=== PATIENT | male | born 1950 | race Caucasian/White ===

== ENCOUNTER 2016-06-02 18:58 | Inpatient (IN) | payer MEDICARE, BC ==
[~2016-06-02] VITALS: Ht 177.8 cm; Wt 93.9 kg
[~2016-06-02 18:58] MED LIST: AMLO5TAB4 PO; ASPI-664 PO; CLON-379 PO; GLIP5TAB82 PO; METF-382 PO; METO-429 PO; OMEP20CA16 PO
[2016-06-02] MEDS ORDERED: hydrALAzine 20 MG INJ IV ONE (20:00)
[2016-06-02] MEDS ORDERED: ALBUTEROL 0.5% (NEB) 2.5 MG/0.5 ML AMP INH STA (20:18)
[2016-06-02 20:22] LABS: ALBUMIN 4.1 g/dl (3.3-4.9); POTASSIUM 3.5 mmol/L (3.5-5.1)
[2016-06-02 20:25] LABS: ALBUMIN/GLOBULIN RATIO 1.1; BILIRUBIN,INDIRECT 1.1 mg/dl (0-1.1); BILIRUBIN,TOTAL 1.1 mg/dl (0.2-1.3); TOTAL PROTEIN 7.8 g/dl (6.1-8.1)
[2016-06-02 20:26] LABS: CALCIUM 9.4 mg/dl (8.4-10.2)
[2016-06-02] MEDS ORDERED: FUROSEMIDE 40 MG INJ IV ONE (20:30)
[2016-06-02] MEDS ORDERED: NITROGLYCERIN 0.1 MG/HR PATCH TRANSDERM ONE (20:30)
[2016-06-02 20:37] LABS: TROPONIN-I 0.057 ng/ml (0.00-0.12)
[2016-06-02 20:46] LABS: BASOPHILS % 0.2 % (0.0-2.0); EOSINOPHILS # 0.1 10^3/ul (0.0-0.5); EOSINOPHILS % 1.5 % (0.0-7.0); HEMATOCRIT 49.5 % (42.0-52.0); HEMOGLOBIN 16.6 g/dl (14.0-18.0); LYMPHOCYTES % 13.4 % (15.0-51.0); MEAN CORPUSCULAR HEMOGLOBIN 29.9 pg (29.0-33.0); MEAN CORPUSCULAR HGB CONC 33.4 g/dl (32.0-37.0); MEAN CORPUSCULAR VOLUME 89.5 fl (82.0-101.0); MEAN PLATELET VOLUME 8.3 fl (7.4-10.4); MONOCYTE # 0.9 10^3/ul (0.3-0.9); NEUTROPHIL # 5.5 10^3/ul (1.6-7.5); NEUTROPHILS % 72.9 % (39.0-77.0); PLATELET COUNT 208 10^3/UL (140-440); RED BLOOD COUNT 5.53 10^6/ul (4.70-6.10); RED CELL DISTRIBUTION WIDTH 15.5 % (11.5-14.5); UNCORRECTED WBC 7.5 10^3/ul (4.8-10.8); WHITE BLOOD COUNT 7.5 10^3/ul (4.8-10.8)
[2016-06-02 20:52] LABS: CONDITION 1
[2016-06-02 20:53] LABS: LH ANALYZER COMMENTS 1
[2016-06-02 20:56] LABS: INR 1.07; PROTIME 13.9 Sec (12.2-14.2); PT RATIO 1.1
[2016-06-02 20:57] LABS: PARTIAL THROMBOPLASTIN TIME 30.1 Sec (25.0-35.0)
--- NOTE | 2016-06-02 23:09 | ERA ---
ER Documentation Chief Complaint Date/Time DATE: 06/02/16 TIME: 23:04 Chief Complaint hypertension hx-htn taking bp meds, c/o headache and swelling feet HPI This is a 66-year-old male with a known history of congestive heart failure and hypertension. The patient presents to the emergency department today complaining of a 3 day history of severe difficulty breathing and shortness of breath with exertion. The patient states he is unable to walk more than several feet before becoming short of breath. He has had swelling of his bilateral lower extremities. He does admit to alcohol use but has not consumed alcohol in the past 24 hours. The patient indicates he took his blood pressure at home and it was elevated with a systolic of greater than 200 despite him being compliant with his antihypertensive medications. He was complaining of a mild bandlike headache with no changes in vision. He states this is not the worst headache of his life. He denies any fevers shaking or chills. He denies any recent travel or prolonged immobilization and no calf tenderness ROS All systems reviewed and are negative except as per history of present illness. Medications Home Meds Reported Medications Clonidine Hcl* (Clonidine Hcl*) 0.1 Mg Tab, 0.1 MG PO Q8, TAB 05/04/16 Omeprazole* (Omeprazole*) 20 Mg Capsule.dr, 20 MG PO DAILY, #30 CAP 05/04/16 Aspirin* (Aspirin* EC) 81 Mg Tablet.dr, 81 MG PO DAILY, TAB 05/04/16 Amlodipine Besylate* (Norvasc*) 5 Mg Tablet, 5 MG PO DAILY, TAB 05/04/16 Metoprolol Tartrate* (Lopressor*) 50 Mg Tab, 50 MG PO BID, #60 TAB 05/04/16 Allergies Allergies: Coded Allergies: No Known Allergies (Verified Allergy, Unknown, 06/02/16) PMhx/Soc History of Surgery: Yes (Crainiotomy) Anesthesia Reaction: No Hx Neurological Disorder: Yes (Stroke, brain aneurysm) Hx Respiratory Disorders: No Hx Cardiac Disorders: Yes (CHF) Hx Psychiatric Problems: No Hx Miscellaneous Medical Probl: Yes (Hyperlipidemia) Hx Alcohol Use: Yes (OCCASIONALLY) Hx Substance Use: No Hx Tobacco Use: Yes Smoking Status: Never smoker Physical Exam Vitals Vital Signs Date Time Temp Pulse Resp B/P Pulse Ox O2 Delivery O2 Flow Rate FiO2 06/02/16 20:54 74 20 168/118 95 Room Air 06/02/16 20:46 90 34 95 21 06/02/16 19:07 98.3 90 20 206/113 98 Physical Exam Constitutional:Well-developed. Well-nourished. In severe respiratory distress HEENT:Normocephalic. Atraumatic.Pupils were equal round reactive to light. Moist mucous membranes.No tonsillar exudates. Neck: No nuchal rigidity. No lymphadenopathy. No posterior cervical spine tenderness or step-offs. Respiratory: Patient using accessory muscles of respiration. Bilateral rhonchi. No stridor. No wheezing on auscultation bilaterally. Cardiovascular: Regular rate regular rhythm.No murmurs. No rubs were appreciated.S1, S2 normal. Distal pulses are palpable 2+ bilaterally. GI: Abdomen was soft. Nontender. Non Distended. No pulsatile abdominal masses or bruits. No rebound. No guarding. Bowel sounds were present and normal. Muscle skeletal: Full range of motion of both the upper and lower extremities bilaterally.Normal muscle tone.No assymetrical calf tenderness or swelling. 2+ pitting edema of the bilateral lower extremities Skin: No petechia, no purpura. No lesions on the palms or the soles of the feet. No maculopapular rash. NEURO: Patient was alert, awake, orientated x3.No facial droop. Gait observed and normal with no ataxia.Speech had regular rate and rhythm. No focal neurological deficits. Result Diagram: 06/02/16203806/02/161999 Results 24 hrs Laboratory Tests Test 06/02/16 20:00 06/02/16 20:39 06/02/16 21:00 Activated Partial Thromboplast Time 30.1Sec Alanine Aminotransferase (ALT/SGPT) 13IU/L Albumin 4.1g/dl Albumin/Globulin Ratio 1.10 Alkaline Phosphatase 139IU/L Anion Gap 17 Aspartate Amino Transf (AST/SGOT) 17IU/L B-Type Natriuretic Peptide 92130UP/ML Blood Urea Nitrogen 9mg/dl Calcium Level 9.4mg/dl Carbon Dioxide Level 28mmol/L Chloride Level 103mmol/L Creatinine 1.00mg/dl Direct Bilirubin 0.00mg/dl Globulin 3.70g/dl Glucose Level 157mg/dl INR International Normalized Ratio 1.07 Indirect Bilirubin 1.1mg/dl Potassium Level 3.5mmol/L Prothrombin Time 13.9Sec Prothrombin Time Ratio 1.1 Sodium Level 144mmol/L Total Bilirubin 1.1mg/dl Total Protein 7.8g/dl Troponin I 0.057ng/ml Basophils # 0.010^3/ul Basophils % 0.2% Blood Morphology Comment Eosinophils # 0.110^3/ul Eosinophils % 1.5% Hematocrit 49.5% Hemoglobin 16.6g/dl Lymphocytes # 1.010^3/ul Lymphocytes % 13.4% Mean Corpuscular Hemoglobin 29.9pg Mean Corpuscular Hemoglobin Concent 33.4g/dl Mean Corpuscular Volume 89.5fl Mean Platelet Volume 8.3fl Monocytes # 0.910^3/ul Monocytes % 12.0% Neutrophils # 5.510^3/ul Neutrophils % 72.9% Nucleated Red Blood Cells # 0.010^3/ul Nucleated Red Blood Cells % 0.0/100WBC Platelet Count 48467^3/UL Red Blood Count 5.5310^6/ul Red Cell Distribution Width 15.5% White Blood Count 7.510^3/ul Ethyl Alcohol Level < 10.0mg/dl Current Medications Medications (Trade) Dose Ordered Sig/Tavon Route PRN Reason Start Time Stop Time Status Last Admin Dose Admin Hydralazine HCl (Apresoline) 10 mg ONCE ONCE IV 06/02/16 20:00 06/02/16 20:01 DC 06/02/16 20:37 Furosemide (Lasix) 40 mg ONCE ONCE IV 06/02/16 20:30 06/02/16 20:31 DC 06/02/16 20:31 Nitroglycerin (Nitroglycerin 0.1 Mg/Hr) 1 patch ONCE ONCE TRANSDERM 06/02/16 20:30 06/02/16 20:31 DC 06/02/16 20:50 Albuterol (Proventil 0.5% (Neb)) 10 mg ONCE STAT INH 06/02/16 20:18 06/02/16 20:20 DC 06/02/16 20:46 Procedures/MDM The patient presented to the emergency department with shortness of breath. My differential diagnosis included but was not limited to upper airway obstruction , CHF, pulmonary embolism, cardiac ischemia, pneumonia, pneumothorax, anemia, drug overdose, pulmonary edema, COPD or asthma. IV access was established by nursing staff. The patient was adamantly refusing a chest radiograph despite his physical exam findings this he states he has had multiple previous chest radiographs, most recently 1 month prior to arrival. 12 Lead EKG tracing ordered and reviewed by myself showed: Normal sinus rhythm of 79 bpm and no arrhythmia. NM interval prolonged with first-degree AV block at 368 ms. Left axis deviation. QRS duration normal. No ST segment elevation No ST segment depression. No changes consistent with acute ischemia. This patient also presented to the emergency department with severely elevated blood pressure. My differential diagnosis included but was not limited to conditions that could end-organ damage such as acute coronary syndrome, acute pulmonary edema, aortic dissection, subarachnoid hemorrhage, intracerebral hemorrhage, cerebral infarction, withdrawal syndromes from beta blockers, or states of catecholamine excess such as pheochromocytoma or drug intoxication. The patient had uncontrolled hypertensive with end-organ damage to suggest hypertensive emergency. The treatment goal was immediate reduction of the mean arterial blood pressure. This was done in a controlled, graded manor, using improvement of the patient's condition as a guide. The patients blood pressure reduction did not exceed more then a 20-25 percent reduction within the first 30 to 60 minutes. The patient was put on a cardiac cath lab technologist, continuous pulse oximetry, and IV access was established by nursing staff. The antihypertensive agent used was IV hydralazine and the patient also received intravenous Lasix nitroglycerin and nebulizer treatments to treat his congestive heart failure. His serum ethanol level was undetected but there is no signs of alcohol withdrawal at this time or impending delirium tremors The patient will be admitted under the care of Dr. Tran seen in serious condition with an anticipated stay of greater than 2 midnights to the telemetry service. Critical Care: Time: 60 minutes Treatments/Evaluations: Close monitoring and treatment of unstable vital signs, cardiorespiratory, and neurologic status, while maintaining tight balance of fluid, respiratory, and cardiac interventions. Departure Diagnosis: Primary Impression: Hypertensive emergency Additional Impression: Acute exacerbation of congestive heart failure Qualified Code: I50.9 - Acute on chronic congestive heart failure, unspecified congestive heart failure type Condition: Serious KIMI GILLIAM Jun 02, 2016 23:09
[2016-06-03] VITALS (8 sets, daily range): BP systolic 139–160; BP diastolic 84–101; PULSE 54–61; RESP 18–20; TEMP 98.8; Ht 177.8 cm; Wt 93.9 kg
[2016-06-03] MEDS ORDERED: ONDANSETRON 4 MG TAB PO PRN (02:00)
[2016-06-03] MEDS ORDERED: NACL 0.9% 3 ML SYG IV SCH (02:00)
[2016-06-03] MEDS ORDERED: NITROGLYCERIN (SL) 0.4 MG TAB SL PRN (02:00)
[2016-06-03] MEDS ORDERED: ZOLPIDEM 5 MG TAB PO PRN (02:00)
[2016-06-03] MEDS ORDERED: LORAZEPAM 2 MG INJ IV PRN (02:00)
[2016-06-03] MEDS ORDERED: ACETAMINOPHEN 325 MG TAB PO PRN (02:00)
[2016-06-03] MEDS ORDERED: DOCUSATE SODIUM 100 MG CAP PO PRN (02:00)
[2016-06-03] MEDS ORDERED: CLONIDINE 0.1 MG/24 HR PATCH TRANSDERM SCH (02:00)
--- NOTE | 2016-06-03 02:17 | HP ---
Date/Time of Note Date/Time of Note DATE: 06/03/16 TIME: 02:16 Assessment/Plan VTE Prophylaxis VTE Prophylaxis Intervention: ambulation, anti-embolic stocking, LMWH VTE Contraindication Reason: peripheral vascular disease Lines/Catheters IV Catheter Type (from Nrsg): Peripheral IV Central line still needed: No Urinary Cath still in place: Yes Reason Cath still needed: urinary retention Assessment/Plan Assessment/Plan 1. Chronic systolic and diastolic congestive heart failure with acute exacerbation . 2. Cardiomyopathy with ejection fraction of 30%. 3. Hypertensive urgency. 4. Diabetes mellitus type 2. 5. Coronary artery disease with history of myocardial infarction. 6. History of cerebrovascular accident, status post craniotomy. 7. Ongoing alcohol use WITH PERIPHERIC NEUROPATHY,ENCEPHALOPTHY AND EARLY CIRRHOSIS. 8.Major depression 9.BPH 10.Nicotine addiction 11.Noncompliance to medications 12.Memory impairment 13.Sever muscular weakness 14.S/P recurrent falls 15.DIZZINESS 16.Daytime sleepiness 17.Gastritis with MUKUND 18.Chronic hypokalemia, hypomagnesemia,low iron and low vit "D" levels 19.PTSD 20.Respiratory insufficiency 21.Hx of c02 retention 22.Anemia chronic disease HPI/ROS Admit Date/Time Admit Date/Time Worsening of sob and increased edema of both legs. Hx of Present Illness Unable to control drinking and water intake with the salt intake. ROS Subjective hx not possible: pt critical status Constitutional: diaphoresis, disoriented, fatigue, nausea, poor po, weight change, No chills, No febrile, No improved, No no complaints, No other Eyes: visual change, No discharge, No no complaints, No other, No pain, No redness ENT: congestion, sore throat, No bleeding, No discharge, No dysphagia, No no complaints, No other, No pain Respiratory: cough, pleuritic pain, shortness of breath, sputum, wheezing, No no complaints, No other, No pain Cardiovascular: chest pain, edema, lightheadedness, orthopenea, paroxysmal nocturnal dyspnea, No no complaints, No other, No palpitations Gastrointestinal: constipation, decreased appetite, diarrhea, nausea, pain, passing stool, vomiting, No blood, No flatus, No no complaints, No other Genitourinary: dysuria, flank pain, No bleeding, No discharge, No hematuria, No no complaints, No other Musculoskeletal: back pain, bone/joint pain, neck pain, restricted range of motion, swelling, No no complaints, No other Skin: bruising, erythema, pruritis, skin lesions, No laceration, No no complaints, No other, No rash Neurologic: confusion, dizziness, No focal-weakness, No headache, No no complaints, No other, No seizure, No syncope Endocrine: dry skin, temp intolerance, weight change, No no complaints, No other, No polydypsia, No polyuria Lymphatic: No adenopathy, No lymphadema, No no complaints, No other, No tender nodes Psychological: anxiety, depression PMH/Family/Social Past Medical History Medical History: angina, congestive heart failure, coronary artery disease, diabetes, diverticulitis, GERD, GI bleed, high cholesterol, hypertension, pancreatitis Past Surgical History Past Surgical Hx: other Family History Significant Family History: asthma, COPD, diabetes, renal disease Social History Alcohol Use: heavy Smoking Status: Never smoker Drug Use: none Exam/Review of Systems Vital Signs Vitals Vital Signs Date Time Temp Pulse Resp B/P Pulse Ox O2 Delivery O2 Flow Rate FiO2 06/03/16 01:28 90 14 168/109 98 Nasal Cannula 3.0 06/02/16 20:46 21 06/02/16 19:07 98.3 Exam Constitutional: well developed Psych: anxiety, No confusion, No depression, No nl mood/affect, No no complaints, No other, No suicidal Head: No atraumatic, No hematomas, No lacerations, No normocephalic, No other Eyes: EOMI, PERRL, nl lids, other, No fundi, disc, No icteric, No nl conjunctiva, No nl sclera ENMT: nl nasal mucosa & septum, tympanic membranes, No intubated, No mucosa pink and moist, No nl external ears & nose, No nl lips & teeth, No other Neck: bruits, jvd, nuchal rigidity, No masses, No non-tender, No other, No supple, No thyromegaly Respiratory: congested cough, crackles/rales, diminished breath sounds, wheezing, No clear to auscultation, No intercostal retraction, No labored breathing, No normal air movement, No other, No respirations, No tactile fremitus Cardiovascular: bruits, edema, nl pulses, regular rate and rhythm, rub, systolic murmur, No S3, No S4, No diastolic murmur, No gallop, No irregular rhythm, No jugular venous distention (JVD), No murmurs/extra sounds, No other Gastrointestinal: ascites, distended, No bowel sounds, No firm, No hepatomegaly, No mass, No nl liver, spleen, No non-tender, No other, No rebound or guarding, No soft, No splenomegaly, No surgical scars, No tender Genitourinary - Male: CVA tenderness, No discharge, No nl penis, No nl scrotum , No other Genitourinary - Female: CVA tenderness, No CMT, No nl adnexae, No nl external genitalia, No other, No uterus Musculoskeletal: joint tenderness, muscle weakness Extremities: calf tenderness, normal pulses, pitting pedal edema, No clubbing, No cyanosis, No edema, No other, No palpable cord, No tenderness Neurological: FLOSSER II-XII intact, DTR's symmetric, confused, nl speech, numbness , unresponsive, No focal weakness, No lethargic, No nl mental status, No nl strength, No other, No reflexes Skin: diaphoresis, ecchymosis, rash or lesions, No laceration, No nl turgor, No other, No puncture Lymph: nl lymph nodes Labs Result Diagram: 06/02/16203806/02/161999 Medications Medications Current Medications Clonidine HCl (Catapres-Tts 1 Patch) 1 patch Th@02 TRANSDERM ; Start 06/03/16 at 02:00 Metoprolol Tartrate (Lopressor) 50 mg BID PO ; Start 06/03/16 at 02:00 ERIC GILLESPIE MD Jun 03, 2016 02:17
[2016-06-03] MEDS ORDERED: BUMETANIDE 1 MG INJ IV ONE (02:30)
[2016-06-03] MEDS ORDERED: GLUCOSE GEL 15 GRAM TUBE PO PRN ×2 (02:45)
[2016-06-03] MEDS ORDERED: DEXTROSE 50% 50 ML SYRINGE IV PRN ×2 (02:45)
[2016-06-03] MEDS ORDERED: GLUCOSE GEL 15 GRAM TUBE BUCCAL PRN (02:45)
[2016-06-03] MEDS ORDERED: GLUCAGON 1 MG INJ IM PRN (02:45)
[2016-06-03] MEDS: METOPROLOL 50 MG TAB PO SCH ×3 (03:28→23:17)
[2016-06-03] MEDS: AZITHROMYCIN 500MG/NS (PMX) 250 ML IV SCH (03:41)
[2016-06-03] MEDS: 1/2 NS + KCL 20 MEQ 1,000 ML IV SCH ×2 (03:41→18:14)
[2016-06-03] MEDS: ALBUTEROL/IPRATROPIUM (NEB) 3 ML AMP HHN SCH ×5 (04:53→20:33)
[2016-06-03] MEDS: IPRATROPIUM (NEB) 0.5 MG/2.5 ML AMP NEB SCH ×5 (04:53→21:00)
[2016-06-03 06:26] LABS: BASOPHILS % 0.5 % (0.0-2.0); EOSINOPHILS % 0.5 % (0.0-7.0); HEMATOCRIT 47.5 % (42.0-52.0); HEMOGLOBIN 16.2 g/dl (14.0-18.0); LYMPHOCYTES # 0.9 10^3/ul (0.8-2.9); LYMPHOCYTES % 9.8 % (15.0-51.0); MEAN CORPUSCULAR HEMOGLOBIN 29.9 pg (29.0-33.0); MEAN PLATELET VOLUME 8.5 fl (7.4-10.4); MONOCYTE # 0.8 10^3/ul (0.3-0.9); MONOCYTES % 8.7 % (0.0-11.0); NEUTROPHIL # 7.1 10^3/ul (1.6-7.5); NEUTROPHILS % 80.5 % (39.0-77.0); PLATELET COUNT 193 10^3/UL (140-440); RED CELL DISTRIBUTION WIDTH 15.4 % (11.5-14.5); UNCORRECTED WBC 8.9 10^3/ul (4.8-10.8); WHITE BLOOD COUNT 8.9 10^3/ul (4.8-10.8)
[2016-06-03] MEDS: PANTOPRAZOLE (EC) 40 MG TAB PO SCH (06:41)
[2016-06-03 06:44] LABS: CONDITION 1; LH ANALYZER COMMENTS 1
[2016-06-03 06:53] LABS: D-DIMER 583.91 ng/ml (<460)
[2016-06-03] MEDS ORDERED: NICOTINE (14 MG/24 HR) PATCH TRANSDERM SCH (09:00)
[2016-06-03] MEDS: ENOXAPARIN 30 MG/0.3 ML SYG SC SCH ×2 (09:00→09:13)
[2016-06-03] MEDS: VALSARTAN 80 MG TAB PO SCH (09:07)
[2016-06-03] MEDS: SPIRONOLACTONE 25 MG TAB PO SCH (09:07)
[2016-06-03] MEDS: ENALAPRIL 2.5 MG TAB PO SCH ×2 (09:07→21:01)
[2016-06-03] MEDS: METOLAZONE 2.5 MG TAB PO SCH (09:08)
[2016-06-03] MEDS: BUPROPION (SR) 150 MG TAB PO SCH (09:08)
[2016-06-03] MEDS: AL HYDROX/MG HYDROX/SIMETH 30 ML CUP PO SCH ×4 (09:12→21:01)
[2016-06-03] MEDS: ASPIRIN 81 MG TAB PO SCH (09:12)
[2016-06-03] MEDS: ARTIFICIAL TEARS 15 ML OPH BOTH EYES SCH ×3 (09:44→21:01)
--- NOTE | 2016-06-03 11:12 | PN ---
Date/Time of Note Date/Time of Note DATE: 06/03/16 TIME: 11:11 Assessment/Plan VTE Prophylaxis VTE Prophylaxis Intervention: ambulation, anti-embolic stocking VTE Contraindication Reason: peripheral vascular disease Lines/Catheters IV Catheter Type (from Nrsg): Peripheral IV Central line still needed: No Urinary Cath still in place: Yes Reason Cath still needed: urinary retention Assessment/Plan Assessment/Plan 1. No acute intracranial hemorrhage or acute territorial infarct. 2. As before there is right suboccipital craniectomy with encephalomalacia and atrophy of the right cerebellum. Again noted is CSF collection in this region which is decreased from the prior examination. 3. 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 4. Age related atrophy and mild small vessel ischemic change. 5. No interval change from the prior study Dysphagia Subjective 24 Hr Interval Summary Free Text/Dictation SOB getting better. When I eat or take my meds i feel they stay sometime in the throat and upper sternal level. No regurgitation. Constitutional: diaphoresis, disoriented, poor po, requiring O2, No chills, No febrile, No improved, No no complaints, No other, No requiring IVF Eyes: discharge, No no complaints, No other, No pain, No redness, No visual change ENT: congestion, dysphagia, sore throat, No bleeding, No discharge, No no complaints, No other, No pain Respiratory: cough, shortness of breath, No no complaints, No other, No pain, No pleuritic pain, No sputum, No wheezing Cardiovascular: edema, lightheadedness, orthopenea, palpitations, paroxysmal nocturnal dyspnea, No chest pain, No no complaints, No other Gastrointestinal: constipation, flatus, passing stool, No blood, No decreased appetite, No diarrhea, No nausea, No no complaints, No other, No pain, No vomiting Genitourinary: dysuria, flank pain, No bleeding, No discharge, No hematuria, No no complaints, No other Musculoskeletal: back pain, neck pain, No bone/joint pain, No no complaints, No other, No restricted range of motion , No swelling Skin: pruritis, No bruising, No erythema, No laceration, No no complaints, No other, No rash , No skin lesions Neurologic: confusion, dizziness, headache, No focal-weakness, No no complaints, No other, No seizure, No syncope Psychological: anxiety, confusion, depression, other (forgetful.) Exam/Review of Systems Vital Signs Vitals Vital Signs Date Time Temp Pulse Resp B/P Pulse Ox O2 Delivery O2 Flow Rate FiO2 06/03/16 10:03 59 20 95 Nasal Cannula 3.0 06/03/16 09:52 98.8 162/99 06/02/16 20:46 21 Exam Constitutional: alert, frail, obese, oriented, well developed Psych: anxiety, confusion, No depression, No nl mood/affect, No no complaints, No other, No suicidal Eyes: EOMI, PERRL, nl lids, No fundi, disc, No icteric, No nl conjunctiva, No nl sclera, No other ENMT: No intubated, No mucosa pink and moist, No nl external ears & nose, No nl lips & teeth, No nl nasal mucosa & septum, No other, No tympanic membranes Neck: bruits, jvd, nuchal rigidity, other (scar intact.) Respiratory: congested cough, diminished breath sounds, labored breathing, respirations, No clear to auscultation, No crackles/rales, No intercostal retraction, No normal air movement, No other, No tactile fremitus, No wheezing Cardiovascular: bruits, jugular venous distention (JVD), No S3, No S4, No diastolic murmur, No edema, No gallop, No irregular rhythm, No murmurs/extra sounds, No nl pulses, No other, No regular rate and rhythm, No rub, No systolic murmur Gastrointestinal: ascites, bowel sounds, soft, No distended, No firm, No hepatomegaly, No mass, No nl liver, spleen, No non- tender, No other, No rebound or guarding, No splenomegaly, No surgical scars, No tender Genitourinary - Male: nl penis, No CVA tenderness, No discharge, No nl scrotum , No other Musculoskeletal: joint tenderness, muscle tone, muscle weakness, range of motion, No nl extremities to inspection, No nl gait and stance, No other, No spine non-tender, No swelling Neurological: RETAIL ANALYST II-XII intact (decreased hearing.), confused, numbness, No DTR's symmetric, No focal weakness, No lethargic, No nl mental status, No nl speech, No nl strength, No other, No reflexes, No unresponsive Results Result Diagram: 06/03/16 0540 06/02/161999 Results 24 hrs Laboratory Tests Test 06/02/16 20:00 06/02/16 20:39 06/02/16 21:00 06/03/16 05:40 Activated Partial Thromboplast Time 30.1 Alanine Aminotransferase (ALT/SGPT) 13 Albumin 4.1 Albumin/Globulin Ratio 1.10 Alkaline Phosphatase 139 H Anion Gap 17 H Aspartate Amino Transf (AST/SGOT) 17 B-Type Natriuretic Peptide 28939 H Blood Urea Nitrogen 9 Calcium Level 9.4 Carbon Dioxide Level 28 Chloride Level 103 Creatinine 1.00 Direct Bilirubin 0.00 Globulin 3.70 H Glucose Level 157 INR International Normalized Ratio 1.07 Indirect Bilirubin 1.1 Potassium Level 3.5 Prothrombin Time 13.9 Prothrombin Time Ratio 1.1 Sodium Level 144 Total Bilirubin 1.1 Total Protein 7.8 Troponin I 0.057 Basophils # 0.0 0.0 Basophils % 0.2 0.5 Blood Morphology Comment Eosinophils # 0.1 0.0 Eosinophils % 1.5 0.5 Hematocrit 49.5 47.5 Hemoglobin 16.6 16.2 Lymphocytes # 1.0 0.9 Lymphocytes % 13.4 L 9.8 L Mean Corpuscular Hemoglobin 29.9 29.9 Mean Corpuscular Hemoglobin Concent 33.4 34.0 Mean Corpuscular Volume 89.5 88.0 Mean Platelet Volume 8.3 8.5 Monocytes # 0.9 0.8 Monocytes % 12.0 H 8.7 Neutrophils # 5.5 7.1 Neutrophils % 72.9 80.5 H Nucleated Red Blood Cells # 0.0 0.0 Nucleated Red Blood Cells % 0.0 0.0 Platelet Count 208 193 Red Blood Count 5.53 5.40 Red Cell Distribution Width 15.5 H 15.4 H White Blood Count 7.5 8.9 Ethyl Alcohol Level < 10.0 D-Dimer 583.91 H D-Dimer Comment Lactate Dehydrogenase 655 H Medications Medications Current Medications Clonidine HCl (Catapres-Tts 1 Patch) 1 patch Th@02 TRANSDERM Last administered on 06/03/16 03:29; Admin Dose 1 PATCH; Start 06/03/16 at 02:00 Metoprolol Tartrate 50 mg 50 mg BID PO Last administered on 06/03/16 09:12; Admin Dose 50 MG; Start 06/03/16 at 02:00 Potassium Chloride/Sodium Chloride (1/2 NS + KCl 20 Meq) 1,000 ml @ 60 mls/hr [id number] IV Last administered on 06/03/16 03:41; Admin Dose 60 MLS/HR; Start at 01:45; Stop 06/04/16 at 08:00 Lorazepam (Ativan) 0.5 mg Q6H PRN IV ANXIETY; Start 06/03/16 at 02:00 Ondansetron HCl (Zofran Tab) 4 mg Q6H PRN PO NAUSEA AND/OR VOMITING; Start 05/08 at 02:00 Aspirin (Aspirin) 81 mg DAILY PO Last administered on 06/03/16 09:12; Admin Dose 81 MG; Start 06/03/16 at 09:00 Metolazone (Zaroxolyn) 2.5 mg DAILY PO Last administered on 06/03/16 09:08; Admin Dose 2.5 MG; Start 06/03/16 at 09:00 Spironolactone (Aldactone) 12.5 mg DAILY PO Last administered on 06/03/16 09: 07; Admin Dose 12.5 MG; Start 06/03/16 at 09:00 Nitroglycerin (Nitroglycerin (Sl Tab) 0.4 Mg) 1 tab Q5M PRN SL CHEST PAIN; Start 06/03/16 at 02:00 Acetaminophen (Tylenol Tab) 650 mg Q6H PRN PO PAIN LEVEL 1-3 OR FEVER; Start at 02:00 Zolpidem Tartrate (Ambien) 5 mg QHS PRN PO INSOMNIA; Start 06/03/16 at 02:00 Docusate Sodium (Colace) 100 mg Q12H PRN PO CONSTIPATION; Start 06/03/16 at 02: 00 Magnesium Hydroxide (Milk Of Mag) 30 ml DAILY PRN PO CONSTIPATION; Start at 02:00 Pantoprazole (Protonix Tab) 40 mg DAILY@06 PO Last administered on 06/03/16 06 :41; Admin Dose 40 MG; Start 06/03/16 at 06:00 Eye Lubricant (Artificial Tears Oph) 1 drop TID BOTH EYES Last administered on 06/03/16 09:44; Admin Dose 1 DROP; Start 06/03/16 at 09:00 Enoxaparin Sodium 40 mg 40 mg DAILY SC ; Start 06/03/16 at 09:00 Azithromycin (Zithromax 500mg/ NS (Pmx)) 250 ml @ 250 mls/hr Q24H IV Last administered on 06/03/16 03:41; Admin Dose 250 MLS/HR; Start 06/03/16 at 03:00 Al Hydrox/Mg Hydrox/Simethicone (Mag-Al Plus) 30 ml QID PO Last administered on 06/03/16 09:12; Admin Dose 30 ML; Start 06/03/16 at 09:00 Enalapril Maleate (Vasotec) 2.5 mg BID PO Last administered on 06/03/16 09:07 ; Admin Dose 2.5 MG; Start 06/03/16 at 09:00 Valsartan (Diovan) 80 mg DAILY PO Last administered on 06/03/16 09:07; Admin Dose 80 MG; Start 06/03/16 at 09:00 Carvedilol (Coreg) 3.125 mg BID PO Last administered on 06/03/16 09:08; Admin Dose 3.125 MG; Start 06/03/16 at 09:00 Nicotine (Nicoderm 14 Mg/ 24hr) 1 patch DAILY TRANSDERM Last administered on 09:44; Admin Dose 1 PATCH; Start 06/03/16 at 09:00; Stop 06/17/16 at 08: 59 Bupropion HCl (Wellbutrin Sr) 150 mg DAILY PO Last administered on 06/03/16 09 :08; Admin Dose 150 MG; Start 06/03/16 at 09:00; Stop 06/06/16 at 08:59 Miscellaneous Information 1 ea NOTE XX ; Start 06/03/16 at 02:45 Glucose (Glutose) 15 gm Q15M PRN PO DECREASED GLUCOSE; Start 06/03/16 at 02:45 Glucose (Glutose) 22.5 gm Q15M PRN PO DECREASED GLUCOSE; Start 06/03/16 at 02: 45 Dextrose (D50w Syringe) 25 ml Q15M PRN IV DECREASED GLUCOSE; Start 06/03/16 at 02:45 Dextrose (D50w Syringe) 50 ml Q15M PRN IV DECREASED GLUCOSE; Start 06/03/16 at 02:45 Glucagon (Glucagen) 1 mg Q15M PRN IM DECREASED GLUCOSE; Start 06/03/16 at 02:45 Glucose (Glutose) 15 gm Q15M PRN BUCCAL DECREASED GLUCOSE; Start 06/03/16 at 02 :45 ERIC GILLESPIE MD Jun 03, 2016 11:12
[2016-06-03] MEDS: MAGNESIUM HYDROXIDE 30ML CUP PO PRN ×2 (12:15→12:29)
[2016-06-03] MEDS ORDERED: FUROSEMIDE 40 MG INJ IV ONE (12:30)
[2016-06-03 12:31] LABS: ALBUMIN 3.4 g/dl (3.3-4.9)
[2016-06-03 12:32] LABS: POTASSIUM 3.5 mmol/L (3.5-5.1)
[2016-06-03 12:34] LABS: ALBUMIN/GLOBULIN RATIO 1.09; BILIRUBIN,INDIRECT 1.6 mg/dl (0-1.1); BILIRUBIN,TOTAL 1.6 mg/dl (0.2-1.3); CREATININE 1.01 mg/dl (0.61-1.24); TOTAL PROTEIN 6.5 g/dl (6.1-8.1)
[2016-06-03 12:35] LABS: CALCIUM 8.7 mg/dl (8.4-10.2); MAGNESIUM 1.7 mg/dl (1.7-2.5)
[2016-06-03] MEDS: POTASSIUM CHLORIDE (SR) 20 MEQ TAB PO SCH (12:55)
[2016-06-03] MEDS: INSULIN ASPART [NOVOLOG] 3 ML PEN SC SCH ×2 (17:17→20:20)
[2016-06-04] VITALS (19 sets, daily range): BP systolic 129–158; BP diastolic 77–103; PULSE 30–102; RESP 16–20
[2016-06-04] MEDS: IPRATROPIUM (NEB) 0.5 MG/2.5 ML AMP NEB SCH ×6 (01:00→21:00)
[2016-06-04] MEDS: 1/2 NS + KCL 20 MEQ 1,000 ML IV SCH (01:03)
[2016-06-04] MEDS: ALBUTEROL/IPRATROPIUM (NEB) 3 ML AMP HHN SCH ×6 (01:36→20:07)
[2016-06-04] MEDS: ACCUCHECK XX SCH (02:00)
[2016-06-04] MEDS: AZITHROMYCIN 500MG/NS (PMX) 250 ML IV SCH (03:06)
[2016-06-04] MEDS: PANTOPRAZOLE (EC) 40 MG TAB PO SCH (06:02)
[2016-06-04] MEDS: BUPROPION (SR) 150 MG TAB PO SCH (08:56)
[2016-06-04] MEDS: ASPIRIN 81 MG TAB PO SCH (08:57)
[2016-06-04] MEDS: VALSARTAN 80 MG TAB PO SCH (08:57)
[2016-06-04] MEDS: ENALAPRIL 2.5 MG TAB PO SCH ×2 (08:57→20:33)
[2016-06-04] MEDS: POTASSIUM CHLORIDE (SR) 20 MEQ TAB PO SCH (08:57)
[2016-06-04] MEDS: SPIRONOLACTONE 25 MG TAB PO SCH (08:59)
[2016-06-04] MEDS: METOLAZONE 2.5 MG TAB PO SCH (08:59)
[2016-06-04] MEDS: AL HYDROX/MG HYDROX/SIMETH 30 ML CUP PO SCH ×4 (08:59→20:38)
[2016-06-04] MEDS: METOPROLOL 50 MG TAB PO SCH ×2 (08:59→21:00)
[2016-06-04] MEDS: ARTIFICIAL TEARS 15 ML OPH BOTH EYES SCH ×3 (09:00→20:32)
[2016-06-04] MEDS: ENOXAPARIN 40 MG/0.4 ML SYG SC SCH (09:00)
[2016-06-04] MEDS: INSULIN ASPART [NOVOLOG] 3 ML PEN SC SCH ×4 (09:03→20:37)
[2016-06-04 09:32] LABS: BARBITURATES Negative (NEGATIVE); BENZODIAZEPINES Negative (NEGATIVE); CANNABINOIDS Negative (NEGATIVE); COCAINE Negative (NEGATIVE); OPIATES Negative (NEGATIVE)
--- NOTE | 2016-06-04 10:00 | PDOCDIS ---
Discharge Instructions CONDITION Patient Condition: Fair HOME CARE INSTRUCTIONS: Special Diet: low fat/chol ACTIVITY: Activity Restrictions: Slowly Increase Activity Avoid heavy lifting Avoid Heavy Housework No Weight Bearing Bathing Restrictions: Tub Bath FOLLOW UP/APPOINTMENTS Appointments F/U to in 5 days. ERIC GILLESPIE MD Jun 04, 2016 10:00
--- NOTE | 2016-06-04 10:04 | DS ---
Date/Time of Note Date/Time of Note DATE: 06/04/16 TIME: 10:03 Discharge Summary Admission/Discharge Info Admit Date/Time Jun 03, 2016 at 01:31 Discharge Date/Time Final Diagnosis 1. Chronic systolic and diastolic congestive heart failure with acute exacerbation . 2. Cardiomyopathy with ejection fraction of 30%. 3. Hypertensive urgency. 4. Diabetes mellitus type 2. 5. Coronary artery disease with history of myocardial infarction. 6. History of cerebrovascular accident, status post craniotomy. 7. Ongoing alcohol use WITH PERIPHERIC NEUROPATHY,ENCEPHALOPTHY AND EARLY CIRRHOSIS. 8.Major depression 9.BPH 10.Nicotine addiction 11.Noncompliance to medications 12.Memory impairment 13.Sever muscular weakness 14.S/P recurrent falls 15.DIZZINESS 16.Daytime sleepiness 17.Gastritis with MUKUND 18.Chronic hypokalemia, hypomagnesemia,low iron and low vit "D" levels 19.PTSD 20.Respiratory insufficiency 21.Hx of c02 retention 22.Anemia chronic disease Patient Condition: Fair Hx of Present Illness Unable to control drinking and water intake with the salt intake. Hospital Course Developed hematuria with cloths of blood after pulling out Hooker.Improving. Home Meds Reported Medications Clonidine Hcl* (Clonidine Hcl*) 0.1 Mg Tab, 0.1 MG PO Q8, TAB 05/04/16 Omeprazole* (Omeprazole*) 20 Mg Capsule.dr, 20 MG PO DAILY, #30 CAP 05/04/16 Aspirin* (Aspirin* EC) 81 Mg Tablet.dr, 81 MG PO DAILY, TAB 05/04/16 Amlodipine Besylate* (Norvasc*) 5 Mg Tablet, 5 MG PO DAILY, TAB 05/04/16 Metoprolol Tartrate* (Lopressor*) 50 Mg Tab, 50 MG PO BID, #60 TAB 05/04/16 Follow-up Plan F/U to in 5 days. Pending Labs Laboratory Tests Test 06/03/16 12:05 06/03/16 16:50 06/03/16 19:59 06/04/16 05:00 Alanine Aminotransferase (ALT/SGPT) 15IU/L (13-69) Albumin 3.4g/dl (3.3-4.9) Albumin/Globulin Ratio 1.09 Alkaline Phosphatase 116IU/L (42-121) Anion Gap 17 (8-16) Aspartate Amino Transf (AST/SGOT) 14IU/L (15-46) Blood Urea Nitrogen 10mg/dl (7-20) Calcium Level 8.7mg/dl (8.4-10.2) Carbon Dioxide Level 27mmol/L (21-31) Chloride Level 103mmol/L (97-110) Creatinine 1.01mg/dl (0.61-1.24) Direct Bilirubin 0.00mg/dl (0.00-0.20) Globulin 3.10g/dl (1.3-3.2) Glucose Level 213mg/dl (70-220) Indirect Bilirubin 1.6mg/dl (0-1.1) Magnesium Level 1.7mg/dl (1.7-2.5) Potassium Level 3.5mmol/L (3.5-5.1) Sodium Level 143mmol/L (135-144) Total Bilirubin 1.6mg/dl (0.2-1.3) Total Protein 6.5g/dl (6.1-8.1) Bedside Glucose 205mg/dL (70-220) 165mg/dL (70-220) Urine Amphetamines Screen Negative (NEGATIVE) Urine Barbiturates Negative (NEGATIVE) Urine Benzodiazepines Screen Negative (NEGATIVE) Urine Cannabinoids Negative (NEGATIVE) Urine Cocaine Screen Negative (NEGATIVE) Urine Opiates Screen Negative (NEGATIVE) Test 06/04/16 07:45 Bedside Glucose 170mg/dL (70-220) Microbiology Date/Time Source Procedure Growth Status 06/03/16 18:32 Nares MRSA Screen - Preliminary Screening in process Resulted ERIC GILLESPIE MD Jun 04, 2016 10:04
[2016-06-04 16:50] LABS: BASOPHILS % 0.3 % (0.0-2.0); EOSINOPHILS # 0.2 10^3/ul (0.0-0.5); EOSINOPHILS % 2.1 % (0.0-7.0); HEMATOCRIT 48.5 % (42.0-52.0); HEMOGLOBIN 16.1 g/dl (14.0-18.0); LYMPHOCYTES # 0.9 10^3/ul (0.8-2.9); LYMPHOCYTES % 11.8 % (15.0-51.0); MEAN CORPUSCULAR HEMOGLOBIN 29.8 pg (29.0-33.0); MEAN CORPUSCULAR HGB CONC 33.2 g/dl (32.0-37.0); MEAN CORPUSCULAR VOLUME 89.8 fl (82.0-101.0); MEAN PLATELET VOLUME 8.8 fl (7.4-10.4); MONOCYTE # 0.7 10^3/ul (0.3-0.9); MONOCYTES % 8.4 % (0.0-11.0); NEUTROPHILS % 77.4 % (39.0-77.0); PLATELET COUNT 208 10^3/UL (140-440); RED CELL DISTRIBUTION WIDTH 15.2 % (11.5-14.5); UNCORRECTED WBC 7.8 10^3/ul (4.8-10.8); WHITE BLOOD COUNT 7.8 10^3/ul (4.8-10.8)
[2016-06-04 16:57] LABS: CONDITION 1; LH ANALYZER COMMENTS 1
[2016-06-04 17:09] LABS: ALBUMIN 3.5 g/dl (3.3-4.9)
[2016-06-04 17:10] LABS: POTASSIUM 3.7 mmol/L (3.5-5.1)
[2016-06-04 17:12] LABS: ALBUMIN/GLOBULIN RATIO 1.02; BILIRUBIN,INDIRECT 1.4 mg/dl (0-1.1); BILIRUBIN,TOTAL 1.4 mg/dl (0.2-1.3); CREATININE 1.2 mg/dl (0.61-1.24); TOTAL PROTEIN 6.9 g/dl (6.1-8.1)
[2016-06-04 17:13] LABS: CALCIUM 9.4 mg/dl (8.4-10.2); MAGNESIUM 2.2 mg/dl (1.7-2.5)
[2016-06-04 18:24] LABS: THYROID STIMULATING HORMONE 0.907 MIU/L (0.465-4.680)
[2016-06-05] VITALS (13 sets, daily range): BP systolic 138–157; BP diastolic 78–98; PULSE 40–61; RESP 18–20
[2016-06-05] MEDS: ALBUTEROL/IPRATROPIUM (NEB) 3 ML AMP HHN SCH ×7 (01:00→21:47)
[2016-06-05] MEDS: IPRATROPIUM (NEB) 0.5 MG/2.5 ML AMP NEB SCH ×8 (01:00→21:48)
[2016-06-05] MEDS: ACCUCHECK XX SCH (02:08)
[2016-06-05] MEDS: AZITHROMYCIN 500MG/NS (PMX) 250 ML IV SCH (02:08)
[2016-06-05] MEDS: PANTOPRAZOLE (EC) 40 MG TAB PO SCH (05:57)
[2016-06-05] MEDS: METOPROLOL 50 MG TAB PO SCH ×2 (08:19→21:00)
[2016-06-05] MEDS: ENALAPRIL 2.5 MG TAB PO SCH ×2 (08:20→21:00)
[2016-06-05] MEDS: ASPIRIN 81 MG TAB PO SCH (08:28)
[2016-06-05] MEDS: ARTIFICIAL TEARS 15 ML OPH BOTH EYES SCH ×3 (08:28→21:34)
[2016-06-05] MEDS: BUPROPION (SR) 150 MG TAB PO SCH (08:28)
[2016-06-05] MEDS: INSULIN ASPART [NOVOLOG] 3 ML PEN SC SCH ×4 (08:28→21:00)
[2016-06-05] MEDS: POTASSIUM CHLORIDE (SR) 20 MEQ TAB PO SCH (08:29)
[2016-06-05] MEDS: METOLAZONE 2.5 MG TAB PO SCH (08:29)
[2016-06-05] MEDS: AL HYDROX/MG HYDROX/SIMETH 30 ML CUP PO SCH ×4 (08:30→21:00)
[2016-06-05] MEDS: VALSARTAN 80 MG TAB PO SCH (08:31)
[2016-06-05] MEDS: SPIRONOLACTONE 25 MG TAB PO SCH (08:32)
[2016-06-05] MEDS: ENOXAPARIN 40 MG/0.4 ML SYG SC SCH (08:34)
--- NOTE | 2016-06-05 16:48 | CONS ---
DATE OF ADMISSION: 06/03/2016 DATE OF CONSULTATION: 06/05/2016 REQUESTING PHYSICIAN: Dr. Camacho. Dear Dr. Camacho, Thank you for asking me to see this patient in urological consultation. This is a 66-year-old male who was admitted to the hospital because of shortness of breath and incre ased edema of both legs and patient has been managed and he had an indwelling Hooker catheter. Appar ently, yesterday he accidentally pulled the catheter out, causing him to have urethral bleeding. Th erefore, a urological consultation was requested. Since then, he had a condom catheter placed. The patient has an extensive past medical history that includes a history of cardiomyopathy with ejecti on fraction of 30%, history of chronic systolic and diastolic congestive heart failure, history of h ypertension, diabetes mellitus type 2, history of cerebrovascular accident, status post craniotomy i n 2014. The patient does have a history of peripheral neuropathy and encephalopathy with early cir rhosis. He has a history of alcohol and tobacco abuse and benign prostatic hypertrophy, depression, gastritis with gastroesophageal reflux disease, and history of anemia. MEDICATIONS: At the present time, he is on: 1. Lovenox. 2. Insulin. 3. Aspirin. 4. Metolazone. 5. Aldactone. 6. Vasotec. 7 . Diovan. 8. Carvedilol. 9. Wellbutrin. 10. Protonix. 11. Ipratropium and albuterol. 12. Ipratropium bromide. 13. Azithromycin. 14. Clonidine patches. 15. Metoprolol 50 mg twice a day. 16. Lorazepam p.r.n. 17. Zofran p.r.n. 18. Nitroglycerin p.r.n. 19. Ambien p.r.n. 20. Colace p.r.n. 21. Milk of magnesia p.r.n. PHYSICAL EXAMINATION: GENERAL: Reveals an elderly male. He weighs 93.9 kilograms. He is 70 inches tall. VITAL SIGNS: Temperature is 97.9, the pulse is 49, respirations 19, blood pressure 143/78. ABDOMEN: Soft. Bladder is not distended. EXTERNAL GENITALIA: He does have a condom catheter through which he has been urinating and the urin e in the tubing, which is the most recent voided urine, is clear. LABORATORY DATA: His CBC shows a white count of 7.8, hemoglobin 16.1, hematocrit 48.5. The BUN is 20, creatinine 1.2, sodium 139, potassium 3.7, chloride 96, CO2 32. Blood cultures at the time of a dmission showed gram-positive cocci. IMPRESSION: Traumatic gross hematuria from the patient pulling out his Hooker catheter accidentally. However, the patient has voided since the catheter was pulled out and gradually initially the urin e was bloody, but now it has cleared and his bladder does not seem to be distended. Therefore, the plan is to discharge him. He may be discharged without a catheter as he has been able to urinate o n his own. Dictated By: TRANG LYLE/ALIE Conf#: [id number] DID#: [id number]
--- NOTE | 2016-06-05 19:15 | PN ---
Date/Time of Note Date/Time of Note DATE: 06/05/16 TIME: 18:54 Assessment/Plan VTE Prophylaxis VTE Prophylaxis Intervention: ambulation, anti-embolic stocking VTE Contraindication Reason: peripheral vascular disease Lines/Catheters IV Catheter Type (from Nrsg): Saline Lock Central line still needed: No Urinary Cath still in place: No Reason Cath still needed: urinary retention Assessment/Plan Chief Complaint/Hosp Course 1.Hematuria due to of traumatized ureter. 2. Cardiomyopathy with ejection fraction of 30%. Chronic systolic and diastolic congestive heart failure with acute exacerbation . 3. Hypertensive urgency. 4. Diabetes mellitus type 2. 5. Coronary artery disease with history of myocardial infarction. 6. History of cerebrovascular accident, status post craniotomy. 7. Ongoing alcohol use WITH PERIPHERIC NEUROPATHY,ENCEPHALOPTHY AND EARLY CIRRHOSIS. 8.Major depression 9.BPH 10.Nicotine addiction 11.Noncompliance to medications 12.Memory impairment 13.Sever muscular weakness 14.S/P recurrent falls 15.DIZZINESS 16.Daytime sleepiness 17.Gastritis with MUKUND 18.Chronic hypokalemia, hypomagnesemia,low iron and low vit "D" levels 19.PTSD 20.Respiratory insufficiency 21.Hx of c02 retention 22.Anemia chronic disease Problems: Cont'd Hospitalization Reason: hematuria. Subjective 24 Hr Interval Summary Free Text/Dictation Less blood. Yesterday I had a cloth in my urine. Today no cloths. Constitutional: chills, poor po, requiring O2, No diaphoresis, No disoriented, No febrile, No improved, No no complaints, No other, No requiring IVF Eyes: redness, No discharge, No no complaints, No other, No pain, No visual change ENT: dysphagia, sore throat, No bleeding, No congestion, No discharge, No no complaints, No other, No pain Respiratory: cough, pleuritic pain, shortness of breath, No no complaints, No other, No pain, No sputum, No wheezing Cardiovascular: chest pain, lightheadedness, No edema, No no complaints, No orthopenea, No other, No palpitations, No paroxysmal nocturnal dyspnea Gastrointestinal: constipation, decreased appetite, flatus, pain, passing stool , No blood, No diarrhea, No nausea, No no complaints, No other, No vomiting Genitourinary: bleeding, hematuria, No discharge, No dysuria, No flank pain, No no complaints, No other Neurologic: dizziness, No confusion, No focal-weakness, No headache, No no complaints, No other, No seizure, No syncope Endocrine: polydypsia, polyuria, No dry skin, No no complaints, No other, No temp intolerance Lymphatic: No adenopathy, No lymphadema, No no complaints, No other, No tender nodes Exam/Review of Systems Vital Signs Vitals Vital Signs Date Time Temp Pulse Resp B/P Pulse Ox O2 Delivery O2 Flow Rate FiO2 06/05/16 16:04 57 06/05/16 15:46 98.3 19 155/98 96 06/05/16 08:50 Nasal Cannula 3.0 06/04/16 17:28 21 Intake and Output 06/04/16 06/04/16 06/05/16 15:00 23:00 07:00 Intake Total 1080 ml 450 ml Output Total 550 ml 550 ml Balance 530 ml -100 ml Exam Constitutional: alert, distress, frail, oriented, well developed, No non-verbal, No obese, No other Psych: anxiety, depression, No confusion, No nl mood/affect, No no complaints, No other, No suicidal Head: atraumatic, No hematomas, No lacerations, No normocephalic, No other Eyes: EOMI, PERRL, No fundi, disc, No icteric, No nl conjunctiva, No nl lids, No nl sclera, No other ENMT: nl nasal mucosa & septum, No intubated, No mucosa pink and moist, No nl external ears & nose, No nl lips & teeth, No other, No tympanic membranes Neck: bruits, jvd, non-tender, nuchal rigidity, other (scar is intact.), No masses, No supple, No thyromegaly Respiratory: congested cough, diminished breath sounds, No clear to auscultation, No crackles/rales, No intercostal retraction, No labored breathing, No normal air movement, No other, No respirations, No tactile fremitus, No wheezing Cardiovascular: edema, jugular venous distention (JVD), systolic murmur, No S3, No S4, No bruits, No diastolic murmur, No gallop, No irregular rhythm , No murmurs/extra sounds, No nl pulses, No other, No regular rate and rhythm, No rub Gastrointestinal: bowel sounds, distended, No ascites, No firm, No hepatomegaly, No mass, No nl liver, spleen, No non- tender, No other, No rebound or guarding, No soft, No splenomegaly, No surgical scars, No tender Musculoskeletal: joint tenderness, nl gait and stance (unstable. Become dizzy.) Neurological: lethargic, nl speech, No MANAGER BUSINESS PROCESS II-XII intact, No DTR's symmetric, No confused, No focal weakness, No nl mental status, No nl strength, No numbness, No other, No reflexes, No unresponsive Results Result Diagram: 06/04/16 1610 06/04/16 1610 Results 24 hrs Laboratory Tests Test 06/04/16 20:30 06/05/16 02:09 06/05/16 08:15 06/05/16 12:32 Bedside Glucose 193 175 166 217 Test 06/05/16 18:15 Bedside Glucose 203 Medications Medications Current Medications Clonidine HCl (Catapres-Tts 1 Patch) 1 patch Th@02 TRANSDERM Last administered on 06/03/16 03:29; Admin Dose 1 PATCH; Start 06/03/16 at 02:00 Metoprolol Tartrate (Lopressor) 50 mg BID PO Last administered on 06/04/16 08: 59; Admin Dose 50 MG; Start 06/03/16 at 02:00 Lorazepam (Ativan) 0.5 mg Q6H PRN IV ANXIETY; Start 06/03/16 at 02:00 Ondansetron HCl (Zofran Tab) 4 mg Q6H PRN PO NAUSEA AND/OR VOMITING; Start 05/08 at 02:00 Aspirin (Aspirin) 81 mg DAILY PO Last administered on 06/05/16 08:28; Admin Dose 81 MG; Start 06/03/16 at 09:00 Metolazone (Zaroxolyn) 2.5 mg DAILY PO Last administered on 06/05/16 08:29; Admin Dose 2.5 MG; Start 06/03/16 at 09:00 Spironolactone (Aldactone) 12.5 mg DAILY PO Last administered on 06/05/16 08: 32; Admin Dose 12.5 MG; Start 06/03/16 at 09:00 Nitroglycerin (Nitroglycerin (Sl Tab) 0.4 Mg) 1 tab Q5M PRN SL CHEST PAIN; Start 06/03/16 at 02:00 Acetaminophen (Tylenol Tab) 650 mg Q6H PRN PO PAIN LEVEL 1-3 OR FEVER; Start at 02:00 Zolpidem Tartrate (Ambien) 5 mg QHS PRN PO INSOMNIA; Start 06/03/16 at 02:00 Docusate Sodium (Colace) 100 mg Q12H PRN PO CONSTIPATION; Start 06/03/16 at 02: 00 Magnesium Hydroxide (Milk Of Mag) 30 ml DAILY PRN PO CONSTIPATION Last administered on 06/03/16 12:29; Admin Dose 30 ML; Start 06/03/16 at 02:00 Pantoprazole (Protonix Tab) 40 mg DAILY@06 PO Last administered on 06/05/16 05 :57; Admin Dose 40 MG; Start 06/03/16 at 06:00 Eye Lubricant 1 drop 1 drop TID BOTH EYES Last administered on 06/05/16 08:28 ; Admin Dose 1 DROP; Start 06/03/16 at 09:00 Azithromycin (Zithromax 500mg/ NS (Pmx)) 250 ml @ 250 mls/hr Q24H IV Last administered on 06/05/16 02:08; Admin Dose 250 MLS/HR; Start 06/03/16 at 03:00 Al Hydrox/Mg Hydrox/Simethicone (Mag-Al Plus) 30 ml QID PO Last administered on 06/04/16 08:59; Admin Dose 30 ML; Start 06/03/16 at 09:00 Enalapril Maleate (Vasotec) 2.5 mg BID PO Last administered on 06/04/16 20:33 ; Admin Dose 2.5 MG; Start 06/03/16 at 09:00 Valsartan (Diovan) 80 mg DAILY PO Last administered on 06/05/16 08:31; Admin Dose 80 MG; Start 06/03/16 at 09:00 Carvedilol (Coreg) 3.125 mg BID PO Last administered on 06/04/16 20:33; Admin Dose 3.125 MG; Start 06/03/16 at 09:00 Bupropion HCl (Wellbutrin Sr) 150 mg DAILY PO Last administered on 06/05/16 08 :28; Admin Dose 150 MG; Start 06/03/16 at 09:00; Stop 06/06/16 at 08:59 Miscellaneous Information 1 ea NOTE XX ; Start 06/03/16 at 02:45 Glucose (Glutose) 15 gm Q15M PRN PO DECREASED GLUCOSE; Start 06/03/16 at 02:45 Glucose (Glutose) 22.5 gm Q15M PRN PO DECREASED GLUCOSE; Start 06/03/16 at 02: 45 Dextrose (D50w Syringe) 25 ml Q15M PRN IV DECREASED GLUCOSE; Start 06/03/16 at 02:45 Dextrose (D50w Syringe) 50 ml Q15M PRN IV DECREASED GLUCOSE; Start 06/03/16 at 02:45 Glucagon (Glucagen) 1 mg Q15M PRN IM DECREASED GLUCOSE; Start 06/03/16 at 02:45 Glucose (Glutose) 15 gm Q15M PRN BUCCAL DECREASED GLUCOSE; Start 06/03/16 at 02 :45 Diagnostic Test (Pha) (Accucheck) 1 ea 02 XX Last administered on 06/05/16t 02: 08; Admin Dose 1 EA; Start 06/04/16 at 02:00 Enoxaparin Sodium (Lovenox) 40 mg DAILY SC ; Start 06/04/16 at 09:00 ERIC GILLESPIE MD Jun 05, 2016 19:04
[2016-06-06] VITALS (9 sets, daily range): BP systolic 145–155; BP diastolic 88–98; PULSE 46–56; RESP 19–20
[2016-06-06] MEDS: ACCUCHECK XX SCH (02:00)
[2016-06-06] MEDS: AZITHROMYCIN 500MG/NS (PMX) 250 ML IV SCH (04:00)
[2016-06-06] MEDS: PANTOPRAZOLE (EC) 40 MG TAB PO SCH (05:34)
[2016-06-06] MEDS: INSULIN ASPART [NOVOLOG] 3 ML PEN SC SCH ×3 (07:37→17:04)
[2016-06-06] MEDS: ARTIFICIAL TEARS 15 ML OPH BOTH EYES SCH ×2 (08:25→12:31)
[2016-06-06] MEDS: VALSARTAN 80 MG TAB PO SCH (08:28)
[2016-06-06] MEDS: METOLAZONE 2.5 MG TAB PO SCH (08:28)
[2016-06-06] MEDS: ASPIRIN 81 MG TAB PO SCH (08:28)
[2016-06-06] MEDS: ENOXAPARIN 40 MG/0.4 ML SYG SC SCH (08:28)
[2016-06-06] MEDS: SPIRONOLACTONE 25 MG TAB PO SCH (08:29)
[2016-06-06] MEDS: ENALAPRIL 2.5 MG TAB PO SCH (08:29)
[2016-06-06] MEDS: METOPROLOL 50 MG TAB PO SCH (08:30)
[2016-06-06] MEDS: AL HYDROX/MG HYDROX/SIMETH 30 ML CUP PO SCH ×3 (08:32→17:00)
[2016-06-06] MEDS: ALBUTEROL/IPRATROPIUM (NEB) 3 ML AMP HHN SCH ×3 (08:42→17:00)
[2016-06-06] MEDS: IPRATROPIUM (NEB) 0.5 MG/2.5 ML AMP NEB SCH ×3 (09:00→17:00)
--- NOTE | 2016-06-06 19:15 | PN ---
DATE: 06/06/2016 SUBJECTIVE: Gross hematuria after pulling the Hooker catheter accidentally by the patient. The tomás ent states that he has been voiding and, this morning, his urine was bloody. However, after that he urinated 3 times and the urine was clear. OBJECTIVE: VITAL SIGNS: His temperature is 98.3, pulse is 47, respiration 19, blood pressure 145/93. ABDOMEN: Soft. There is no tenderness and the bladder is not distended. External genitalia are no rmal. LABORATORY DATA: The last CBC showed a white count of 7.8, hemoglobin 16.1. IMPRESSION: Gross hematuria, traumatic, and that is subsiding. It will clear and gradually. The p atadilia is able to urinate on his own. If the plan is to send him home, I think he could go home. H e may have bleeding another time, but eventually and gradually the bleeding will stop and no need fo r intervention. Dictated By: TRANG SETHI MD BB/ALIE Conf#: [id number] DID#: [id number] CC: ERIC GILLESPIE MD;*EndCC*
--- NOTE | 2016-06-06 20:10 | PN ---
Date/Time of Note Date/Time of Note DATE: 06/06/16 TIME: 20:06 Assessment/Plan VTE Prophylaxis VTE Prophylaxis Intervention: ambulation, anti-embolic stocking VTE Contraindication Reason: peripheral vascular disease Lines/Catheters IV Catheter Type (from Nrsg): Saline Lock Central line still needed: No Urinary Cath still in place: No Assessment/Plan Chief Complaint/Hosp Course 1.Hematuria due to of traumatized ureter-stopped. 2. Cardiomyopathy with ejection fraction of 30%. Chronic systolic and diastolic congestive heart failure with acute exacerbation . 3. Hypertensive urgency. 4. Diabetes mellitus type 2. 5. Coronary artery disease with history of myocardial infarction. 6. History of cerebrovascular accident, status post craniotomy. 7. Ongoing alcohol use WITH PERIPHERIC NEUROPATHY,ENCEPHALOPTHY AND EARLY CIRRHOSIS. 8.Major depression 9.BPH 10.Nicotine addiction 11.Noncompliance to medications 12.Memory impairment 13.Sever muscular weakness 14.S/P recurrent falls 15.DIZZINESS 16.Daytime sleepiness 17.Gastritis with MUKUND 18.Chronic hypokalemia, hypomagnesemia,low iron and low vit "D" levels 19.PTSD 20.Respiratory insufficiency 21.Hx of c02 retention 22.Anemia chronic disease Problems: Cont'd Hospitalization Reason: d/c already. Subjective 24 Hr Interval Summary Free Text/Dictation No hematuria since the morning. No pain. Urine is clear. SOB improved. Constitutional: disoriented, improved, requiring O2, No chills, No diaphoresis, No febrile, No no complaints, No other, No poor po , No requiring IVF Eyes: No discharge, No no complaints, No other, No pain, No redness, No visual change ENT: No bleeding, No congestion, No discharge, No dysphagia, No no complaints, No other, No pain, No sore throat Respiratory: cough, shortness of breath, No no complaints, No other, No pain, No pleuritic pain, No sputum, No wheezing Cardiovascular: chest pain, edema, lightheadedness, orthopenea, paroxysmal nocturnal dyspnea Gastrointestinal: constipation, decreased appetite, passing stool, No blood, No diarrhea, No flatus, No nausea, No no complaints, No other, No pain, No vomiting Genitourinary: No bleeding, No discharge, No dysuria, No flank pain, No hematuria, No no complaints, No other Musculoskeletal: No back pain, No bone/joint pain, No neck pain, No no complaints, No other, No restricted range of motion, No swelling Skin: pruritis, No bruising, No erythema, No laceration, No no complaints, No other, No rash , No skin lesions Neurologic: dizziness, No confusion, No focal-weakness, No headache, No no complaints, No other, No seizure, No syncope Psychological: anxiety, depression, other (forgetful.) Exam/Review of Systems Vital Signs Vitals Vital Signs Date Time Temp Pulse Resp B/P Pulse Ox O2 Delivery O2 Flow Rate FiO2 06/06/16 16:48 2.0 06/06/16 16:16 98.0 53 19 149/98 95 06/06/16 08:00 Nasal Cannula 06/04/16 17:28 21 Intake and Output 06/05/16 06/05/16 06/06/16 15:00 23:00 07:00 Intake Total 500 ml 350 ml Output Total 900 ml 1000 ml Balance -400 ml -650 ml Exam Constitutional: alert, distress, oriented, other (anxiouse.) Psych: anxiety, depression, other (forgetful.) Eyes: EOMI, PERRL, No fundi, disc, No icteric, No nl conjunctiva, No nl lids, No nl sclera, No other ENMT: nl nasal mucosa & septum, No intubated, No mucosa pink and moist, No nl external ears & nose, No nl lips & teeth, No other, No tympanic membranes Neck: bruits, jvd, nuchal rigidity, No masses, No non-tender, No other, No supple, No thyromegaly Respiratory: congested cough, diminished breath sounds, intercostal retraction , No clear to auscultation, No crackles/rales, No labored breathing, No normal air movement, No other, No respirations, No tactile fremitus, No wheezing Cardiovascular: bruits, edema, systolic murmur, No S3, No S4, No diastolic murmur, No gallop, No irregular rhythm, No jugular venous distention (JVD), No murmurs/extra sounds, No nl pulses, No other , No regular rate and rhythm, No rub Gastrointestinal: distended, No ascites, No bowel sounds, No firm, No hepatomegaly, No mass, No nl liver, spleen, No non-tender, No other, No rebound or guarding, No soft, No splenomegaly, No surgical scars, No tender Genitourinary - Male: No CVA tenderness, No discharge, No nl penis, No nl scrotum, No other Musculoskeletal: joint tenderness, muscle tone, No muscle weakness, No nl extremities to inspection, No nl gait and stance, No other, No range of motion, No spine non-tender, No swelling Extremities: No calf tenderness, No clubbing, No cyanosis, No edema, No normal pulses, No other, No palpable cord, No pitting pedal edema, No tenderness Neurological: DTR's symmetric, focal weakness, numbness, reflexes, No SALES CLERK II-XII intact, No confused, No lethargic, No nl mental status, No nl speech, No nl strength, No other, No unresponsive Skin: No diaphoresis, No ecchymosis, No laceration, No nl turgor, No other, No puncture, No rash or lesions Results Result Diagram: 06/04/16 1610 06/04/16 1610 Results 24 hrs Laboratory Tests Test 06/05/16 21:35 06/06/16 07:33 06/06/16 11:27 06/06/16 17:01 Bedside Glucose 151 161 164 196 ERIC GILLESPIE MD Jun 06, 2016 20:10
== END 2016-06-06 18:24 | disposition home or self-care (01) | DRG 292 ==
LOC: E/R 18:58 → MS4 06-03 01:31
PROVIDERS: ADMIT Family Medicine; ATTEND Family Medicine
DX: I50.43 Acute on chronic combined systolic (congestive) and diastolic (congestive) heart failure (principal); I42.9 Cardiomyopathy, unspecified; K70.30 Alcoholic cirrhosis of liver without ascites; I16.0 Hypertensive urgency; E11.9 Type 2 diabetes mellitus without complications; D63.8 Anemia in other chronic diseases classified elsewhere; I25.2 Old myocardial infarction; Z86.73 Personal history of transient ischemic attack (TIA), and cerebral infarction without residual deficits; F10.20 Alcohol dependence, uncomplicated; F32.9 Major depressive disorder, single episode, unspecified; N40.0 Benign prostatic hyperplasia without lower urinary tract symptoms; Z72.0 Tobacco use; K21.9 Gastro-esophageal reflux disease without esophagitis; E87.6 Hypokalemia; E83.42 Hypomagnesemia; F43.10 Post-traumatic stress disorder, unspecified; R31.0 Gross hematuria
CPT/HCPCS: 80053; 80076; 80162; 80198; 80306; 80307; 82962; 83036; 83615; 83735; 83880; 84443; 84484; 85025; 85378; 85610; 85730; 87040; 87081; 92610; 94640; 94644; 94664; 96365; 96366; 96375; 96376; J0360; J0456; J1650; J1815; J1940; J3480

== ENCOUNTER 2016-06-08 08:07 | Emergency (ER) | payer MEDICARE, BC ==
[~2016-06-08] VITALS: Ht 175.3 cm; Wt 93.0 kg
[2016-06-08 08:10] VITALS: Ht 175.3 cm; Wt 93.0 kg
[2016-06-08 09:19] LABS: ADD UMIC YES; URINE BILIRUBIN (Dip) NEGATIVE (NEGATIVE); URINE BLOOD (Dip) 3+ (NEGATIVE); URINE COLOR LT. YELLOW (YELLOW); URINE GLUCOSE (Dip) NEGATIVE (NEGATIVE); URINE KETONES (Dip) NEGATIVE (NEGATIVE); URINE LEUKOCYTE ESTERASE (Dip) NEGATIVE (NEGATIVE); URINE NITRITE (Dip) NEGATIVE (NEGATIVE); URINE TOTAL PROTEIN (Dip) 1+ (NEGATIVE); URINE UROBILINOGEN (Dip) 1.0 E.U./dL (0.1-1.0)
--- NOTE | 2016-06-08 09:39 | ERD ---
ER Documentation Chief Complaint Date/Time DATE: 06/08/16 TIME: 09:37 Chief Complaint BLOOD IN URINE X 1 DAY HPI 66-year-old male returns to the emergency department for evaluation of hematuria. Patient was recently admitted to the hospital where he had a traumatic Hooker catheter removal. This resulted in hematuria that essentially resolved. He has had no urinary retention since then. On and off, he has had hematuria that he is noted. Patient was seen by Dr. claudia Arnold previously and was told to have supportive care only for this. He returns with no fevers chills or significant hematuria. Mostly the urine is clear yellow with slight blood- tinged to it. Patient reports no fevers or chills. ROS All systems reviewed and are negative except as per history of present illness. Medications Home Meds Reported Medications Clonidine Hcl* (Clonidine Hcl*) 0.1 Mg Tab, 0.1 MG PO Q8, TAB 05/04/16 Omeprazole* (Omeprazole*) 20 Mg Capsule.dr, 20 MG PO DAILY, #30 CAP 05/04/16 Aspirin* (Aspirin* EC) 81 Mg Tablet.dr, 81 MG PO DAILY, TAB 05/04/16 Amlodipine Besylate* (Norvasc*) 5 Mg Tablet, 5 MG PO DAILY, TAB 05/04/16 Metoprolol Tartrate* (Lopressor*) 50 Mg Tab, 50 MG PO BID, #60 TAB 05/04/16 Allergies Allergies: Coded Allergies: No Known Allergies (Verified Allergy, Unknown, 06/08/16) PMhx/Soc History of Surgery: Yes (CRANIOTOMY) Anesthesia Reaction: No Hx Neurological Disorder: Yes (STROKE, BRAIN ANEURYSM) Hx Respiratory Disorders: No Hx Cardiac Disorders: No (CHF, HTN, HYPERLIPIDEMIA) Hx Psychiatric Problems: Yes (DEPRESSION) Hx Miscellaneous Medical Probl: Yes (ANEMIA, NEUROPATHY) Hx Alcohol Use: Yes Hx Substance Use: No Hx Tobacco Use: Yes FmHx Noncontributory for chief complaint Physical Exam Vitals Vital Signs Date Time Temp Pulse Resp B/P Pulse Ox O2 Delivery O2 Flow Rate FiO2 06/08/16 08:10 98.2 64 18 179/100 98 Physical Exam GENERAL: The patient is well developed and appropriate for usual state of health in no apparent distress HEENT: Pupils equal, round, and reactive to light. EOMI. There is no scleral icterus. NECK: C-spine is soft and supple, there is no meningismus. There is no cervical lymphadenopathy. LUNGS: Clear to auscultation bilaterally. There are no rales, wheezes or rhonchi. HEART: Regular rate and rhythm, no murmurs, clicks, rubs or gallops. ABDOMEN: Soft, non-tender, non-distended. There are bowel sounds in all four quadrants. No rebound or guarding. : No obvious trauma or blood at the urethral meatus. No palpable bladder. EXTREMITIES: There is no peripheral cyanosis or edema. No focal swelling or erythema. NEURO: The patient moves all four extremities with 5/5 strength. Cranial nerves II - XII are intact. Normal gait. Alert and oriented SKIN: There is no apparent rash or petechiae. HEME/LYMPHATIC: There is no evidence of excessive bruising or lymphedema. PSYCHIATRIC: The patient does not appear anxious or depressed. Results 24 hrs Laboratory Tests Test 06/08/16 08:40 Urine Bilirubin NEGATIVE Urine Clarity CLOUDY Urine Color LT. YELLOW Urine Glucose NEGATIVE% Urine Hemoglobin 3+ Urine Ketones NEGATIVE Urine Leukocyte Esterase NEGATIVE Urine Microscopic RBC Pending Urine Microscopic WBC Pending Urine Nitrite NEGATIVE Urine Specific [place] 1.015 Urine Total Protein 1+ Urine Urobilinogen 1.0 E.U./dL Urine pH 7.0 Procedures/MDM Patient was taken to a room, seen and evaluated. Comfort measures were initiated. Diagnostic tests were ordered and reviewed. REEVALUATION: Patient remained without significant hematuria or obstruction MEDICAL DECISION MAKIN-year-old male presents to the emergency department with ongoing hematuria. At this time, he shows no evidence of high risk infection or retention. He is overall clinically well at this point and preserving appropriate for outpatient care. Departure Diagnosis: Primary Impression: Hematuria Patient Instructions: Hematuria Referrals: ERIC GILLESPIE MD (PCP) TRANG SETHI MD, JASON Jun 08, 2016 09:39
[2016-06-08 09:44] LABS: BACTERIA,URINE RARE; URINE RBCS >200 /HPF (0)
== END 2016-06-08 09:52 | disposition home or self-care (01) ==
LOC: E/R 08:07
DX: R31.9 Hematuria, unspecified (principal); I10 Essential (primary) hypertension; I50.9 Heart failure, unspecified; E11.9 Type 2 diabetes mellitus without complications; Z79.82 Long term (current) use of aspirin; Z72.0 Tobacco use
CPT/HCPCS: 81001; 81003; 87086; 99283

== ENCOUNTER 2016-06-29 16:45 | Inpatient (IN) | payer MEDICARE, BC ==
[~2016-06-29] VITALS: Wt 99.4 kg
--- NOTE | 2016-06-29 17:11 | ERA ---
ER Documentation Chief Complaint Date/Time DATE: 06/29/16 TIME: 17:11 Chief Complaint sob chest pressure for 3 days getting worse today. no vomiting HPI The patient is a 66-year-old male, presenting to the ER because of acute shortness of breath for the last 3-4 days. He has similar symptoms previously. He also complains of dizziness today and intermittent chest pressure for the last 2 days. He denies any chest pain now. He denies any chest pains with exertion or vomiting or diaphoresis. The shortness of breath is worse with laying down, better sitting up. He denies abdominal pain, vomiting, dysuria, diarrhea. He does not smoke nor drink Past medical history: History of CHF, hypertension, diabetes mellitus, cardiomyopathy with low EF of 30%, CAD, history of CVA, depression, BPH, GERD, anemia Past surgical history: Craniotomy due to CVA ROS All systems reviewed and are negative except as per history of present illness. Medications Home Meds Reported Medications Clonidine Hcl* (Clonidine Hcl*) 0.1 Mg Tab, 0.1 MG PO TID Y for PRN, TAB 06/29/16 Omeprazole* (Omeprazole*) 20 Mg Capsule.dr, 20 MG PO DAILY, #30 CAP 05/04/16 Aspirin* (Aspirin* EC) 81 Mg Tablet.dr, 81 MG PO DAILY, TAB 05/04/16 Amlodipine Besylate* (Norvasc*) 5 Mg Tablet, 5 MG PO DAILY, TAB 05/04/16 Metoprolol Tartrate* (Lopressor*) 50 Mg Tab, 50 MG PO BID, #60 TAB 05/04/16 Discontinued Reported Medications Clonidine Hcl* (Clonidine Hcl*) 0.1 Mg Tab, 0.1 MG PO Q8, TAB 05/04/16 Allergies Allergies: Coded Allergies: No Known Allergies (Verified Allergy, Unknown, 06/29/16) PMhx/Soc History of Surgery: Yes (CRANIOTOMY) Anesthesia Reaction: No Hx Neurological Disorder: Yes (STROKE, BRAIN ANEURYSM) Hx Respiratory Disorders: No Hx Cardiac Disorders: No (CHF, HTN, HYPERLIPIDEMIA) Hx Psychiatric Problems: Yes (DEPRESSION) Hx Miscellaneous Medical Probl: Yes (ANEMIA, NEUROPATHY) Hx Alcohol Use: Yes Hx Substance Use: No Hx Tobacco Use: Yes Physical Exam Vitals Vital Signs Date Time Temp Pulse Resp B/P Pulse Ox O2 Delivery O2 Flow Rate FiO2 2/7/17 18:25 98.1 38 20 172/99 100 Nasal Cannula 2.0 06/29/16 17:56 Nasal Cannula 2 06/29/16 17:56 2.0 06/29/16 17:40 98.1 41 20 173/102 100 Nasal Cannula 2.0 06/29/16 16:54 98.6 42 21 169/88 99 Physical Exam Const: No acute distress. Head: Atraumatic. Eyes: Normal Conjunctiva. ENT: Normal External Ears, Nose and Mouth. Neck: Full range of motion. No meningismus. Resp: Bilateral expiratory wheezes Cardio: Irregularly irregular, bradycardic Abd: Soft, non distended, normal bowel sounds, non tender. Skin: No petechiae or rashes. Back: No midline or flank tenderness. Ext: No cyanosis, or edema. Neur: Awake and alert. No focal deficit Psych: Normal Mood and Affect. Result Diagram: 06/29/16 1745 06/29/16 1745 Results 24 hrs Laboratory Tests Test 06/29/16 17:45 Activated Partial Thromboplast Time 34.8Sec Alanine Aminotransferase (ALT/SGPT) 29IU/L Albumin 3.7g/dl Albumin/Globulin Ratio 1.19 Alkaline Phosphatase 150IU/L Anion Gap 17 Aspartate Amino Transf (AST/SGOT) 18IU/L B-Type Natriuretic Peptide 5650PG/ML Basophils # 0.010^3/ul Basophils % 0.7% Blood Morphology Comment Blood Urea Nitrogen 16mg/dl Calcium Level 9.2mg/dl Carbon Dioxide Level 26mmol/L Chloride Level 105mmol/L Creatinine 1.03mg/dl Direct Bilirubin 0.00mg/dl Eosinophils # 0.210^3/ul Eosinophils % 2.7% Globulin 3.10g/dl Glucose Level 183mg/dl Hematocrit 47.6% Hemoglobin 15.8g/dl INR International Normalized Ratio 1.11 Indirect Bilirubin 0.6mg/dl Lymphocytes # 1.210^3/ul Lymphocytes % 18.0% Magnesium Level 1.9mg/dl Mean Corpuscular Hemoglobin 29.7pg Mean Corpuscular Hemoglobin Concent 33.2g/dl Mean Corpuscular Volume 89.4fl Mean Platelet Volume 9.1fl Monocytes # 0.710^3/ul Monocytes % 10.6% Neutrophils # 4.510^3/ul Neutrophils % 68.0% Nucleated Red Blood Cells # 0.010^3/ul Nucleated Red Blood Cells % 0.0/100WBC Platelet Count 99172^3/UL Potassium Level 3.5mmol/L Prothrombin Time 14.3Sec Prothrombin Time Ratio 1.1 Red Blood Count 5.3310^6/ul Red Cell Distribution Width 15.4% Sodium Level 144mmol/L Thyroid Stimulating Hormone (TSH) 1.260MIU/L Total Bilirubin 0.6mg/dl Total Protein 6.8g/dl Troponin I 0.046ng/ml White Blood Count 6.610^3/ul Current Medications Medications (Trade) Dose Ordered Sig/Tavon Route PRN Reason Start Time Stop Time Status Last Admin Dose Admin Furosemide (Lasix) 40 mg ONCE ONCE IV 06/29/16 18:30 06/29/16 18:31 DC 06/29/16 18:40 Procedures/[place] [id number] Radiology Main Line: [phone] DIAGNOSTIC IMAGING REPORT Patient: LUISANA PERALTA : 1950 Age: 66 Sex: M MR #: [id number] DOS: 06/29/16 1728 Ordering MD: DONG MASON MD Location: E/R Room/Bed: PROCEDURE: XR Chest. CLINICAL INDICATION: Shortness of breath. TECHNIQUE: Single frontal view of the chest was obtained COMPARISON: Chest x-ray 05/04/2016 04:26 p.m. FINDINGS: The heart is enlarged. Pulmonary vasculature is increased. There are perihilar and basilar infiltrates suspicious for pulmonary edema which has worsened. Bilateral pleural effusions are noted. The soft tissues are generous. Monitoring electrodes are draped across the chest. There is a left- sided aorta. IMPRESSION: 1. Cardiomegaly with congestive heart failure and worsening perihilar and interstitial pulmonary edema extending toward the bases of the lungs. 2. Bilateral pleural effusions are present and increased in size compared to the prior study. RPTAT:AAJJ Physician Surya Date Time Electronically viewed and signed by Josh Duke Physician on 06/29/2016 18:16 JM/ CC: DONG MASON MD EKG: Read by emergency physician at 4:46 PM Rate/Rhythm: Atrial fibrillation slow ventricular response 40 beats per min QRS, ST, T-waves: No ST elevation, left anterior fascicular, anterior Q waves , lateral ST and T abnormality Impression: Abnormal EKG EKG: Read by emergency physician at 5:35 PM Rate/Rhythm: Atrial fibrillation with slow ventricular response 40 beats per min QRS, ST, T-waves: No ST elevation, right ventricular hypertrophy, septal Q waves, inferior lateral T abnormality Impression: Abnormal EKG MEDICAL MAKING DECISION: The patient is a 66-year-old male, presenting with acute case of exacerbation, acute new onset atrial fibrillation, acute bradycardia arrhythmia. He was treated with Lasix 40 mg IV for acute CHF with good response. He has a pacer pads on the chest. The differential diagnoses acute dyspnea considered include but are not limited to asthma, COPD, pneumonia , pulmonary embolus, pleural effusion, congestive heart failure, cardiac arrhythmia. Critical Care: Time: 35 minutes excluding all billable procedures. Treatments/Evaluations: Close monitoring and treatment of unstable vital signs, cardiorespiratory, and neurologic status, while maintaining tight balance of fluid, respiratory, and cardiac interventions. Departure Diagnosis: Primary Impression: CHF (congestive heart failure) Additional Impressions: Bradyarrhythmia Atrial fibrillation Condition: Critical Comments I discussed the findings with the patient. I discussed the patient with his physician Dr. Weaver who was made aware of the lab, the treatment, the patient condition. The patient is admitted to ICU at 6:30 PM DONG MASON MD Jun 29, 2016 17:11
[2016-06-29 18:00] LABS: BASOPHILS % 0.7 % (0.0-2.0); EOSINOPHILS # 0.2 10^3/ul (0.0-0.5); EOSINOPHILS % 2.7 % (0.0-7.0); HEMATOCRIT 47.6 % (42.0-52.0); HEMOGLOBIN 15.8 g/dl (14.0-18.0); LYMPHOCYTES # 1.2 10^3/ul (0.8-2.9); MEAN CORPUSCULAR HEMOGLOBIN 29.7 pg (29.0-33.0); MEAN CORPUSCULAR HGB CONC 33.2 g/dl (32.0-37.0); MEAN CORPUSCULAR VOLUME 89.4 fl (82.0-101.0); MEAN PLATELET VOLUME 9.1 fl (7.4-10.4); MONOCYTE # 0.7 10^3/ul (0.3-0.9); MONOCYTES % 10.6 % (0.0-11.0); NEUTROPHIL # 4.5 10^3/ul (1.6-7.5); PLATELET COUNT 190 10^3/UL (140-440); RED BLOOD COUNT 5.33 10^6/ul (4.70-6.10); RED CELL DISTRIBUTION WIDTH 15.4 % (11.5-14.5); UNCORRECTED WBC 6.6 10^3/ul (4.8-10.8); WHITE BLOOD COUNT 6.6 10^3/ul (4.8-10.8)
[2016-06-29 18:01] LABS: CONDITION 1; LH ANALYZER COMMENTS 1
[2016-06-29 18:10] LABS: INR 1.11; PARTIAL THROMBOPLASTIN TIME 34.8 Sec (25.0-35.0); PROTIME 14.3 Sec (12.2-14.2); PT RATIO 1.1
--- NOTE | 2016-06-29 18:17 | RADRPT ---
PROCEDURE: XR Chest. CLINICAL INDICATION: Shortness of breath. TECHNIQUE: Single frontal view of the chest was obtained COMPARISON: Chest x-ray 05/04/2016 04:26 p.m. FINDINGS: The heart is enlarged. Pulmonary vasculature is increased. There are perihilar and basilar infiltr ates suspicious for pulmonary edema which has worsened. Bilateral pleural effusions are noted. The soft tissues are generous. Monitoring electrodes are draped across the chest. There is a left-side d aorta. IMPRESSION: 1. Cardiomegaly with congestive heart failure and worsening perihilar and interstitial pulmonary theo ma extending toward the bases of the lungs. 2. Bilateral pleural effusions are present and increased in size compared to the prior study. RPTAT:AAJJ Physician Surya Date Time Electronically viewed and signed by Josh Duke Physician on 06/29/2016 18:16 KALPESH/
[2016-06-29 18:23] LABS: ALBUMIN 3.7 g/dl (3.3-4.9)
[2016-06-29 18:24] LABS: POTASSIUM 3.5 mmol/L (3.5-5.1)
[2016-06-29 18:26] LABS: ALBUMIN/GLOBULIN RATIO 1.19; BILIRUBIN,INDIRECT 0.6 mg/dl (0-1.1); BILIRUBIN,TOTAL 0.6 mg/dl (0.2-1.3); CREATININE 1.03 mg/dl (0.61-1.24); TOTAL PROTEIN 6.8 g/dl (6.1-8.1)
[2016-06-29 18:27] LABS: CALCIUM 9.2 mg/dl (8.4-10.2)
[2016-06-29 18:28] LABS: MAGNESIUM 1.9 mg/dl (1.7-2.5)
[2016-06-29] MEDS ORDERED: FUROSEMIDE 40 MG INJ IV ONE (18:30)
[2016-06-29 18:39] LABS: TROPONIN-I 0.046 ng/ml (0.00-0.12)
[2016-06-29] MEDS ORDERED: CLON-379 PO (18:52)
[2016-06-29 19:26] LABS: THYROID STIMULATING HORMONE 1.26 MIU/L (0.465-4.680)
[2016-06-29] MEDS: AMLODIPINE 5 MG TAB PO SCH (21:00)
[2016-06-29] MEDS ORDERED: METOPROLOL 50 MG TAB PO SCH (21:00)
[2016-06-29] MEDS ORDERED: ASPIRIN 81 MG TAB PO ONE (21:00)
[2016-06-29] MEDS ORDERED: POTASSIUM CHLORIDE (SR) 20 MEQ TAB PO SCH (21:35)
[2016-06-30] VITALS (73 sets, daily range): BP systolic 113–207; BP diastolic 62–143; PULSE 42–81; RESP 14–38; TEMP 98.1
[2016-06-30] MEDS: ENALAPRIL 5 MG TAB PO SCH ×3 (00:23→22:07)
[2016-06-30] MEDS: ALBUTEROL 0.5% (NEB) 2.5 MG/0.5 ML AMP HHN SCH ×4 (00:36→23:10)
[2016-06-30] MEDS: IPRATROPIUM (NEB) 0.5 MG/2.5 ML AMP HHN SCH ×4 (00:36→23:10)
[2016-06-30] MEDS ORDERED: hydrALAzine 20 MG INJ IV PRN (02:30)
[2016-06-30] MEDS ORDERED: hydrALAzine 20 MG INJ IV ONE (05:33)
[2016-06-30 06:54] LABS: BASOPHILS % 0.3 % (0.0-2.0); EOSINOPHILS # 0.1 10^3/ul (0.0-0.5); EOSINOPHILS % 1.2 % (0.0-7.0); HEMATOCRIT 48.1 % (42.0-52.0); HEMOGLOBIN 16.1 g/dl (14.0-18.0); LYMPHOCYTES # 0.7 10^3/ul (0.8-2.9); LYMPHOCYTES % 9.1 % (15.0-51.0); MEAN CORPUSCULAR HEMOGLOBIN 29.8 pg (29.0-33.0); MEAN CORPUSCULAR HGB CONC 33.6 g/dl (32.0-37.0); MEAN CORPUSCULAR VOLUME 88.8 fl (82.0-101.0); MEAN PLATELET VOLUME 9.1 fl (7.4-10.4); MONOCYTE # 0.8 10^3/ul (0.3-0.9); MONOCYTES % 10.1 % (0.0-11.0); NEUTROPHIL # 6.3 10^3/ul (1.6-7.5); NEUTROPHILS % 79.3 % (39.0-77.0); PLATELET COUNT 177 10^3/UL (140-440); RED BLOOD COUNT 5.41 10^6/ul (4.70-6.10); RED CELL DISTRIBUTION WIDTH 15.3 % (11.5-14.5); UNCORRECTED WBC 7.9 10^3/ul (4.8-10.8); WHITE BLOOD COUNT 7.9 10^3/ul (4.8-10.8)
[2016-06-30 06:59] LABS: CONDITION 1; LH ANALYZER COMMENTS 1; POTASSIUM 3.2 mmol/L (3.5-5.1)
[2016-06-30 07:01] LABS: IRON 58 ug/dl (35-150)
[2016-06-30 07:02] LABS: CREATININE 0.91 mg/dl (0.61-1.24)
[2016-06-30 07:03] LABS: CALCIUM 8.9 mg/dl (8.4-10.2)
[2016-06-30 07:11] LABS: TOTAL IRON BINDING CAPACITY 401 ug/dl (241-421)
[2016-06-30] MEDS ORDERED: POTASSIUM CHLORIDE (SR) 20 MEQ TAB PO STA (07:59)
--- NOTE | 2016-06-30 08:58 | RADRPT ---
PROCEDURE: Ultrasound four quadrants CLINICAL INDICATION: Abdominal distension. Evaluate for ascites. TECHNIQUE: Sonographic evaluation of the four quadrants of the abdomen was performed. Liu-scale imaging was utilized. Images were reviewed on a high-resolution PACS workstation. COMPARISON: Abdomen pelvis CT 07/29/2015. FINDINGS: No ascites is seen. No free fluid is identified within any of the four quadrants of the abdominal p elvic cavity. There is no significant drainable fluid collection. IMPRESSION: 1. No significant ascites identified. RPTAT: QQ .Liliane Phillips MD, MD Date Time Electronically viewed and signed by .Liliane Phillips MD, on 06/30/2016 08:57 .N/
[2016-06-30] MEDS ORDERED: CLONIDINE 0.1 MG/24 HR PATCH TRANSDERM SCH (09:00)
--- NOTE | 2016-06-30 09:04 | HP ---
Date/Time of Note Date/Time of Note DATE: 06/30/16 TIME: 09:02 Assessment/Plan VTE Prophylaxis VTE Prophylaxis Intervention: ambulation, anti-embolic stocking VTE Contraindication Reason: peripheral vascular disease Lines/Catheters (ICD-10 Req.) IV Catheter Type (from Nrs): Peripheral IV Tran in Place (from Nrs): Yes Cont'd tran catheter reason: urinary retention Diagnosis/Etiology Respiratory Failure Acuity: acute on chronic Respiratory Failure Inclusion: hypercapnia Assessment/Plan Assessment/Plan 1. Acute exacerbation of systolic and diastolic congestive heart failure. 2. Cardiomyopathy with ejection fraction of 30%. 3. Hypertensive urgency. 4. Diabetes mellitus. 5. Coronary artery disease with history of myocardial infarction. 6. History of cerebrovascular accident, status post craniotomy. 7. Ongoing alcohol use. 8.Bilatral pleural effusions 9.Bradycardia- to 40's 10.BPH 11.MD with memory impairment 12.Anxiety d/o with panic attacks 13.Obesity with snoring 14.COPD 15.SSS with Atrial fibrillation 16.IHD,Angina; History of myocardial infarction with no ischemia by prior stress July 2015 17 Shortness of breath secondary to above 18. Dyslipidemia. 19.Hypokalemia and hypomagnesemia Time Spent one hour. HPI/ROS Admit Date/Time Admit Date/Time My BP syst. was 40mm at home. I panicked. Will bring BP device to check. Worsening of SOB.Jun 30, 2016 at 02:20 Hx of Present Illness Doing well before checking a BP. On and off forgets to take medications. Sudden worsening of sob. ROS Subjective hx not possible: pt critical Constitutional: chills, diaphoresis, disoriented, fatigue, nausea, weight change, No febrile, No improved, No no complaints, No other, No poor po Eyes: redness, visual change, No discharge, No no complaints, No other, No pain ENT: congestion, sore throat, No bleeding, No discharge, No dysphagia, No no complaints, No other, No pain Respiratory: cough, pain, pleuritic pain, shortness of breath Cardiovascular: chest pain, edema, lightheadedness, orthopenea, palpitations, paroxysmal nocturnal dyspnea, No no complaints, No other Gastrointestinal: constipation, decreased appetite, flatus, nausea, passing stool, No blood, No diarrhea, No no complaints, No other, No pain, No vomiting Genitourinary: bleeding (stopped.), dysuria, flank pain, No discharge, No hematuria, No no complaints, No other Musculoskeletal: back pain, bone/joint pain, neck pain, No no complaints, No other, No restricted range of motion, No swelling Skin: bruising, pruritis, rash, No erythema, No laceration, No no complaints, No other, No skin lesions Neurologic: confusion, dizziness, headache, other (on and off unstable gate. ), No focal-weakness, No no complaints, No seizure, No syncope Endocrine: dry skin, polydypsia, polyuria, weight change, No no complaints, No other, No temp intolerance Lymphatic: No adenopathy, No lymphadema, No no complaints, No other, No tender nodes Psychological: anxiety, confusion, depression, No nl mood/affect, No no complaints, No other, No suicidal Immunologic: No immunodeficiency, No no complaints, No other, No pruritis, No rhinitis, No urticaria PMH/Family/Social Past Medical History Medical History: angina, congestive heart failure, coronary artery disease, diabetes, GERD, GI bleed, high cholesterol, hypertension, pancreatitis, renal disease, urinary tract infection Past Surgical History Past Surgical Hx: endoscopy (craniothomy after cva due to of aneurism.), other Family History Significant Family History: heart disease, COPD, hypertension Social History Alcohol Use: heavy (now stopped.) Smoking Status: Former smoker Drug Use: none Exam/Review of Systems Vital Signs Vitals Vital Signs Date Time Temp Pulse Resp B/P Pulse Ox O2 Delivery O2 Flow Rate FiO2 06/30/16 08:00 53 06/30/16 07:00 24 133/70 97 Nasal Cannula 06/30/16 05:48 4.0 06/30/16 04:00 97.5 Intake and Output 06/29/16 06/29/16 06/30/16 15:00 23:00 07:00 Output Total 650 ml 1860 ml Balance -650 ml -1860 ml Exam Constitutional: alert, distress, frail, oriented, well developed Psych: anxiety, confusion, depression, No nl mood/affect, No no complaints, No other, No suicidal Head: atraumatic, normocephalic, other (s/p cranithomy scar at the occipital a sabino.) Eyes: EOMI, PERRL, nl lids, No fundi, disc, No icteric, No nl conjunctiva, No nl sclera, No other ENMT: nl external ears & nose, nl nasal mucosa & septum (deviated septum.), tympanic membranes, No intubated, No mucosa pink and moist, No nl lips & teeth, No other Neck: bruits, jvd, non-tender, nuchal rigidity, No masses, No other, No supple, No thyromegaly Respiratory: congested cough, crackles/rales, diminished breath sounds, labored breathing, No clear to auscultation, No intercostal retraction, No normal air movement, No other, No respirations, No tactile fremitus, No wheezing Cardiovascular: bruits, edema, irregular rhythm, systolic murmur, No S3, No S4, No diastolic murmur, No gallop, No jugular venous distention ( JVD), No murmurs/extra sounds, No nl pulses, No other, No rub Gastrointestinal: bowel sounds, distended, other (weak abdominal muscles.), soft Genitourinary - Male: nl penis, nl scrotum, No CVA tenderness, No discharge, No other Musculoskeletal: joint tenderness, muscle tone, muscle weakness, No nl extremities to inspection, No nl gait and stance, No other, No range of motion, No spine non-tender, No swelling Extremities: calf tenderness, pitting pedal edema, No clubbing, No cyanosis, No edema, No normal pulses, No other, No palpable cord, No tenderness Neurological: OILER HELPER II-XII intact (decreased hearing.), confused, lethargic, nl speech (stattering.), numbness, No DTR's symmetric, No focal weakness, No nl mental status, No nl strength, No other, No reflexes, No unresponsive Skin: diaphoresis, ecchymosis, rash or lesions, No laceration, No nl turgor, No other, No puncture Lymph: No enlarged, No nl lymph nodes, No nontender, No other Labs Result Diagram: 06/30/1661406/30/16614 Medications Medications Current Medications Amlodipine Besylate (Norvasc) 5 mg BID PO ; Start 06/29/16 at 21:00 Potassium Chloride (Klor-Con 20) 20 meq BID PO Last administered on 06/29/16 21 :56; Admin Dose 20 MEQ; Start 06/29/16 at 21:35 Enalapril Maleate (Vasotec) 5 mg Q12 PO Last administered on 06/30/16 00:23; Admin Dose 5 MG; Start 06/29/16 at 23:30 Hydralazine HCl (Apresoline) 10 mg Q6H PRN IV SBP > 160 Last administered on 02:33; Admin Dose 10 MG; Start 06/30/16 at 02:30 Terazosin HCl (Hytrin) 2 mg HS PO ; Start 06/30/16 at 10:00 Potassium Chloride (Klor-Con 20) 20 meq TID PO ; Start 06/30/16 at 09:00 Copies To: CC: ALISSON POTTER VAGHARSHAK MD Jun 30, 2016 09:03
[2016-06-30] MEDS: POTASSIUM CHLORIDE (SR) 20 MEQ TAB PO SCH ×3 (09:06→22:04)
[2016-06-30] MEDS: AMLODIPINE 5 MG TAB PO SCH ×2 (09:07→22:05)
[2016-06-30] MEDS: BUMETANIDE 1 MG INJ IV SCH ×2 (09:14→17:06)
--- NOTE | 2016-06-30 09:54 | RADRPT ---
PROCEDURE: US Renal CLINICAL INDICATION: History of right kidney pain TECHNIQUE: Multiple sonographic images of the kidneys and bladder were obtained. Evaluation of th e kidneys and bladder was performed as well with mohan scale and color and Doppler evaluation using a curved array transducer. The images were reviewed on a high-resolution PACS workstation. COMPARISON: CT of the abdomen and pelvis done 07/29/2015 FINDINGS: The right kidney measures 13.9 cm in length. The left kidney measures 12.13 cm in length. Cysts are seen in the right kidney including 1 at the superior pole measuring approximately 2.7 cm and another at the mid pole measuring approximately 3.6 cm. There is a cluster of shadowing calcifications with in the inferior pole of the right kidney measuring 1.5 cm in diameter. Within the inferior pole of t he left kidney there is a 2 cm simple cyst. There is no hydronephrosis. The bladder is appears unremarkable. Of incidental note is the presence of cholelithiasis not associated with gallbladder wall thickening . IMPRESSION: 1. Normal sized kidneys. 2. Simple cysts are seen within the right kidney along with a cluster of calcifications at the infe rior pole. There is no hydronephrosis. 3. A 2 cm simple cyst is seen within the inferior pole left kidney and there is no hydronephrosis. 4. The bladder appears unremarkable. 5. Cholelithiasis. 6. Findings are unchanged since the previous CT. Physician Danya Date Time Electronically viewed and signed by Physician Danya on 06/30/2016 09:53 /
[2016-06-30] MEDS ORDERED: MAGNESIUM SULFATE 2 GM/50 ML 50 ML IVPB ONE (10:00)
[2016-06-30] MEDS: TERAZOSIN 2 MG CAP PO SCH ×2 (10:24→22:06)
--- NOTE | 2016-06-30 11:51 | CONS ---
DATE OF ADMISSION: 06/30/2016 DATE OF CONSULTATION: 06/30/2016 PULMONARY CONSULTATION REASON FOR CONSULT: Shortness breath. Thank you, Dr. Camacho, for this consultation. HISTORY OF PRESENT ILLNESS: This is a pleasant 66-year-old [place] gentleman who presents with sev eral-day history of increasing cough, congestion, central chest pressure, but no nausea, no vomiting , no fever, no chills, no radiation of chest pain. Pain is localized. No association with exertion , worse on deep breaths. No nausea, no vomiting. PAST MEDICAL HISTORY: Congestive cardiac failure, hypertension, hyperlipidemia, ischemic cardiomyop athy, history of CVA, depression, history of craniotomy. MEDICATIONS: Per chart. ALLERGIES: NONE. SOCIAL HISTORY: History of tobacco use, occasional alcohol, no history of drug use. FAMILY HISTORY: Noncontributory. SYSTEMS REVIEW: A 12-point review of systems was negative other than that mentioned above. PHYSICAL EXAMINATION: GENERAL: Well-nourished, well-developed gentleman, comfortable at rest, no acute distress. VITAL SIGNS: Currently afebrile, pulse is 60, blood pressure 130/70, O2 saturation 97% on 4 L. NECK: Supple. No JVD or lymphadenopathy. CARDIAC: S1, S2, no added sounds or murmurs. CHEST: Diminished air entry bilaterally. ABDOMEN: Soft, nontender. No guarding or rebound. EXTREMITIES: No cyanosis, clubbing, 1+ edema. NEUROLOGIC: Grossly intact. No focal deficits. LABORATORIES: White count 7.9, hemoglobin 16.1, platelets of 177. BNP 5650 and saturation was 14. INR 1.11. DIAGNOSTIC DATA: EKG showed no acute ischemic changes. Chest x-ray was performed, showed mild saray estive cardiac failure. IMPRESSION AND PLAN: 1. Acute on chronic congestive cardiac failure with a history of systolic dysfunction secondary to ischemic cardiomyopathy. 2. Hypoxemic respiratory failure secondary to above. 3. Bilateral pleural effusions secondary to above. 4. History of cerebrovascular accident. 5. History of hypertension. 6. History of tobacco use. Possible underlying chronic obstructive pulmonary disease. PLAN: The patient will require: 1. Continue diuretics. 2. Bronchodilators. 3. Cardiology evaluation. 4. DVT and GI prophylaxis. 5. Consider transfer to telemetry floor. Dictated By: VEGA PEDRO MD SV/ALIE Conf#: [id number] DID#: [id number]
--- NOTE | 2016-06-30 12:33 | CONS ---
DATE OF ADMISSION: 06/30/2016 DATE OF CONSULTATION: 06/30/2016 REASON FOR CONSULTATION: Congestive heart failure exacerbation, bradycardia. REQUESTING PHYSICIAN: Dr. Twila Gillespie HISTORY OF PRESENT ILLNESS: Mr. Hill is a 66-year-old male with a history of systolic congestive heart failure, last known ejection fraction of 25% to 30% by echo April 2016, hypertension, dyslipidemia, chronic obstructive pulmonary disease who had recently been treated for congestive heart failure exacerbation and was discharged to outpatient followup. The patient now represents with complaints of shortness of breath and bradycardia. Upon arrival , temperature 98.6, blood pressure 169/88, pulse 42, respiratory rate 21, saturating 99%. The patient's labs revealed white count 6.6, hemoglobin 15.8, platelet count 190. Sodium 144, potassium 3.5, creatinine 1.0, BUN 16, AST 18, ALT 29. Troponin negative. BNP of 5650. Magnesium 1.6. INR 1.1. The patient underwent a chest x-ray revealing cardiomegaly, congestive heart failure, worsening perihilar interstitial pulmonary edema, bilateral pleural effusions, a renal ultrasound revealing normal sized kidneys, a 2 cm simple cyst , cholelithiasis and abdominal ultrasound revealing no significant ascites identified. The patient's EKG revealed a rhythm most consistent with probable junctional rhythm rate of approximately 40 with left axis deviation and poor R- wave progression across anterior pre-cordial leads, inferior Q's and diffuse nonspecific ST abnormalities versus possible underlying atrial fibrillation. The patient subsequently had pacer pads placed on him and has been admitted to the ICU and since admit to the ICU, the patient has had increase in heart rate up to the 50s and 60s with holding beta padmini and blood pressures are in the 150s at this time. The patient has ongoing shortness of breath. Denies chest pain. PAST MEDICAL HISTORY: As above in HPI. MEDICATIONS CURRENTLY IN HOSPITAL: 1. Prazosin 2 mg at bedtime. 2. Magnesium sulfate. 3. Bumex 1 mg IV b.i.d. 4. Potassium chloride 20 mEq t.i.d. 5. Hydralazine p.r.n. 6. Enalapril 5 mg q.12h. 7. Albuterol. 8. Atrovent. 5. Norvasc 5 mg p.o. b.i.d. ALLERGIES: NO KNOWN DRUG ALLERGIES. SOCIAL HISTORY: No tobacco, ETOH or illicit drug use. FAMILY HISTORY: No history of sudden cardiac or early CAD. REVIEW OF SYSTEMS: As above in HPI. CONSTITUTIONAL: No fevers, chills. PULMONARY: Shortness of breath. CARDIOVASCULAR: Congestive heart failure, bradycardia, possible atrial fibrillation. GASTROINTESTINAL: No vomiting. GENITOURINARY: No hematuria. MUSCULOSKELETAL: Degenerative joint disease. PSYCHIATRIC: The patient denies depression. NEUROLOGIC: No documented history of CVA. PHYSICAL EXAMINATION VITAL SIGNS: Temperature of 97.6, blood pressure 152/93, pulse 60, respiratory rate 20, saturating 98%. GENERAL: The patient is alert, awake, in no acute distress. NECK: JVP approximately 10 cm of water. CHEST: Bibasilar crackles. HEART: Regular rate and rhythm. Normal S1, S2, I/ systolic murmur, laterally displaced PMI. ABDOMEN: Positive bowel sounds, soft. EXTREMITIES: 1+ edema bilaterally. Difficult to palpate distal pulses bilaterally, posterior tibial. LABORATORY DATA: As above in HPI with most recently from today, potassium 3.2, creatinine 0.9, BUN of 12. Magnesium 1.5, blood cells 7.9, hemoglobin 6.1, platelet count 177. INR 1.1. IMAGING STUDIES: As above in HPI. No further imaging studies for my review at this time. ELECTROCARDIOGRAM: As above in HPI, no new EKGs from today. IMPRESSION: 1. Congestive heart failure exacerbation, systolic, acute on chronic. Last known ejection fraction of 25% to 30% by echo April 2016. 2. Bradycardia. 3. Possible cardiac arrhythmia with atrial fibrillation versus junctional rhythm. 4. History of myocardial infarction with no ischemia by prior stress July 2015 and only scar. 5. Shortness of breath secondary to #1. 6. Hypertension. 7. Dyslipidemia. RECOMMENDATIONS: 1. At this time, would maintain the patient on telemetry monitoring to follow rhythm and rate control closely. 2. Complete the patient's rule out for myocardial infarction to ensure this patient's palpitations are not due to or do not result in acute myocardial infarction. 3. Continue the patient's current afterload reduction with enalapril and with up titration as necessary to improve overall systolic blood pressure control and in addition, will continue the patient's Norvasc and Prazosin at this time. 4. Hold off on any elliott agents at this time given initial presentation of bradycardia. 5. We will place the patient on standing aspirin for prevention of cardiovascular events. 6. Continue the patient's Bumex diuresis, following strict I's and O's to grade diuresis closely. 7. The patient will again be reevaluated for permanent pacemaker ICD at this time as he previously left AMA prior to making decision. Thank you for allowing me to take part in the care of this patient. I will continue to follow along very closely with you. Further recommendations will be made as the patient progresses through his inpatient hospital course. Additionally, the patient will be placed on Lovenox at this time for prevention of thrombolic complications in the setting of probable atrial fibrillation. Thank you for allowing me to take part in the care of this patient. I will continue to follow very closely with you with further recommendations to be made as the patient progresses through his inpatient hospital clinical course. Dictated By: ALISSON FELIX/NTS Conf#: [id number] DID#: [id number] CC: ERIC GILLESPIE MD;*EndCC* MTDD
[2016-06-30] MEDS: ENOXAPARIN 100 MG/ML SYG SC SCH ×2 (12:58→22:08)
--- NOTE | 2016-06-30 18:42 | CONS ---
DATE OF ADMISSION: 06/30/2016 DATE OF CONSULTATION: 06/30/2016 TYPE OF CONSULTATION: Renal. Thank you, Dr. Camacho for asking me to participate in the medical management of this patient. REASON FOR CONSULTATION: Uncontrolled hypertension, bradycardia and hypokalemia. HISTORY OF PRESENT ILLNESS: This 66-year-old man was admitted today after he presented to the [facility] ency room complaining of several days of increasing shortness of breath, and substernal chest pressu re. I was asked to see the patient because of uncontrolled blood pressure and hypokalemia. The pat ient does have a history of congestive heart failure. He has a history of a cardiomyopathy with an ejection fraction of approximately 25% to 30%. The patient on admission today had a chest x-ray don e which showed cardiomegaly and congestive heart failure with bilateral pleural effusions. The tomás ent does have a history of systolic heart failure and has been followed by Dr. Tremaine Chen, a card iologist. The patient on admission was also found to be bradycardic. The patient was on metoprolol , which was discontinued earlier this morning. The patient was also found to have an elevated blood pressure initially as high as 173/102. The patient does not have a history of kidney disease. He has had some issues with voiding dysfunction and has currently an indwelling Hooker catheter in place . He is complaining of pain from the catheter. PAST MEDICAL HISTORY: Remarkable for cardiomyopathy, systolic congestive heart failure, cholelithia sis, bradycardia, chronic obstructive pulmonary disease, hypertension, and hyperlipidemia. Cranioto my due to CVA, gastroesophageal reflux disease and benign prostatic hypertrophy. CURRENT MEDICATIONS: Include the followin. Bumex 2 mg twice a day. 2. Terazosin 2 mg at bedtime. 3. Clonidine patch. 4. Hydralazine 10 mg IV q.6h. p.r.n. elevated blood pressure. 5. Enalapril 5 mg q.12h. 6. Proventil inhaler. 7. Atrovent inhaler. 8. Amlodipine 5 mg twice a day. 9. Metoprolol 50 mg twice a day. 10. Aspirin 81 mg a day. ALLERGIES: HE HAS NO KNOWN DRUG ALLERGIES. PAST SURGICAL HISTORY: Craniotomy due to CVA. PHYSICAL EXAMINATION GENERAL: At this time reveals a well-developed man in no apparent distress. He is currently in the intensive care unit. VITAL SIGNS: Temperature 97.6, pulse of 53, respirations 20, blood pressure 153/82, O2 saturation 9 5% on 4 liter nasal cannula. HEENT: Head normocephalic. EYES: Extraocular muscles intact. NOSE AND MOUTH: Normal. NECK: Supple, no neck vein distention. LUNGS: Diminished breath sounds at both bases with poor inspiratory effort. HEART: Irregular rhythm. No murmurs, gallops or rubs. ABDOMEN: Soft, nontender, no masses or megaly. EXTREMITIES: +1 pretibial edema. LABORATORY DATA: White blood count 7900, hemoglobin 16.1, hematocrit 48.1, platelet count 177,000. Sodium 143, potassium 3.2, chloride 105, CO2 of 25, BUN 12, creatinine 0.91. IMPRESSION: 1. Uncontrolled hypertension. 2. Congestive heart failure. 3. Bilateral pleural effusions. 4. Bradycardia. 5. Hypokalemia. This patient presents now with several medical problems including congestive heart failure, elevated blood pressure, bradycardia and hypokalemia. I will plan to do the followin. Change Bumex to IV instead of p.o. 2. Increase potassium supplements. 3. Stop metoprolol. 4. Removed clonidine patch because of bradycardia. 5. Renal ultrasound. 6. Urinalysis. 7. I will follow the patient along with you. Dictated By: MERA DURON MD, ND/ALIE Conf#: [id number] DID#: [id number]
[2016-06-30] MEDS ORDERED: BUMETANIDE 1 MG TAB PO SCH (21:00)
[2016-07-01] VITALS (11 sets, daily range): BP systolic 147–179; BP diastolic 79–106; PULSE 57–71; RESP 18–20
[2016-07-01] MEDS: BUMETANIDE 1 MG INJ IV SCH ×2 (05:38→18:41)
[2016-07-01 07:01] LABS: CHOL/HDL RATIO 4.2 RATIO; POTASSIUM 3.3 mmol/L (3.5-5.1)
[2016-07-01 07:03] LABS: CREATININE 0.96 mg/dl (0.61-1.24)
[2016-07-01 07:04] LABS: CALCIUM 8.4 mg/dl (8.4-10.2); MAGNESIUM 1.9 mg/dl (1.7-2.5); PHOSPHORUS 3.2 mg/dl (2.5-4.9)
[2016-07-01 07:19] LABS: BASOPHILS % 0.3 % (0.0-2.0); EOSINOPHILS # 0.1 10^3/ul (0.0-0.5); EOSINOPHILS % 2.5 % (0.0-7.0); HEMATOCRIT 44.2 % (42.0-52.0); HEMOGLOBIN 14.8 g/dl (14.0-18.0); LYMPHOCYTES # 0.9 10^3/ul (0.8-2.9); LYMPHOCYTES % 16.6 % (15.0-51.0); MEAN CORPUSCULAR HEMOGLOBIN 29.7 pg (29.0-33.0); MEAN CORPUSCULAR HGB CONC 33.6 g/dl (32.0-37.0); MEAN CORPUSCULAR VOLUME 88.4 fl (82.0-101.0); MEAN PLATELET VOLUME 9.5 fl (7.4-10.4); MONOCYTE # 0.8 10^3/ul (0.3-0.9); MONOCYTES % 13.6 % (0.0-11.0); NEUTROPHIL # 3.8 10^3/ul (1.6-7.5); PLATELET COUNT 170 10^3/UL (140-440); RED BLOOD COUNT 4.99 10^6/ul (4.70-6.10); RED CELL DISTRIBUTION WIDTH 15.3 % (11.5-14.5); UNCORRECTED WBC 5.7 10^3/ul (4.8-10.8); WHITE BLOOD COUNT 5.7 10^3/ul (4.8-10.8)
[2016-07-01 08:00] LABS: CONDITION 1; LH ANALYZER COMMENTS 1
[2016-07-01 08:20] LABS: ALBUMIN 3.1 g/dl (3.3-4.9); POTASSIUM 3.3 mmol/L (3.5-5.1)
[2016-07-01 08:22] LABS: BILIRUBIN,INDIRECT 0.9 mg/dl (0-1.1); BILIRUBIN,TOTAL 0.9 mg/dl (0.2-1.3); CREATININE 0.99 mg/dl (0.61-1.24)
[2016-07-01 08:23] LABS: ALBUMIN/GLOBULIN RATIO 1.03; CALCIUM 8.6 mg/dl (8.4-10.2); TOTAL PROTEIN 6.1 g/dl (6.1-8.1)
[2016-07-01] MEDS: ALBUTEROL 0.5% (NEB) 2.5 MG/0.5 ML AMP HHN SCH ×2 (08:25→16:03)
[2016-07-01] MEDS: IPRATROPIUM (NEB) 0.5 MG/2.5 ML AMP HHN SCH ×2 (08:25→16:03)
[2016-07-01] MEDS: POTASSIUM CHLORIDE (SR) 20 MEQ TAB PO SCH ×2 (08:49→20:51)
[2016-07-01] MEDS: ENALAPRIL 5 MG TAB PO SCH (08:49)
[2016-07-01] MEDS: AMLODIPINE 5 MG TAB PO SCH ×2 (08:50→20:52)
[2016-07-01] MEDS: ENOXAPARIN 100 MG/ML SYG SC SCH ×2 (08:58→20:59)
--- NOTE | 2016-07-01 10:15 | CONS ---
Date/Time of Note Date/Time of Note DATE: 07/01/16 TIME: 10:09 Assessment/Plan Assessment/Plan Chief Complaint/Hosp Course 1. Cardiomyopathy/CHF 2. HTN , will increase Enalapril 3. hypokalemia , increase potassium supplements , labs in am . 4. A fib , controlled rate 5. COPD Problems: Consultation Date/Type/Reason Admit Date/Time Jun 30, 2016 at 02:20 Initial Consult Date Type of Consultation: nephrology 24 HR Interval Summary Constitutional: improved, no complaints Exam/Review of Systems Vital Signs Vitals Vital Signs Date Time Temp Pulse Resp B/P Pulse Ox O2 Delivery O2 Flow Rate FiO2 07/01/16 08:27 2.0 07/01/16 08:25 63 20 97 Nasal Cannula 07/01/16 07:32 98.2 177/93 06/30/16 20:13 21 Intake and Output 06/30/16 06/30/16 07/01/16 15:00 23:00 07:00 Intake Total 150 ml 350 ml Output Total 1125 ml 300 ml Balance -975 ml 50 ml Exam Constitutional: alert, oriented, well developed Psych: no complaints Respiratory: diminished breath sounds Cardiovascular: irregular rhythm Gastrointestinal: soft Extremities: edema Results Result Diagram: 07/01/16 0550 07/01/16 0550 Results 24 hrs Laboratory Tests Test 06/30/16 15:25 06/30/16 18:30 07/01/16 05:50 Troponin I 0.063 0.058 Alanine Aminotransferase (ALT/SGPT) 27 Albumin 3.1 L Albumin/Globulin Ratio 1.03 Alkaline Phosphatase 137 H Anion Gap 13 Aspartate Amino Transf (AST/SGOT) 21 Basophils # 0.0 Basophils % 0.3 Blood Morphology Comment Blood Urea Nitrogen 13 Calcium Level 8.6 Carbon Dioxide Level 27 Chloride Level 103 Cholesterol Level 137 Cholesterol/HDL Ratio 4.2 Creatinine 0.99 Direct Bilirubin 0.00 Eosinophils # 0.1 Eosinophils % 2.5 Globulin 3.00 Glucose Level 155 HDL Cholesterol 32 Hematocrit 44.2 Hemoglobin 14.8 Indirect Bilirubin 0.9 LDL Cholesterol, Calculated 89 Lymphocytes # 0.9 Lymphocytes % 16.6 Magnesium Level 1.9 Mean Corpuscular Hemoglobin 29.7 Mean Corpuscular Hemoglobin Concent 33.6 Mean Corpuscular Volume 88.4 Mean Platelet Volume 9.5 Monocytes # 0.8 Monocytes % 13.6 H Neutrophils # 3.8 Neutrophils % 67.0 Nucleated Red Blood Cells # 0.0 Nucleated Red Blood Cells % 0.0 Phosphorus Level 3.2 Platelet Count 170 Potassium Level 3.3 L Red Blood Count 4.99 Red Cell Distribution Width 15.3 H Sodium Level 140 Total Bilirubin 0.9 Total Protein 6.1 Triglycerides Level 82 White Blood Count 5.7 # Medications Medications Current Medications Amlodipine Besylate (Norvasc) 5 mg BID PO Last administered on 07/01/16 08:50; Admin Dose 5 MG; Start 06/29/16 at 21:00 Hydralazine HCl (Apresoline) 10 mg Q6H PRN IV SBP > 160 Last administered on 02:33; Admin Dose 10 MG; Start 06/30/16 at 02:30 Terazosin HCl (Hytrin) 2 mg HS PO Last administered on 06/30/16 22:06; Admin Dose 2 MG; Start 06/30/16 at 10:00 Enoxaparin Sodium (Lovenox) 100 mg Q12 SC Last administered on 07/01/16 08:58; Admin Dose 100 MG; Start 06/30/16 at 12:00 Influenza Virus Vaccine (Fluzone) 0.5 ml ONCE ONCE IM* ; Start 07/02/16 at 09:00 ; Stop 07/02/16 at 09:01 Enalapril Maleate (Vasotec) 10 mg Q12 PO ; Start 07/01/16 at 21:00; Status UNV Potassium Chloride (Klor-Con 20) 40 meq BID PO ; Start 07/01/16 at 21:00; Status UNV MERA DURON MD Jul 01, 2016 10:15
[2016-07-01] MEDS ORDERED: POTASSIUM CHLORIDE (SR) 20 MEQ TAB PO ONE (10:30)
--- NOTE | 2016-07-01 10:35 | CONS ---
Date/Time of Note Date/Time of Note DATE: 07/01/16 TIME: 10:29 Assessment/Plan Assessment/Plan Additional Assessment/Plan Assessment and recommendations; next 1. Patient admitted with CHF exacerbation with significant clinical improvement. 2. Chronic atrial fibrillation. 3. Prior history of craniotomy. 4. Stable hypertension. 5. History of CVA. Continue current treatment. Consultation Date/Type/Reason Admit Date/Time Jun 30, 2016 at 02:20 Initial Consult Date Type of Consultation: Pulmonary 24 HR Interval Summary Free Text/Dictation Patient condition is improving. According to him shortness of breath is much less since yesterday. Denies any chest pain, any chest pressure. Any coughing. Denies any wheezing, sputum production. General examination; elderly male, currently in no distress. Exam/Review of Systems Vital Signs Vitals Vital Signs Date Time Temp Pulse Resp B/P Pulse Ox O2 Delivery O2 Flow Rate FiO2 07/01/16 08:27 2.0 07/01/16 08:25 63 20 97 Nasal Cannula 07/01/16 07:32 98.2 177/93 06/30/16 20:13 21 Intake and Output 06/30/16 06/30/16 07/01/16 15:00 23:00 07:00 Intake Total 150 ml 350 ml Output Total 1125 ml 300 ml Balance -975 ml 50 ml Exam HEENT examination; supple neck, positive JVD. No lymphadenopathy. Patient is edentulous. Pharynx is clear. Pupils are midsize reactive to light and extraocular movements are intact. No thyromegaly, no neck bruits. Chest examination; clear to auscultation bilaterally. No added sounds. S1-S2 audible no murmurs. Irregular rhythm. Abdomen examination; soft, protuberant. No organomegaly. Nontender, bowel sounds audible. Extremity examination; no peripheral edema. Pulses 1+ bilaterally. [employer] examination; no focal deficit. Results Result Diagram: 07/01/16 0550 07/01/16 0550 Results 24 hrs Laboratory Tests Test 06/30/16 15:25 06/30/16 18:30 07/01/16 05:50 Troponin I 0.063 0.058 Alanine Aminotransferase (ALT/SGPT) 27 Albumin 3.1 L Albumin/Globulin Ratio 1.03 Alkaline Phosphatase 137 H Anion Gap 13 Aspartate Amino Transf (AST/SGOT) 21 Basophils # 0.0 Basophils % 0.3 Blood Morphology Comment Blood Urea Nitrogen 13 Calcium Level 8.6 Carbon Dioxide Level 27 Chloride Level 103 Cholesterol Level 137 Cholesterol/HDL Ratio 4.2 Creatinine 0.99 Direct Bilirubin 0.00 Eosinophils # 0.1 Eosinophils % 2.5 Globulin 3.00 Glucose Level 155 HDL Cholesterol 32 Hematocrit 44.2 Hemoglobin 14.8 Indirect Bilirubin 0.9 LDL Cholesterol, Calculated 89 Lymphocytes # 0.9 Lymphocytes % 16.6 Magnesium Level 1.9 Mean Corpuscular Hemoglobin 29.7 Mean Corpuscular Hemoglobin Concent 33.6 Mean Corpuscular Volume 88.4 Mean Platelet Volume 9.5 Monocytes # 0.8 Monocytes % 13.6 H Neutrophils # 3.8 Neutrophils % 67.0 Nucleated Red Blood Cells # 0.0 Nucleated Red Blood Cells % 0.0 Phosphorus Level 3.2 Platelet Count 170 Potassium Level 3.3 L Red Blood Count 4.99 Red Cell Distribution Width 15.3 H Sodium Level 140 Total Bilirubin 0.9 Total Protein 6.1 Triglycerides Level 82 White Blood Count 5.7 # Medications Medications Current Medications Amlodipine Besylate (Norvasc) 5 mg BID PO Last administered on 07/01/16 08:50; Admin Dose 5 MG; Start 06/29/16 at 21:00 Hydralazine HCl (Apresoline) 10 mg Q6H PRN IV SBP > 160 Last administered on 02:33; Admin Dose 10 MG; Start 06/30/16 at 02:30 Terazosin HCl (Hytrin) 2 mg HS PO Last administered on 06/30/16 22:06; Admin Dose 2 MG; Start 06/30/16 at 10:00 Enoxaparin Sodium (Lovenox) 100 mg Q12 SC Last administered on 07/01/16 08:58; Admin Dose 100 MG; Start 06/30/16 at 12:00 Influenza Virus Vaccine (Fluzone) 0.5 ml ONCE ONCE IM* ; Start 07/02/16 at 09:00 ; Stop 07/02/16 at 09:01 Enalapril Maleate (Vasotec) 10 mg Q12 PO ; Start 07/01/16 at 21:00 Potassium Chloride (Klor-Con 20) 40 meq BID PO ; Start 07/01/16 at 21:00 Potassium Chloride (Klor-Con 20) 20 meq ONCE ONCE PO ; Start 07/01/16 at 10:30; Stop 07/01/16 at 10:31 Magnesium Oxide (Mag-Ox 400) 400 mg BID PO ; Start 07/01/16 at 10:30 MK MACIAS Jul 01, 2016 10:35
[2016-07-01] MEDS: MAGNESIUM OXIDE 400 MG TAB PO SCH ×2 (11:15→20:52)
--- NOTE | 2016-07-01 11:47 | RADRPT ---
Vent Rate: 67 bpm RR Interval: 0 msec MD Interval: 0 msec QRS Duration: 120 msec QT Interval: 462 msec QTC Interval: 488 msec P-R-T [place]: 0 - -67 - 111 degrees Atrial fibrillation with premature ventricular or aberrantly conducted complexes Left axis deviation Left ventricular hypertrophy with QRS widening Inferior infarct , age undetermined ST amp; T wave abnormality, consider lateral ischemia or digitalis effect Abnormal ECG Electronically Signed By: Jamey Valadez [id number]
--- NOTE | 2016-07-01 11:48 | RADRPT ---
Vent Rate: 57 bpm RR Interval: 0 msec ID Interval: 0 msec QRS Duration: 124 msec QT Interval: 502 msec QTC Interval: 488 msec P-R-T [place]: 0 - -50 - 123 degrees Atrial fibrillation with slow ventricular response Left axis deviation Left ventricular hypertrophy with QRS widening ST amp; T wave abnormality, consider lateral ischemia or digitalis effect Abnormal ECG Electronically Signed By: Jamey Valadez [id number]
--- NOTE | 2016-07-01 11:57 | CONS ---
Date/Time of Note Date/Time of Note DATE: 07/01/16 TIME: 11:53 Assessment/Plan Assessment/Plan Chief Complaint/Hosp Course IMPRESSION: 1. Congestive heart failure exacerbation, systolic, acute on chronic. Last known ejection fraction of 25% to 30% by echo April 2016. 2. Bradycardia- to 40's at times 3. Atrial Bibrillation-with some SVR. not on elliott agents 4. History of myocardial infarction with no ischemia by prior stress July 2015 and only scar.-negative troponin x 3 since admit 5. Shortness of breath secondary to #1. 6. Hypertension-uncontrolled 7. Dyslipidemia. Rec: -tele -serial ecg's -Follow rate/rhythm closely -PPM/ICD eval -uptitare enalapril as you are doing/continue norvasc and add oral nitrates -No elliott agents given bradycardia -Continue bumex diuresis and follow volume status closely Problems: Consultation Date/Type/Reason Admit Date/Time Jun 30, 2016 at 02:20 Initial Consult Date 06/30/16 Type of Consultation: Cardiology Reason for Consultation bradycardia/arrythmia/CHF Referring Provider: ERIC GILLESPIE MD Exam/Review of Systems Vital Signs Vitals Vital Signs Date Time Temp Pulse Resp B/P Pulse Ox O2 Delivery O2 Flow Rate FiO2 07/01/16 10:59 98.2 66 20 179/93 95 07/01/16 08:27 2.0 07/01/16 08:25 Nasal Cannula 06/30/16 20:13 21 Intake and Output 06/30/16 06/30/16 07/01/16 15:00 23:00 07:00 Intake Total 150 ml 350 ml Output Total 1125 ml 300 ml Balance -975 ml 50 ml Exam Review of Systems: CONSTITUTIONAL: No fevers, chills. PULMONARY: ongoing sob CARDIOVASCULAR: intermittent chest pain GASTROINTESTINAL: No nausea/vomiting. GENITOURINARY: No hematuria/dysuria. MUSCULOSKELETAL: No myagias/arthalgias. PSYCHIATRIC: The patient denies depression. NEUROLOGIC: Generalized weakness Constitutional: alert Psych: no complaints Head: normocephalic ENMT: mucosa pink and moist Neck: jvd (9 cm water), supple Respiratory: diminished breath sounds (at bases/B) Cardiovascular: irregular rhythm Gastrointestinal: non-tender, soft Musculoskeletal: muscle tone (normal) Extremities: edema (trace bilateral) Neurological: other (No focal deficits) Results Result Diagram: 07/01/16 0550 07/01/16 0550 Results 24 hrs Laboratory Tests Test 06/30/16 15:25 06/30/16 18:30 07/01/16 05:50 Troponin I 0.063 0.058 Alanine Aminotransferase (ALT/SGPT) 27 Albumin 3.1 L Albumin/Globulin Ratio 1.03 Alkaline Phosphatase 137 H Anion Gap 13 Aspartate Amino Transf (AST/SGOT) 21 Basophils # 0.0 Basophils % 0.3 Blood Morphology Comment Blood Urea Nitrogen 13 Calcium Level 8.6 Carbon Dioxide Level 27 Chloride Level 103 Cholesterol Level 137 Cholesterol/HDL Ratio 4.2 Creatinine 0.99 Direct Bilirubin 0.00 Eosinophils # 0.1 Eosinophils % 2.5 Globulin 3.00 Glucose Level 155 HDL Cholesterol 32 Hematocrit 44.2 Hemoglobin 14.8 Indirect Bilirubin 0.9 LDL Cholesterol, Calculated 89 Lymphocytes # 0.9 Lymphocytes % 16.6 Magnesium Level 1.9 Mean Corpuscular Hemoglobin 29.7 Mean Corpuscular Hemoglobin Concent 33.6 Mean Corpuscular Volume 88.4 Mean Platelet Volume 9.5 Monocytes # 0.8 Monocytes % 13.6 H Neutrophils # 3.8 Neutrophils % 67.0 Nucleated Red Blood Cells # 0.0 Nucleated Red Blood Cells % 0.0 Phosphorus Level 3.2 Platelet Count 170 Potassium Level 3.3 L Red Blood Count 4.99 Red Cell Distribution Width 15.3 H Sodium Level 140 Total Bilirubin 0.9 Total Protein 6.1 Triglycerides Level 82 White Blood Count 5.7 # Medications Medications Current Medications Amlodipine Besylate (Norvasc) 5 mg BID PO Last administered on 07/01/16 08:50; Admin Dose 5 MG; Start 06/29/16 at 21:00 Hydralazine HCl (Apresoline) 10 mg Q6H PRN IV SBP > 160 Last administered on 02:33; Admin Dose 10 MG; Start 06/30/16 at 02:30 Terazosin HCl (Hytrin) 2 mg HS PO Last administered on 06/30/16 22:06; Admin Dose 2 MG; Start 06/30/16 at 10:00 Enoxaparin Sodium (Lovenox) 100 mg Q12 SC Last administered on 07/01/16 08:58; Admin Dose 100 MG; Start 06/30/16 at 12:00 Influenza Virus Vaccine (Fluzone) 0.5 ml ONCE ONCE IM* ; Start 07/02/16 at 09:00 ; Stop 07/02/16 at 09:01 Enalapril Maleate (Vasotec) 10 mg Q12 PO ; Start 07/01/16 at 21:00 Potassium Chloride (Klor-Con 20) 40 meq BID PO ; Start 07/01/16 at 21:00 Magnesium Oxide (Mag-Ox 400) 400 mg BID PO Last administered on 07/01/16t 11:15 ; Admin Dose 400 MG; Start 07/01/16 at 10:30 ALISSON POTTER Jul 01, 2016 11:57
[2016-07-01] MEDS ORDERED: MAGNESIUM SULFATE 2 GM/50 ML 50 ML IVPB ONE (12:00)
[2016-07-01 12:34] LABS: BARBITURATES NEGATIVE (NEGATIVE); BENZODIAZEPINES NEGATIVE (NEGATIVE); CANNABINOIDS NEGATIVE (NEGATIVE); COCAINE NEGATIVE (NEGATIVE); OPIATES NEGATIVE (NEGATIVE)
[2016-07-01] MEDS: ISOSORBIDE DINITRATE 20 MG TAB PO SCH ×2 (14:54→20:52)
--- NOTE | 2016-07-01 14:55 | PN ---
Date/Time of Note Date/Time of Note DATE: 07/01/16 TIME: 14:55 Assessment/Plan VTE Prophylaxis VTE Prophylaxis Intervention: ambulation, anti-embolic stocking VTE Contraindication Reason: peripheral vascular disease Lines/Catheters IV Catheter Type (from Nrsg): Peripheral IV Central line still needed: No Urinary Cath still in place: No Reason Cath still needed: urinary retention Assessment/Plan Assessment/Plan 1. Acute exacerbation of systolic and diastolic congestive heart failure. 2. Cardiomyopathy with ejection fraction of 30%. 3. Hypertensive urgency. 4. Diabetes mellitus. 5. Coronary artery disease with history of myocardial infarction. 6. History of cerebrovascular accident, status post craniotomy. 7. Ongoing alcohol use. 8.Bilatral pleural effusions 9.Bradycardia- to 40's 10.BPH 11.MD with memory impairment 12.Anxiety d/o with panic attacks 13.Obesity with snoring 14.COPD 15.SSS with Atrial fibrillation 16.IHD,Angina; History of myocardial infarction with no ischemia by prior stress July 2015 17 Shortness of breath secondary to above 18. Dyslipidemia. 19.Hypokalemia,hypomagnesemia Subjective 24 Hr Interval Summary Free Text/Dictation SOB mildly improved. Constitutional: chills, diaphoresis, disoriented, No febrile, No improved, No no complaints, No other, No poor po, No requiring IVF, No requiring O2 Eyes: redness, No discharge, No no complaints, No other, No pain, No visual change ENT: congestion, dysphagia Respiratory: cough, pleuritic pain, shortness of breath, No no complaints, No other, No pain, No sputum, No wheezing Cardiovascular: chest pain, lightheadedness, orthopenea, paroxysmal nocturnal dyspnea, No edema, No no complaints, No other, No palpitations Gastrointestinal: constipation, decreased appetite, flatus, nausea, passing stool, No blood, No diarrhea, No no complaints, No other, No pain, No vomiting Genitourinary: dysuria, No bleeding, No discharge, No flank pain, No hematuria, No no complaints, No other Musculoskeletal: back pain, bone/joint pain, neck pain, No no complaints, No other, No restricted range of motion, No swelling Skin: bruising, No erythema, No laceration, No no complaints, No other, No pruritis, No rash , No skin lesions Neurologic: dizziness, headache, No confusion, No focal-weakness, No no complaints, No other, No seizure, No syncope Endocrine: No dry skin, No no complaints, No other, No polydypsia, No polyuria , No temp intolerance Lymphatic: No adenopathy, No lymphadema, No no complaints, No other, No tender nodes Psychological: confusion, depression, No anxiety, No nl mood/affect, No no complaints, No other, No suicidal Immunologic: pruritis, No immunodeficiency, No no complaints, No other, No rhinitis, No urticaria Exam/Review of Systems Vital Signs Vitals Vital Signs Date Time Temp Pulse Resp B/P Pulse Ox O2 Delivery O2 Flow Rate FiO2 07/01/16 12:09 70 07/01/16 10:59 98.2 20 179/93 95 07/01/16 08:27 2.0 07/01/16 08:25 Nasal Cannula 06/30/16 20:13 21 Intake and Output 06/30/16 06/30/16 07/01/16 15:00 23:00 07:00 Intake Total 150 ml 350 ml Output Total 1125 ml 300 ml Balance -975 ml 50 ml Exam Constitutional: alert, frail, obese, oriented, well developed, No distress, No non-verbal, No other Psych: anxiety, confusion, depression, No nl mood/affect, No no complaints, No other, No suicidal Head: atraumatic, normocephalic, other (Postsurgical scar intact.), No hematomas, No lacerations Eyes: EOMI, PERRL, nl lids, No fundi, disc, No icteric, No nl conjunctiva, No nl sclera, No other ENMT: nl nasal mucosa & septum (deviastged septum.), No intubated, No mucosa pink and moist, No nl external ears & nose, No nl lips & teeth, No other, No tympanic membranes Neck: bruits, jvd, non-tender, nuchal rigidity, thyromegaly, No masses, No other, No supple Respiratory: congested cough, No clear to auscultation, No crackles/rales, No diminished breath sounds, No intercostal retraction, No labored breathing, No normal air movement, No other, No respirations, No tactile fremitus, No wheezing Cardiovascular: bruits, edema, irregular rhythm, systolic murmur, No S3, No S4, No diastolic murmur, No gallop, No jugular venous distention ( JVD), No murmurs/extra sounds, No nl pulses, No other, No regular rate and rhythm, No rub Gastrointestinal: bowel sounds, distended, hepatomegaly, soft, No ascites, No firm, No mass, No nl liver, spleen, No non-tender, No other, No rebound or guarding, No splenomegaly, No surgical scars, No tender Genitourinary - Male: nl penis, nl scrotum, No CVA tenderness, No discharge, No other Musculoskeletal: joint tenderness, muscle tone, muscle weakness, range of motion, No nl extremities to inspection, No nl gait and stance, No other, No spine non-tender, No swelling 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 intact (hearing impairment.), confused, nl mental status, nl speech (stattering.), reflexes, No DTR's symmetric, No focal weakness, No lethargic, No nl strength, No numbness, No other, No unresponsive Results Result Diagram: 07/01/16 0550 07/01/16 0550 Results 24 hrs Laboratory Tests Test 06/30/16 15:25 06/30/16 18:30 07/01/16 05:50 07/01/16 11:30 Troponin I 0.063 0.058 Alanine Aminotransferase (ALT/SGPT) 27 Albumin 3.1 L Albumin/Globulin Ratio 1.03 Alkaline Phosphatase 137 H Anion Gap 13 Aspartate Amino Transf (AST/SGOT) 21 Basophils # 0.0 Basophils % 0.3 Blood Morphology Comment Blood Urea Nitrogen 13 Calcium Level 8.6 Carbon Dioxide Level 27 Chloride Level 103 Cholesterol Level 137 Cholesterol/HDL Ratio 4.2 Creatinine 0.99 Direct Bilirubin 0.00 Eosinophils # 0.1 Eosinophils % 2.5 Globulin 3.00 Glucose Level 155 HDL Cholesterol 32 Hematocrit 44.2 Hemoglobin 14.8 Indirect Bilirubin 0.9 LDL Cholesterol, Calculated 89 Lymphocytes # 0.9 Lymphocytes % 16.6 Magnesium Level 1.9 Mean Corpuscular Hemoglobin 29.7 Mean Corpuscular Hemoglobin Concent 33.6 Mean Corpuscular Volume 88.4 Mean Platelet Volume 9.5 Monocytes # 0.8 Monocytes % 13.6 H Neutrophils # 3.8 Neutrophils % 67.0 Nucleated Red Blood Cells # 0.0 Nucleated Red Blood Cells % 0.0 Phosphorus Level 3.2 Platelet Count 170 Potassium Level 3.3 L Red Blood Count 4.99 Red Cell Distribution Width 15.3 H Sodium Level 140 Total Bilirubin 0.9 Total Protein 6.1 Triglycerides Level 82 White Blood Count 5.7 # Urine Amphetamines Screen NEGATIVE Urine Barbiturates NEGATIVE Urine Benzodiazepines Screen NEGATIVE Urine Cannabinoids NEGATIVE Urine Cocaine Screen NEGATIVE Urine Opiates Screen NEGATIVE Medications Medications Current Medications Amlodipine Besylate (Norvasc) 5 mg BID PO Last administered on 07/01/16 08:50; Admin Dose 5 MG; Start 06/29/16 at 21:00 Hydralazine HCl (Apresoline) 10 mg Q6H PRN IV SBP > 160 Last administered on 02:33; Admin Dose 10 MG; Start 06/30/16 at 02:30 Terazosin HCl (Hytrin) 2 mg HS PO Last administered on 06/30/16 22:06; Admin Dose 2 MG; Start 06/30/16 at 10:00 Enoxaparin Sodium (Lovenox) 100 mg Q12 SC Last administered on 07/01/16 08:58; Admin Dose 100 MG; Start 06/30/16 at 12:00 Influenza Virus Vaccine (Fluzone) 0.5 ml ONCE ONCE IM* ; Start 07/02/16 at 09:00 ; Stop 07/02/16 at 09:01 Enalapril Maleate (Vasotec) 10 mg Q12 PO ; Start 07/01/16 at 21:00 Potassium Chloride (Klor-Con 20) 40 meq BID PO ; Start 07/01/16 at 21:00 Magnesium Oxide (Mag-Ox 400) 400 mg BID PO Last administered on 07/01/16 11:15 ; Admin Dose 400 MG; Start 07/01/16 at 10:30 Isosorbide Dinitrate (Isordil) 20 mg TID PO ; Start 07/01/16 at 13:00 ERIC GILLESPIE MD Jul 01, 2016 14:55
[2016-07-01] MEDS: ENALAPRIL 10 MG TAB PO SCH (20:52)
[2016-07-01] MEDS: TERAZOSIN 2 MG CAP PO SCH (20:53)
[2016-07-02] VITALS (12 sets, daily range): BP systolic 106–172; BP diastolic 57–90; PULSE 60–71; RESP 18–20
[2016-07-02] MEDS: ALBUTEROL 0.5% (NEB) 2.5 MG/0.5 ML AMP HHN SCH ×3 (00:55→15:49)
[2016-07-02] MEDS: IPRATROPIUM (NEB) 0.5 MG/2.5 ML AMP HHN SCH ×3 (00:55→15:49)
[2016-07-02 02:12] LABS: URINE BILIRUBIN (Dip) NEGATIVE (NEGATIVE); URINE BLOOD (Dip) NEGATIVE (NEGATIVE); URINE COLOR LT. YELLOW (YELLOW); URINE GLUCOSE (Dip) NEGATIVE (NEGATIVE); URINE KETONES (Dip) NEGATIVE (NEGATIVE); URINE LEUKOCYTE ESTERASE (Dip) NEGATIVE (NEGATIVE); URINE NITRITE (Dip) NEGATIVE (NEGATIVE); URINE UROBILINOGEN (Dip) 1.0 E.U./dL (0.1-1.0)
[2016-07-02 02:16] LABS: ADD UMIC NO; URINE TOTAL PROTEIN (Dip) NEGATIVE (NEGATIVE)
[2016-07-02] MEDS: BUMETANIDE 1 MG INJ IV SCH ×2 (05:26→06:00)
--- NOTE | 2016-07-02 07:05 | PDOCDIS ---
Discharge Instructions CONDITION Patient Condition: Guarded HOME CARE INSTRUCTIONS: Diet Instructions: 2gm NaSpecial Diet: cardiac diet ACTIVITY: Activity Restrictions: Slowly Increase Activity Bathing Restrictions: Tub Bath FOLLOW UP/APPOINTMENTS Appointments 07/06/2016 to . REFERRALS Other Referrals Dr.Vadgama Hernandez SCHOOL/WORK RELEASE May return to School/Work on: Jul 02, 2016 May return to School/Work with: ERIC Carrion MD Jul 02, 2016 07:05
--- NOTE | 2016-07-02 07:19 | DS ---
Date/Time of Note Date/Time of Note DATE: 07/02/16 TIME: 07:10 Discharge Summary Admission/Discharge Info Admit Date/Time Jun 30, 2016 at 02:20 Discharge Date/Time Final Diagnosis 1. Acute exacerbation of systolic and diastolic congestive heart failure. 2. Cardiomyopathy with ejection fraction of 30%. 3. Hypertensive urgency. 4. Diabetes mellitus. 5. Coronary artery disease with history of myocardial infarction. 6. History of cerebrovascular accident, status post craniotomy. 7. Ongoing alcohol use. 8.Bilatral pleural effusions 9.Bradycardia- to 40's 10.BPH 11.MD with memory impairment 12.Anxiety d/o with panic attacks 13.Obesity with snoring 14.COPD 15.SSS with Atrial fibrillation 16.IHD,Angina; History of myocardial infarction with no ischemia by prior stress July 2015 17 Shortness of breath secondary to above 18. Dyslipidemia. Patient Condition: Guarded Consults Dr.Higgens Andrew. Hx of Present Illness CHF and respiratory disstgress improved after treatment. Explained the necessity of compliance and office visits for prevention of hospitalizations. Hospital Course IMPRESSION: 1. Congestive heart failure exacerbation, systolic, acute on chronic. Last known ejection fraction of 25% to 30% by echo April 2016. 2. Bradycardia- to 40's at times 3. Atrial Bibrillation-with some SVR. not on elliott agents 4. History of myocardial infarction with no ischemia by prior stress July 2015 and only scar.-negative troponin x 3 since admit 5. Shortness of breath secondary to #1. 6. Hypertension-uncontrolled 7. Dyslipidemia. Rec: -tele -serial ecg's -Follow rate/rhythm closely -PPM/ICD eval -uptitare enalapril as you are doing/continue norvasc and add oral nitrates -No elliott agents given bradycardia -Continue bumex diuresis and follow volume status closely Home Meds Reported Medications Clonidine Hcl* (Clonidine Hcl*) 0.1 Mg Tab, 0.1 MG PO TID Y for PRN, TAB 06/29/16 Omeprazole* (Omeprazole*) 20 Mg Capsule., 20 MG PO DAILY, #30 CAP 05/04/16 Aspirin* (Aspirin* EC) 81 Mg Tablet., 81 MG PO DAILY, TAB 05/04/16 Amlodipine Besylate* (Norvasc*) 5 Mg Tablet, 5 MG PO DAILY, TAB 05/04/16 Metoprolol Tartrate* (Lopressor*) 50 Mg Tab, 50 MG PO BID, #60 TAB 05/04/16 Discontinued Reported Medications Clonidine Hcl* (Clonidine Hcl*) 0.1 Mg Tab, 0.1 MG PO Q8, TAB 05/04/16 Pending Labs Laboratory Tests Test 07/01/16 11:30 07/01/16 23:00 Urine Amphetamines Screen NEGATIVE (NEGATIVE) Urine Barbiturates NEGATIVE (NEGATIVE) Urine Benzodiazepines Screen NEGATIVE (NEGATIVE) Urine Cannabinoids NEGATIVE (NEGATIVE) Urine Cocaine Screen NEGATIVE (NEGATIVE) Urine Opiates Screen NEGATIVE (NEGATIVE) Urine Bilirubin NEGATIVE (NEGATIVE) Urine Clarity CLEAR (CLEAR) Urine Color LT. YELLOW (YELLOW) Urine Glucose NEGATIVE% (NEGATIVE) Urine Hemoglobin NEGATIVE (NEGATIVE) Urine Ketones NEGATIVE (NEGATIVE) Urine Leukocyte Esterase NEGATIVE (NEGATIVE) Urine Nitrite NEGATIVE (NEGATIVE) Urine Specific [place] 1.015 (1.003-1.030) Urine Total Protein NEGATIVE (NEGATIVE) Urine Urobilinogen 1.0 E.U./dL (0.1-1.0) Urine pH 7.5 (5.0-9.0) ERIC GILLESPIE MD Jul 02, 2016 07:19
[2016-07-02] MEDS ORDERED: Bumetanide PO (07:35)
[2016-07-02] MEDS ORDERED: Ipratropium 0.02% (Neb) HHN (07:35)
[2016-07-02] MEDS ORDERED: SERT20OR PO (07:35)
[2016-07-02] MEDS ORDERED: AMLO5TAB4 PO ×2 (07:35→21:21)
[2016-07-02] MEDS ORDERED: TERA2CAP3 PO (07:35)
[2016-07-02] MEDS ORDERED: APRS PO (07:35)
[2016-07-02] MEDS ORDERED: SPIR25TA PO (07:35)
[2016-07-02] MEDS ORDERED: ASPI-716 PO (07:35)
[2016-07-02] MEDS ORDERED: MAGN400T27 PO (07:35)
[2016-07-02] MEDS ORDERED: CARV6.25 PO (07:35)
[2016-07-02] MEDS ORDERED: POTA20TA15 PO (07:35)
[2016-07-02] MEDS ORDERED: LORA-441 PO ×3 (07:35→21:21)
[2016-07-02] MEDS ORDERED: ENAL10TA PO (07:35)
[2016-07-02] MEDS ORDERED: ISOS20TA19 PO (07:35)
[2016-07-02] MEDS ORDERED: INFLUENZA VIRUS VACCINE 0.5 ML (DISPENSING) IM* ONE (09:00)
[2016-07-02] MEDS: MAGNESIUM OXIDE 400 MG TAB PO SCH ×2 (09:33→20:35)
[2016-07-02] MEDS: AMLODIPINE 5 MG TAB PO SCH ×2 (09:34→20:35)
[2016-07-02] MEDS: POTASSIUM CHLORIDE (SR) 20 MEQ TAB PO SCH ×2 (09:34→20:35)
[2016-07-02] MEDS: ISOSORBIDE DINITRATE 20 MG TAB PO SCH ×3 (09:35→20:34)
[2016-07-02] MEDS: ENOXAPARIN 100 MG/ML SYG SC SCH (09:40)
--- NOTE | 2016-07-02 09:47 | CONS ---
Date/Time of Note Date/Time of Note DATE: 07/02/16 TIME: 09:42 Assessment/Plan Assessment/Plan Chief Complaint/Hosp Course 1. Cardiomyopathy/CHF, his leg edema is less ; however , he is refusing Bumex today . 2. HTN , BP still elevated , despite the increase in Enalapril 3. hypokalemia , increase potassium supplements , labs in am .patient is refusing labs , will order labs for tomorrow . 4. A fib , controlled rate 5. COPD Problems: Consultation Date/Type/Reason Admit Date/Time Jun 30, 2016 at 02:20 Type of Consultation: Cardiology Referring Provider: ERIC GILLESPIE MD 24 HR Interval Summary Free Text/Dictation patient says that he is 50/50 . Nurse reports that he does have SOB when he walks to bathroom . Exam/Review of Systems Vital Signs Vitals Vital Signs Date Time Temp Pulse Resp B/P Pulse Ox O2 Delivery O2 Flow Rate FiO2 07/02/16 08:49 61 07/02/16 07:54 97.6 18 166/90 98 07/02/16 01:07 2.0 07/02/16 00:55 Nasal Cannula 06/30/16 20:13 21 Intake and Output 07/01/16 07/01/16 07/02/16 15:00 23:00 07:00 Intake Total 800 ml 360 ml Output Total 800 ml Balance 0 ml 360 ml Exam Constitutional: alert Respiratory: diminished breath sounds Cardiovascular: irregular rhythm Gastrointestinal: soft Extremities: edema Results Result Diagram: 07/01/16 0550 07/01/16 0550 Results 24 hrs Laboratory Tests Test 07/01/16 11:30 07/01/16 23:00 Urine Amphetamines Screen NEGATIVE Urine Barbiturates NEGATIVE Urine Benzodiazepines Screen NEGATIVE Urine Cannabinoids NEGATIVE Urine Cocaine Screen NEGATIVE Urine Opiates Screen NEGATIVE Urine Bilirubin NEGATIVE Urine Clarity CLEAR Urine Color LT. YELLOW Urine Glucose NEGATIVE Urine Hemoglobin NEGATIVE Urine Ketones NEGATIVE Urine Leukocyte Esterase NEGATIVE Urine Nitrite NEGATIVE Urine Specific [place] 1.015 Urine Total Protein NEGATIVE Urine Urobilinogen 1.0 E.U./dL Urine pH 7.5 Medications Medications Current Medications Amlodipine Besylate (Norvasc) 5 mg BID PO Last administered on 07/01/16t 20:52; Admin Dose 5 MG; Start 06/29/16 at 21:00 Hydralazine HCl (Apresoline) 10 mg Q6H PRN IV SBP > 160 Last administered on 02:33; Admin Dose 10 MG; Start 06/30/16 at 02:30 Terazosin HCl (Hytrin) 2 mg HS PO Last administered on 07/01/16 20:53; Admin Dose 2 MG; Start 06/30/16 at 10:00 Enoxaparin Sodium (Lovenox) 100 mg Q12 SC Last administered on 07/01/16 20:59; Admin Dose 100 MG; Start 06/30/16 at 12:00 Enalapril Maleate (Vasotec) 10 mg Q12 PO Last administered on 07/01/16 20:52; Admin Dose 10 MG; Start 07/01/16 at 21:00 Potassium Chloride (Klor-Con 20) 40 meq BID PO Last administered on 07/01/16 20 :51; Admin Dose 40 MEQ; Start 07/01/16 at 21:00 Magnesium Oxide (Mag-Ox 400) 400 mg BID PO Last administered on 07/01/16 20:52 ; Admin Dose 400 MG; Start 07/01/16 at 10:30 Isosorbide Dinitrate (Isordil) 20 mg TID PO Last administered on 07/01/16 20:52 ; Admin Dose 20 MG; Start 07/01/16 at 13:00 MERA DURON MD Jul 02, 2016 09:47
[2016-07-02] MEDS: ENALAPRIL 10 MG TAB PO SCH ×2 (10:30→20:34)
--- NOTE | 2016-07-02 11:12 | CONS ---
Date/Time of Note Date/Time of Note DATE: 07/02/16 TIME: 11:09 Assessment/Plan Assessment/Plan Additional Assessment/Plan Assessment and recommendations; 1. Patient admitted with specific CHF exacerbation with marked clinical improvement. 2. Chronic atrial fibrillation. 3. Hypertension which is fairly stable. 4. Remote history of CVA. Continue current treatment. Consultation Date/Type/Reason Admit Date/Time Jun 30, 2016 at 02:20 Type of Consultation: Pulmonary Referring Provider: ERIC GILLESPIE MD 24 HR Interval Summary Free Text/Dictation Patient condition is stable. Denies any shortness of breath. Denies any wheezing, cough, chest pain, fever and chills. General examination; elderly male, currently in no distress awake and alert. Exam/Review of Systems Vital Signs Vitals Vital Signs Date Time Temp Pulse Resp B/P Pulse Ox O2 Delivery O2 Flow Rate FiO2 07/02/16 10:19 66 30 94 Nasal Cannula 3.0 07/02/16 07:54 97.6 166/90 06/30/16 20:13 21 Intake and Output 07/01/16 07/01/16 07/02/16 15:00 23:00 07:00 Intake Total 800 ml 360 ml Output Total 800 ml Balance 0 ml 360 ml Exam H EENT examination; supple neck, no JVD. No lymphadenopathy. Pharynx is clear. Patient is mostly edentulous. No neck masses. Chest examination; diminished breath sounds bilaterally without any added sounds. S1-S2 audible no murmurs irregular rhythm. Abdomen examination; soft, nontender, no organomegaly. Bowel sounds audible. Extremity examination; no peripheral edema. 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 Results Result Diagram: 07/01/16 0550 07/01/16 0550 Results 24 hrs Laboratory Tests Test 07/01/16 11:30 07/01/16 23:00 Urine Amphetamines Screen NEGATIVE Urine Barbiturates NEGATIVE Urine Benzodiazepines Screen NEGATIVE Urine Cannabinoids NEGATIVE Urine Cocaine Screen NEGATIVE Urine Opiates Screen NEGATIVE Urine Bilirubin NEGATIVE Urine Clarity CLEAR Urine Color LT. YELLOW Urine Glucose NEGATIVE Urine Hemoglobin NEGATIVE Urine Ketones NEGATIVE Urine Leukocyte Esterase NEGATIVE Urine Nitrite NEGATIVE Urine Specific [place] 1.015 Urine Total Protein NEGATIVE Urine Urobilinogen 1.0 E.U./dL Urine pH 7.5 Medications Medications Current Medications Amlodipine Besylate (Norvasc) 5 mg BID PO Last administered on 07/02/16 09:34 ; Admin Dose 5 MG; Start 06/29/16 at 21:00 Hydralazine HCl (Apresoline) 10 mg Q6H PRN IV SBP > 160 Last administered on 02:33; Admin Dose 10 MG; Start 06/30/16 at 02:30 Terazosin HCl (Hytrin) 2 mg HS PO Last administered on 07/01/16 20:53; Admin Dose 2 MG; Start 06/30/16 at 10:00 Enoxaparin Sodium (Lovenox) 100 mg Q12 SC Last administered on 07/02/16 09:40 ; Admin Dose 100 MG; Start 06/30/16 at 12:00 Enalapril Maleate (Vasotec) 10 mg Q12 PO Last administered on 07/02/16 10:30; Admin Dose 10 MG; Start 07/01/16 at 21:00 Potassium Chloride (Klor-Con 20) 40 meq BID PO Last administered on 07/02/16 09:34; Admin Dose 40 MEQ; Start 07/01/16 at 21:00 Magnesium Oxide (Mag-Ox 400) 400 mg BID PO Last administered on 07/02/16 09:33 ; Admin Dose 400 MG; Start 07/01/16 at 10:30 Isosorbide Dinitrate (Isordil) 20 mg TID PO Last administered on 07/02/16 09: 35; Admin Dose 20 MG; Start 07/01/16 at 13:00 MK MACIAS Jul 02, 2016 11:12
--- NOTE | 2016-07-02 14:27 | CONS ---
Date/Time of Note Date/Time of Note DATE: 07/02/16 TIME: 14:24 Assessment/Plan Assessment/Plan Chief Complaint/Hosp Course IMPRESSION: 1. Congestive heart failure exacerbation, systolic, acute on chronic. Last known ejection fraction of 25% to 30% by echo April 2016. 2. Bradycardia- to 40's at times 3. Atrial Fibrillation-with some SVR. not on elliott agents-improved HR's overall /stable 4. History of myocardial infarction with no ischemia by prior stress July 2015 and only scar.-negative troponin x 3 since admit 5. Shortness of breath secondary to #1. 6. Hypertension-uncontrolled 7. Dyslipidemia. Rec: -tele -serial ecg's -Follow rate/rhythm closely -PPM/ICD eval can be done as outpatient and thus will schedule for f/u appt in my clinic -Continue ACEI/isordil/CCB -No elliott agents given bradycardia -Continue bumex diuresis as patient will comply with and follow volume status closely Problems: Consultation Date/Type/Reason Admit Date/Time Jun 30, 2016 at 02:20 Initial Consult Date 06/30/16 Type of Consultation: Cardiology Reason for Consultation CHF/bradycardia Referring Provider: REIC GILLESPIE MD Exam/Review of Systems Vital Signs Vitals Vital Signs Date Time Temp Pulse Resp B/P Pulse Ox O2 Delivery O2 Flow Rate FiO2 07/02/16 12:39 98.0 80 18 106/57 98 07/02/16 10:19 Nasal Cannula 3.0 06/30/16 20:13 21 Intake and Output 07/01/16 07/01/16 07/02/16 14:59 22:59 06:59 Intake Total 800 ml 360 ml Output Total 800 ml Balance 0 ml 360 ml Exam Review of Systems: CONSTITUTIONAL: No fevers, chills. PULMONARY: No sob CARDIOVASCULAR: No chest pain/palpitations GASTROINTESTINAL: No nausea/vomiting. GENITOURINARY: No hematuria/dysuria. MUSCULOSKELETAL: No myagias/arthalgias. PSYCHIATRIC: The patient denies depression. NEUROLOGIC: No weakness Constitutional: alert Psych: no complaints Head: normocephalic ENMT: mucosa pink and moist Neck: jvd (9 cm water), supple Respiratory: diminished breath sounds (at bases/B) Cardiovascular: regular rate and rhythm Gastrointestinal: non-tender, soft Musculoskeletal: muscle tone (normal) Extremities: edema (trace) Neurological: other (No focal deficits) Results Result Diagram: 07/01/16 0550 07/01/16 0550 Results 24 hrs Laboratory Tests Test 07/01/16 23:00 Urine Bilirubin NEGATIVE Urine Clarity CLEAR Urine Color LT. YELLOW Urine Glucose NEGATIVE Urine Hemoglobin NEGATIVE Urine Ketones NEGATIVE Urine Leukocyte Esterase NEGATIVE Urine Nitrite NEGATIVE Urine Specific [place] 1.015 Urine Total Protein NEGATIVE Urine Urobilinogen 1.0 E.U./dL Urine pH 7.5 Medications Medications Current Medications Amlodipine Besylate (Norvasc) 5 mg BID PO Last administered on 07/02/16 09:34 ; Admin Dose 5 MG; Start 06/29/16 at 21:00 Hydralazine HCl (Apresoline) 10 mg Q6H PRN IV SBP > 160 Last administered on 02:33; Admin Dose 10 MG; Start 06/30/16 at 02:30 Terazosin HCl (Hytrin) 2 mg HS PO Last administered on 07/01/16 20:53; Admin Dose 2 MG; Start 06/30/16 at 10:00 Enoxaparin Sodium (Lovenox) 100 mg Q12 SC Last administered on 07/02/16 09:40 ; Admin Dose 100 MG; Start 06/30/16 at 12:00 Enalapril Maleate (Vasotec) 10 mg Q12 PO Last administered on 07/02/16 10:30; Admin Dose 10 MG; Start 07/01/16 at 21:00 Potassium Chloride (Klor-Con 20) 40 meq BID PO Last administered on 07/02/16 09:34; Admin Dose 40 MEQ; Start 07/01/16 at 21:00 Magnesium Oxide (Mag-Ox 400) 400 mg BID PO Last administered on 07/02/16 09:33 ; Admin Dose 400 MG; Start 07/01/16 at 10:30 Isosorbide Dinitrate (Isordil) 20 mg TID PO Last administered on 07/02/16 09: 35; Admin Dose 20 MG; Start 07/01/16 at 13:00 ALISSON POTTERb 10, 2017 14:27
[2016-07-02] MEDS ORDERED: BUMETANIDE 1 MG TAB PO SCH (18:00)
[2016-07-02] MEDS: TERAZOSIN 2 MG CAP PO SCH (20:34)
[2016-07-02] MEDS ORDERED: APIXABAN 5 MG TABLET PO SCH (21:00)
[2016-07-02] MEDS ORDERED: ASPI-664 PO (21:21)
[2016-07-02] MEDS ORDERED: OMEP20CA16 PO (21:21)
[2016-07-02] MEDS ORDERED: CLON-379 PO (21:21)
[2016-07-02] MEDS ORDERED: METO-429 PO (21:21)
[2016-07-02] MEDS ORDERED: HYDROCORTISONE 1% 28 GM CR TOP SCH (22:00)
== END 2016-07-02 21:55 | disposition home or self-care (01) | DRG 291 ==
LOC: E/R 16:45 → ICU 06-30 02:20 → TEL 06-30 20:33
PROVIDERS: ADMIT Family Medicine; ATTEND Family Medicine
DX: I11.0 Hypertensive heart disease with heart failure (principal); J96.22 Acute and chronic respiratory failure with hypercapnia; I50.43 Acute on chronic combined systolic (congestive) and diastolic (congestive) heart failure; I49.5 Sick sinus syndrome; I48.2 Chronic atrial fibrillation; R00.1 Bradycardia, unspecified; I16.0 Hypertensive urgency; I25.2 Old myocardial infarction; Z86.73 Personal history of transient ischemic attack (TIA), and cerebral infarction without residual deficits; E11.9 Type 2 diabetes mellitus without complications; N40.0 Benign prostatic hyperplasia without lower urinary tract symptoms; F32.9 Major depressive disorder, single episode, unspecified; R41.3 Other amnesia; F41.0 Panic disorder [episodic paroxysmal anxiety]; E66.9 Obesity, unspecified; R06.83 Snoring; J44.9 Chronic obstructive pulmonary disease, unspecified; I25.119 Atherosclerotic heart disease of native coronary artery with unspecified angina pectoris; E78.5 Hyperlipidemia, unspecified; E87.6 Hypokalemia; E83.42 Hypomagnesemia; Z72.89 Other problems related to lifestyle; Z87.891 Personal history of nicotine dependence; I25.5 Ischemic cardiomyopathy; K21.9 Gastro-esophageal reflux disease without esophagitis; Z98.890 Other specified postprocedural states
CPT/HCPCS: 71010; 76705; 76775; 80048; 80053; 80061; 80307; 81003; 83540; 83735; 83880; 84100; 84443; 84484; 85025; 85610; 85730; 87086; 90686; 93005; 94640; 94664; J0360; J1650; J1940; J3475

== ENCOUNTER 2016-08-19 17:16 | Inpatient (IN) | payer MEDICARE, BC ==
[~2016-08-19] VITALS: Ht 175.3 cm; Wt 100.2 kg
[~2016-08-19 17:16] MED LIST changes: +APRS PO; +ASPI-716 PO; +Bumetanide PO; +CARV6.25 PO; +ENAL10TA PO; +ISOS20TA19 PO; +Ipratropium 0.02% (Neb) HHN; +LORA-441 PO; +MAGN400T27 PO; +POTA20TA15 PO; +SERT20OR PO; +SPIR25TA PO; +TERA2CAP3 PO
[2016-08-19] MEDS ORDERED: NITROGLYCERIN (SL) 0.4 MG TAB ONE (18:15)
[2016-08-19 18:18] LABS: ADD SCAN DIFF NO
[2016-08-19 18:23] LABS: BASOPHILS % 0.6 % (0.0-2.0); EOSINOPHILS % 0.6 % (0.0-7.0); HEMATOCRIT 50.1 % (42.0-52.0); HEMOGLOBIN 16.3 g/dl (14.0-18.0); LYMPHOCYTES # 1.1 10^3/ul (0.8-2.9); LYMPHOCYTES % 16.5 % (15.0-51.0); MEAN CORPUSCULAR HEMOGLOBIN 27.9 pg (29.0-33.0); MEAN CORPUSCULAR HGB CONC 32.5 g/dl (32.0-37.0); MEAN CORPUSCULAR VOLUME 85.8 fl (82.0-101.0); MEAN PLATELET VOLUME 10.5 fl (7.4-10.4); MONOCYTE # 0.9 10^3/ul (0.3-0.9); MONOCYTES % 13.7 % (0.0-11.0); NEUTROPHIL # 4.7 10^3/ul (1.6-7.5); NEUTROPHILS % 68.3 % (39.0-77.0); PLATELET COUNT 233 10^3/UL (140-415); RED BLOOD COUNT 5.84 10^6/ul (4.70-6.10); RED CELL DISTRIBUTION WIDTH 17.2 % (11.5-14.5); WHITE BLOOD COUNT 6.9 10^3/ul (4.8-10.8)
[2016-08-19] MEDS ORDERED: NITROGLYCERIN (SL) 0.4 MG TAB SL ONE (18:30)
[2016-08-19 18:32] LABS: INR 1.07; PROTIME 13.9 Sec (12.2-14.2); PT RATIO 1.1
[2016-08-19 18:33] VITALS: TEMP 98.6
[2016-08-19 18:33] LABS: PARTIAL THROMBOPLASTIN TIME 31.4 Sec (25.0-35.0)
[2016-08-19 18:34] LABS: POTASSIUM 3.9 mmol/L (3.5-5.1)
[2016-08-19 18:36] LABS: CREATININE 0.99 mg/dl (0.61-1.24)
[2016-08-19 18:37] LABS: CALCIUM 9.1 mg/dl (8.4-10.2)
[2016-08-19 18:48] LABS: TROPONIN-I 0.048 ng/ml (0.00-0.12)
--- NOTE | 2016-08-19 18:50 | RADRPT ---
PROCEDURE: XR Chest AP portable CLINICAL INDICATION: Chest pain TECHNIQUE: An AP portable radiograph of the chest was submitted. COMPARISON: 06/29/2016 FINDINGS: Support Hardware: None Cardiovascular: The heart remains moderately enlarged and the pulmonary vasculature is again congest ed. Lung Streeter: Interstitial infiltrates are again seen extend to the perihilar regions becoming more a lveolar at the lung bases compatible with pulmonary edema. Pleural Spaces: A small right pleural fluid accumulation cannot be excluded as the costophrenic angl e is blunted. There is no pneumothorax. Osseous Structures: The osseous structures appear intact. Soft Tissues: The soft tissues appear generous. IMPRESSION: 1. Moderate cardiomegaly slightly worsened from the previous study with pulmonary vascular congesti on. 2. Persistent pulmonary edema and possible small right pleural fluid accumulation. Physician Danya Date Time Electronically viewed and signed by Casi Ayoub Physician on 08/19/2016 18:50 RH/
[2016-08-19] MEDS ORDERED: LABETALOL HCL 20MG INJ IV STA (19:16)
[2016-08-19] MEDS ORDERED: FUROSEMIDE 40 MG INJ IV ONE (20:30)
[2016-08-19] MEDS ORDERED: ENALAPRILAT 1.25 MG INJ IV ONE (21:00)
[2016-08-19] MEDS ORDERED: ONDANSETRON 4 MG INJ IV PRN (21:30)
[2016-08-19] MEDS ORDERED: ACETAMINOPHEN 325 MG TAB PO PRN (21:30)
[2016-08-19 22:00] VITALS: BP 170/99; PULSE 65; RESP 20
[2016-08-19 22:15] VITALS: PULSE 77
--- NOTE | 2016-08-19 22:44 | ERA ---
ER Documentation Chief Complaint Date/Time DATE: 08/19/16 TIME: 22:01 Chief Complaint sob and increased weakness for 3 days. high bp. no chest pain HPI 66-year-old male with a history of CHF and hypertension presenting with 3 days of worsening shortness of breath and generalized weakness. He denies any associated fever, chest pain, cough. He has noticed associated leg swelling for the past 3 days as well. He is urinating normally. He is taking his diuretics as prescribed. ROS All systems reviewed and are negative except as per history of present illness. Medications Home Meds Active Scripts Clonidine Hcl* (Clonidine Hcl*) 0.1 Mg Tab, 0.1 MG PO TID Y for PRN for 30 Days , #90 TAB Prov:ERIC CAMACHO MD 07/02/16 Amlodipine Besylate* (Norvasc*) 5 Mg Tablet, 5 MG PO BID for 30 Days, #60 TAB Prov:ERIC CAMACHO MD 07/02/16 Discontinued Scripts Lorazepam* (Ativan*) 0.5 Mg Tablet, 0.5 MG PO Q8 Y for ANXIETY for 30 Days, #60 TAB 0 Refills Prov:ERIC CAMACHO MD 07/02/16 Omeprazole* (Omeprazole*) 20 Mg Capsule.dr, 20 MG PO DAILY for 30 Days, #30 CAP Prov:ERIC CAMACHO MD 07/02/16 Aspirin* (Aspirin* EC) 81 Mg Tablet.dr, 81 MG PO DAILY for 30 Days, #30 TAB Prov:ERIC CAMACHO MD 07/02/16 Amlodipine Besylate* (Norvasc*) 5 Mg Tablet, 5 MG PO DAILY for 30 Days, #60 TAB Prov:ERIC CAMACHO MD 07/02/16 Metoprolol Tartrate* (Lopressor*) 50 Mg Tab, 50 MG PO BID for 30 Days, #60 TAB Prov:ERIC CAMACHO MD 07/02/16 Lorazepam* (Ativan*) 0.5 Mg Tablet, 0.5 MG PO Q8 Y for ANXIETY for 60 Days, #60 TAB 1 Refill Prov:ERIC CAMACHO MD 07/02/16 Sertraline HCl (Zoloft) 20 Mg/1 Ml Oral.conc, 20 MG PO DAILY for 30 Days, #30 TAB 1 Refill Prov:ERIC CAMACHO MD 07/02/16 Carvedilol* (Coreg*) 6.25 Mg Tablet, 6.25 MG PO BID for 30 Days, #60 TAB Prov:ERIC CAMACHO MD 07/02/16 Spironolactone* (Aldactone*) 25 Mg Tablet, 25 MG PO BID for 30 Days, #60 TAB Prov:ERIC CAMACHO MD 07/02/16 Aspirin* (Ecotrin*) 81 Mg Tablet.dr, 81 MG PO DAILY for 30 Days, #30 TAB Prov:ERIC CAMACHO MD 07/02/16 Terazosin Hcl* (Terazosin Hcl*) 2 Mg Capsule, 2 MG PO HS for 30 Days, #30 CAP Prov:ERIC CAMACHO MD 07/02/16 Potassium Chloride* (K-Dur*) 20 Meq Tab.prt.sr, 40 MEQ PO BID for 30 Days, #60 TAB Prov:ERIC CAMACHO MD 07/02/16 Magnesium Oxide* (Mag-Oxide*) 400 Mg Tablet, 400 MG PO BID for 30 Days, #60 TAB Prov:ERIC CAMACHO MD 07/02/16 Isosorbide Dinitrate* (Isosorbide Dinitrate*) 20 Mg Tablet, 20 MG PO TID for 30 Days, #60 TAB Prov:ERIC CAMACHO MD 07/02/16 [Ipratropium 0.02% (Neb)] 0.5 MG/2.5 ML NEBU No Conflict Check, 0.5 MG HHN Q8H RESP THERAPY for 30 Days, #90 CU Prov:ERIC CAMACHO MD 07/02/16 Hydralazine Hcl* (Apresoline* Pediatric Oral) 1 Mg/Ml (Compounded) Oral Solution , 25 MG PO Q12 Y for SBP > 160 for 30 Days, #60 BOTTLE Prov:ERIC CAMACHO MD 07/02/16 Enalapril Maleate* (Enalapril Maleate*) 10 Mg Tablet, 10 MG PO Q12 for 30 Days, #30 TAB Prov:ERIC CAMACHO MD 07/02/16 [Bumetanide] 0.25 MG/ML TABLET No Conflict Check, 1 MG PO BID DIURETICS for 30 Days, #60 BOTTLE Prov:ERIC CAMACHO MD 07/02/16 Allergies Allergies: Coded Allergies: No Known Allergies (Verified Allergy, Unknown, 08/19/16) PMhx/Soc History of Surgery: Yes (CRANIOTOMY ) Anesthesia Reaction: No Hx Neurological Disorder: Yes (STROKE) Hx Respiratory Disorders: No Hx Cardiac Disorders: Yes (CHF, HTN, CARDIOMYOPATHY, CAD, ANEMIA) Hx Psychiatric Problems: No Hx Miscellaneous Medical Probl: No Hx Alcohol Use: Yes Hx Substance Use: No Hx Tobacco Use: Yes Smoking Status: Former smoker FmHx Family History: No diabetes Physical Exam Vitals Vital Signs Date Time Temp Pulse Resp B/P Pulse Ox O2 Delivery O2 Flow Rate FiO2 08/19/16 21:42 62 157/82 08/19/16 20:46 65 20 164/108 100 Nasal Cannula 2.0 08/19/16 20:00 61 171/109 08/19/16 19:30 64 163/106 08/19/16 19:00 68 174/114 08/19/16 18:33 98.6 64 20 158/113 100 Room Air 08/19/16 17:20 98.9 70 30 208/119 97 Physical Exam Const: Appears short of breath, nontoxic, able to speak in full sentences Head: Atraumatic Eyes: Normal Conjunctiva ENT: Normal External Ears, Nose and Mouth. Neck: Full range of motion..~ No meningismus. No JVD Resp: Clear to auscultation bilaterally Cardio: Regular rate and rhythm, no murmurs. Bibasilar crackles, diminished breath sounds bilaterally Abd: Soft, non tender, non distended. Normal bowel sounds Skin: No petechiae or rashes Back: No midline or flank tenderness Ext: No cyanosis, 2+ bilateral LE edema Neur: Awake and alert Psych: Normal Mood and Affect Result Diagram: 08/19/16180908/19/161809 Results 24 hrs Laboratory Tests Test 08/19/16 18:10 White Blood Count 6.910^3/ul Red Blood Count 5.8410^6/ul Hemoglobin 16.3g/dl Hematocrit 50.1% Mean Corpuscular Volume 85.8fl Mean Corpuscular Hemoglobin 27.9pg Mean Corpuscular Hemoglobin Concent 32.5g/dl Red Cell Distribution Width 17.2% Platelet Count 08676^3/UL Mean Platelet Volume 10.5fl Neutrophils % 68.3% Lymphocytes % 16.5% Monocytes % 13.7% Eosinophils % 0.6% Basophils % 0.6% Nucleated Red Blood Cells % 0.0/100WBC Neutrophils # 4.710^3/ul Lymphocytes # 1.110^3/ul Monocytes # 0.910^3/ul Eosinophils # 0.010^3/ul Basophils # 0.010^3/ul Nucleated Red Blood Cells # 0.010^3/ul Prothrombin Time 13.9Sec Prothrombin Time Ratio 1.1 INR International Normalized Ratio 1.07 Activated Partial Thromboplast Time 31.4Sec Sodium Level 139mmol/L Potassium Level 3.9mmol/L Chloride Level 102mmol/L Carbon Dioxide Level 26mmol/L Anion Gap 15 Blood Urea Nitrogen 16mg/dl Creatinine 0.99mg/dl Glucose Level 220mg/dl Calcium Level 9.1mg/dl Troponin I 0.048ng/ml Current Medications Medications (Trade) Dose Ordered Sig/Tavon Route PRN Reason Start Time Stop Time Status Last Admin Dose Admin Nitroglycerin (Nitroglycerin (Sl Tab) 0.4 Mg) 25 tab STK-MED ONCE .ROUTE 08/19/16 18:15 08/19/16 18:16 DC Nitroglycerin (Nitroglycerin (Sl Tab) 0.4 Mg) 1 tab [id number] ONCE SL 08/19/16 18:30 08/19/16 18:31 DC 08/19/16 18:40 Labetalol HCl (Labetalol) 10 mg ONCE STAT IV 08/19/16 19:16 08/19/16 19:19 DC 08/19/16 19:22 Furosemide (Lasix) 80 mg ONCE ONCE IV 08/19/16 20:30 08/19/16 20:31 DC 08/19/16 20:22 Enalaprilat (Vasotec Iv) 1.25 mg ONCE ONCE IV 08/19/16 21:00 08/19/16 21:01 DC 08/19/16 21:05 Ondansetron HCl (Zofran Inj) 4 mg ER BRIDGE PRN IV NAUSEA AND/OR VOMITING 08/19/16 21:30 08/20/16 21:29 Acetaminophen (Tylenol Tab) 650 mg ER BRIDGE PRN PO MILD PAIN/FEVER 08/19/16 21:30 08/20/16 21:29 Procedures/MDM EMERGENT LABS AND DIAGNOSTIC STUDIES: Lab Results above were reviewed and interpreted by me. CBC and CMP are within normal limits, troponin is within normal limits 12-lead EKG was interpreted by Parrish Aparicio MD: Atrial fibrillation at 59 bpm Left axis deviation, LVH Nonspecific T-wave abnormalities in the lateral leads No acute ST or T wave changes suggestive of acute ischemia or STEMI. Radiology Results as interpreted by Radiology below were reviewed by Bg Aparicio MD: Chest x-ray: IMPRESSION: 1. Moderate cardiomegaly slightly worsened from the previous study with pulmonary vascular congestion. 2. Persistent pulmonary edema and possible small right pleural fluid accumulation. Physician Danya Date Time Electronically viewed and signed by Casi Ayoub Physician on 08/19/2016 18:50 Initial Nursing notes reviewed. Previous Medical Records requested via the Electronic Health Record. EMERGENCY DEPARTMENT COURSE / MEDICAL DECISION MAKING: Patient is presenting with severely elevated blood pressure and shortness of breath. His vitals are only notable for hypertension with a significantly elevated diastolic blood pressure. His EKG shows some nonspecific T-wave inversions which may be secondary to ischemia, but I cannot be sure of this. His troponin was within normal limits. His labs do not show evidence of acute renal failure or other endorgan injury. However his chest x-ray shows evidence of acute on chronic CHF. Lasix 80 mg IV was given. Nitro sublingual was given 3 times with improvement in his systolic blood pressure but no significant improvement in the diastolic blood pressure. He was given labetalol IV with some improvement of his blood pressure which was transient. He was given another dose of enalapril IV. I do not think the patient is stable for discharge at this time and will need admission for blood pressure control and management of his acute CHF exacerbation. According to registration, the patient's primary care doctor was Dr. Camacho and he was admitted to this doctor last time in June, however, given his insurance, the patient will need admission to Dr. Gibson. Critical Care Time: 45 minutes Treatments/Evaluations: Close monitoring and treatment of unstable vital signs, cardiorespiratory, and neurologic status, while maintaining tight balance of fluid, respiratory, and cardiac interventions. This time includes discussing the case with the patient and the patients family. This time does not include all procedures stated elsewhere in this record. This time also includes reviewing old records, labs and radiological studies. This time includes examining and re-examining the patient. Additionally, this time also includes arranging care with admitting and consulting physicians. Accepting Care Team: Current data and ongoing care discussed. Time: Time of admission Primary Provider: Paige Consulting: none Outstanding Data: none Departure Diagnosis: Primary Impression: Hypertensive emergency Additional Impression: Acute exacerbation of CHF (congestive heart failure) Qualified Code: I50.43 - Acute on chronic combined systolic and diastolic congestive heart failure Condition: Critical JEROMY APARICIO MD Aug 19, 2016 22:11
[2016-08-19 23:09] VITALS: Ht 175.3 cm; Wt 100.2 kg
[2016-08-19 23:24] LABS: ADD UMIC YES; URINE BILIRUBIN (Dip) NEGATIVE (NEGATIVE); URINE BLOOD (Dip) NEGATIVE (NEGATIVE); URINE COLOR LT. YELLOW (YELLOW); URINE GLUCOSE (Dip) NEGATIVE (NEGATIVE); URINE KETONES (Dip) NEGATIVE (NEGATIVE); URINE LEUKOCYTE ESTERASE (Dip) NEGATIVE (NEGATIVE); URINE NITRITE (Dip) NEGATIVE (NEGATIVE); URINE TOTAL PROTEIN (Dip) 1+ (NEGATIVE); URINE UROBILINOGEN (Dip) 0.2 E.U./dL (0.1-1.0)
[2016-08-19 23:38] LABS: URINE RBCS 0-2 /HPF (0)
[2016-08-19] MEDS: morphine 2 MG INJ IV PRN (23:54)
[2016-08-20] VITALS (12 sets, daily range): BP systolic 127–187; BP diastolic 80–108; PULSE 50–75; RESP 16–18
[2016-08-20] MEDS: AMLODIPINE 5 MG TAB PO SCH ×3 (00:37→21:50)
[2016-08-20] MEDS: ENALAPRIL 10 MG TAB PO SCH ×3 (01:21→21:00)
[2016-08-20] MEDS ORDERED: FUROSEMIDE 40 MG INJ IV SCH ×2 (06:00→19:30)
[2016-08-20 08:42] LABS: POTASSIUM 3.5 mmol/L (3.5-5.1)
[2016-08-20 08:44] LABS: CREATININE 0.96 mg/dl (0.61-1.24)
[2016-08-20 08:45] LABS: CALCIUM 8.7 mg/dl (8.4-10.2); MAGNESIUM 1.7 mg/dl (1.7-2.5)
[2016-08-20] MEDS: ASPIRIN 81 MG TAB PO SCH (08:46)
[2016-08-20] MEDS: POTASSIUM CHLORIDE (SR) 20 MEQ TAB PO SCH (08:47)
[2016-08-20] MEDS: ISOSORBIDE DINITRATE 20 MG TAB PO SCH ×3 (08:47→21:48)
[2016-08-20] MEDS ORDERED: ENOXAPARIN 40 MG/0.4 ML SYG SC SCH ×2 (09:00→13:30)
[2016-08-20] MEDS ORDERED: GLUCOSE GEL 15 GRAM TUBE BUCCAL PRN (13:30)
[2016-08-20] MEDS ORDERED: DOCUSATE SODIUM 100 MG CAP PO PRN (13:30)
[2016-08-20] MEDS ORDERED: NACL 0.9% 3 ML SYG IV SCH (13:30)
[2016-08-20] MEDS ORDERED: GLUCOSE GEL 15 GRAM TUBE PO PRN ×2 (13:30)
[2016-08-20] MEDS ORDERED: ONDANSETRON 4 MG INJ IV PRN (13:30)
[2016-08-20] MEDS ORDERED: hydrALAzine 20 MG INJ IV PRN ×2 (13:30)
[2016-08-20] MEDS ORDERED: ACETAMINOPHEN 325 MG TAB PO PRN (13:30)
[2016-08-20] MEDS ORDERED: DEXTROSE 50% 50 ML SYRINGE IV PRN ×2 (13:30)
[2016-08-20] MEDS ORDERED: GLUCAGON 1 MG INJ IM PRN (13:30)
[2016-08-20] MEDS ORDERED: NITROGLYCERIN (SL) 0.4 MG TAB SL PRN (13:30)
--- NOTE | 2016-08-20 13:43 | HP ---
DATE OF ADMISSION: 08/20/2016 CHIEF COMPLAINT: Increased shortness of breath over the last 3 to 4 days and elevated blood pressur e. HISTORY OF PRESENT ILLNESS: The patient is a 66-year-old gentleman with a past medical history posi tive for congestive heart failure and hypertension. The patient developed worsening shortness of br eath and generalized weakness over the last couple of days. The patient also stated that he has an elevated blood pressure. Patient stated he did not take any Lasix and the patient stated that he do es not routinely take medications, only takes it when he feels worse. Patient denies any fever, chi lls, denies any chest pain, denies any nausea, vomiting, diarrhea or constipation. Patient also com plains of bilateral lower extremity swelling. In the emergency room the patient underwent a chest x -ray which revealed moderate cardiomegaly, slightly worsened from the previous study, with pulmonary vascular congestion, persistent pulmonary edema and possible small right pleural fluid accumulation . The patient did not have any leukocytosis. Troponin was 0.048. The patient was given some labet alol and Lasix, with improvement in blood pressure and some improvement in shortness of breath. The patient is admitted for further evaluation and management to the telemetry floor. PAST MEDICAL HISTORY: Systolic and diastolic congestive heart failure, cardiomyopathy with an eject ion fraction of 30%, history of myocardial infarction a coronary artery disease, hypertension, hyper lipidemia, diabetes, history of a stroke, status post craniotomy. PAST SURGICAL HISTORY: Status post craniotomy for cerebellar decompression for significant edema re lated to large cerebellar infarct in February of 2015. FAMILY HISTORY: Noncontributory. SOCIAL HISTORY: Patient is a former smoker. The patient currently denies any smoking, he stopped i 1992. Denies any illicit drug use. Patient drinks alcohol occasionally. Patient lives at home w ith his family. ALLERGIES: NO KNOWN ALLERGIES. HOME MEDICATIONS: Include: 1. Norvasc. 2. Clonidine. REVIEW OF SYSTEMS: A 12-point review of systems was negative unless mentioned in the HPI. PHYSICAL ASSESSMENT: GENERAL: A well-developed, well-nourished male, who currently is awake, alert. VITAL SIGNS: Temperature 97.7, pulse is 63, blood pressure 127/80, respiratory rate 18, oxygen satu ration 93% on 2 liters nasal cannula. HEENT: Head is atraumatic, normocephalic. Pupils are equal, round, react to light and accommodatio n. Oral mucosa is pink and moist. NECK: Supple. No cervical lymphadenopathy. JVD is present. LUNGS: Clear bilaterally, slightly diminished at the bases. There are no rhonchi, wheezes, or rale s noted. CARDIOVASCULAR: Irregularly irregular rhythm. No murmurs, gallops, clicks or rubs noted. ABDOMEN: Protuberant, soft, nondistended, nontender. Bowel sounds present. There is no guarding, n o rebound tenderness. EXTREMITIES: There is bilateral lower extremities edema of 2+. Pulses equal bilaterally at 2+. Th ere is no cyanosis. NEUROLOGIC: The patient is awake, alert and oriented x4. No focal deficits noted. Motor strength is 5/5 in all extremities. SKIN: There is no rash or petechiae noted. LABORATORY DATA ON ADMISSION: CBC, white blood cells 6.9, hemoglobin 16.3, hematocrit 50.1, platelet s 233. Chemistry: Sodium is 139, potassium 3.9, chloride 102, carbon dioxide 26, anion gap 15, BUN 16, creatinine 0.99, glucose 220, calcium 9.1. Troponin 0.048. PT 13.9, INR is 1.078, PTT 31.4. ASSESSMENT AND PLAN: 1. Systolic and diastolic congestive heart failure with exacerbation. Will continue the patient on Lasix. Monitor electrolytes. Dr. Chen will be following the patient in cardiology consultation . 2. Hypertensive urgency. Continue the patient's hydralazine p.r.n. 3. Atrial fibrillation. Will continue the patient on Lovenox. Currently is rate controlled. Star t the patient on aspirin. 4. Cardiomyopathy, with an ejection fraction of 30%. 5. Diabetes mellitus. 6. Coronary artery disease. 7. History of cerebrovascular accident, status post craniotomy. 8. Chronic obstructive pulmonary disease. Will continue oxygen supplementation and breathing treat ments. Start the patient on an 1800 ADA 2 g sodium, low fat, low cholesterol diet. Continue to monitor glu cose, with NovoLog sliding scale coverage. Will obtain cardiac enzymes x2 to rule out acute coronar y syndrome. Further recommendations based on clinical course. Plan of care discussed with Dr. Gibson. Dictated By: [facility] for NAE GIBSON MD SR/NTS Conf#: [id number] DID#: [id number]
[2016-08-20] MEDS: INSULIN ASPART [NOVOLOG] 3 ML PEN SC SCH ×2 (17:18→22:00)
[2016-08-20] MEDS: TERAZOSIN 2 MG CAP PO SCH (21:47)
[2016-08-20] MEDS: ENOXAPARIN 60 MG/0.6 ML SYG SC SCH (21:59)
[2016-08-21] VITALS (15 sets, daily range): BP systolic 103–150; BP diastolic 60–91; PULSE 41–177; RESP 16–20
[2016-08-21] MEDS: ACCU-CHEK XX SCH (01:42)
[2016-08-21] MEDS: PANTOPRAZOLE (EC) 40 MG TAB PO SCH (05:37)
[2016-08-21] MEDS: FUROSEMIDE 40 MG INJ IV SCH ×2 (05:41→17:31)
--- NOTE | 2016-08-21 07:00 | CONS ---
DATE OF ADMISSION: 08/20/2016 DATE OF CONSULTATION: 08/20/2016 REASON FOR CONSULTATION: Congestive heart failure exacerbation. REQUESTING PHYSICIAN: Nae Tipton MD. HISTORY OF PRESENT ILLNESS: Mr. Hill is a 66-year-old male with a history of cardiomyopathy, decr eased left ventricular ejection fraction of approximately 25% to 30% by echo in 04/2016 with subseq uent recurrent bouts of systolic congestive heart failure, prior myocardial infarction with a stress test in 07/2015 revealing scar, but no ischemia, hypertension, dyslipidemia, bradycardia, and atria l fibrillation who had recently been admitted for congestive heart failure exacerbation and had been effectively medically treated and was discharged to outpatient followup and now represents with com plaints of shortness of breath, lower extremity edema, orthopnea. Initially upon arrival, temperatu re was 98.9, blood pressure markedly elevated at 208/119, pulse 70, respiratory rate 30, saturating 97%. The patient's labs revealed white count of 6.9, hemoglobin 6.3, platelet count 233. Sodium 13 9, potassium 3.9, creatinine of 0.99, BUN 16. TSH 1.2. Troponin negative. INR 1.0. UA negative. The patient underwent a chest x-ray that revealed moderate cardiomegaly, slightly worse than previo us study with pulmonary vascular congestion, persistent pulmonary edema, and possible small right pl eural fluid accumulation. The patient's electrocardiogram with atrial fibrillation at a rate of 59 with inferior Q's and poor R-wave progression across the anterior precordial leads and anteroseptal Q's, and associated nonspecific ST and T-wave abnormalities. The patient was subsequently admitted to the floor and continuously monitored on telemetry revealing atrial fibrillation in the 50s and 60 s. The patient denies chest pain and has ongoing shortness of breath. PAST MEDICAL HISTORY: As above in HPI. MEDICATIONS CURRENTLY IN HOSPITAL: 1. Aspirin 81 mg daily. 2. Protonix 40 mg daily. 3. Terazosin 2 mg at bedtime. 4. Lovenox 40 mg subcutaneous daily. 5. Hydralazine p.r.n. 6. Isordil 20 mg p.o. t.i.d. 7. Carvedilol 3.125 mg p.o. b.i.d. 8. Lasix 40 mg IV daily. 9. Potassium chloride 10 mEq 10. Norvasc 5 mg p.o. b.i.d. 11. Enalapril 10 mg p.o. b.i.d. ALLERGIES: NO KNOWN DRUG ALLERGIES. SOCIAL HISTORY: No tobacco, ETOH or illicit drug use. FAMILY HISTORY: No history of sudden cardiac or early CAD. REVIEW OF SYSTEMS: As above in HPI. CONSTITUTIONAL: No fevers, chills. PULMONARY: Shortness of breath. CARDIOVASCULAR: Congestive heart failure, cardiomyopathy. GASTROINTESTINAL: No vomiting. GENITOURINARY: No hematuria. MUSCULOSKELETAL: Degenerative joint disease. PSYCHIATRIC: The patient denies depression. NEUROLOGIC: No documented history of CVA. ENDOCRINE: No history of thyroid disease. PHYSICAL EXAMINATION: VITAL SIGNS: Temperature 97.9, blood pressure 135/84, pulse 60, respirations 18, saturating 95%. GENERAL: The patient is alert, awake, complaining of shortness of breath. NECK: JVP approximately 9 to 10 cm water. CHEST: Bibasilar crackles. HEART: Irregularly irregular, I/ systolic murmur. Bradycardic, laterally displaced PMI. ABDOMEN: Positive bowel sounds, soft. EXTREMITIES: A 1+ edema bilaterally at the ankles. Difficult to palpate distal pulses bilaterally, posterior tibial. LABORATORIES: As above in HPI, with most recent from today, sodium 139, potassium 3.5, creatinine 0 .96, TSH of 1.27. IMAGING STUDIES: As above in HPI. No further imaging studies for my review at this time. ECG: As above in HPI. No further electrocardiograms for my review at this time. IMPRESSION: 1. Congestive heart failure exacerbation, systolic, acute on chronic. 2. Cardiomyopathy with decreased left ventricular ejection fraction last approximately 25% to 30% b y echo in 04/2016. 3. Atrial fibrillation, paroxysmal, not on specific anticoagulation at this time. 4. Hypertension. 5. Diabetes mellitus. 6. Chronic obstructive pulmonary disease. 7. History of prior cerebrovascular accident. 8. Medical noncompliance. RECOMMENDATIONS: 1. At this time, would maintain patient on telemetry monitoring to follow rhythm and rate closely. 2. Would continue the patient's current antihypertensives with enalapril, Norvasc and carvedilol, b ut will follow for recurrent episodes of bradycardia. If the patient is found to have significant b radycardia would discontinue the patient's carvedilol. 3. myocardial infarction shows the patient's constellation of symptoms are not due to any acu te coronary syndrome such as acute myocardial infarction and thus send troponins q.6h. x2. 4. Continue the patient's Lasix diuresis and follow strict I's and O's and diuresis closely. 5. Atrial fibrillation, he does have an increased CHADS score placing him at increased risk for thr omboembolic complications and thus benefit from systemic anticoagulation if possible. The pa anastacio does have a history of CVA and craniotomy. It is unclear if the patient has any contraindicati ons. At his time we will continue the patient's aspirin and Lovenox low dose with a consideration t o be given for full systemic anticoagulation. 6. Continue the patient's current Isordil for antianginal effects and check a fasting lipid panel f or general risk stratification and initiate lipid-lowering medication as necessary. Thank you for allowing me to take part in the care of this patient. I will continue to follow along very closely with you. Further recommendations to be made as the patient progresses through his in patient hospital course. Dictated By: ALISSON FELIX/ALIE Conf#: [id number] DID#: [id number] CC: NAE TIPTON MD;*End*
[2016-08-21] MEDS: INSULIN ASPART [NOVOLOG] 3 ML PEN SC SCH ×4 (08:02→21:00)
[2016-08-21] MEDS ORDERED: ASPIRIN 81 MG TAB PO SCH (09:00)
[2016-08-21] MEDS: POTASSIUM CHLORIDE (SR) 20 MEQ TAB PO SCH (09:12)
[2016-08-21] MEDS: ASPIRIN 81 MG TAB PO SCH (09:12)
[2016-08-21] MEDS: ISOSORBIDE DINITRATE 20 MG TAB PO SCH ×3 (09:13→21:16)
[2016-08-21] MEDS: AMLODIPINE 5 MG TAB PO SCH ×2 (09:13→21:16)
[2016-08-21] MEDS: ENALAPRIL 10 MG TAB PO SCH ×2 (09:14→21:16)
[2016-08-21] MEDS: ENOXAPARIN 60 MG/0.6 ML SYG SC SCH (09:18)
--- NOTE | 2016-08-21 11:01 | RADRPT ---
PROCEDURE: XR Chest. CLINICAL INDICATION: CHF TECHNIQUE: Single frontal chest x-ray. COMPARISON: 08/19/2016 FINDINGS: Hazy bibasilar pulmonary opacities are again noted, likely atelectasis and/or mild to moderate pleur al effusions, slightly improved. There is no pneumothorax. Moderate cardiomegaly and mild pulmona ry vascular congestion are grossly unchanged. Aortic atherosclerotic calcification is noted. The o sseous structures are unremarkable. IMPRESSION: 1. Bibasilar atelectasis and/or mild to moderate pleural effusions are again noted, slightly improv ed. 2. There is stable moderate cardiomegaly and mild pulmonary vascular congestion. RPTAT: QQ .David Mccarthy MD, MD Date Time Electronically viewed and signed by .David Mccarthy MD, on 08/21/2016 11:01 .R/
--- NOTE | 2016-08-21 11:17 | RADRPT ---
Vent Rate: 57 bpm RR Interval: 0 msec MI Interval: 0 msec QRS Duration: 122 msec QT Interval: 492 msec QTC Interval: 478 msec P-R-T [place] Reading: 0 - -63 - 113 degrees Atrial fibrillation with slow ventricular response Left bundle branch block Abnormal ECG Electronically Signed By: Jose Montes De Oca [id number]
--- NOTE | 2016-08-21 13:12 | PN ---
Date/Time of Note Date/Time of Note DATE: 08/21/16 TIME: 13:12 Assessment/Plan VTE Prophylaxis VTE Prophylaxis Intervention: other Lines/Catheters IV C[facility]ter Type (from [facility]): Saline Lock Urinary Cath still in place: Yes Reason Cath still needed: skin wounds contaminated by urine Assessment/Plan Chief Complaint/Hosp Course 1. Systolic and diastolic congestive heart failure with exacerbation. Will continue the patient on Lasix. Monitor electrolytes. Dr. Chen will be following the patient in cardiology consultation. 2. Hypertensive urgency. Continue the patient's hydralazine p.r.n. 3. Atrial fibrillation. Will continue the patient on Lovenox. Currently is rate controlled. Start the patient on aspirin. 4. Cardiomyopathy, with an ejection fraction of 30%. 5. Diabetes mellitus. 6. Coronary artery disease. 7. History of cerebrovascular accident, status post craniotomy. 8. Chronic obstructive pulmonary disease. Will continue oxygen supplementation and breathing treatments. Problems: Subjective 24 Hr Interval Summary Free Text/Dictation Patient has some shortness of breath Exam/Review of Systems Vital Signs Vitals Vital Signs Date Time Temp Pulse Resp B/P Pulse Ox O2 Delivery O2 Flow Rate FiO2 08/21/16 12:21 97.9 61 20 131/75 95 08/21/16 08:20 Nasal Cannula 2.0 Intake and Output 08/20/16 08/20/16 08/21/16 15:00 23:00 07:00 Intake Total 400 ml 500 ml Output Total 1300 ml Balance 400 ml -800 ml Exam Constitutional: well developed Head: atraumatic, normocephalic Neck: supple Respiratory: diminished breath sounds Cardiovascular: regular rate and rhythm Gastrointestinal: non-tender, soft Extremities: normal pulses Results Result Diagram: 08/19/16 1810 08/20/16 0700 Results 24 hrs Laboratory Tests Test 08/20/16 17:14 08/20/16 21:10 08/21/16 01:39 08/21/16 07:27 Bedside Glucose 164 238 H 165 170 Test 08/21/16 11:43 Bedside Glucose 234 H Medications Medications Current Medications Morphine Sulfate (morphine) 2 mg Q3H PRN IV PAIN Last administered on t 23:54; Admin Dose 2 MG; Start 08/19/16 at 23:00 Hydralazine HCl (Apresoline) 20 mg Q6H PRN IV ELEVATED SYSTOLIC BP Last administered on 08/20/16 00:13; Admin Dose 20 MG; Start 08/20/16 at 00:00 Amlodipine Besylate (Norvasc) 5 mg BID PO Last administered on 08/21/16 09:13; Admin Dose 5 MG; Start 08/20/16 at 00:00 Aspirin (Aspirin) 81 mg DAILY PO Last administered on 08/21/16 09:12; Admin Dose 81 MG; Start 08/20/16 at 09:00 Terazosin HCl (Hytrin) 2 mg HS PO Last administered on 08/20/16 21:47; Admin Dose 2 MG; Start 08/20/16 at 21:00 Enalapril Maleate (Vasotec) 10 mg BID PO Last administered on 08/21/16 09:14; Admin Dose 10 MG; Start 08/20/16 at 00:00 Isosorbide Dinitrate (Isordil) 20 mg TID PO Last administered on 08/21/16 12:50 ; Admin Dose 20 MG; Start 08/20/16 at 09:00 Carvedilol (Coreg) 3.125 mg BID PO Last administered on 08/20/16 08:46; Admin Dose 3.125 MG; Start 08/20/16 at 09:00 Potassium Chloride (Klor-Con 20) 20 meq DAILY PO Last administered on 08/21/16 09:12; Admin Dose 20 MEQ; Start 08/20/16 at 09:00 Ondansetron HCl (Zofran Inj) 4 mg Q6H PRN IV NAUSEA AND/OR VOMITING; Start at 13:30 Nitroglycerin (Nitroglycerin (Sl Tab) 0.4 Mg) 1 tab Q5M PRN SL CHEST PAIN; Start 08/20/16 at 13:30 Acetaminophen (Tylenol Tab) 650 mg Q6H PRN PO PAIN LEVEL 1-3 OR FEVER Last administered on 08/21/16 09:12; Admin Dose 650 MG; Start 08/20/16 at 13:30 Docusate Sodium (Colace) 100 mg Q12H PRN PO CONSTIPATION; Start 08/20/16 at 13: 30 Pantoprazole (Protonix Tab) 40 mg DAILY@06 PO Last administered on 08/21/16 05: 37; Admin Dose 40 MG; Start 08/21/16 at 06:00 Diagnostic Test (Pha) (Accu-Chek) 1 ea 02 XX ; Start 08/21/16 at 02:00 Hydralazine HCl (Apresoline) 10 mg Q6H PRN IV SBP>170; Start 08/20/16 at 13:30 Miscellaneous Information 1 ea NOTE XX ; Start 08/20/16 at 13:30 Glucose (Glutose) 15 gm Q15M PRN PO DECREASED GLUCOSE; Start 08/20/16 at 13:30 Glucose (Glutose) 22.5 gm Q15M PRN PO DECREASED GLUCOSE; Start 08/20/16 at 13: 30 Dextrose (D50w Syringe) 25 ml Q15M PRN IV DECREASED GLUCOSE; Start 08/20/16 at 13:30 Dextrose (D50w Syringe) 50 ml Q15M PRN IV DECREASED GLUCOSE; Start 08/20/16 at 13:30 Glucagon (Glucagen) 1 mg Q15M PRN IM DECREASED GLUCOSE; Start 08/20/16 at 13:30 Glucose (Glutose) 15 gm Q15M PRN BUCCAL DECREASED GLUCOSE; Start 08/20/16 at 13 :30 Furosemide (Lasix) 40 mg BID@06,18 IV Last administered on 08/21/16t 05:41; Admin Dose 40 MG; Start 08/21/16 at 06:00 Apixaban (Eliquis) 5 mg BID PO ; Start 08/21/16 at 13:30; Status UNNEVAEH HAQUE Aug 21, 2016 13:12
[2016-08-21] MEDS: morphine 2 MG INJ IV PRN (14:08)
[2016-08-21] MEDS: APIXABAN 5 MG TABLET PO SCH ×2 (14:15→21:17)
[2016-08-21] MEDS: TERAZOSIN 2 MG CAP PO SCH (21:17)
[2016-08-22] VITALS (11 sets, daily range): BP systolic 138–160; BP diastolic 80–98; PULSE 56–70; RESP 20–21
[2016-08-22] MEDS: ACCU-CHEK XX SCH (01:39)
[2016-08-22] MEDS: PANTOPRAZOLE (EC) 40 MG TAB PO SCH (06:43)
[2016-08-22] MEDS: FUROSEMIDE 40 MG INJ IV SCH ×2 (06:43→17:09)
[2016-08-22] MEDS: INSULIN ASPART [NOVOLOG] 3 ML PEN SC SCH ×4 (07:34→21:00)
[2016-08-22 07:39] LABS: ADD SCAN DIFF NO
[2016-08-22 07:53] LABS: BASOPHILS % 0.8 % (0.0-2.0); EOSINOPHILS # 0.1 10^3/ul (0.0-0.5); EOSINOPHILS % 2.7 % (0.0-7.0); HEMATOCRIT 45.9 % (42.0-52.0); HEMOGLOBIN 14.9 g/dl (14.0-18.0); LYMPHOCYTES # 0.9 10^3/ul (0.8-2.9); LYMPHOCYTES % 17.6 % (15.0-51.0); MEAN CORPUSCULAR HEMOGLOBIN 28.6 pg (29.0-33.0); MEAN CORPUSCULAR HGB CONC 32.5 g/dl (32.0-37.0); MEAN CORPUSCULAR VOLUME 88.1 fl (82.0-101.0); MEAN PLATELET VOLUME 11.1 fl (7.4-10.4); MONOCYTE # 0.6 10^3/ul (0.3-0.9); NEUTROPHIL # 3.2 10^3/ul (1.6-7.5); NEUTROPHILS % 65.5 % (39.0-77.0); PLATELET COUNT 161 10^3/UL (140-415); RED BLOOD COUNT 5.21 10^6/ul (4.70-6.10); RED CELL DISTRIBUTION WIDTH 15.6 % (11.5-14.5); WHITE BLOOD COUNT 4.8 10^3/ul (4.8-10.8)
[2016-08-22 08:24] LABS: POTASSIUM 3.4 mmol/L (3.5-5.1)
[2016-08-22 08:27] LABS: CALCIUM 8.4 mg/dl (8.4-10.2); CREATININE 1.05 mg/dl (0.61-1.24)
[2016-08-22] MEDS: ASPIRIN 81 MG TAB PO SCH (09:18)
[2016-08-22] MEDS: ENALAPRIL 10 MG TAB PO SCH ×2 (09:18→21:05)
[2016-08-22] MEDS: POTASSIUM CHLORIDE (SR) 20 MEQ TAB PO SCH (09:19)
[2016-08-22] MEDS: ISOSORBIDE DINITRATE 20 MG TAB PO SCH ×3 (09:19→21:05)
[2016-08-22] MEDS: AMLODIPINE 5 MG TAB PO SCH ×2 (09:19→21:05)
[2016-08-22] MEDS: APIXABAN 5 MG TABLET PO SCH ×2 (09:19→21:04)
[2016-08-22] MEDS ORDERED: POTASSIUM CHLORIDE (SR) 20 MEQ TAB PO STA (12:06)
--- NOTE | 2016-08-22 12:08 | PN ---
Date/Time of Note Date/Time of Note DATE: 08/22/16 TIME: 12:07 Assessment/Plan VTE Prophylaxis VTE Prophylaxis Intervention: other Lines/Catheters IV C[facility]ter Type (from [facility] Saline Lock Urinary Cath still in place: Yes Reason Cath still needed: skin wounds contaminated by urine Assessment/Plan Chief Complaint/Hosp Course 1. Systolic and diastolic congestive heart failure with exacerbation. Will continue the patient on Lasix. Monitor electrolytes. Dr. Chen will be following the patient in cardiology consultation. 2. Hypertensive urgency. Continue the patient's hydralazine p.r.n. 3. Atrial fibrillation. Will continue the patient on Lovenox. Currently is rate controlled. Start the patient on aspirin. 4. Cardiomyopathy, with an ejection fraction of 30%. 5. Diabetes mellitus. 6. Coronary artery disease. 7. History of cerebrovascular accident, status post craniotomy. 8. Chronic obstructive pulmonary disease. Will continue oxygen supplementation and breathing treatments. Problems: Subjective 24 Hr Interval Summary Free Text/Dictation Patient denies chest pain or shortness of breath Exam/Review of Systems Vital Signs Vitals Vital Signs Date Time Temp Pulse Resp B/P Pulse Ox O2 Delivery O2 Flow Rate FiO2 08/22/16 12:05 70 08/22/16 11:36 97.9 20 138/98 94 08/22/16 08:24 2.0 08/22/16 08:20 Nasal Cannula Intake and Output 08/21/16 08/21/16 08/22/16 15:00 23:00 07:00 Intake Total 960 ml Output Total 1100 ml Balance -140 ml Exam Constitutional: well developed Head: atraumatic, normocephalic Neck: supple Respiratory: clear to auscultation Cardiovascular: regular rate and rhythm Gastrointestinal: non-tender, soft Extremities: normal pulses Results Result Diagram: 08/22/16 0708/22/1619 Results 24 hrs Laboratory Tests Test 08/21/16 17:07 08/21/16 21:14 08/22/16 07:19 08/22/16 07:32 Bedside Glucose 203 151 144 White Blood Count 4.8 # Red Blood Count 5.21 Hemoglobin 14.9 Hematocrit 45.9 Mean Corpuscular Volume 88.1 Mean Corpuscular Hemoglobin 28.6 L Mean Corpuscular Hemoglobin Concent 32.5 Red Cell Distribution Width 15.6 H Platelet Count 161 # Mean Platelet Volume 11.1 H Neutrophils % 65.5 Lymphocytes % 17.6 Monocytes % 13.0 H Eosinophils % 2.7 Basophils % 0.8 Nucleated Red Blood Cells % 0.0 Neutrophils # 3.2 Lymphocytes # 0.9 Monocytes # 0.6 Eosinophils # 0.1 Basophils # 0.0 Nucleated Red Blood Cells # 0.0 Sodium Level 138 Potassium Level 3.4 L Chloride Level 101 Carbon Dioxide Level 29 Anion Gap 11 Blood Urea Nitrogen 21 H Creatinine 1.05 Glucose Level 171 Calcium Level 8.4 Test 08/22/16 11:07 Bedside Glucose 240 H Medications Medications Current Medications Morphine Sulfate (morphine) 2 mg Q3H PRN IV PAIN Last administered on 08/21/16 14:08; Admin Dose 2 MG; Start 08/19/16 at 23:00 Hydralazine HCl (Apresoline) 20 mg Q6H PRN IV ELEVATED SYSTOLIC BP Last administered on 08/20/16 00:13; Admin Dose 20 MG; Start 08/20/16 at 00:00 Amlodipine Besylate (Norvasc) 5 mg BID PO Last administered on 08/22/16 09:19; Admin Dose 5 MG; Start 08/20/16 at 00:00 Aspirin (Aspirin) 81 mg DAILY PO Last administered on 08/22/16 09:18; Admin Dose 81 MG; Start 08/20/16 at 09:00 Terazosin HCl (Hytrin) 2 mg HS PO Last administered on 08/21/16 21:17; Admin Dose 2 MG; Start 08/20/16 at 21:00 Enalapril Maleate (Vasotec) 10 mg BID PO Last administered on 08/22/16 09:18; Admin Dose 10 MG; Start 08/20/16 at 00:00 Isosorbide Dinitrate (Isordil) 20 mg TID PO Last administered on 08/22/16 09:19 ; Admin Dose 20 MG; Start 08/20/16 at 09:00 Carvedilol (Coreg) 3.125 mg BID PO Last administered on 08/22/16 09:21; Admin Dose 3.125 MG; Start 08/20/16 at 09:00 Potassium Chloride (Klor-Con 20) 20 meq DAILY PO Last administered on 08/22/16 09:19; Admin Dose 20 MEQ; Start 08/20/16 at 09:00 Ondansetron HCl (Zofran Inj) 4 mg Q6H PRN IV NAUSEA AND/OR VOMITING; Start at 13:30 Nitroglycerin (Nitroglycerin (Sl Tab) 0.4 Mg) 1 tab Q5M PRN SL CHEST PAIN; Start 08/20/16 at 13:30 Acetaminophen (Tylenol Tab) 650 mg Q6H PRN PO PAIN LEVEL 1-3 OR FEVER Last administered on 08/21/16 09:12; Admin Dose 650 MG; Start 08/20/16 at 13:30 Docusate Sodium (Colace) 100 mg Q12H PRN PO CONSTIPATION; Start 08/20/16 at 13: 30 Pantoprazole (Protonix Tab) 40 mg DAILY@06 PO Last administered on 08/22/16 06: 43; Admin Dose 40 MG; Start 08/21/16 at 06:00 Diagnostic Test (Pha) (Accu-Chek) 1 ea 02 XX ; Start 08/21/16 at 02:00 Hydralazine HCl (Apresoline) 10 mg Q6H PRN IV SBP>170; Start 08/20/16 at 13:30 Miscellaneous Information 1 ea NOTE XX ; Start 08/20/16 at 13:30 Glucose (Glutose) 15 gm Q15M PRN PO DECREASED GLUCOSE; Start 08/20/16 at 13:30 Glucose (Glutose) 22.5 gm Q15M PRN PO DECREASED GLUCOSE; Start 08/20/16 at 13: 30 Dextrose (D50w Syringe) 25 ml Q15M PRN IV DECREASED GLUCOSE; Start 08/20/16 at 13:30 Dextrose (D50w Syringe) 50 ml Q15M PRN IV DECREASED GLUCOSE; Start 08/20/16 at 13:30 Glucagon (Glucagen) 1 mg Q15M PRN IM DECREASED GLUCOSE; Start 08/20/16 at 13:30 Glucose (Glutose) 15 gm Q15M PRN BUCCAL DECREASED GLUCOSE; Start 08/20/16 at 13 :30 Furosemide (Lasix) 40 mg BID@06,18 IV Last administered on 08/22/16 06:43; Admin Dose 40 MG; Start 08/21/16 at 06:00 Apixaban (Eliquis) 5 mg BID PO Last administered on 08/22/16 09:19; Admin Dose 5 MG; Start 08/21/16 at 13:30 NEVAEH ALEJANDRE Aug 22, 2016 12:08
--- NOTE | 2016-08-22 14:32 | CONS ---
Date/Time of Note Date/Time of Note DATE: 08/22/16 TIME: 14:30 Assessment/Plan Assessment/Plan Additional Assessment/Plan 1. Congestive heart failure exacerbation 2. Cardiomyopathy with decreased left ventricular ejection fraction last approximately 25% to 30% 3. Atrial fibrillation rate controlled 4. Hypertension. 5. Diabetes mellitus. 6. Chronic obstructive pulmonary disease. 7. History of stroke. 8. Medical noncompliance. Continue Diuresis with Lasix Continue Eliquis Stopped Lovenox Continue Coreg Continue Vasotec and Norvasc Continue Insulin Consultation Date/Type/Reason Admit Date/Time Aug 20, 2016 at 11:14 Initial Consult Date Exam/Review of Systems Vital Signs Vitals Vital Signs Date Time Temp Pulse Resp B/P Pulse Ox O2 Delivery O2 Flow Rate FiO2 08/22/16 12:05 70 08/22/16 11:36 97.9 20 138/98 94 08/22/16 08:24 2.0 08/22/16 08:20 Nasal Cannula Intake and Output 08/21/16 08/21/16 08/22/16 15:00 23:00 07:00 Intake Total 960 ml Output Total 1100 ml Balance -140 ml Exam Head: atraumatic, normocephalic Neck: non-tender, supple Respiratory: clear to auscultation Cardiovascular: irregular rhythm Gastrointestinal: nl liver, spleen, non-tender, soft Extremities: normal pulses Results Result Diagram: 08/22/16 0719 08/22/16 0719 Results 24 hrs Laboratory Tests Test 08/21/16 17:07 08/21/16 21:14 08/22/16 07:19 08/22/16 07:32 Bedside Glucose 203 151 144 White Blood Count 4.8 # Red Blood Count 5.21 Hemoglobin 14.9 Hematocrit 45.9 Mean Corpuscular Volume 88.1 Mean Corpuscular Hemoglobin 28.6 L Mean Corpuscular Hemoglobin Concent 32.5 Red Cell Distribution Width 15.6 H Platelet Count 161 # Mean Platelet Volume 11.1 H Neutrophils % 65.5 Lymphocytes % 17.6 Monocytes % 13.0 H Eosinophils % 2.7 Basophils % 0.8 Nucleated Red Blood Cells % 0.0 Neutrophils # 3.2 Lymphocytes # 0.9 Monocytes # 0.6 Eosinophils # 0.1 Basophils # 0.0 Nucleated Red Blood Cells # 0.0 Sodium Level 138 Potassium Level 3.4 L Chloride Level 101 Carbon Dioxide Level 29 Anion Gap 11 Blood Urea Nitrogen 21 H Creatinine 1.05 Glucose Level 171 Calcium Level 8.4 Test 08/22/16 11:07 Bedside Glucose 240 H Medications Medications Current Medications Morphine Sulfate (morphine) 2 mg Q3H PRN IV PAIN Last administered on 08/21/16 14:08; Admin Dose 2 MG; Start 08/19/16 at 23:00 Hydralazine HCl (Apresoline) 20 mg Q6H PRN IV ELEVATED SYSTOLIC BP Last administered on 08/20/16 00:13; Admin Dose 20 MG; Start 08/20/16 at 00:00 Amlodipine Besylate (Norvasc) 5 mg BID PO Last administered on 08/22/16 09:19; Admin Dose 5 MG; Start 08/20/16 at 00:00 Aspirin (Aspirin) 81 mg DAILY PO Last administered on 08/22/16 09:18; Admin Dose 81 MG; Start 08/20/16 at 09:00 Terazosin HCl (Hytrin) 2 mg HS PO Last administered on 08/21/16 21:17; Admin Dose 2 MG; Start 08/20/16 at 21:00 Enalapril Maleate (Vasotec) 10 mg BID PO Last administered on 08/22/16 09:18; Admin Dose 10 MG; Start 08/20/16 at 00:00 Isosorbide Dinitrate (Isordil) 20 mg TID PO Last administered on 08/22/16 12:07 ; Admin Dose 20 MG; Start 08/20/16 at 09:00 Carvedilol (Coreg) 3.125 mg BID PO Last administered on 08/22/16 09:21; Admin Dose 3.125 MG; Start 08/20/16 at 09:00 Potassium Chloride (Klor-Con 20) 20 meq DAILY PO Last administered on 08/22/16 09:19; Admin Dose 20 MEQ; Start 08/20/16 at 09:00 Ondansetron HCl (Zofran Inj) 4 mg Q6H PRN IV NAUSEA AND/OR VOMITING; Start at 13:30 Nitroglycerin (Nitroglycerin (Sl Tab) 0.4 Mg) 1 tab Q5M PRN SL CHEST PAIN; Start 08/20/16 at 13:30 Acetaminophen (Tylenol Tab) 650 mg Q6H PRN PO PAIN LEVEL 1-3 OR FEVER Last administered on 08/21/16 09:12; Admin Dose 650 MG; Start 08/20/16 at 13:30 Docusate Sodium (Colace) 100 mg Q12H PRN PO CONSTIPATION; Start 08/20/16 at 13: 30 Pantoprazole (Protonix Tab) 40 mg DAILY@06 PO Last administered on 08/22/16 06: 43; Admin Dose 40 MG; Start 08/21/16 at 06:00 Diagnostic Test (Pha) (Accu-Chek) 1 ea 02 XX ; Start 08/21/16 at 02:00 Hydralazine HCl (Apresoline) 10 mg Q6H PRN IV SBP>170; Start 08/20/16 at 13:30 Miscellaneous Information 1 ea NOTE XX ; Start 08/20/16 at 13:30 Glucose (Glutose) 15 gm Q15M PRN PO DECREASED GLUCOSE; Start 08/20/16 at 13:30 Glucose (Glutose) 22.5 gm Q15M PRN PO DECREASED GLUCOSE; Start 08/20/16 at 13: 30 Dextrose (D50w Syringe) 25 ml Q15M PRN IV DECREASED GLUCOSE; Start 08/20/16 at 13:30 Dextrose (D50w Syringe) 50 ml Q15M PRN IV DECREASED GLUCOSE; Start 08/20/16 at 13:30 Glucagon (Glucagen) 1 mg Q15M PRN IM DECREASED GLUCOSE; Start 08/20/16 at 13:30 Glucose (Glutose) 15 gm Q15M PRN BUCCAL DECREASED GLUCOSE; Start 08/20/16 at 13 :30 Furosemide (Lasix) 40 mg BID@06,18 IV Last administered on 08/22/16 06:43; Admin Dose 40 MG; Start 08/21/16 at 06:00 Apixaban (Eliquis) 5 mg BID PO Last administered on 08/22/16 09:19; Admin Dose 5 MG; Start 08/21/16 at 13:30 CHUN CHERY M.D. Aug 22, 2016 14:32
[2016-08-22] MEDS: TERAZOSIN 2 MG CAP PO SCH (21:05)
[2016-08-23] VITALS (12 sets, daily range): BP systolic 133–155; BP diastolic 80–95; PULSE 54–67; RESP 16–20
[2016-08-23] MEDS: ACCU-CHEK XX SCH (02:00)
[2016-08-23] MEDS: PANTOPRAZOLE (EC) 40 MG TAB PO SCH (05:48)
[2016-08-23] MEDS: FUROSEMIDE 40 MG INJ IV SCH ×2 (05:48→17:40)
[2016-08-23] MEDS: APIXABAN 5 MG TABLET PO SCH ×2 (09:12→21:03)
[2016-08-23] MEDS: ASPIRIN 81 MG TAB PO SCH (09:12)
[2016-08-23] MEDS: POTASSIUM CHLORIDE (SR) 20 MEQ TAB PO SCH (09:12)
[2016-08-23] MEDS: ISOSORBIDE DINITRATE 20 MG TAB PO SCH ×3 (09:13→21:04)
[2016-08-23] MEDS: AMLODIPINE 5 MG TAB PO SCH ×2 (09:13→21:04)
[2016-08-23] MEDS: ENALAPRIL 10 MG TAB PO SCH ×2 (09:13→21:04)
[2016-08-23] MEDS: INSULIN ASPART [NOVOLOG] 3 ML PEN SC SCH ×4 (09:15→21:00)
[2016-08-23 10:04] LABS: ADD SCAN DIFF NO
[2016-08-23 10:09] LABS: BASOPHILS % 0.7 % (0.0-2.0); EOSINOPHILS # 0.2 10^3/ul (0.0-0.5); HEMATOCRIT 44.6 % (42.0-52.0); HEMOGLOBIN 14.8 g/dl (14.0-18.0); LYMPHOCYTES # 0.7 10^3/ul (0.8-2.9); LYMPHOCYTES % 11.8 % (15.0-51.0); MEAN CORPUSCULAR HEMOGLOBIN 28.9 pg (29.0-33.0); MEAN CORPUSCULAR HGB CONC 33.2 g/dl (32.0-37.0); MEAN CORPUSCULAR VOLUME 87.1 fl (82.0-101.0); MEAN PLATELET VOLUME 10.5 fl (7.4-10.4); MONOCYTE # 0.6 10^3/ul (0.3-0.9); MONOCYTES % 9.9 % (0.0-11.0); NEUTROPHIL # 4.4 10^3/ul (1.6-7.5); NEUTROPHILS % 74.3 % (39.0-77.0); PLATELET COUNT 187 10^3/UL (140-415); RED BLOOD COUNT 5.12 10^6/ul (4.70-6.10); RED CELL DISTRIBUTION WIDTH 15.1 % (11.5-14.5)
[2016-08-23 10:15] LABS: POTASSIUM 3.3 mmol/L (3.5-5.1)
[2016-08-23 10:18] LABS: CREATININE 0.95 mg/dl (0.61-1.24)
[2016-08-23 10:19] LABS: CALCIUM 8.5 mg/dl (8.4-10.2)
--- NOTE | 2016-08-23 18:54 | PN ---
Date/Time of Note Date/Time of Note DATE: 08/23/16 TIME: 18:51 Assessment/Plan VTE Prophylaxis VTE Prophylaxis Intervention: SCD's Lines/Catheters IV [facility] Type (from [facility] Saline Lock Urinary Cath still in place: No Assessment/Plan Chief Complaint/Hosp Course ASSESSMENT AND PLAN: 1. Systolic and diastolic congestive heart failure with exacerbation. Continue the patient on Lasix. Monitor electrolytes. Dr. Chen is following the patient in cardiology consultation. 2. Hypertensive urgency. Continue Coreg Norvasc. 3. Atrial fibrillation. Continue Eliquis. 4. Cardiomyopathy, with an ejection fraction of 30%. 5. Diabetes mellitus. Continue NovoLog per mild algorithm sliding scale. 6. Coronary artery disease. Continue aspirin. 7. History of cerebrovascular accident, status post craniotomy. 8. Chronic obstructive pulmonary disease. Continue oxygen supplementation and breathing treatments. Further recommendations based on clinical course. Plan of care discussed with Dr. Gibson. Problems: Subjective 24 Hr Interval Summary Free Text/Dictation Patient is comfortable and supplemental oxygen, denies any chest pain at rest denies any shortness of breath at rest. Exam/Review of Systems Vital Signs Vitals Vital Signs Date Time Temp Pulse Resp B/P Pulse Ox O2 Delivery O2 Flow Rate FiO2 08/23/16 18:19 2.0 08/23/16 16:16 58 08/23/16 16:05 98.3 19 133/80 92 08/23/16 08:05 Nasal Cannula Intake and Output 08/22/16 08/22/16 08/23/16 14:59 22:59 06:59 Intake Total 320 ml 960 ml 320 ml Output Total 650 ml 2000 ml 1800 ml Balance -330 ml -1040 ml -1480 ml Exam PHYSICAL ASSESSMENT: GENERAL: A well-developed, well-nourished male, who currently is awake, alert. HEENT: Head is atraumatic, normocephalic. Pupils are equal, round, react to light and accommodation. Oral mucosa is pink and moist. NECK: Supple. No cervical lymphadenopathy. JVD is present. LUNGS: Clear bilaterally, slightly diminished at the bases. There are no rhonchi, wheezes, or rales noted. CARDIOVASCULAR: Irregularly irregular rhythm. No murmurs, gallops, clicks or rubs noted. ABDOMEN: Protuberant, soft, nondistended, nontender. Bowel sounds present. There is no guarding, no rebound tenderness. EXTREMITIES: There is bilateral lower extremities edema of 2+. Pulses equal bilaterally at 2+. There is no cyanosis. NEUROLOGIC: The patient is awake, alert and oriented x4. No focal deficits noted. Motor strength is 5/5 in all extremities. SKIN: There is no rash or petechiae noted. Results Result Diagram: 08/23/1658 08/23/16957 Results 24 hrs Laboratory Tests Test 08/22/16 21:02 08/23/16 07:54 08/23/16 09:58 08/23/16 12:05 Bedside Glucose 167 145 189 White Blood Count 6.0 # Red Blood Count 5.12 Hemoglobin 14.8 Hematocrit 44.6 Mean Corpuscular Volume 87.1 Mean Corpuscular Hemoglobin 28.9 L Mean Corpuscular Hemoglobin Concent 33.2 Red Cell Distribution Width 15.1 H Platelet Count 187 Mean Platelet Volume 10.5 H Neutrophils % 74.3 Lymphocytes % 11.8 L Monocytes % 9.9 Eosinophils % 3.0 Basophils % 0.7 Nucleated Red Blood Cells % 0.0 Neutrophils # 4.4 Lymphocytes # 0.7 L Monocytes # 0.6 Eosinophils # 0.2 Basophils # 0.0 Nucleated Red Blood Cells # 0.0 Sodium Level 137 Potassium Level 3.3 L Chloride Level 98 Carbon Dioxide Level 28 Anion Gap 14 Blood Urea Nitrogen 18 Creatinine 0.95 Glucose Level 229 H Calcium Level 8.5 Magnesium Level 1.7 Test 08/23/16 17:07 Bedside Glucose 162 Medications Medications Current Medications Morphine Sulfate (morphine) 2 mg Q3H PRN IV PAIN Last administered on 08/21/16 14:08; Admin Dose 2 MG; Start 08/19/16 at 23:00 Hydralazine HCl (Apresoline) 20 mg Q6H PRN IV ELEVATED SYSTOLIC BP Last administered on 08/20/16 00:13; Admin Dose 20 MG; Start 08/20/16 at 00:00 Amlodipine Besylate (Norvasc) 5 mg BID PO Last administered on 08/23/16 09:13; Admin Dose 5 MG; Start 08/20/16 at 00:00 Aspirin (Aspirin) 81 mg DAILY PO Last administered on 08/23/16 09:12; Admin Dose 81 MG; Start 08/20/16 at 09:00 Terazosin HCl (Hytrin) 2 mg HS PO Last administered on 08/22/16 21:05; Admin Dose 2 MG; Start 08/20/16 at 21:00 Enalapril Maleate (Vasotec) 10 mg BID PO Last administered on 08/23/16 09:13; Admin Dose 10 MG; Start 08/20/16 at 00:00 Isosorbide Dinitrate (Isordil) 20 mg TID PO Last administered on 08/23/16 12:36 ; Admin Dose 20 MG; Start 08/20/16 at 09:00 Carvedilol (Coreg) 3.125 mg BID PO Last administered on 08/23/16 09:13; Admin Dose 3.125 MG; Start 08/20/16 at 09:00 Potassium Chloride (Klor-Con 20) 20 meq DAILY PO Last administered on 08/23/16 09:12; Admin Dose 20 MEQ; Start 08/20/16 at 09:00 Ondansetron HCl (Zofran Inj) 4 mg Q6H PRN IV NAUSEA AND/OR VOMITING; Start at 13:30 Nitroglycerin (Nitroglycerin (Sl Tab) 0.4 Mg) 1 tab Q5M PRN SL CHEST PAIN; Start 08/20/16 at 13:30 Acetaminophen (Tylenol Tab) 650 mg Q6H PRN PO PAIN LEVEL 1-3 OR FEVER Last administered on 08/21/16 09:12; Admin Dose 650 MG; Start 08/20/16 at 13:30 Docusate Sodium (Colace) 100 mg Q12H PRN PO CONSTIPATION; Start 08/20/16 at 13: 30 Pantoprazole (Protonix Tab) 40 mg DAILY@06 PO Last administered on 08/23/16 05: 48; Admin Dose 40 MG; Start 08/21/16 at 06:00 Diagnostic Test (Pha) (Accu-Chek) 1 ea 02 XX ; Start 08/21/16 at 02:00 Hydralazine HCl (Apresoline) 10 mg Q6H PRN IV SBP>170; Start 08/20/16 at 13:30 Miscellaneous Information 1 ea NOTE XX ; Start 08/20/16 at 13:30 Glucose (Glutose) 15 gm Q15M PRN PO DECREASED GLUCOSE; Start 08/20/16 at 13:30 Glucose (Glutose) 22.5 gm Q15M PRN PO DECREASED GLUCOSE; Start 08/20/16 at 13: 30 Dextrose (D50w Syringe) 25 ml Q15M PRN IV DECREASED GLUCOSE; Start 08/20/16 at 13:30 Dextrose (D50w Syringe) 50 ml Q15M PRN IV DECREASED GLUCOSE; Start 08/20/16 at 13:30 Glucagon (Glucagen) 1 mg Q15M PRN IM DECREASED GLUCOSE; Start 08/20/16 at 13:30 Glucose (Glutose) 15 gm Q15M PRN BUCCAL DECREASED GLUCOSE; Start 08/20/16 at 13 :30 Furosemide (Lasix) 40 mg BID@06,18 IV Last administered on 08/23/16 17:40; Admin Dose 40 MG; Start 08/21/16 at 06:00 Apixaban (Eliquis) 5 mg BID PO Last administered on 08/23/16 09:12; Admin Dose 5 MG; Start 08/21/16 at 13:30 ARIN CHEN Aug 23, 2016 18:54
[2016-08-23] MEDS ORDERED: POTASSIUM CHLORIDE 20 MEQ POWDER FOR ORAL SOLN PO ONE (19:00)
--- NOTE | 2016-08-23 19:13 | CONS ---
Date/Time of Note Date/Time of Note DATE: 08/23/16 TIME: 19:10 Assessment/Plan Assessment/Plan Chief Complaint/Hosp Course IMPRESSION: 1. Congestive heart failure exacerbation, systolic, acute on chronic.- improving volume status on lasix diuresis IV 2. Cardiomyopathy with decreased left ventricular ejection fraction last approximately 25% to 30% by echo in 04/2016. 3. Atrial fibrillation, paroxysmal,-rat controlled on eliquis 4. Hypertension. 5. Diabetes mellitus. 6. Chronic obstructive pulmonary disease. 7. History of prior cerebrovascular accident. 8. Medical noncompliance. Recc: -Tele -follow volume status closely on lasix diuresis BID -Continue current coreg/enalapril/norvasc/isordil as tolerated -Continue baby asa for now Problems: Consultation Date/Type/Reason Admit Date/Time Aug 20, 2016 at 11:14 Initial Consult Date 08/20/2016 Type of Consultation: Cardiology Reason for Consultation CHF Referring Provider: NAE TIPTON MD Exam/Review of Systems Vital Signs Vitals Vital Signs Date Time Temp Pulse Resp B/P Pulse Ox O2 Delivery O2 Flow Rate FiO2 08/23/16 18:19 2.0 08/23/16 16:16 58 08/23/16 16:05 98.3 19 133/80 92 08/23/16 08:05 Nasal Cannula Intake and Output 08/22/16 08/22/16 08/23/16 15:00 23:00 07:00 Intake Total 320 ml 960 ml 320 ml Output Total 650 ml 2000 ml 1800 ml Balance -330 ml -1040 ml -1480 ml Exam Review of Systems: CONSTITUTIONAL: No fevers, chills. PULMONARY: No sob CARDIOVASCULAR: No chest pain/palpitations GASTROINTESTINAL: No nausea/vomiting. GENITOURINARY: No hematuria/dysuria. MUSCULOSKELETAL: No myagias/arthalgias. PSYCHIATRIC: The patient denies depression. NEUROLOGIC: No weakness Constitutional: alert Psych: no complaints Head: normocephalic ENMT: mucosa pink and moist Neck: jvd (9 cm water), supple Respiratory: diminished breath sounds (at bases/B) Cardiovascular: regular rate and rhythm Gastrointestinal: non-tender, soft Musculoskeletal: muscle tone (normal) Extremities: edema (none) Neurological: other (NO focal deficits) Results Result Diagram: 08/23/16 0958 08/23/16 0958 Results 24 hrs Laboratory Tests Test 08/22/16 21:02 08/23/16 07:54 08/23/16 09:58 08/23/16 12:05 Bedside Glucose 167 145 189 White Blood Count 6.0 # Red Blood Count 5.12 Hemoglobin 14.8 Hematocrit 44.6 Mean Corpuscular Volume 87.1 Mean Corpuscular Hemoglobin 28.9 L Mean Corpuscular Hemoglobin Concent 33.2 Red Cell Distribution Width 15.1 H Platelet Count 187 Mean Platelet Volume 10.5 H Neutrophils % 74.3 Lymphocytes % 11.8 L Monocytes % 9.9 Eosinophils % 3.0 Basophils % 0.7 Nucleated Red Blood Cells % 0.0 Neutrophils # 4.4 Lymphocytes # 0.7 L Monocytes # 0.6 Eosinophils # 0.2 Basophils # 0.0 Nucleated Red Blood Cells # 0.0 Sodium Level 137 Potassium Level 3.3 L Chloride Level 98 Carbon Dioxide Level 28 Anion Gap 14 Blood Urea Nitrogen 18 Creatinine 0.95 Glucose Level 229 H Calcium Level 8.5 Magnesium Level 1.7 Test 08/23/16 17:07 Bedside Glucose 162 Medications Medications Current Medications Morphine Sulfate (morphine) 2 mg Q3H PRN IV PAIN Last administered on 08/21/16 14:08; Admin Dose 2 MG; Start 08/19/16 at 23:00 Hydralazine HCl (Apresoline) 20 mg Q6H PRN IV ELEVATED SYSTOLIC BP Last administered on 08/20/16 00:13; Admin Dose 20 MG; Start 08/20/16 at 00:00 Amlodipine Besylate (Norvasc) 5 mg BID PO Last administered on 08/23/16 09:13; Admin Dose 5 MG; Start 08/20/16 at 00:00 Aspirin (Aspirin) 81 mg DAILY PO Last administered on 08/23/16 09:12; Admin Dose 81 MG; Start 08/20/16 at 09:00 Terazosin HCl (Hytrin) 2 mg HS PO Last administered on 08/22/16 21:05; Admin Dose 2 MG; Start 08/20/16 at 21:00 Enalapril Maleate (Vasotec) 10 mg BID PO Last administered on 08/23/16 09:13; Admin Dose 10 MG; Start 08/20/16 at 00:00 Isosorbide Dinitrate (Isordil) 20 mg TID PO Last administered on 08/23/16 12:36 ; Admin Dose 20 MG; Start 08/20/16 at 09:00 Carvedilol (Coreg) 3.125 mg BID PO Last administered on 08/23/16 09:13; Admin Dose 3.125 MG; Start 08/20/16 at 09:00 Potassium Chloride (Klor-Con 20) 20 meq DAILY PO Last administered on 08/23/16 09:12; Admin Dose 20 MEQ; Start 08/20/16 at 09:00 Ondansetron HCl (Zofran Inj) 4 mg Q6H PRN IV NAUSEA AND/OR VOMITING; Start at 13:30 Nitroglycerin (Nitroglycerin (Sl Tab) 0.4 Mg) 1 tab Q5M PRN SL CHEST PAIN; Start 08/20/16 at 13:30 Acetaminophen (Tylenol Tab) 650 mg Q6H PRN PO PAIN LEVEL 1-3 OR FEVER Last administered on 08/21/16 09:12; Admin Dose 650 MG; Start 08/20/16 at 13:30 Docusate Sodium (Colace) 100 mg Q12H PRN PO CONSTIPATION; Start 08/20/16 at 13: 30 Pantoprazole (Protonix Tab) 40 mg DAILY@06 PO Last administered on 08/23/16 05: 48; Admin Dose 40 MG; Start 08/21/16 at 06:00 Diagnostic Test (Pha) (Accu-Chek) 1 ea 02 XX ; Start 08/21/16 at 02:00 Hydralazine HCl (Apresoline) 10 mg Q6H PRN IV SBP>170; Start 08/20/16 at 13:30 Miscellaneous Information 1 ea NOTE XX ; Start 08/20/16 at 13:30 Glucose (Glutose) 15 gm Q15M PRN PO DECREASED GLUCOSE; Start 08/20/16 at 13:30 Glucose (Glutose) 22.5 gm Q15M PRN PO DECREASED GLUCOSE; Start 08/20/16 at 13: 30 Dextrose (D50w Syringe) 25 ml Q15M PRN IV DECREASED GLUCOSE; Start 08/20/16 at 13:30 Dextrose (D50w Syringe) 50 ml Q15M PRN IV DECREASED GLUCOSE; Start 08/20/16 at 13:30 Glucagon (Glucagen) 1 mg Q15M PRN IM DECREASED GLUCOSE; Start 08/20/16 at 13:30 Glucose (Glutose) 15 gm Q15M PRN BUCCAL DECREASED GLUCOSE; Start 08/20/16 at 13 :30 Furosemide (Lasix) 40 mg BID@06,18 IV Last administered on 08/23/16 17:40; Admin Dose 40 MG; Start 08/21/16 at 06:00 Apixaban (Eliquis) 5 mg BID PO Last administered on 08/23/16 09:12; Admin Dose 5 MG; Start 08/21/16 at 13:30 ALISSON POTTER Aug 23, 2016 19:13
[2016-08-23] MEDS: TERAZOSIN 2 MG CAP PO SCH (21:03)
[2016-08-24] VITALS (14 sets, daily range): BP systolic 129–159; BP diastolic 76–107; PULSE 37–72; RESP 15–20
[2016-08-24] MEDS: ACCU-CHEK XX SCH (02:47)
[2016-08-24] MEDS: FUROSEMIDE 40 MG INJ IV SCH ×2 (06:03→16:54)
[2016-08-24] MEDS: PANTOPRAZOLE (EC) 40 MG TAB PO SCH (06:03)
[2016-08-24] MEDS: ASPIRIN 81 MG TAB PO SCH (08:35)
[2016-08-24] MEDS: ENALAPRIL 10 MG TAB PO SCH ×2 (08:36→20:52)
[2016-08-24] MEDS: POTASSIUM CHLORIDE (SR) 20 MEQ TAB PO SCH (08:36)
[2016-08-24] MEDS: APIXABAN 5 MG TABLET PO SCH ×2 (08:36→20:51)
[2016-08-24] MEDS: AMLODIPINE 5 MG TAB PO SCH ×2 (08:37→20:52)
[2016-08-24] MEDS: ISOSORBIDE DINITRATE 20 MG TAB PO SCH ×3 (08:38→20:52)
[2016-08-24] MEDS: INSULIN ASPART [NOVOLOG] 3 ML PEN SC SCH ×4 (08:42→20:54)
--- NOTE | 2016-08-24 14:08 | RADRPT ---
Vent Rate: 62 bpm RR Interval: 0 msec MO Interval: 0 msec QRS Duration: 122 msec QT Interval: 480 msec QTC Interval: 487 msec P-R-T [place]: 0 - -64 - 110 degrees Atrial fibrillation Left axis deviation Left ventricular hypertrophy with QRS widening Inferior infarct , age undetermined Anterior infarct , age undetermined ST amp; T wave abnormality, consider lateral ischemia or digitalis effect Abnormal ECG Electronically Signed By: Jeromy Zuniga [id number]
--- NOTE | 2016-08-24 16:56 | PN ---
Date/Time of Note Date/Time of Note DATE: 08/24/16 TIME: 16:55 Assessment/Plan VTE Prophylaxis VTE Prophylaxis Intervention: SCD's Lines/Catheters [facility] Urinary Cath still in place: No Assessment/Plan Chief Complaint/Hosp Course ASSESSMENT AND PLAN: 1. Systolic and diastolic congestive heart failure with exacerbation. Continue the patient on Lasix. Monitor electrolytes. Dr. Chen is following the patient in cardiology consultation. 2. Hypertensive urgency. Continue Coreg Norvasc. 3. Atrial fibrillation. Continue Eliquis. 4. Cardiomyopathy, with an ejection fraction of 30%. 5. Diabetes mellitus. Continue NovoLog per mild algorithm sliding scale. 6. Coronary artery disease. Continue aspirin. 7. History of cerebrovascular accident, status post craniotomy. 8. Chronic obstructive pulmonary disease. Continue oxygen supplementation and breathing treatments. Further recommendations based on clinical course. Plan of care discussed with Dr. Gibson. Problems: Exam/Review of Systems Vital Signs Vitals Vital Signs Date Time Temp Pulse Resp B/P Pulse Ox O2 Delivery O2 Flow Rate FiO2 08/24/16 16:00 51 08/24/16 15:52 98.8 18 138/86 95 08/24/16 08:15 Nasal Cannula 2.0 Intake and Output 08/23/16 08/23/16 08/24/16 15:00 23:00 07:00 Intake Total 800 ml 240 ml Output Total 1500 ml 800 ml Balance -700 ml -560 ml Exam PHYSICAL ASSESSMENT: GENERAL: A well-developed, well-nourished male, who currently is awake, alert. HEENT: Head is atraumatic, normocephalic. Pupils are equal, round, react to light and accommodation. Oral mucosa is pink and moist. NECK: Supple. No cervical lymphadenopathy. JVD is present. LUNGS: Clear bilaterally, slightly diminished at the bases. There are no rhonchi, wheezes, or rales noted. CARDIOVASCULAR: Irregularly irregular rhythm. No murmurs, gallops, clicks or rubs noted. ABDOMEN: Protuberant, soft, nondistended, nontender. Bowel sounds present. There is no guarding, no rebound tenderness. EXTREMITIES: There is bilateral lower extremities edema of 2+. Pulses equal bilaterally at 2+. There is no cyanosis. NEUROLOGIC: The patient is awake, alert and oriented x4. No focal deficits noted. Motor strength is 5/5 in all extremities. SKIN: There is no rash or petechiae noted. Results Result Diagram: 08/23/1658 08/23/1658 Results 24 hrs Laboratory Tests Test 08/23/16 17:07 08/23/16 20:59 08/24/16 08:00 08/24/16 12:03 Bedside Glucose 162 176 162 199 Medications Medications Current Medications Morphine Sulfate (morphine) 2 mg Q3H PRN IV PAIN Last administered on 08/21/16 14:08; Admin Dose 2 MG; Start 08/19/16 at 23:00 Hydralazine HCl (Apresoline) 20 mg Q6H PRN IV ELEVATED SYSTOLIC BP Last administered on 08/20/16 00:13; Admin Dose 20 MG; Start 08/20/16 at 00:00 Amlodipine Besylate (Norvasc) 5 mg BID PO Last administered on 08/24/16 08:37; Admin Dose 5 MG; Start 08/20/16 at 00:00 Aspirin (Aspirin) 81 mg DAILY PO Last administered on 08/24/16 08:35; Admin Dose 81 MG; Start 08/20/16 at 09:00 Terazosin HCl (Hytrin) 2 mg HS PO Last administered on 08/23/16 21:03; Admin Dose 2 MG; Start 08/20/16 at 21:00 Enalapril Maleate (Vasotec) 10 mg BID PO Last administered on 08/24/16 08:36; Admin Dose 10 MG; Start 08/20/16 at 00:00 Isosorbide Dinitrate (Isordil) 20 mg TID PO Last administered on 08/24/16 12:38 ; Admin Dose 20 MG; Start 08/20/16 at 09:00 Carvedilol (Coreg) 3.125 mg BID PO Last administered on 08/24/16 08:37; Admin Dose 3.125 MG; Start 08/20/16 at 09:00 Potassium Chloride (Klor-Con 20) 20 meq DAILY PO Last administered on 08/24/16 08:36; Admin Dose 20 MEQ; Start 08/20/16 at 09:00 Ondansetron HCl (Zofran Inj) 4 mg Q6H PRN IV NAUSEA AND/OR VOMITING; Start at 13:30 Nitroglycerin (Nitroglycerin (Sl Tab) 0.4 Mg) 1 tab Q5M PRN SL CHEST PAIN; Start 08/20/16 at 13:30 Acetaminophen (Tylenol Tab) 650 mg Q6H PRN PO PAIN LEVEL 1-3 OR FEVER Last administered on 08/21/16 09:12; Admin Dose 650 MG; Start 08/20/16 at 13:30 Docusate Sodium (Colace) 100 mg Q12H PRN PO CONSTIPATION; Start 08/20/16 at 13: 30 Pantoprazole (Protonix Tab) 40 mg DAILY@06 PO Last administered on 08/24/16 06: 03; Admin Dose 40 MG; Start 08/21/16 at 06:00 Diagnostic Test (Pha) (Accu-Chek) 1 ea 02 XX Last administered on 08/24/16 02: 47; Admin Dose 1 EA; Start 08/21/16 at 02:00 Hydralazine HCl (Apresoline) 10 mg Q6H PRN IV SBP>170; Start 08/20/16 at 13:30 Miscellaneous Information 1 ea NOTE XX ; Start 08/20/16 at 13:30 Glucose (Glutose) 15 gm Q15M PRN PO DECREASED GLUCOSE; Start 08/20/16 at 13:30 Glucose (Glutose) 22.5 gm Q15M PRN PO DECREASED GLUCOSE; Start 08/20/16 at 13: 30 Dextrose (D50w Syringe) 25 ml Q15M PRN IV DECREASED GLUCOSE; Start 08/20/16 at 13:30 Dextrose (D50w Syringe) 50 ml Q15M PRN IV DECREASED GLUCOSE; Start 08/20/16 at 13:30 Glucagon (Glucagen) 1 mg Q15M PRN IM DECREASED GLUCOSE; Start 08/20/16 at 13:30 Glucose (Glutose) 15 gm Q15M PRN BUCCAL DECREASED GLUCOSE; Start 08/20/16 at 13 :30 Furosemide (Lasix) 40 mg BID@06,18 IV Last administered on 08/24/16 06:03; Admin Dose 40 MG; Start 08/21/16 at 06:00 Apixaban (Eliquis) 5 mg BID PO Last administered on 08/24/16 08:36; Admin Dose 5 MG; Start 4/1/17 at 13:30 ARIN CHEN Aug 24, 2016 16:56
--- NOTE | 2016-08-24 17:29 | CONS ---
Date/Time of Note Date/Time of Note DATE: 08/24/16 TIME: 17:26 Assessment/Plan Assessment/Plan Additional Assessment/Plan 1. Congestive heart failure exacerbation, systolic, acute on chronic.- improving volume status on lasix diuresis IV - good urine output. 2. Cardiomyopathy with decreased left ventricular ejection fraction last approximately 25% to 30% by echo in 04/2016- outpt ICD evaluate 3. Atrial fibrillation, paroxysmal,-rat controlled on eliquis- rate controlled moistly - in a . fib now 4. Hypertension- well Rx. 5. Diabetes mellitus- con't to keep euglycemic. 6. Chronic obstructive pulmonary disease- better now. 7. History of prior cerebrovascular accident. 8. Medical noncompliance. Consultation Date/Type/Reason Admit Date/Time Aug 20, 2016 at 11:14 Initial Consult Date Type of Consultation: Cardiology Referring Provider: NAE TIPTON MD 24 HR Interval Summary Free Text/Dictation No CP now - con't diuresis. Rate controlled in a. fib now. ROS: No fever, no chills, no nausea, no vomiting, no diarrhea/constipation No recent weight changes No chest pain, no PND, no orthopnea No dizziness, blurred vision No thirst, no heat or cold intolerance Exam/Review of Systems Vital Signs Vitals Vital Signs Date Time Temp Pulse Resp B/P Pulse Ox O2 Delivery O2 Flow Rate FiO2 08/24/16 16:00 51 08/24/16 15:52 98.8 18 138/86 95 08/24/16 08:15 Nasal Cannula 2.0 Intake and Output 08/23/16 08/23/16 08/24/16 14:59 22:59 06:59 Intake Total 800 ml 240 ml Output Total 1500 ml 800 ml Balance -700 ml -560 ml Exam General: WN/WD/NAD, AOx 2-3 HEENT: Unicetric/atraumatic/EOMI (follow commands) NECK: JVD elevated, no thyromegaly Lymph: no lymphadenopathy HEART: IR IRregular with no S3, II/ systolic murmur at apex LUNGS: Coarse sounds ABD: soft, NT, ND, +BS : Intact Neuro: non focal SKIN: chronic changes EXT: trace edema Results Result Diagram: 08/23/16 0958 08/23/16 0958 Results 24 hrs Laboratory Tests Test 08/23/16 20:59 08/24/16 08:00 08/24/16 12:03 08/24/16 16:52 Bedside Glucose 176 162 199 148 Medications Medications Current Medications Morphine Sulfate (morphine) 2 mg Q3H PRN IV PAIN Last administered on 08/21/16 14:08; Admin Dose 2 MG; Start 08/19/16 at 23:00 Hydralazine HCl (Apresoline) 20 mg Q6H PRN IV ELEVATED SYSTOLIC BP Last administered on 08/20/16 00:13; Admin Dose 20 MG; Start 08/20/16 at 00:00 Amlodipine Besylate (Norvasc) 5 mg BID PO Last administered on 08/24/16 08:37; Admin Dose 5 MG; Start 08/20/16 at 00:00 Aspirin (Aspirin) 81 mg DAILY PO Last administered on 08/24/16 08:35; Admin Dose 81 MG; Start 08/20/16 at 09:00 Terazosin HCl (Hytrin) 2 mg HS PO Last administered on 08/23/16 21:03; Admin Dose 2 MG; Start 08/20/16 at 21:00 Enalapril Maleate (Vasotec) 10 mg BID PO Last administered on 08/24/16 08:36; Admin Dose 10 MG; Start 08/20/16 at 00:00 Isosorbide Dinitrate (Isordil) 20 mg TID PO Last administered on 08/24/16 12:38 ; Admin Dose 20 MG; Start 08/20/16 at 09:00 Carvedilol (Coreg) 3.125 mg BID PO Last administered on 08/24/16 08:37; Admin Dose 3.125 MG; Start 08/20/16 at 09:00 Potassium Chloride (Klor-Con 20) 20 meq DAILY PO Last administered on 08/24/16 08:36; Admin Dose 20 MEQ; Start 08/20/16 at 09:00 Ondansetron HCl (Zofran Inj) 4 mg Q6H PRN IV NAUSEA AND/OR VOMITING; Start at 13:30 Nitroglycerin (Nitroglycerin (Sl Tab) 0.4 Mg) 1 tab Q5M PRN SL CHEST PAIN; Start 08/20/16 at 13:30 Acetaminophen (Tylenol Tab) 650 mg Q6H PRN PO PAIN LEVEL 1-3 OR FEVER Last administered on 08/21/16 09:12; Admin Dose 650 MG; Start 08/20/16 at 13:30 Docusate Sodium (Colace) 100 mg Q12H PRN PO CONSTIPATION; Start 08/20/16 at 13: 30 Pantoprazole (Protonix Tab) 40 mg DAILY@06 PO Last administered on 08/24/16 06: 03; Admin Dose 40 MG; Start 08/21/16 at 06:00 Diagnostic Test (Pha) (Accu-Chek) 1 ea 02 XX Last administered on 08/24/16 02: 47; Admin Dose 1 EA; Start 08/21/16 at 02:00 Hydralazine HCl (Apresoline) 10 mg Q6H PRN IV SBP>170; Start 08/20/16 at 13:30 Miscellaneous Information 1 ea NOTE XX ; Start 08/20/16 at 13:30 Glucose (Glutose) 15 gm Q15M PRN PO DECREASED GLUCOSE; Start 08/20/16 at 13:30 Glucose (Glutose) 22.5 gm Q15M PRN PO DECREASED GLUCOSE; Start 08/20/16 at 13: 30 Dextrose (D50w Syringe) 25 ml Q15M PRN IV DECREASED GLUCOSE; Start 08/20/16 at 13:30 Dextrose (D50w Syringe) 50 ml Q15M PRN IV DECREASED GLUCOSE; Start 08/20/16 at 13:30 Glucagon (Glucagen) 1 mg Q15M PRN IM DECREASED GLUCOSE; Start 08/20/16 at 13:30 Glucose (Glutose) 15 gm Q15M PRN BUCCAL DECREASED GLUCOSE; Start 08/20/16 at 13 :30 Furosemide (Lasix) 40 mg BID@06,18 IV Last administered on 08/24/16 16:54; Admin Dose 40 MG; Start 08/21/16 at 06:00 Apixaban (Eliquis) 5 mg BID PO Last administered on 08/24/16 08:36; Admin Dose 5 MG; Start 08/21/16 at 13:30 RONAK SUAREZ MD Aug 24, 2016 17:29
[2016-08-24] MEDS: TERAZOSIN 2 MG CAP PO SCH (20:51)
[2016-08-25] VITALS (11 sets, daily range): BP systolic 140–160; BP diastolic 79–111; PULSE 40–57; RESP 16–18
[2016-08-25] MEDS: ACCU-CHEK XX SCH (02:21)
[2016-08-25] MEDS: PANTOPRAZOLE (EC) 40 MG TAB PO SCH (05:56)
[2016-08-25] MEDS: FUROSEMIDE 40 MG INJ IV SCH ×3 (05:57→21:10)
[2016-08-25] MEDS: ASPIRIN 81 MG TAB PO SCH (08:54)
[2016-08-25] MEDS: POTASSIUM CHLORIDE (SR) 20 MEQ TAB PO SCH (08:56)
[2016-08-25] MEDS: ISOSORBIDE DINITRATE 20 MG TAB PO SCH ×3 (08:56→21:11)
[2016-08-25] MEDS: APIXABAN 5 MG TABLET PO SCH ×2 (08:57→21:11)
[2016-08-25] MEDS: AMLODIPINE 5 MG TAB PO SCH ×2 (08:57→21:11)
[2016-08-25] MEDS: ENALAPRIL 10 MG TAB PO SCH (08:57)
[2016-08-25] MEDS: INSULIN ASPART [NOVOLOG] 3 ML PEN SC SCH ×4 (09:01→21:00)
--- NOTE | 2016-08-25 11:43 | PN ---
Date/Time of Note Date/Time of Note DATE: 08/25/16 TIME: 11:41 Assessment/Plan VTE Prophylaxis VTE Prophylaxis Intervention: SCD's Lines/C[facility]ters [facility] Urinary Cath still in place: No Assessment/Plan Chief Complaint/Hosp Course ASSESSMENT AND PLAN: 1. Systolic and diastolic congestive heart failure with exacerbation. Continue the patient on Lasix. Monitor electrolytes. Dr. Chen is following the patient in cardiology consultation. 2. Hypertensive urgency. Continue Coreg Norvasc. 3. Atrial fibrillation. Continue Eliquis. 4. Cardiomyopathy, with an ejection fraction of 30%. 5. Diabetes mellitus. Continue NovoLog per mild algorithm sliding scale. 6. Coronary artery disease. Continue aspirin. 7. History of cerebrovascular accident, status post craniotomy. 8. Chronic obstructive pulmonary disease. Continue oxygen supplementation and breathing treatments. Further recommendations based on clinical course. Plan of care discussed with Dr. Gibson. Problems: Subjective 24 Hr Interval Summary Free Text/Dictation Patient denies any chest pain denies shortness of breath at rest. Exam/Review of Systems Vital Signs Vitals Vital Signs Date Time Temp Pulse Resp B/P Pulse Ox O2 Delivery O2 Flow Rate FiO2 08/25/16 08:57 98.0 96 17 160/111 96 08/24/16 20:00 Nasal Cannula 2.0 Intake and Output 08/24/16 08/24/16 08/25/16 15:00 23:00 07:00 Intake Total 300 ml 200 ml Balance 300 ml 200 ml Exam PHYSICAL ASSESSMENT: GENERAL: A well-developed, well-nourished male, who currently is awake, alert. HEENT: Head is atraumatic, normocephalic. Pupils are equal, round, react to light and accommodation. Oral mucosa is pink and moist. NECK: Supple. No cervical lymphadenopathy. JVD is present. LUNGS: Clear bilaterally, slightly diminished at the bases. There are no rhonchi, wheezes, or rales noted. CARDIOVASCULAR: Irregularly irregular rhythm. No murmurs, gallops, clicks or rubs noted. ABDOMEN: Protuberant, soft, nondistended, nontender. Bowel sounds present. There is no guarding, no rebound tenderness. EXTREMITIES: There is bilateral lower extremities edema of 2+. Pulses equal bilaterally at 2+. There is no cyanosis. NEUROLOGIC: The patient is awake, alert and oriented x4. No focal deficits noted. Motor strength is 5/5 in all extremities. SKIN: There is no rash or petechiae noted. Results Result Diagram: 08/23/1695708/23/16957 Results 24 hrs Laboratory Tests Test 08/24/16 12:03 08/24/16 16:52 08/24/16 20:53 08/25/16 07:36 Bedside Glucose 199 148 180 150 Medications Medications Current Medications Morphine Sulfate (morphine) 2 mg Q3H PRN IV PAIN Last administered on 08/21/16 14:08; Admin Dose 2 MG; Start 08/19/16 at 23:00 Hydralazine HCl (Apresoline) 20 mg Q6H PRN IV ELEVATED SYSTOLIC BP Last administered on 08/20/16 00:13; Admin Dose 20 MG; Start 08/20/16 at 00:00 Amlodipine Besylate (Norvasc) 5 mg BID PO Last administered on 08/25/16 08:57; Admin Dose 5 MG; Start 08/20/16 at 00:00 Aspirin (Aspirin) 81 mg DAILY PO Last administered on 08/25/16 08:54; Admin Dose 81 MG; Start 08/20/16 at 09:00 Terazosin HCl (Hytrin) 2 mg HS PO Last administered on 08/24/16 20:51; Admin Dose 2 MG; Start 08/20/16 at 21:00 Enalapril Maleate (Vasotec) 10 mg BID PO Last administered on 08/25/16 08:57; Admin Dose 10 MG; Start 08/20/16 at 00:00 Isosorbide Dinitrate (Isordil) 20 mg TID PO Last administered on 08/25/16 08:56 ; Admin Dose 20 MG; Start 08/20/16 at 09:00 Carvedilol (Coreg) 3.125 mg BID PO Last administered on 08/25/16 08:55; Admin Dose 3.125 MG; Start 08/20/16 at 09:00 Potassium Chloride (Klor-Con 20) 20 meq DAILY PO Last administered on 08/25/16 08:56; Admin Dose 20 MEQ; Start 08/20/16 at 09:00 Ondansetron HCl (Zofran Inj) 4 mg Q6H PRN IV NAUSEA AND/OR VOMITING; Start at 13:30 Nitroglycerin (Nitroglycerin (Sl Tab) 0.4 Mg) 1 tab Q5M PRN SL CHEST PAIN; Start 08/20/16 at 13:30 Acetaminophen (Tylenol Tab) 650 mg Q6H PRN PO PAIN LEVEL 1-3 OR FEVER Last administered on 08/21/16 09:12; Admin Dose 650 MG; Start 08/20/16 at 13:30 Docusate Sodium (Colace) 100 mg Q12H PRN PO CONSTIPATION; Start 08/20/16 at 13: 30 Pantoprazole (Protonix Tab) 40 mg DAILY@06 PO Last administered on 08/25/16 05: 56; Admin Dose 40 MG; Start 08/21/16 at 06:00 Diagnostic Test (Pha) (Accu-Chek) 1 ea 02 XX Last administered on 08/25/16 02: 21; Admin Dose 1 EA; Start 08/21/16 at 02:00 Hydralazine HCl (Apresoline) 10 mg Q6H PRN IV SBP>170; Start 08/20/16 at 13:30 Miscellaneous Information 1 ea NOTE XX ; Start 08/20/16 at 13:30 Glucose (Glutose) 15 gm Q15M PRN PO DECREASED GLUCOSE; Start 08/20/16 at 13:30 Glucose (Glutose) 22.5 gm Q15M PRN PO DECREASED GLUCOSE; Start 08/20/16 at 13: 30 Dextrose (D50w Syringe) 25 ml Q15M PRN IV DECREASED GLUCOSE; Start 08/20/16 at 13:30 Dextrose (D50w Syringe) 50 ml Q15M PRN IV DECREASED GLUCOSE; Start 08/20/16 at 13:30 Glucagon (Glucagen) 1 mg Q15M PRN IM DECREASED GLUCOSE; Start 08/20/16 at 13:30 Glucose (Glutose) 15 gm Q15M PRN BUCCAL DECREASED GLUCOSE; Start 08/20/16 at 13 :30 Furosemide (Lasix) 40 mg BID@06,18 IV Last administered on 08/25/16 05:57; Admin Dose 40 MG; Start 08/21/16 at 06:00 Apixaban (Eliquis) 5 mg BID PO Last administered on 08/25/16 08:57; Admin Dose 5 MG; Start 08/21/16 at 13:30 ARIN CHEN Aug 25, 2016 11:43
--- NOTE | 2016-08-25 16:19 | CONS ---
Date/Time of Note Date/Time of Note DATE: 08/25/16 TIME: 16:16 Assessment/Plan Assessment/Plan Chief Complaint/Hosp Course IMPRESSION: 1. Congestive heart failure exacerbation, systolic, acute on chronic.- improving volume status on lasix diuresis IV 2. Cardiomyopathy with decreased left ventricular ejection fraction last approximately 25% to 30% by echo in 04/2016. 3. Atrial fibrillation, paroxysmal,-rat controlled on eliquis 4. Hypertension. 5. Diabetes mellitus. 6. Chronic obstructive pulmonary disease. 7. History of prior cerebrovascular accident. 8. Medical noncompliance. 9.Bradycardia Recc: -Tele -follow volume status closely on lasix diuresis BID -Continue current coreg/norvasc/isordil -Follow HR closly with possible need to d/c BB -Increaseenalapril to improve BP control/afterload reduction -Continue baby asa for now Problems: Consultation Date/Type/Reason Admit Date/Time Aug 20, 2016 at 11:14 Initial Consult Date 08/20/2016 Type of Consultation: Cardiology Reason for Consultation CHF Referring Provider: NAE TIPTON MD Exam/Review of Systems Vital Signs Vitals Vital Signs Date Time Temp Pulse Resp B/P Pulse Ox O2 Delivery O2 Flow Rate FiO2 08/25/16 12:27 40 08/25/16 08:57 98.0 17 160/111 96 08/25/16 08:15 Nasal Cannula 2.0 Intake and Output 08/24/16 08/24/16 08/25/16 15:00 23:00 07:00 Intake Total 300 ml 200 ml Balance 300 ml 200 ml Exam Review of Systems: CONSTITUTIONAL: No fevers, chills. PULMONARY: mild sob CARDIOVASCULAR: No chest pain/palpitations GASTROINTESTINAL: No nausea/vomiting. GENITOURINARY: No hematuria/dysuria. MUSCULOSKELETAL: No myagias/arthalgias. PSYCHIATRIC: The patient denies depression. NEUROLOGIC: No weakness Constitutional: alert, oriented Psych: no complaints Head: normocephalic ENMT: mucosa pink and moist Neck: jvd (9 cm wATER), supple Cardiovascular: regular rate and rhythm Gastrointestinal: non-tender, soft Musculoskeletal: muscle tone (nbormal) Extremities: edema (none) Neurological: other (No focal deficits) Results Result Diagram: 08/23/16 0958 08/23/16 0958 Results 24 hrs Laboratory Tests Test 08/24/16 16:52 08/24/16 20:53 08/25/16 07:36 08/25/16 12:02 Bedside Glucose 148 180 150 173 Medications Medications Current Medications Morphine Sulfate (morphine) 2 mg Q3H PRN IV PAIN Last administered on 08/21/16 14:08; Admin Dose 2 MG; Start 08/19/16 at 23:00 Hydralazine HCl (Apresoline) 20 mg Q6H PRN IV ELEVATED SYSTOLIC BP Last administered on 08/20/16 00:13; Admin Dose 20 MG; Start 08/20/16 at 00:00 Amlodipine Besylate (Norvasc) 5 mg BID PO Last administered on 08/25/16 08:57; Admin Dose 5 MG; Start 08/20/16 at 00:00 Aspirin (Aspirin) 81 mg DAILY PO Last administered on 08/25/16 08:54; Admin Dose 81 MG; Start 08/20/16 at 09:00 Terazosin HCl (Hytrin) 2 mg HS PO Last administered on 08/24/16 20:51; Admin Dose 2 MG; Start 08/20/16 at 21:00 Enalapril Maleate (Vasotec) 10 mg BID PO Last administered on 08/25/16 08:57; Admin Dose 10 MG; Start 08/20/16 at 00:00 Isosorbide Dinitrate (Isordil) 20 mg TID PO Last administered on 08/25/16 12:07 ; Admin Dose 20 MG; Start 08/20/16 at 09:00 Carvedilol (Coreg) 3.125 mg BID PO Last administered on 08/25/16 08:55; Admin Dose 3.125 MG; Start 08/20/16 at 09:00 Potassium Chloride (Klor-Con 20) 20 meq DAILY PO Last administered on 08/25/16 08:56; Admin Dose 20 MEQ; Start 08/20/16 at 09:00 Ondansetron HCl (Zofran Inj) 4 mg Q6H PRN IV NAUSEA AND/OR VOMITING; Start at 13:30 Nitroglycerin (Nitroglycerin (Sl Tab) 0.4 Mg) 1 tab Q5M PRN SL CHEST PAIN; Start 08/20/16 at 13:30 Acetaminophen (Tylenol Tab) 650 mg Q6H PRN PO PAIN LEVEL 1-3 OR FEVER Last administered on 08/21/16 09:12; Admin Dose 650 MG; Start 08/20/16 at 13:30 Docusate Sodium (Colace) 100 mg Q12H PRN PO CONSTIPATION; Start 08/20/16 at 13: 30 Pantoprazole (Protonix Tab) 40 mg DAILY@06 PO Last administered on 08/25/16 05: 56; Admin Dose 40 MG; Start 08/21/16 at 06:00 Diagnostic Test (Pha) (Accu-Chek) 1 ea 02 XX Last administered on 08/25/16 02: 21; Admin Dose 1 EA; Start 08/21/16 at 02:00 Hydralazine HCl (Apresoline) 10 mg Q6H PRN IV SBP>170; Start 08/20/16 at 13:30 Miscellaneous Information 1 ea NOTE XX ; Start 08/20/16 at 13:30 Glucose (Glutose) 15 gm Q15M PRN PO DECREASED GLUCOSE; Start 08/20/16 at 13:30 Glucose (Glutose) 22.5 gm Q15M PRN PO DECREASED GLUCOSE; Start 08/20/16 at 13: 30 Dextrose (D50w Syringe) 25 ml Q15M PRN IV DECREASED GLUCOSE; Start 08/20/16 at 13:30 Dextrose (D50w Syringe) 50 ml Q15M PRN IV DECREASED GLUCOSE; Start 08/20/16 at 13:30 Glucagon (Glucagen) 1 mg Q15M PRN IM DECREASED GLUCOSE; Start 08/20/16 at 13:30 Glucose (Glutose) 15 gm Q15M PRN BUCCAL DECREASED GLUCOSE; Start 08/20/16 at 13 :30 Furosemide (Lasix) 40 mg BID@06,18 IV Last administered on 08/25/16 05:57; Admin Dose 40 MG; Start 08/21/16 at 06:00 Apixaban (Eliquis) 5 mg BID PO Last administered on 08/25/16 08:57; Admin Dose 5 MG; Start 08/21/16 at 13:30 ALISSON POTTER Aug 25, 2016 16:19
[2016-08-25] MEDS: ENALAPRIL 20 MG TAB PO SCH (21:12)
[2016-08-25] MEDS: TERAZOSIN 2 MG CAP PO SCH (21:53)
[2016-08-26] VITALS (10 sets, daily range): BP systolic 141–157; BP diastolic 88–94; PULSE 30–130; RESP 16–20
[2016-08-26] MEDS: ACCU-CHEK XX SCH (02:00)
[2016-08-26] MEDS: PANTOPRAZOLE (EC) 40 MG TAB PO SCH (06:14)
[2016-08-26] MEDS: INSULIN ASPART [NOVOLOG] 3 ML PEN SC SCH ×3 (08:40→17:53)
[2016-08-26] MEDS: ASPIRIN 81 MG TAB PO SCH (08:41)
[2016-08-26] MEDS: POTASSIUM CHLORIDE (SR) 20 MEQ TAB PO SCH (08:42)
[2016-08-26] MEDS: APIXABAN 5 MG TABLET PO SCH (08:42)
[2016-08-26] MEDS: ISOSORBIDE DINITRATE 20 MG TAB PO SCH ×2 (08:43→13:14)
[2016-08-26] MEDS: ENALAPRIL 20 MG TAB PO SCH (08:48)
[2016-08-26] MEDS: AMLODIPINE 5 MG TAB PO SCH (13:13)
--- NOTE | 2016-08-26 17:00 | PN ---
Date/Time of Note Date/Time of Note DATE: 08/26/16 TIME: 16:58 Assessment/Plan VTE Prophylaxis VTE Prophylaxis Intervention: other Lines/Catheters IV Catheter Type (from Nrs): Saline Lock Urinary Cath still in place: No Assessment/Plan Assessment/Plan 1. Systolic and diastolic congestive heart failure with exacerbation. Continue the patient on Lasix. Monitor electrolytes. Dr. Chen is following the patient in cardiology consultation. 2. Hypertensive urgency. Continue Coreg Norvasc. 3. Atrial fibrillation. Continue Eliquis. 4. Cardiomyopathy, with an ejection fraction of 30%. 5. Diabetes mellitus. Continue NovoLog per mild algorithm sliding scale. 6. Coronary artery disease. Continue aspirin. 7. History of cerebrovascular accident, status post craniotomy. 8. Chronic obstructive pulmonary disease. Continue oxygen supplementation and breathing treatments. Further recommendations based on clinical course. Plan of care discussed with Dr. Gibson. Exam/Review of Systems Vital Signs Vitals Vital Signs Date Time Temp Pulse Resp B/P Pulse Ox O2 Delivery O2 Flow Rate FiO2 08/26/16 16:29 97.5 52 20 157/94 94 08/25/16 21:00 Nasal Cannula 2.0 Intake and Output 08/25/16 08/25/16 08/26/16 15:00 23:00 07:00 Intake Total 250 ml 200 ml Balance 250 ml 200 ml Exam Constitutional: alert, obese, oriented Psych: nl mood/affect Head: atraumatic Eyes: EOMI ENMT: nl external ears & nose Neck: non-tender Respiratory: clear to auscultation Cardiovascular: nl pulses Gastrointestinal: non-tender, soft Musculoskeletal: nl extremities to inspection Extremities: normal pulses Neurological: nl mental status Skin: nl turgor Lymph: nontender Results Result Diagram: 08/23/1658 08/23/16 0958 Results 24 hrs Laboratory Tests Test 08/25/16 17:09 08/25/16 21:01 08/26/16 01:58 08/26/16 08:21 Bedside Glucose 150 142 148 152 Test 08/26/16 12:44 Bedside Glucose 147 Medications Medications Current Medications Morphine Sulfate (morphine) 2 mg Q3H PRN IV PAIN Last administered on 08/21/16t 14:08; Admin Dose 2 MG; Start 08/19/16 at 23:00 Hydralazine HCl (Apresoline) 20 mg Q6H PRN IV ELEVATED SYSTOLIC BP Last administered on 08/20/16 00:13; Admin Dose 20 MG; Start 08/20/16 at 00:00 Amlodipine Besylate (Norvasc) 5 mg BID PO Last administered on 08/26/16 13:13; Admin Dose 5 MG; Start 08/20/16 at 00:00 Aspirin (Aspirin) 81 mg DAILY PO Last administered on 08/26/16 08:41; Admin Dose 81 MG; Start 08/20/16 at 09:00 Terazosin HCl (Hytrin) 2 mg HS PO Last administered on 08/25/16 21:53; Admin Dose 2 MG; Start 08/20/16 at 21:00 Isosorbide Dinitrate (Isordil) 20 mg TID PO Last administered on 08/26/16 13:14 ; Admin Dose 20 MG; Start 08/20/16 at 09:00 Carvedilol (Coreg) 3.125 mg BID PO Last administered on 08/25/16 21:10; Admin Dose 3.125 MG; Start 08/20/16 at 09:00 Potassium Chloride (Klor-Con 20) 20 meq DAILY PO Last administered on 08/26/16 08:42; Admin Dose 20 MEQ; Start 08/20/16 at 09:00 Ondansetron HCl (Zofran Inj) 4 mg Q6H PRN IV NAUSEA AND/OR VOMITING; Start at 13:30 Nitroglycerin (Nitroglycerin (Sl Tab) 0.4 Mg) 1 tab Q5M PRN SL CHEST PAIN; Start 08/20/16 at 13:30 Acetaminophen (Tylenol Tab) 650 mg Q6H PRN PO PAIN LEVEL 1-3 OR FEVER Last administered on 08/21/16 09:12; Admin Dose 650 MG; Start 08/20/16 at 13:30 Docusate Sodium (Colace) 100 mg Q12H PRN PO CONSTIPATION; Start 08/20/16 at 13: 30 Pantoprazole (Protonix Tab) 40 mg DAILY@06 PO Last administered on 08/26/16 06: 14; Admin Dose 40 MG; Start 08/21/16 at 06:00 Diagnostic Test (Pha) (Accu-Chek) 1 ea 02 XX Last administered on 4/6/17at 02: 00; Admin Dose 1 EA; Start 08/21/16 at 02:00 Hydralazine HCl (Apresoline) 10 mg Q6H PRN IV SBP>170; Start 08/20/16 at 13:30 Miscellaneous Information 1 ea NOTE XX ; Start 08/20/16 at 13:30 Glucose (Glutose) 15 gm Q15M PRN PO DECREASED GLUCOSE; Start 08/20/16 at 13:30 Glucose (Glutose) 22.5 gm Q15M PRN PO DECREASED GLUCOSE; Start 08/20/16 at 13: 30 Dextrose (D50w Syringe) 25 ml Q15M PRN IV DECREASED GLUCOSE; Start 08/20/16 at 13:30 Dextrose (D50w Syringe) 50 ml Q15M PRN IV DECREASED GLUCOSE; Start 08/20/16 at 13:30 Glucagon (Glucagen) 1 mg Q15M PRN IM DECREASED GLUCOSE; Start 08/20/16 at 13:30 Glucose (Glutose) 15 gm Q15M PRN BUCCAL DECREASED GLUCOSE; Start 08/20/16 at 13 :30 Furosemide (Lasix) 40 mg BID@06,18 IV Last administered on 08/25/16 21:10; Admin Dose 40 MG; Start 08/21/16 at 06:00 Apixaban (Eliquis) 5 mg BID PO Last administered on 08/26/16 08:42; Admin Dose 5 MG; Start 08/21/16 at 13:30 Enalapril Maleate (Vasotec) 20 mg BID PO Last administered on 08/26/16 08:48; Admin Dose 20 MG; Start 08/25/16 at 21:00 NEVILLE GREEN Aug 26, 2016 17:00
[2016-08-26] MEDS: FUROSEMIDE 40 MG INJ IV SCH (17:51)
--- NOTE | 2016-08-26 19:12 | PDOCDIS ---
Discharge Instructions CONDITION Patient Condition: Fair HOME CARE INSTRUCTIONS: Special Diet: CARDIAC LOW SODIUM ACTIVITY: Activity Restrictions: Slowly Increase Activity Rest between Activity Avoid Heavy Housework Bathing Restrictions: Sponge Bath FOLLOW UP/APPOINTMENTS Appointments FU with Primary MD X Week FU with counter roller as recommended Call 911 or got the nearest hospital if symptoms get worse. NEVILLE GREEN Aug 26, 2016 19:12
--- NOTE | 2016-08-26 19:16 | CONS ---
Date/Time of Note Date/Time of Note DATE: 08/26/16 TIME: 19:10 Assessment/Plan Assessment/Plan Chief Complaint/Hosp Course IMPRESSION: 1. Congestive heart failure exacerbation, systolic, acute on chronic.-refused lasix today and yesterday 2. Cardiomyopathy with decreased left ventricular ejection fraction last approximately 25% to 30% by echo in 04/2016. 3. Atrial fibrillation, paroxysmal,-rat controlled on eliquis 4. Hypertension. 5. Diabetes mellitus. 6. Chronic obstructive pulmonary disease. 7. History of prior cerebrovascular accident. 8. Medical noncompliance. 9.Bradycardia-to 30's intermittent while on BB Recc: -Tele -follow volume status closely on lasix diuresis BID as patient will comply as possible as patient has been refusing medications -Continue norvasc/isordil -Will hold BB and follow HR closely given bradycardia -Continue enalapril to improve BP control/afterload reduction -Continue baby asa for now Problems: Consultation Date/Type/Reason Admit Date/Time Aug 20, 2016 at 11:14 Initial Consult Date 08/20/2016 Type of Consultation: Cardiology Reason for Consultation CHF/cardiomyopathy/bradycardia Referring Provider: NAE TIPTON MD Exam/Review of Systems Vital Signs Vitals Vital Signs Date Time Temp Pulse Resp B/P Pulse Ox O2 Delivery O2 Flow Rate FiO2 08/26/16 18:15 3.0 08/26/16 16:29 97.5 52 20 157/94 94 08/25/16 21:00 Nasal Cannula Intake and Output 08/25/16 08/25/16 08/26/16 15:00 23:00 07:00 Intake Total 250 ml 200 ml Balance 250 ml 200 ml Exam Review of Systems: CONSTITUTIONAL: No fevers, chills. PULMONARY: No sob CARDIOVASCULAR: No chest pain/palpitations GASTROINTESTINAL: No nausea/vomiting. GENITOURINARY: No hematuria/dysuria. MUSCULOSKELETAL: No myagias/arthalgias. PSYCHIATRIC: The patient denies depression. NEUROLOGIC: No weakness Constitutional: alert Psych: no complaints Head: normocephalic ENMT: mucosa pink and moist Neck: jvd (8 cm water), supple Respiratory: diminished breath sounds Cardiovascular: other ([place]) Gastrointestinal: non-tender, soft Musculoskeletal: muscle tone (normal) Extremities: edema (trace/B) Neurological: other (No focal deficits) Results Result Diagram: 08/23/1658 08/23/16 0958 Results 24 hrs Laboratory Tests Test 08/25/16 21:01 08/26/16 01:58 08/26/16 08:21 08/26/16 12:44 Bedside Glucose 142 148 152 147 Test 08/26/16 17:22 Bedside Glucose 190 Medications Medications Current Medications Morphine Sulfate (morphine) 2 mg Q3H PRN IV PAIN Last administered on 08/21/16 14:08; Admin Dose 2 MG; Start 08/19/16 at 23:00 Hydralazine HCl (Apresoline) 20 mg Q6H PRN IV ELEVATED SYSTOLIC BP Last administered on 08/20/16 00:13; Admin Dose 20 MG; Start 08/20/16 at 00:00 Amlodipine Besylate (Norvasc) 5 mg BID PO Last administered on 08/26/16 13:13; Admin Dose 5 MG; Start 08/20/16 at 00:00 Aspirin (Aspirin) 81 mg DAILY PO Last administered on 08/26/16 08:41; Admin Dose 81 MG; Start 08/20/16 at 09:00 Terazosin HCl (Hytrin) 2 mg HS PO Last administered on 08/25/16 21:53; Admin Dose 2 MG; Start 08/20/16 at 21:00 Isosorbide Dinitrate (Isordil) 20 mg TID PO Last administered on 08/26/16 13:14 ; Admin Dose 20 MG; Start 08/20/16 at 09:00 Carvedilol (Coreg) 3.125 mg BID PO Last administered on 08/25/16 21:10; Admin Dose 3.125 MG; Start 08/20/16 at 09:00 Potassium Chloride (Klor-Con 20) 20 meq DAILY PO Last administered on 08/26/16 08:42; Admin Dose 20 MEQ; Start 08/20/16 at 09:00 Ondansetron HCl (Zofran Inj) 4 mg Q6H PRN IV NAUSEA AND/OR VOMITING; Start at 13:30 Nitroglycerin (Nitroglycerin (Sl Tab) 0.4 Mg) 1 tab Q5M PRN SL CHEST PAIN; Start 08/20/16 at 13:30 Acetaminophen (Tylenol Tab) 650 mg Q6H PRN PO PAIN LEVEL 1-3 OR FEVER Last administered on 08/21/16 09:12; Admin Dose 650 MG; Start 08/20/16 at 13:30 Docusate Sodium (Colace) 100 mg Q12H PRN PO CONSTIPATION; Start 08/20/16 at 13: 30 Pantoprazole (Protonix Tab) 40 mg DAILY@06 PO Last administered on 08/26/16 06: 14; Admin Dose 40 MG; Start 08/21/16 at 06:00 Diagnostic Test (Pha) (Accu-Chek) 1 ea 02 XX Last administered on 08/26/16 02: 00; Admin Dose 1 EA; Start 08/21/16 at 02:00 Hydralazine HCl (Apresoline) 10 mg Q6H PRN IV SBP>170; Start 08/20/16 at 13:30 Miscellaneous Information 1 ea NOTE XX ; Start 08/20/16 at 13:30 Glucose (Glutose) 15 gm Q15M PRN PO DECREASED GLUCOSE; Start 08/20/16 at 13:30 Glucose (Glutose) 22.5 gm Q15M PRN PO DECREASED GLUCOSE; Start 08/20/16 at 13: 30 Dextrose (D50w Syringe) 25 ml Q15M PRN IV DECREASED GLUCOSE; Start 08/20/16 at 13:30 Dextrose (D50w Syringe) 50 ml Q15M PRN IV DECREASED GLUCOSE; Start 08/20/16 at 13:30 Glucagon (Glucagen) 1 mg Q15M PRN IM DECREASED GLUCOSE; Start 08/20/16 at 13:30 Glucose (Glutose) 15 gm Q15M PRN BUCCAL DECREASED GLUCOSE; Start 08/20/16 at 13 :30 Furosemide (Lasix) 40 mg BID@06,18 IV Last administered on 08/25/16 21:10; Admin Dose 40 MG; Start 08/21/16 at 06:00 Apixaban (Eliquis) 5 mg BID PO Last administered on 08/26/16 08:42; Admin Dose 5 MG; Start 08/21/16 at 13:30 Enalapril Maleate (Vasotec) 20 mg BID PO Last administered on 08/26/16 08:48; Admin Dose 20 MG; Start 08/25/16 at 21:00 ALISSON POTTER Aug 26, 2016 19:16
--- NOTE | 2016-08-26 19:19 | DS ---
Date/Time of Note Date/Time of Note DATE: 08/26/16 TIME: 19:13 Discharge Summary Admission/Discharge Info Admit Date/Time Aug 20, 2016 at 11:14 Discharge Date/Time Patient Condition: Fair Hx of Present Illness Patient wants to leave [facility]- regarding consequences of leaving without proper treatment. Son agreed regarding his father being non compliant with treatment. Patient just insisted to go home today no matter what and made himself responsible for taking his medications . Hospital Course IMPRESSION: 1. Congestive heart failure exacerbation, systolic, acute on chronic.- improving volume status on lasix diuresis IV 2. Cardiomyopathy with decreased left ventricular ejection fraction last approximately 25% to 30% by echo in 04/2016. 3. Atrial fibrillation, paroxysmal,-rat controlled on eliquis 4. Hypertension. 5. Diabetes mellitus. 6. Chronic obstructive pulmonary disease. 7. History of prior cerebrovascular accident. 8. Medical noncompliance. 9.Bradycardia Recc: -Tele -follow volume status closely on lasix diuresis BID -Continue current coreg/norvasc/isordil -Follow HR closly with possible need to d/c BB -Increaseenalapril to improve BP control/afterload reduction -Continue baby asa for now Home Meds Active Scripts Clonidine Hcl* (Clonidine Hcl*) 0.1 Mg Tab, 0.1 MG PO TID Y for PRN for 30 Days , #90 TAB Prov:ERIC GILLESPIE MD 07/02/16 Amlodipine Besylate* (Norvasc*) 5 Mg Tablet, 5 MG PO BID for 30 Days, #60 TAB Prov:ERIC GILLESPIE MD 07/02/16 Discontinued Scripts Lorazepam* (Ativan*) 0.5 Mg Tablet, 0.5 MG PO Q8 Y for ANXIETY for 30 Days, #60 TAB 0 Refills Prov:ERIC GILLESPIE MD 07/02/16 Omeprazole* (Omeprazole*) 20 Mg Capsule., 20 MG PO DAILY for 30 Days, #30 CAP Prov:ERIC GILLESPIE MD 07/02/16 Aspirin* (Aspirin* EC) 81 Mg Tablet., 81 MG PO DAILY for 30 Days, #30 TAB Prov:ERIC GILLESPIE MD 07/02/16 Amlodipine Besylate* (Norvasc*) 5 Mg Tablet, 5 MG PO DAILY for 30 Days, #60 TAB Prov:ERIC GILLESPIE MD 07/02/16 Metoprolol Tartrate* (Lopressor*) 50 Mg Tab, 50 MG PO BID for 30 Days, #60 TAB Prov:ERIC GILLESPIE MD 07/02/16 Lorazepam* (Ativan*) 0.5 Mg Tablet, 0.5 MG PO Q8 Y for ANXIETY for 60 Days, #60 TAB 1 Refill Prov:ERIC GILLESPIE MD 07/02/16 Sertraline HCl (Zoloft) 20 Mg/1 Ml Oral.conc, 20 MG PO DAILY for 30 Days, #30 TAB 1 Refill Prov:ERIC GILLESPIE MD 07/02/16 Carvedilol* (Coreg*) 6.25 Mg Tablet, 6.25 MG PO BID for 30 Days, #60 TAB Prov:ERIC GILLESPIE MD 07/02/16 Spironolactone* (Aldactone*) 25 Mg Tablet, 25 MG PO BID for 30 Days, #60 TAB Prov:ERIC GILLESPIE MD 07/02/16 Aspirin* (Ecotrin*) 81 Mg Tablet.dr, 81 MG PO DAILY for 30 Days, #30 TAB Prov:ERIC GILLESPIE MD 07/02/16 Terazosin Hcl* (Terazosin Hcl*) 2 Mg Capsule, 2 MG PO HS for 30 Days, #30 CAP Prov:ERIC GILLESPIE MD 07/02/16 Potassium Chloride* (K-Dur*) 20 Meq Tab.prt.sr, 40 MEQ PO BID for 30 Days, #60 TAB Prov:ERIC GILLESPIE MD 07/02/16 Magnesium Oxide* (Mag-Oxide*) 400 Mg Tablet, 400 MG PO BID for 30 Days, #60 TAB Prov:ERIC GILLESPIE MD 07/02/16 Isosorbide Dinitrate* (Isosorbide Dinitrate*) 20 Mg Tablet, 20 MG PO TID for 30 Days, #60 TAB Prov:ERIC GILLESPIE MD 07/02/16 [Ipratropium 0.02% (Neb)] 0.5 MG/2.5 ML NEBU No Conflict Check, 0.5 MG HHN Q8H RESP THERAPY for 30 Days, #90 CU Prov:ERIC GILLESPIE MD 07/02/16 Hydralazine Hcl* (Apresoline* Pediatric Oral) 1 Mg/Ml (Compounded) Oral Solution , 25 MG PO Q12 Y for SBP > 160 for 30 Days, #60 BOTTLE Prov:ERIC GILLESPIE MD 07/02/16 Enalapril Maleate* (Enalapril Maleate*) 10 Mg Tablet, 10 MG PO Q12 for 30 Days, #30 TAB Prov:ERIC GILLESPIE MD 07/02/16 [Bumetanide] 0.25 MG/ML TABLET No Conflict Check, 1 MG PO BID DIURETICS for 30 Days, #60 BOTTLE Prov:ERIC GILLESPIE MD 07/02/16 Pending Labs Laboratory Tests Test 08/25/16 21:01 08/26/16 01:58 08/26/16 08:21 08/26/16 12:44 Bedside Glucose 142mg/dL (70-220) 148mg/dL (70-220) 152mg/dL (70-220) 147mg/dL (70-220) Test 08/26/16 17:22 Bedside Glucose 190mg/dL (70-220) NEVILLE GREEN Aug 26, 2016 19:19
[2016-08-26] MEDS ORDERED: METF500T4 PO (19:31)
[2016-08-26] MEDS ORDERED: HYDR-3671 PO (19:31)
[2016-08-26] MEDS ORDERED: POTA20TA15 PO (19:31)
[2016-08-26] MEDS ORDERED: NIT4 SL (19:31)
[2016-08-26] MEDS ORDERED: APIX5TAB PO (19:31)
[2016-08-26] MEDS ORDERED: ENAL20TA PO (19:31)
[2016-08-26] MEDS ORDERED: FURO40TA4 PO (19:31)
[2016-08-26] MEDS ORDERED: PANT40TA4 PO (19:31)
[2016-08-26] MEDS ORDERED: ASPI81TA3 PO (19:31)
[2016-08-26] MEDS ORDERED: TERA2CAP3 PO (19:31)
[2016-08-27] MEDS ORDERED: FUROSEMIDE 40 MG TAB PO SCH (06:00)
== END 2016-08-26 20:11 | disposition home or self-care (01) | DRG 293 ==
LOC: E/R 17:16 → MS4 21:11 → OBSVTOIN 08-20 11:14
PROVIDERS: ADMIT Internal Medicine; ATTEND Internal Medicine
DX: I11.0 Hypertensive heart disease with heart failure (principal); I48.91 Unspecified atrial fibrillation; I42.9 Cardiomyopathy, unspecified; J44.9 Chronic obstructive pulmonary disease, unspecified; R00.1 Bradycardia, unspecified; I50.43 Acute on chronic combined systolic (congestive) and diastolic (congestive) heart failure; E11.9 Type 2 diabetes mellitus without complications; I25.10 Atherosclerotic heart disease of native coronary artery without angina pectoris; Z79.82 Long term (current) use of aspirin; Z91.14 Patient's other noncompliance with medication regimen; Z86.73 Personal history of transient ischemic attack (TIA), and cerebral infarction without residual deficits
CPT/HCPCS: 36415; 71010; 80048; 81001; 81003; 82962; 83735; 84443; 84484; 85025; 85610; 85730; 87086; 93005; 96374; 96375; G0378; J0360; J1650; J1815; J1940; J2270; J2405

== ENCOUNTER 2016-10-13 13:44 | Emergency (ER) | payer BC, MEDICARE ==
[~2016-10-13] VITALS: Ht 185.4 cm; Wt 80.0 kg
[~2016-10-13 13:44] MED LIST changes: +APIX5TAB PO; -APRS PO; -ASPI-664 PO; -ASPI-716 PO; +ASPI81TA3 PO; -Bumetanide PO; -CARV6.25 PO; -CLON-379 PO; -ENAL10TA PO; +ENAL20TA PO; +FURO40TA4 PO; +HYDR-3671 PO; -ISOS20TA19 PO; -Ipratropium 0.02% (Neb) HHN; -LORA-441 PO; -MAGN400T27 PO; -METF-382 PO; +METF500T4 PO; -METO-429 PO; +NIT4 SL; -OMEP20CA16 PO; +PANT40TA4 PO; -SERT20OR PO; -SPIR25TA PO
[2016-10-13 13:47] VITALS: Ht 185.4 cm; Wt 80.0 kg
== END 2016-10-13 14:08 | disposition left against medical advice (07) ==
LOC: E/R 13:44
DX: Z53.21 Procedure and treatment not carried out due to patient leaving prior to being seen by health care provider (principal)
CPT/HCPCS: 82962

== ENCOUNTER 2016-11-04 15:14 | Inpatient (IN) | payer MEDICARE, BC ==
[~2016-11-04] VITALS: Ht 175.3 cm; Wt 105.3 kg
[2016-11-04] MEDS ORDERED: ALBUTEROL 0.5% (NEB) 2.5 MG/0.5 ML AMP INH STA (15:38)
[2016-11-04] MEDS ORDERED: NITROGLYCERIN 2% 1 GM OINT PKT TD STA (15:41)
[2016-11-04] MEDS ORDERED: FUROSEMIDE 40 MG INJ IV STA (15:41)
--- NOTE | 2016-11-04 15:43 | ERA ---
ER Documentation Chief Complaint Date/Time DATE: 11/04/16 TIME: 15: Chief Complaint Complains of SOB Hx of CHF HPI 66-year-old male with history of diabetes, hypertension, hyperlipidemia, chronic atrial fibrillation, COPD, systolic and diastolic congestive heart failure, cardiomyopathy with ejection fraction of 25-30%, CVA and chronic noncompliance brought to the ED by his daughter for evaluation of several day history increased lower extremity swelling and shortness of breath which has become severe since last night with orthopnea and exertional dyspnea. Denies chest pain or palpitations. Nausea but no abdominal pain, diarrhea or constipation. Mild, chronic, generalized pressure-like headache but no neck or back pain. Denies visual changes or new focal weakness or numbness. Increasing lower extremity swelling but no calf pain or redness. Denies URI symptoms or cough. No fevers or chills. ROS All systems reviewed and are negative except as per history of present illness. Medications Home Meds Active Scripts Metformin* (Glucophage*) 500 Mg Tab, 500 MG PO BID, #60 TAB Prov:NEVILLE GREEN 08/26/16 Terazosin Hcl* (Terazosin Hcl*) 2 Mg Capsule, 2 MG PO HS for 30 Days, CAP Prov:NEVILLE GREEN 08/26/16 Potassium Chloride* (K-Dur*) 20 Meq Tab.prt.sr, 20 MEQ PO DAILY for 30 Days Prov:NEVILLE GREEN 08/26/16 Pantoprazole* (Pantoprazole*) 40 Mg Tablet.dr, 40 MG PO DAILY@06 for 30 Days Prov:NEVILLE GREEN 08/26/16 Nitroglycerin* (Nitrostat*) 0.4 Mg Tab.subl, 1 TAB SL Q5M Y for CHEST PAIN for 30 Days Prov:NEVILLE GREEN 08/26/16 Hydralazine Hcl* (Hydralazine Hcl*) 25 Mg Tab, 25 MG PO BID for 30 Days, TAB Prov:NEVILLE GREEN 08/26/16 Furosemide* (Furosemide*) 40 Mg Tablet, 40 MG PO BID DIURETICS for 30 Days, TAB Prov:NEVILLE GREEN 08/26/16 Enalapril Maleate* (Enalapril Maleate*) 20 Mg Tablet, 20 MG PO BID for 30 Days, TAB Prov:NEVILLE GREEN 08/26/16 Aspirin (Aspirin) 81 Mg Chew, 81 MG PO DAILY for 30 Days, TAB Prov:NEVILLE GREEN 08/26/16 Apixaban* (Eliquis*) 5 Mg Tablet, 5 MG PO BID for 30 Days, TAB Prov:NEVILLE GREEN 08/26/16 Amlodipine Besylate* (Norvasc*) 5 Mg Tablet, 5 MG PO BID for 30 Days, #60 TAB Prov:ERIC GILLESPIE MD 07/02/16 Allergies Allergies: Coded Allergies: No Known Allergies (Verified Allergy, Unknown, 08/19/16) PMhx/Soc Reviewed in chart. As per HPI. History of Surgery: Yes (craniotomy 03/2015) Anesthesia Reaction: No Hx Neurological Disorder: Yes (stroke) Hx Respiratory Disorders: No Hx Cardiac Disorders: Yes (CHF, HTN, Cardiomyopathy,CAD) Hx Psychiatric Problems: No Hx Miscellaneous Medical Probl: No Hx Alcohol Use: Yes Hx Substance Use: No Hx Tobacco Use: Yes FmHx Reviewed in chart. No stroke or cancer. Physical Exam Vitals Vital Signs Date Time Temp Pulse Resp B/P Pulse Ox O2 Delivery O2 Flow Rate FiO2 11/04/16 16:35 70 30 98 Nasal Cannula 3.0 32 11/04/16 16:03 Nasal Cannula 2 11/04/16 16:03 99.3 64 24 177/106 98 Nasal Cannula 2.0 11/04/16 15:17 99.5 69 20 226/112 98 Physical Exam Const: Alert, moderate respiratory distress. Ill-appearing Head: Atraumatic. Status post craniotomy Eyes: Normal Conjunctiva ENT: Normal External Ears, Nose and Mouth. Neck: Full range of motion. Nontender, JVD Resp: Decreased breath sounds at the bases with rales one third of both lung hart. Occasional expiratory wheezes Cardio: Regular rate and rhythm, no murmurs Abd: Soft, non tender, non distended. Normal bowel sounds Skin: No petechiae or rashes Back: No midline or flank tenderness Ext: 3+ pitting edema. No calf swelling or tenderness. Neur: Awake and alert. No facial droop. Cranial nerves II through XII are grossly intact. Motor and sensory equal bilaterally. Psych: Appears mildly anxious but not depressed. Result Diagram: 11/04/16 1545 11/04/16 1545 Results 24 hrs Laboratory Tests Test 11/04/16 15:43 11/04/16 15:45 Bedside Glucose 165mg/dL White Blood Count 7.610^3/ul Red Blood Count 5.3810^6/ul Hemoglobin 16.4g/dl Hematocrit 47.2% Mean Corpuscular Volume 87.7fl Mean Corpuscular Hemoglobin 30.5pg Mean Corpuscular Hemoglobin Concent 34.7g/dl Red Cell Distribution Width 16.4% Platelet Count 99771^3/UL Mean Platelet Volume 10.0fl Neutrophils % 74.5% Lymphocytes % 9.7% Monocytes % 11.6% Eosinophils % 3.2% Basophils % 0.5% Nucleated Red Blood Cells % 0.0/100WBC Neutrophils # 5.710^3/ul Lymphocytes # 0.710^3/ul Monocytes # 0.910^3/ul Eosinophils # 0.210^3/ul Basophils # 0.010^3/ul Nucleated Red Blood Cells # 0.010^3/ul Prothrombin Time 13.4Sec Prothrombin Time Ratio 1.0 INR International Normalized Ratio 1.02 Activated Partial Thromboplast Time 34.4Sec Sodium Level 139mmol/L Potassium Level 4.0mmol/L Chloride Level 105mmol/L Carbon Dioxide Level 23mmol/L Anion Gap 15 Blood Urea Nitrogen 15mg/dl Creatinine 0.85mg/dl Glucose Level 188mg/dl Calcium Level 9.4mg/dl Troponin I 0.044ng/ml Current Medications Medications (Trade) Dose Ordered Sig/Tavon Route PRN Reason Start Time Stop Time Status Last Admin Dose Admin Albuterol (Proventil 0.5% (Neb)) 10 mg ONCE STAT INH 11/04/16 15:38 11/04/16 15:41 DC 11/04/16 16:34 Nitroglycerin (Nitroglycerin 2% Oint) 1 inch ONCE STAT TD 11/04/16 15:41 11/04/16 15:43 DC 11/04/16 16:28 Furosemide (Lasix) 40 mg ONCE STAT IV 11/04/16 15:41 11/04/16 15:43 DC 11/04/16 16:27 Captopril (Capoten) 25 mg ONCE STAT PO 11/04/16 15:41 11/04/16 15:43 DC 11/04/16 16:29 RHYTHM STRIP INTERPRETATION: Time: 15:35. Atrial fibrillation. Ventricular rate 68. Indication: Shortness of breath with history of atrial fibrillation. EKG: TIME: 15: 47. Atrial fibrillation. Left ventricular hypertrophy and left axis deviation. Q waves in leads II, 3, aVF V1 through V5. T-wave inversions in [address] No acute [address] segment elevation or depression. EP Interpretation: Abnormal EKG. IMAGING: Refused chest x-ray. Procedures/MDM DOCUMENTS REVIEWED: ED nurse, prior ED, prior records including admission 2016 [employer]-year-old male with history of diabetes, hypertension, hyperlipidemia, chronic atrial fibrillation, COPD, systolic and diastolic congestive heart failure, cardiomyopathy with ejection fraction of 25- 30%, CVA and chronic noncompliance brought to the ED by his daughter for evaluation of several day history increased lower extremity swelling and shortness of breath which has become severe since last night. Presentation consistent with acute CHF exacerbation likely complicated by a component of COPD. No acute ischemic EKG changes, chest pain, elevated troponin or other harbingers of acute coronary syndrome. Lower extremity edema but no tenderness or other signs of DVT. Doubt pulmonary embolism. Patient adamantly is refusing a chest x-ray. Chronic atrial fibrillation without RVR. Previous history of stroke and he is noncompliant with anticoagulation. Hypertensive emergency. Patient treated aggressively in the ED with nebulized beta agonist, preload/afterload reduction and diuretics. Admit to telemetry for further evaluation and management. Counseled patient and daughter regarding diagnosis, diagnostic results and plan for admission. CALLS/CONSULTS: Time 17:40, Dr. Gibson, familiar with this patient from previous admissions. Recommends admission to telemetry. PATIENT CARE TRANSITIONED: Time: 17:40, Dr. Gibson. CRITICAL CARE TIME: Due to the high probability of sudden clinically significant hemodynamic, cardiovascular and respiratory deterioration, this patient with acute dyspnea due to acute CHF exacerbation required multiple, frequent reevaluations of vital signs and response to therapy. Additional critical care time was spent in interpretation of relevant clinical data, extensive review of previous medical records, obtaining supplemental history from family and consultation with the admitting physician Dr. Gibson. TOTAL CRITICAL CARE TIME: 35 minutes not including other separately reportable procedures. Departure Diagnosis: Primary Impression: Acute dyspnea Additional Impressions: Acute exacerbation of CHF (congestive heart failure) Qualified Code: I50.43 - Acute on chronic combined systolic and diastolic congestive heart failure COPD exacerbation Hypertensive emergency Chronic atrial fibrillation Diabetes mellitus type 2 in obese History of CVA (cerebrovascular accident) Medically noncompliant Condition: Serious MARGAUX VORA MD Nov 04, 2016 15:43
[2016-11-04 15:57] LABS: ADD SCAN DIFF NO
[2016-11-04 15:59] LABS: BASOPHILS % 0.5 % (0.0-2.0); EOSINOPHILS # 0.2 10^3/ul (0.0-0.5); EOSINOPHILS % 3.2 % (0.0-7.0); HEMATOCRIT 47.2 % (42.0-52.0); HEMOGLOBIN 16.4 g/dl (14.0-18.0); LYMPHOCYTES # 0.7 10^3/ul (0.8-2.9); LYMPHOCYTES % 9.7 % (15.0-51.0); MEAN CORPUSCULAR HEMOGLOBIN 30.5 pg (29.0-33.0); MEAN CORPUSCULAR HGB CONC 34.7 g/dl (32.0-37.0); MEAN CORPUSCULAR VOLUME 87.7 fl (82.0-101.0); MONOCYTE # 0.9 10^3/ul (0.3-0.9); MONOCYTES % 11.6 % (0.0-11.0); NEUTROPHIL # 5.7 10^3/ul (1.6-7.5); NEUTROPHILS % 74.5 % (39.0-77.0); PLATELET COUNT 244 10^3/UL (140-415); RED BLOOD COUNT 5.38 10^6/ul (4.70-6.10); RED CELL DISTRIBUTION WIDTH 16.4 % (11.5-14.5); WHITE BLOOD COUNT 7.6 10^3/ul (4.8-10.8)
[2016-11-04 16:18] LABS: INR 1.02; PROTIME 13.4 Sec (12.2-14.2)
[2016-11-04 16:19] LABS: PARTIAL THROMBOPLASTIN TIME 34.4 Sec (25.0-35.0)
[2016-11-04 16:21] LABS: CALCIUM 9.4 mg/dl (8.4-10.2); CREATININE 0.85 mg/dl (0.61-1.24)
[2016-11-04 16:33] LABS: TROPONIN-I 0.044 ng/ml (0.00-0.12)
[2016-11-04] MEDS ORDERED: ONDANSETRON 4 MG INJ IV PRN ×2 (17:00→20:30)
[2016-11-04] MEDS ORDERED: ASPIRIN 325 MG TAB PO ONE (17:00)
[2016-11-04] MEDS ORDERED: ACETAMINOPHEN 325 MG TAB PO PRN ×2 (17:00→20:00)
[2016-11-04 17:37] VITALS: TEMP 98.5
[2016-11-04 18:01] LABS: ALBUMIN 4.4 g/dl (3.3-4.9); ALBUMIN/GLOBULIN RATIO 1.41; CALCIUM 9.1 mg/dl (8.4-10.2); CREATININE 0.86 mg/dl (0.61-1.24); POTASSIUM 3.9 mmol/L (3.5-5.1); TOTAL PROTEIN 7.5 g/dl (6.1-8.1)
[2016-11-04 19:33] VITALS: PULSE 70
[2016-11-04 20:00] VITALS: BP 174/104; RESP 21
[2016-11-04 20:27] VITALS: PULSE 70
[2016-11-04] MEDS ORDERED: NITROGLYCERIN (SL) 0.4 MG TAB SL PRN (20:30)
[2016-11-04] MEDS: IPRATROPIUM (NEB) 0.5 MG/2.5 ML AMP HHN SCH (20:32)
[2016-11-04] MEDS: LEVALBUTEROL (NEB) 0.63 MG/3 ML AMP HHN SCH (20:32)
[2016-11-04] MEDS: INSULIN ASPART [NOVOLOG] 3 ML PEN SC SCH (21:00)
[2016-11-04] MEDS ORDERED: GLUCOSE GEL 15 GRAM TUBE BUCCAL PRN (21:00)
[2016-11-04] MEDS ORDERED: GLUCOSE GEL 15 GRAM TUBE PO PRN ×2 (21:00)
[2016-11-04] MEDS ORDERED: DEXTROSE 50% 50 ML SYRINGE IV PRN ×2 (21:00)
[2016-11-04] MEDS ORDERED: GLUCAGON 1 MG INJ IM PRN (21:00)
--- NOTE | 2016-11-04 21:22 | HP ---
Date/Time of Note Date/Time of Note DATE: 11/04/16 TIME: 19:43 Assessment/Plan VTE Prophylaxis VTE Prophylaxis Intervention: other Assessment/Plan Assessment/Plan -Acute dyspnea possibly sec to CHF/COPD -Acute on chronic combined systolic and diastolic congestive heart failure, Hx CAD, Cardiomyopathy - cardiology consult- Dr Chen notified -COPD exacerbation - cont breathing treatments - Solmedrol 40 mg iv daily -Hypertensive emergency - per cardio - cardiac diet -Chronic atrial fibrillation - eliquis 5 mg po bid -Diabetes mellitus type 2 in obese - Glycemic control -History of CVA (cerebrovascular accident) - no acute issues -Medically noncompliant - reinforced the medication and treatment compliance - Protonix for GI prophylaxis. DW Dr Gibson HPI/ROS Admit Date/Time Admit Date/Time Nov 04, 2016 at 16:45 Hx of Present Illness Chief Complaint Complains of SOB Hx of CHF HPI 66-year-old male with history of diabetes, hypertension, hyperlipidemia, chronic atrial fibrillation, COPD, systolic and diastolic congestive heart failure, cardiomyopathy with ejection fraction of 25-30%, CVA and chronic noncompliance is admitted with increased lower extremity swelling and shortness of breath severe since last night along with orthopnea and exertional dyspnea. Denies chest pain or palpitations, Headache. Denies Nausea, abdominal pain, diarrhea or constipation. Denies visual changes or new focal weakness or numbness. Increasing lower extremity swelling but no calf pain or redness. Denies URI symptoms or cough. No fevers or chills. Son at bed side- plan of care reviewed with son, all Qs answered. ROS All systems reviewed and are negative except as per history of present illness. Medications Home Meds Active Scripts Metformin* (Glucophage*) 500 Mg Tab, 500 MG PO BID, #60 TAB Prov:NEVILLE GREEN 08/26/16 Terazosin Hcl* (Terazosin Hcl*) 2 Mg Capsule, 2 MG PO HS for 30 Days, CAP Prov:NEVILLE GREEN 08/26/16 Potassium Chloride* (K-Dur*) 20 Meq Tab.prt.sr, 20 MEQ PO DAILY for 30 Days Prov:NEVILLE GREEN 08/26/16 Pantoprazole* (Pantoprazole*) 40 Mg Tablet., 40 MG PO DAILY@06 for 30 Days Prov:NEVILLE GREEN 08/26/16 Nitroglycerin* (Nitrostat*) 0.4 Mg Tab.subl, 1 TAB SL Q5M Y for CHEST PAIN for 30 Days Prov:NEVILLE GREEN 08/26/16 Hydralazine Hcl* (Hydralazine Hcl*) 25 Mg Tab, 25 MG PO BID for 30 Days, TAB Prov:NEVILLE GREEN 08/26/16 Furosemide* (Furosemide*) 40 Mg Tablet, 40 MG PO BID DIURETICS for 30 Days, TAB Prov:NEVILLE GRENE 08/26/16 Enalapril Maleate* (Enalapril Maleate*) 20 Mg Tablet, 20 MG PO BID for 30 Days, TAB Prov:NEVILLE GREEN 08/26/16 Aspirin (Aspirin) 81 Mg Chew, 81 MG PO DAILY for 30 Days, TAB Prov:NEVILLE GREEN 08/26/16 Apixaban* (Eliquis*) 5 Mg Tablet, 5 MG PO BID for 30 Days, TAB Prov:NEVILLE GREEN 08/26/16 Amlodipine Besylate* (Norvasc*) 5 Mg Tablet, 5 MG PO BID for 30 Days, #60 TAB Prov:ERIC GILLESPIE MD 07/02/16 Allergies No Known Allergies (Verified Allergy, Unknown, 08/19/16) ROS c/o shortness of breath, feels hungry. Refuses cheat XRay. Myself dw son- reg Subjective hx not possible: other (c/o generelizes weakness) Respiratory: shortness of breath Cardiovascular: orthopenea Gastrointestinal: no complaints Genitourinary: no complaints PMH/Family/Social Past Medical History PMhx/Soc Reviewed in chart. As per HPI. History of Surgery: Yes (craniotomy 03/2015) Anesthesia Reaction: No Hx Neurological Disorder: Yes (stroke) Hx Respiratory Disorders: No Hx Cardiac Disorders: Yes (CHF, HTN, Cardiomyopathy,CAD) Hx Psychiatric Problems: No Hx Miscellaneous Medical Probl: No Hx Alcohol Use: Yes Hx Substance Use: No Hx Tobacco Use: Yes FmHx Reviewed in chart. No stroke or cancer. Medical History: congestive heart failure, hypertension Past Surgical History Past Surgical Hx: endoscopy, other Social History Alcohol Use: none Smoking Status: Former smoker Drug Use: none Exam/Review of Systems Vital Signs Vitals Vital Signs Date Time Temp Pulse Resp B/P Pulse Ox O2 Delivery O2 Flow Rate FiO2 11/04/16 17:37 98.5 76 25 169/118 99 Nasal Cannula 3.0 11/04/16 16:35 32 Exam Constitutional: alert, distress, oriented, well developed Psych: nl mood/affect Respiratory: diminished breath sounds, wheezing Cardiovascular: nl pulses, other (controlled, chronic afib) Gastrointestinal: non-tender, soft Musculoskeletal: nl extremities to inspection Extremities: edema Neurological: nl mental status, nl speech Labs Result Diagram: 11/04/16 1545 11/04/16 1735 Procedures Procedures RHYTHM STRIP INTERPRETATION: Atrial fibrillation. Ventricular rate 68. Indication: Shortness of breath with history of atrial fibrillation. EKG: Atrial fibrillation. Left ventricular hypertrophy and left axis deviation. Q waves in leads II, 3, aVF V1 through V5. T-wave inversions in [address] No acute ST segment elevation or depression. EP Interpretation: Abnormal EKG. IMAGING: Refused chest x-ray. NEVILLE GREEN Nov 04, 2016 19:53
[2016-11-04] MEDS: TERAZOSIN 2 MG CAP PO SCH (21:35)
[2016-11-04] MEDS: ENALAPRIL 20 MG TAB PO SCH (21:35)
[2016-11-04] MEDS: FUROSEMIDE 40 MG INJ IV SCH (21:36)
[2016-11-04] MEDS: AMLODIPINE 5 MG TAB PO SCH (21:36)
[2016-11-04] MEDS: APIXABAN 5 MG TABLET PO SCH (21:44)
[2016-11-04 21:50] VITALS: Ht 175.3 cm; Wt 105.3 kg
[2016-11-04] MEDS ORDERED: hydrALAzine 20 MG INJ IV PRN (22:00)
--- NOTE | 2016-11-04 22:19 | CONS ---
DATE OF ADMISSION: 11/04/2016 DATE OF CONSULTATION: 11/04/2016 TYPE OF CONSULTATION: Cardiology. REASON FOR CONSULTATION: Congestive heart failure exacerbation. REQUESTING PHYSICIAN: Dr. Nae Tipton HISTORY OF PRESENT ILLNESS: Mr. Hill is a 66-year-old male, history of cardiomyopathy, decreased left ventricular ejection fraction, last approximately 25% to 30% by echo 04/2016, recurrent bouts o f systolic congestive heart failure, prior myocardial infarction with a stress test 07/2015 revealin g scar and patient refusing a stress test during most recent admission 07/2016, hypertension, dyslip idemia, atrial fibrillation who presents with worsening shortness of breath, lower extremity edema a nd orthopnea. Upon arrival in the emergency department, temperature of 99.5, blood pressure markedl y elevated at 226/112, pulse 69, respiratory rate 20, saturating 98%. The patient's labs: White ce ll count of 7.6, hemoglobin 6.4, platelet count of 244. Sodium of 139, potassium 4.0, creatinine 0. 8, BUN 15. Troponin negative. BNP 9820. INR 1.0. The patient underwent an electrocardiogram that revealed atrial fibrillation at a rate of 66 with left axis deviation, left ventricular hypertrophy , inferior Q's and anteroseptal Q's. The patient treated with Lasix 40 mg IV x1, captopril 25 mg p. o. x1, Zofran, Tylenol, albuterol and was admitted to the floor. Since admit to floor, the patient continued to have shortness of breath. Denies chest pain. PAST MEDICAL HISTORY: As above in HPI. MEDICATIONS CURRENTLY IN HOSPITAL: 1. Apixaban 5 mg p.o. b.i.d. 2. Potassium chloride 20 mEq daily. 3. Aspirin 81 mg daily. 4. Solu-Medrol 40 mg IV daily. 5. Protonix 40 mg IV b.i.d. 6. Norvasc 5 mg b.i.d. 7. Vasotec 20 mg b.i.d. 8. Hydralazine 25 mg p.o. b.i.d. 9. ____ mg at bedtime. 10. Lasix 40 mg IV b.i.d. 11. Sublingual nitroglycerin p.r.n. 12. Zofran p.r.n. 13. Xopenex p.r.n. 14. Aspirin p.r.n. 15. Tylenol p.r.n. ALLERGIES: NO KNOWN DRUG ALLERGIES. SOCIAL HISTORY: Positive tobacco, social ETOH. No illicit drug use. FAMILY HISTORY: No history of sudden cardiac or early CAD. REVIEW OF SYSTEMS: As above in HPI. CONSTITUTIONAL: No fevers, chills. PULMONARY: Shortness of breath, COPD. CARDIOVASCULAR: Congestive heart failure, cardiomyopathy. GASTROINTESTINAL: No vomiting. GENITOURINARY: No hematuria. MUSCULOSKELETAL: Degenerative joint disease. PSYCHIATRIC: The patient denies depression. NEUROLOGIC: No documented history of CVA. ENDOCRINE: Diabetes mellitus. PHYSICAL EXAMINATION: VITAL SIGNS: Temperature of 99, blood pressure 174/104, pulse 68, respiratory rate 21, saturating 9 4%. GENERAL: The patient is alert, awake, complaining of shortness of breath. NECK: JVP approximately 9 to 10 cm water. CHEST: Upper airway transferred rhonchorous sounds. Decreased breath sounds at bases bilaterally. HEART: Regular rate and rhythm. Normal S1, S2. I/ systolic murmur. Laterally displaced PMI. ABDOMEN: Positive bowel sounds, soft. EXTREMITIES: 2+ to 3+ edema bilaterally. Difficult to palpate distal pulses bilaterally at posteri or tibial. LABORATORY DATA: As above in HPI with most recent from today: Sodium 139, potassium 3.9, creatinin e 0.86, BUN 15, AST 22, ALT 29. White cell count of 7.6, hemoglobin 6.4, platelet count of 244. IMAGING STUDIES: As above in HPI. No further imaging studies for my review at this time. ELECTROCARDIOGRAM: As above in HPI. No further electrocardiograms for my review at this time. IMPRESSION: 1. Congestive heart failure exacerbation, systolic, acute on chronic. 2. Hypertensive urgency/emergency. 3. Cardiomyopathy with decreased left ventricular ejection fraction. 4. Atrial fibrillation, currently rate controlled, on systemic anticoagulation. 5. Dyslipidemia. 6. Diabetes mellitus. 7. Chronic obstructive pulmonary disease. 8. Lower extremity edema. 9. Increased BNP. RECOMMENDATIONS: 1. At this time would maintain the patient on telemetry monitoring to follow rhythm and rate contro l closely. 2. Would complete the patient's rule-out for myocardial infarction, ensure that the patient's const ellation of symptoms are not the result of or result in an acute coronary syndrome such as acute yaya cardial infarction. 3. Continue the patient's apixaban for prevention of thromboembolic events in the setting of atrial fibrillation and continue the patient's aspirin for prevention of cardiovascular events. 4. Continue the patient's current enalapril, hydralazine with up titration as necessary to improve overall systolic blood pressure control and will initiate patient on beta padmini in the setting of cardiomyopathy and atrial fibrillation. 5. Continue the patient's current steroids and bronchodilators, following respiratory status closel y. 6. Continue the patient's current Lasix, following strict I's and O's and creatinine to grade diure sis closely, and check a fasting lipid panel and initiate the patient on statin therapy as necessary . Thank you for allowing me to take part in the care of this patient. I will continue to follow along very closely with you with further recommendations to be made as the patient progresses through his inpatient hospital clinical course. Dictated By: ALISSON FELIX/ALIE Conf#: [id number] DID#: [id number] CC: NAE TIPTON MD;*EndCC*
[2016-11-05] VITALS (15 sets, daily range): BP systolic 130–165; BP diastolic 70–95; PULSE 40–87; RESP 16–24
[2016-11-05] MEDS ORDERED: ACCU-CHEK XX SCH (02:00)
[2016-11-05] MEDS: IPRATROPIUM (NEB) 0.5 MG/2.5 ML AMP HHN SCH ×6 (02:02→19:23)
[2016-11-05] MEDS: LEVALBUTEROL (NEB) 0.63 MG/3 ML AMP HHN SCH ×6 (02:02→19:23)
[2016-11-05 02:47] LABS: ADD UMIC YES; UR BILIRUBIN (Dip) NEGATIVE (NEGATIVE); UR BLOOD (Dip) NEGATIVE (NEGATIVE); UR CLARITY CLEAR (CLEAR); UR COLOR LT. YELLOW (YELLOW); UR GLUCOSE (Dip) NEGATIVE (NEGATIVE); UR KETONES (Dip) NEGATIVE (NEGATIVE); UR LEUKOCYTE ESTERASE (Dip) NEGATIVE (NEGATIVE); UR NITRITE (Dip) NEGATIVE (NEGATIVE); UR TOTAL PROTEIN (Dip) 1+ (NEGATIVE); UR UROBILINOGEN (Dip) 0.2 E.U./dL (0.1-1.0)
[2016-11-05 03:12] LABS: URINE RBCS NONE SEEN /HPF (0)
[2016-11-05 03:13] LABS: UR SQUAMOUS EPITHELIAL CELL RARE
[2016-11-05] MEDS: FUROSEMIDE 40 MG INJ IV SCH ×2 (05:52→17:40)
[2016-11-05] MEDS: PANTOPRAZOLE 40 MG INJ IV SCH ×2 (05:52→17:40)
[2016-11-05 07:31] LABS: ADD SCAN DIFF NO
[2016-11-05 07:49] LABS: CHOL/HDL RATIO 3.6 RATIO
[2016-11-05 07:50] LABS: BASOPHILS % 0.5 % (0.0-2.0); EOSINOPHILS # 0.3 10^3/ul (0.0-0.5); EOSINOPHILS % 4.3 % (0.0-7.0); HEMATOCRIT 44.2 % (42.0-52.0); HEMOGLOBIN 14.7 g/dl (14.0-18.0); LYMPHOCYTES # 0.7 10^3/ul (0.8-2.9); LYMPHOCYTES % 11.5 % (15.0-51.0); MEAN CORPUSCULAR HEMOGLOBIN 29.7 pg (29.0-33.0); MEAN CORPUSCULAR HGB CONC 33.3 g/dl (32.0-37.0); MEAN CORPUSCULAR VOLUME 89.3 fl (82.0-101.0); MEAN PLATELET VOLUME 10.6 fl (7.4-10.4); MONOCYTE # 0.9 10^3/ul (0.3-0.9); MONOCYTES % 14.6 % (0.0-11.0); NEUTROPHIL # 4.4 10^3/ul (1.6-7.5); NEUTROPHILS % 68.6 % (39.0-77.0); PLATELET COUNT 222 10^3/UL (140-415); RED BLOOD COUNT 4.95 10^6/ul (4.70-6.10); RED CELL DISTRIBUTION WIDTH 16.6 % (11.5-14.5); WHITE BLOOD COUNT 6.5 10^3/ul (4.8-10.8)
[2016-11-05] MEDS: INSULIN ASPART [NOVOLOG] 3 ML PEN SC SCH ×4 (07:53→21:09)
[2016-11-05 07:56] LABS: TROPONIN-I 0.058 ng/ml (0.00-0.12)
[2016-11-05 08:03] LABS: CK-MB 1.12 ng/ml (0.0-2.4)
[2016-11-05 08:25] LABS: ALBUMIN 3.2 g/dl (3.3-4.9); ALBUMIN/GLOBULIN RATIO 1.28; BILIRUBIN,INDIRECT 1.6 mg/dl (0-1.1); BILIRUBIN,TOTAL 1.6 mg/dl (0.2-1.3); CALCIUM 8.8 mg/dl (8.4-10.2); CREATININE 0.92 mg/dl (0.61-1.24); POTASSIUM 3.7 mmol/L (3.5-5.1); TOTAL PROTEIN 5.7 g/dl (6.1-8.1)
[2016-11-05] MEDS: METHYLPREDNISOLONE 40 MG INJ IV SCH (08:49)
[2016-11-05] MEDS: AMLODIPINE 5 MG TAB PO SCH ×2 (08:49→21:02)
[2016-11-05] MEDS: ASPIRIN (EC) 81 MG TAB PO SCH (08:49)
[2016-11-05] MEDS: APIXABAN 5 MG TABLET PO SCH ×2 (08:49→21:01)
[2016-11-05] MEDS: POTASSIUM CHLORIDE (SR) 20 MEQ TAB PO SCH (08:50)
[2016-11-05] MEDS: ENALAPRIL 20 MG TAB PO SCH ×2 (08:50→21:01)
--- NOTE | 2016-11-05 14:32 | RADRPT ---
Vent Rate: 65 bpm RR Interval: 0 msec OR Interval: 0 msec QRS Duration: 126 msec QT Interval: 516 msec QTC Interval: 536 msec P-R-T [place]: 0 - -44 - 125 degrees Atrial fibrillation Left axis deviation Nonspecific intraventricular block Cannot rule out Anterior infarct , age undetermined T wave abnormality, consider lateral ischemia or digitalis effect Abnormal ECG Electronically Signed By: Jeromy Zuniga [id number]
--- NOTE | 2016-11-05 14:54 | PN ---
Date/Time of Note Date/Time of Note DATE: 11/05/16 TIME: 14:44 Assessment/Plan VTE Prophylaxis VTE Prophylaxis Intervention: SCD's Lines/Catheters IV Catheter Type (from [facility] [place] [facility] Urinary Cath still in place: No Assessment/Plan Chief Complaint/Hosp Course Patient's complains of orthopnea, shortness of breath on exertion, atrial fibrillation at controlled rate on telemetry, continue some supplemental oxygen with adequate saturation. Problems: Assessment/Plan - Rule out acute coronary syndrome. Troponin negative 3. - Congestive heart failure exacerbation, systolic, acute on chronic. Continue Lasix monitor electrolytes. Dr. Chen is following and cardiology consultation. - Hypertensive urgency on admission, continue to monitor blood pressure on telemetry floor, continue Vasotec and hydralazine - Cardiomyopathy with ejection fraction of 20%. - Atrial fibrillation, currently rate controlled, on systemic anticoagulation. Continue Eliquis. - Dyslipidemia. - Diabetes mellitus. - Chronic obstructive pulmonary disease with exacerbation, continue steroids, continue breathing treatment. - History of stroke. - Poor medical compliance. Further recommendations based on clinical course. Plan of care discussed with Dr. Gibson. Exam/Review of Systems Vital Signs Vitals Vital Signs Date Time Temp Pulse Resp B/P Pulse Ox O2 Delivery O2 Flow Rate FiO2 11/05/16 12:49 71 11/05/16 11:18 97.8 16 164/91 90 11/05/16 10:03 2.0 11/05/16 07:40 Nasal Cannula 11/05/16 02:36 27 Intake and Output 11/04/16 11/04/16 11/05/16 15:00 23:00 07:00 Intake Total 500 ml Output Total 400 ml 1500 ml Balance -400 ml -1000 ml Exam Constitutional: alert, oriented Head: normocephalic Neck: supple Respiratory: diminished breath sounds Cardiovascular: irregular rhythm Gastrointestinal: non-tender, soft Extremities: normal pulses Neurological: EX[employer]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[employer]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 II-XII intact Results Result Diagram: 11/05/16 0620 11/05/16 0620 Results 24 hrs Laboratory Tests Test 11/04/16 15:43 11/04/16 15:45 11/04/16 17:35 11/04/16 20:04 Bedside Glucose 165 144 White Blood Count 7.6 # Red Blood Count 5.38 Hemoglobin 16.4 Hematocrit 47.2 Mean Corpuscular Volume 87.7 Mean Corpuscular Hemoglobin 30.5 Mean Corpuscular Hemoglobin Concent 34.7 Red Cell Distribution Width 16.4 H Platelet Count 244 # Mean Platelet Volume 10.0 Neutrophils % 74.5 Lymphocytes % 9.7 L Monocytes % 11.6 H Eosinophils % 3.2 Basophils % 0.5 Nucleated Red Blood Cells % 0.0 Neutrophils # 5.7 Lymphocytes # 0.7 L Monocytes # 0.9 Eosinophils # 0.2 Basophils # 0.0 Nucleated Red Blood Cells # 0.0 Prothrombin Time 13.4 Prothrombin Time Ratio 1.0 INR International Normalized Ratio 1.02 Activated Partial Thromboplast Time 34.4 Sodium Level 139 139 Potassium Level 4.0 3.9 Chloride Level 105 104 Carbon Dioxide Level 23 25 Anion Gap 15 14 Blood Urea Nitrogen 15 15 Creatinine 0.85 0.86 Glucose Level 188 178 Calcium Level 9.4 9.1 Troponin I 0.044 Total Bilirubin 1.0 Direct Bilirubin 0.00 Indirect Bilirubin 1.0 Aspartate Amino Transf (AST/SGOT) 22 Alanine Aminotransferase (ALT/SGPT) 29 Alkaline Phosphatase 160 H B-Type Natriuretic Peptide 9820 H Total Protein 7.5 Albumin 4.4 Globulin 3.10 Albumin/Globulin Ratio 1.41 Test 11/05/16 00:00 11/05/16 06:20 11/05/16 07:47 11/05/16 11:57 Urine Color LT. YELLOW Urine Clarity CLEAR Urine pH 6.5 Urine Specific [place] 1.010 Urine Ketones NEGATIVE Urine Nitrite NEGATIVE Urine Bilirubin NEGATIVE Urine Urobilinogen 0.2 E.U./dL Urine Leukocyte Esterase NEGATIVE Urine Microscopic RBC NONE SEEN Urine Microscopic WBC NONE SEEN Urine Squamous Epithelial Cells RARE Urine Hemoglobin NEGATIVE Urine Glucose NEGATIVE Urine Total Protein 1+ H White Blood Count 6.5 Red Blood Count 4.95 Hemoglobin 14.7 Hematocrit 44.2 Mean Corpuscular Volume 89.3 Mean Corpuscular Hemoglobin 29.7 Mean Corpuscular Hemoglobin Concent 33.3 Red Cell Distribution Width 16.6 H Platelet Count 222 Mean Platelet Volume 10.6 H Neutrophils % 68.6 Lymphocytes % 11.5 L Monocytes % 14.6 H Eosinophils % 4.3 Basophils % 0.5 Nucleated Red Blood Cells % 0.0 Neutrophils # 4.4 Lymphocytes # 0.7 L Monocytes # 0.9 Eosinophils # 0.3 Basophils # 0.0 Nucleated Red Blood Cells # 0.0 Sodium Level 140 Potassium Level 3.7 Chloride Level 106 Carbon Dioxide Level 25 Anion Gap 13 Blood Urea Nitrogen 15 Creatinine 0.92 Glucose Level 160 Calcium Level 8.8 Total Bilirubin 1.6 H Direct Bilirubin 0.00 Indirect Bilirubin 1.6 H Aspartate Amino Transf (AST/SGOT) 13 L Alanine Aminotransferase (ALT/SGPT) 28 Alkaline Phosphatase 132 H Creatine Kinase 31 Creatine Kinase Index 3.6 Creatinine Kinase MB (Mass) 1.12 Troponin I 0.058 Total Protein 5.7 #L Albumin 3.2 #L Globulin 2.50 Albumin/Globulin Ratio 1.28 Triglycerides Level 84 Cholesterol Level 141 LDL Cholesterol, Calculated 85 HDL Cholesterol 39 Cholesterol/HDL Ratio 3.6 Bedside Glucose 155 261 H Medications Medications Current Medications Pantoprazole (Protonix Iv) 40 mg BID@06,18 IV Last administered on 11/05/16 05 :52; Admin Dose 40 MG; Start 11/05/16 at 06:00 Acetaminophen (Tylenol Tab) 650 mg Q6H PRN PO PAIN AND OR ELEVATED TEMP; Start 11/04/16 at 20:00 Diagnostic Test (Pha) (Accu-Chek) 1 ea 02 XX ; Start 11/05/16 at 02:00 Amlodipine Besylate (Norvasc) 5 mg BID PO Last administered on 11/05/16 08:49 ; Admin Dose 5 MG; Start 11/04/16 at 21:00 Enalapril Maleate (Vasotec) 20 mg BID PO Last administered on 11/05/16 08:50; Admin Dose 20 MG; Start 11/04/16 at 21:00 Hydralazine HCl (Apresoline) 25 mg BID PO Last administered on 11/05/16 08:50 ; Admin Dose 25 MG; Start 11/04/16 at 21:00 Nitroglycerin (Nitroglycerin (Sl Tab) 0.4 Mg) 1 tab Q5M PRN SL CHEST PAIN; Start 11/04/16 at 20:30 Potassium Chloride (Klor-Con 20) 20 meq DAILY PO Last administered on 08:50; Admin Dose 20 MEQ; Start 11/05/16 at 09:00 Terazosin HCl (Hytrin) 2 mg HS PO Last administered on 11/04/16 21:35; Admin Dose 2 MG; Start 11/04/16 at 21:00 Ondansetron HCl (Zofran Inj) 4 mg Q6H PRN IV NAUSEA AND/OR VOMITING; Start at 20:30 Aspirin (Halfprin) 81 mg DAILY PO Last administered on 11/05/16 08:49; Admin Dose 81 MG; Start 11/05/16 at 09:00 Methylprednisolone Sodium Succinate (Solu-Medrol) 40 mg DAILY IV Last administered on 11/05/16 08:49; Admin Dose 40 MG; Start 11/05/16 at 09:00 Miscellaneous Information 1 ea NOTE XX ; Start 11/04/16 at 21:00 Glucose (Glutose) 15 gm Q15M PRN PO DECREASED GLUCOSE; Start 11/04/16 at 21:00 Glucose (Glutose) 22.5 gm Q15M PRN PO DECREASED GLUCOSE; Start 11/04/16 at 21: 00 Dextrose (D50w Syringe) 25 ml Q15M PRN IV DECREASED GLUCOSE; Start 11/04/16 at 21:00 Dextrose (D50w Syringe) 50 ml Q15M PRN IV DECREASED GLUCOSE; Start 11/04/16 at 21:00 Glucagon (Glucagen) 1 mg Q15M PRN IM DECREASED GLUCOSE; Start 11/04/16 at 21:00 Glucose (Glutose) 15 gm Q15M PRN BUCCAL DECREASED GLUCOSE; Start 11/04/16 at 21 :00 Hydralazine HCl (Apresoline) 10 mg Q4H PRN IV SBP>170; Start 11/04/16 at 22:00 Apixaban (Eliquis) 5 mg BID PO Last administered on 11/05/16 08:49; Admin Dose 5 MG; Start 11/04/16 at 21:39 ARIN CHEN Nov 05, 2016 14:54
--- NOTE | 2016-11-05 18:08 | CONS ---
Date/Time of Note Date/Time of Note DATE: 11/05/16 TIME: 18:04 Assessment/Plan Assessment/Plan Chief Complaint/Hosp Course IMPRESSION: 1. Congestive heart failure exacerbation, systolic, acute on chronic-slowly improving volume status/negative troponin x 3 2. Hypertensive urgency/emergency. 3. Cardiomyopathy with decreased left ventricular ejection fraction. 4. Atrial fibrillation, currently rate controlled, on systemic anticoagulation. 5. Dyslipidemia. 6. Diabetes mellitus. 7. Chronic obstructive pulmonary disease. 8. Lower extremity edema. 9. Increased BNP. REcc: -Tele --Continue norvasc/enalapril/hydralazine -Continue lasix diuresis -Contine asa -Continue eliquis -Follow volume status closely Problems: Consultation Date/Type/Reason Admit Date/Time Nov 04, 2016 at 16:45 Initial Consult Date 11/05/2016 Type of Consultation: Cardiology Reason for Consultation CHF Referring Provider: NAE TIPTON MD Exam/Review of Systems Vital Signs Vitals Vital Signs Date Time Temp Pulse Resp B/P Pulse Ox O2 Delivery O2 Flow Rate FiO2 11/05/16 17:12 72 11/05/16 16:48 20 2.0 11/05/16 15:24 98.4 160/86 94 11/05/16 07:40 Nasal Cannula 11/05/16 02:36 27 Intake and Output 11/04/16 11/04/16 11/05/16 15:00 23:00 07:00 Intake Total 500 ml Output Total 400 ml 1500 ml Balance -400 ml -1000 ml Exam Review of Systems: CONSTITUTIONAL: No fevers, chills. PULMONARY: ongoing sob CARDIOVASCULAR: No chest pain/palpitations GASTROINTESTINAL: No nausea/vomiting. GENITOURINARY: No hematuria/dysuria. MUSCULOSKELETAL: No myagias/arthalgias. PSYCHIATRIC: The patient denies depression. NEUROLOGIC: No weakness Constitutional: alert, oriented Psych: no complaints Head: normocephalic ENMT: mucosa pink and moist Neck: jvd (9 cm water), supple Respiratory: diminished breath sounds (at bases/B) Cardiovascular: regular rate and rhythm Gastrointestinal: non-tender, soft Musculoskeletal: muscle tone (normal) Extremities: edema (none) Neurological: other (No focal deficits) Results Result Diagram: 11/05/16 0620 11/05/16 0620 Results 24 hrs Laboratory Tests Test 11/04/16 20:04 11/05/16 00:00 11/05/16 06:20 11/05/16 07:47 Bedside Glucose 144 155 Urine Color LT. YELLOW Urine Clarity CLEAR Urine pH 6.5 Urine Specific [place] 1.010 Urine Ketones NEGATIVE Urine Nitrite NEGATIVE Urine Bilirubin NEGATIVE Urine Urobilinogen 0.2 E.U./dL Urine Leukocyte Esterase NEGATIVE Urine Microscopic RBC NONE SEEN Urine Microscopic WBC NONE SEEN Urine Squamous Epithelial Cells RARE Urine Hemoglobin NEGATIVE Urine Glucose NEGATIVE Urine Total Protein 1+ H White Blood Count 6.5 Red Blood Count 4.95 Hemoglobin 14.7 Hematocrit 44.2 Mean Corpuscular Volume 89.3 Mean Corpuscular Hemoglobin 29.7 Mean Corpuscular Hemoglobin Concent 33.3 Red Cell Distribution Width 16.6 H Platelet Count 222 Mean Platelet Volume 10.6 H Neutrophils % 68.6 Lymphocytes % 11.5 L Monocytes % 14.6 H Eosinophils % 4.3 Basophils % 0.5 Nucleated Red Blood Cells % 0.0 Neutrophils # 4.4 Lymphocytes # 0.7 L Monocytes # 0.9 Eosinophils # 0.3 Basophils # 0.0 Nucleated Red Blood Cells # 0.0 Sodium Level 140 Potassium Level 3.7 Chloride Level 106 Carbon Dioxide Level 25 Anion Gap 13 Blood Urea Nitrogen 15 Creatinine 0.92 Glucose Level 160 Calcium Level 8.8 Total Bilirubin 1.6 H Direct Bilirubin 0.00 Indirect Bilirubin 1.6 H Aspartate Amino Transf (AST/SGOT) 13 L Alanine Aminotransferase (ALT/SGPT) 28 Alkaline Phosphatase 132 H Creatine Kinase 31 Creatine Kinase Index 3.6 Creatinine Kinase MB (Mass) 1.12 Troponin I 0.058 Total Protein 5.7 #L Albumin 3.2 #L Globulin 2.50 Albumin/Globulin Ratio 1.28 Triglycerides Level 84 Cholesterol Level 141 LDL Cholesterol, Calculated 85 HDL Cholesterol 39 Cholesterol/HDL Ratio 3.6 Test 11/05/16 11:57 11/05/16 17:39 Bedside Glucose 261 H 234 H Medications Medications Current Medications Pantoprazole (Protonix Iv) 40 mg BID@,18 IV Last administered on 11/05/16t 17 :40; Admin Dose 40 MG; Start 11/05/16 at 06:00 Acetaminophen (Tylenol Tab) 650 mg Q6H PRN PO PAIN AND OR ELEVATED TEMP; Start 11/04/16 at 20:00 Diagnostic Test (Pha) (Accu-Chek) 1 ea 02 XX ; Start 11/05/16 at 02:00 Amlodipine Besylate (Norvasc) 5 mg BID PO Last administered on 11/05/16 08:49 ; Admin Dose 5 MG; Start 11/04/16 at 21:00 Enalapril Maleate (Vasotec) 20 mg BID PO Last administered on 11/05/16 08:50; Admin Dose 20 MG; Start 11/04/16 at 21:00 Hydralazine HCl (Apresoline) 25 mg BID PO Last administered on 11/05/16 08:50 ; Admin Dose 25 MG; Start 11/04/16 at 21:00 Nitroglycerin (Nitroglycerin (Sl Tab) 0.4 Mg) 1 tab Q5M PRN SL CHEST PAIN; Start 11/04/16 at 20:30 Potassium Chloride (Klor-Con 20) 20 meq DAILY PO Last administered on 08:50; Admin Dose 20 MEQ; Start 11/05/16 at 09:00 Terazosin HCl (Hytrin) 2 mg HS PO Last administered on 11/04/16 21:35; Admin Dose 2 MG; Start 11/04/16 at 21:00 Ondansetron HCl (Zofran Inj) 4 mg Q6H PRN IV NAUSEA AND/OR VOMITING; Start at 20:30 Aspirin (Halfprin) 81 mg DAILY PO Last administered on 11/05/16 08:49; Admin Dose 81 MG; Start 11/05/16 at 09:00 Methylprednisolone Sodium Succinate (Solu-Medrol) 40 mg DAILY IV Last administered on 11/05/16 08:49; Admin Dose 40 MG; Start 11/05/16 at 09:00 Miscellaneous Information 1 ea NOTE XX ; Start 11/04/16 at 21:00 Glucose (Glutose) 15 gm Q15M PRN PO DECREASED GLUCOSE; Start 11/04/16 at 21:00 Glucose (Glutose) 22.5 gm Q15M PRN PO DECREASED GLUCOSE; Start 11/04/16 at 21: 00 Dextrose (D50w Syringe) 25 ml Q15M PRN IV DECREASED GLUCOSE; Start 11/04/16 at 21:00 Dextrose (D50w Syringe) 50 ml Q15M PRN IV DECREASED GLUCOSE; Start 11/04/16 at 21:00 Glucagon (Glucagen) 1 mg Q15M PRN IM DECREASED GLUCOSE; Start 11/04/16 at 21:00 Glucose (Glutose) 15 gm Q15M PRN BUCCAL DECREASED GLUCOSE; Start 11/04/16 at 21 :00 Hydralazine HCl (Apresoline) 10 mg Q4H PRN IV SBP>170; Start 11/04/16 at 22:00 Apixaban (Eliquis) 5 mg BID PO Last administered on 11/05/16t 08:49; Admin Dose 5 MG; Start 11/04/16 at 21:39 ALISSON POTTER Nov 05, 2016 18:08
--- NOTE | 2016-11-05 20:43 | RADRPT ---
Echocardiogram Report Patient Name: LUISANA PERALTA Gender: Male Date: 1950 Study Date: 05-Nov-2016 Monotyper: Deanne Nogueira [facility] Location: [id number] Ref. Physician: ALISSON CHEN Quality: Adequate Procedures: Transthoracic echocardiogram with complete 2D, M-Mode, and doppler examination. Indications: Congestive Heart Failure. 2D/M Mode Doppler Measurement Value Normal Ranges Measurement Value Normal Ranges LVIDd 2D 5.1 3.5 - 5.6 cm AV Peak Justin 1.8 m/sec LVIDs 2D 3.3 2.1 - 4.1 cm AV Peak PG 13.0 mmHg FS 2D 35.0 % LVOT Peak Justin 1.0 m/sec LVPWd 2D 1.5 0.6 - 1.1 cm LVOT Peak PG 4.0 mmHg IVSd 2D 1.6 0.6 - 1.1 cm MV E Peak Justin 1.1 m/sec IVS/LVPW 2D 1.0 MV Decel Time 246 msec AoR Diam 2D 3.6 2.0 - 3.7 cm TR Peak Justin 2.2 m/sec LA/Ao 2D 1 0 - 1 TR Peak PG 19.0 mmHg EDV 2D 130.0 cm3 RVSP 27.0 mmHg ESV 2D 35.6 cm3 LA Dimen 2D 4.7 2.3 - 4.0 cm Findings Left Ventricle: Normal left ventricular cavity size. Moderate concentric left ventricular hypertrophy. Severe global left ventricular systolic dysfunction. Ejection fraction is visually estimated at 25 %. Tissue Doppler/Mitral Doppler indices are consistent with restrictive physiology with markedly elevated left atrial pressure (Stage IIIIV diastolic dysfunction). Right Ventricle: Normal right ventricular size. Normal right ventricular systolic function. Left Atrium: There is moderate enlargement of left atrium. Right Atrium: The right atrium is normal in size. Mitral Valve: Mitral valve leaflets appear mildly thickened. Mild mitral annular calcification. Mild mitral valve regurgitation. Aortic Valve: No significant aortic stenosis or insufficiency. Aortic cusps appear mildly calcified. Tricuspid Valve: Normal appearance of the tricuspid valve. Estimated peak PA systolic pressure 27 mmHg. There is trace tricuspid regurgitation. Pulmonic Valve: Pulmonic valve not well visualized. There is mild pulmonic regurgitation. Pericardium: Normal pericardium with no significant pericardial effusion. Left pleural effusion seen. Aorta: Normal aortic root. IVC: Dilated IVC with respiratory collapse consistent with elevated right atrial pressure. Conclusions 1.Normal left ventricular cavity size. Moderate concentric left ventricular hypertrophy. Severe global left ventricular systolic dysfunction. Ejection fraction is visually estimated at 25 %. Tissue Doppler/Mitral Doppler indices are consistent with restrictive physiology with markedly elevated left atrial pressure (Stage III-IV diastolic dysfunction). 2.There is moderate enlargement of left atrium. 3.Mild mitral regurgitation. 4.Normal appearance of the tricuspid valve. Estimated peak PA systolic pressure 27 mmHg. There is trace tricuspid regurgitation. 5.There is mild pulmonic regurgitation. Electronically Signed By: Alisson Chen 05-Nov-2016 20:41:57 -0700 Patient Name: LUISANA PERALTA Study Date: 05-Nov-[id number]
[2016-11-05] MEDS ORDERED: APIXABAN 5 MG TABLET PO SCH (21:00)
[2016-11-05] MEDS: TERAZOSIN 2 MG CAP PO SCH (21:01)
[2016-11-06] VITALS (11 sets, daily range): BP systolic 135–162; BP diastolic 71–92; PULSE 56–71; RESP 16–18
[2016-11-06] MEDS: IPRATROPIUM (NEB) 0.5 MG/2.5 ML AMP HHN SCH ×4 (01:15→21:46)
[2016-11-06] MEDS: LEVALBUTEROL (NEB) 0.63 MG/3 ML AMP HHN SCH ×4 (01:15→21:46)
[2016-11-06] MEDS: ACCU-CHEK XX SCH (02:19)
[2016-11-06] MEDS: PANTOPRAZOLE 40 MG INJ IV SCH (06:08)
[2016-11-06] MEDS: FUROSEMIDE 40 MG INJ IV SCH ×2 (06:08→17:43)
[2016-11-06 06:09] LABS: ADD SCAN DIFF NO
[2016-11-06 06:11] LABS: ABNORMAL IP MESSAGE 1; BASOPHILS % 0.1 % (0.0-2.0); EOSINOPHILS % 0.2 % (0.0-7.0); HEMATOCRIT 44.6 % (42.0-52.0); LYMPHOCYTES # 0.6 10^3/ul (0.8-2.9); LYMPHOCYTES % 6.4 % (15.0-51.0); MEAN CORPUSCULAR HEMOGLOBIN 29.8 pg (29.0-33.0); MEAN CORPUSCULAR HGB CONC 33.6 g/dl (32.0-37.0); MEAN CORPUSCULAR VOLUME 88.5 fl (82.0-101.0); MEAN PLATELET VOLUME 10.1 fl (7.4-10.4); MONOCYTE # 0.7 10^3/ul (0.3-0.9); MONOCYTES % 8.5 % (0.0-11.0); NEUTROPHIL # 7.3 10^3/ul (1.6-7.5); NEUTROPHILS % 84.2 % (39.0-77.0); PLATELET COUNT 235 10^3/UL (140-415); RED BLOOD COUNT 5.04 10^6/ul (4.70-6.10); RED CELL DISTRIBUTION WIDTH 15.9 % (11.5-14.5); WHITE BLOOD COUNT 8.7 10^3/ul (4.8-10.8)
[2016-11-06 06:36] LABS: CREATININE 1.02 mg/dl (0.61-1.24); POTASSIUM 3.8 mmol/L (3.5-5.1)
[2016-11-06] MEDS ORDERED: INSULIN GLARGINE [LANtus] 3 ML PEN SC SCH (08:00)
[2016-11-06] MEDS: INSULIN ASPART [NOVOLOG] 3 ML PEN SC SCH ×4 (08:30→20:42)
[2016-11-06] MEDS: ASPIRIN (EC) 81 MG TAB PO SCH (08:45)
[2016-11-06] MEDS: APIXABAN 5 MG TABLET PO SCH ×2 (08:46→20:36)
[2016-11-06] MEDS: ENALAPRIL 20 MG TAB PO SCH ×2 (08:46→20:36)
[2016-11-06] MEDS: POTASSIUM CHLORIDE (SR) 20 MEQ TAB PO SCH (08:46)
[2016-11-06] MEDS: metFORMIN 500 MG TAB PO SCH ×2 (08:46→17:43)
[2016-11-06] MEDS: AMLODIPINE 5 MG TAB PO SCH ×2 (08:49→20:36)
[2016-11-06] MEDS: METOPROLOL (XL) 25 MG TAB PO SCH (08:49)
[2016-11-06] MEDS: METHYLPREDNISOLONE 40 MG INJ IV SCH (08:49)
--- NOTE | 2016-11-06 13:30 | CONS ---
Date/Time of Note Date/Time of Note DATE: 11/06/16 TIME: 13:15 Assessment/Plan Assessment/Plan Additional Assessment/Plan 1. Congestive heart failure exacerbation 2. Hypertensive urgency 3. Cardiomyopathy with decreased left ventricular ejection fraction. 4. Atrial fibrillation 5. Dyslipidemia. 6. Diabetes mellitus. 7. Chronic obstructive pulmonary disease. Hemodynamically stable Heart failure clinically compensated Continue Lasix Continue Metoprolol Continue Hydralazine and Norvasc Continue Eliquis Continue Insulin Consultation Date/Type/Reason Admit Date/Time Nov 04, 2016 at 16:45 Respiratory: shortness of breath Cardiovascular: orthopenea Gastrointestinal: no complaints Genitourinary: no complaints Psychological: no complaints Past Medical History Medical History: congestive heart failure, hypertension Past Surgical History Past Surgical Hx: endoscopy, other Social History Alcohol Use: none Smoking Status: Former smoker Drug Use: none Exam/Review of Systems Vital Signs Vitals Vital Signs Date Time Temp Pulse Resp B/P Pulse Ox O2 Delivery O2 Flow Rate FiO2 11/06/16 12:39 60 11/06/16 11:28 97.8 16 138/87 94 11/06/16 07:56 4.0 11/06/16 07:56 Nasal Cannula 11/05/16 02:36 27 Intake and Output 11/05/16 11/05/16 11/06/16 15:00 23:00 07:00 Intake Total 640 ml 400 ml Output Total 1000 ml Balance -360 ml 400 ml Exam Constitutional: alert Head: atraumatic, normocephalic Neck: non-tender, supple Respiratory: clear to auscultation Cardiovascular: irregular rhythm Gastrointestinal: nl liver, spleen, non-tender, soft Extremities: normal pulses Results Result Diagram: 11/06/16 0540 11/06/16 0540 Results 24 hrs Laboratory Tests Test 11/05/16 17:39 11/05/16 21:04 11/06/16 02:15 11/06/16 05:40 Bedside Glucose 234 H 285 H 208 White Blood Count 8.7 # Red Blood Count 5.04 Hemoglobin 15.0 Hematocrit 44.6 Mean Corpuscular Volume 88.5 Mean Corpuscular Hemoglobin 29.8 Mean Corpuscular Hemoglobin Concent 33.6 Red Cell Distribution Width 15.9 H Platelet Count 235 Mean Platelet Volume 10.1 Neutrophils % 84.2 H Lymphocytes % 6.4 L Monocytes % 8.5 Eosinophils % 0.2 Basophils % 0.1 Nucleated Red Blood Cells % 0.0 Neutrophils # 7.3 Lymphocytes # 0.6 L Monocytes # 0.7 Eosinophils # 0.0 Basophils # 0.0 Nucleated Red Blood Cells # 0.0 Sodium Level 138 Potassium Level 3.8 Chloride Level 104 Carbon Dioxide Level 26 Anion Gap 12 Blood Urea Nitrogen 21 H Creatinine 1.02 Glucose Level 200 Calcium Level 9.0 Test 11/06/16 08:02 11/06/16 12:06 Bedside Glucose 167 259 H Medications Medications Current Medications Pantoprazole (Protonix Iv) 40 mg BID@,18 IV Last administered on 11/06/16 06 :08; Admin Dose 40 MG; Start 11/05/16 at 06:00 Acetaminophen (Tylenol Tab) 650 mg Q6H PRN PO PAIN AND OR ELEVATED TEMP; Start 11/04/16 at 20:00 Amlodipine Besylate (Norvasc) 5 mg BID PO Last administered on 11/06/16 08:49 ; Admin Dose 5 MG; Start 11/04/16 at 21:00 Enalapril Maleate (Vasotec) 20 mg BID PO Last administered on 11/06/16 08:46; Admin Dose 20 MG; Start 11/04/16 at 21:00 Hydralazine HCl (Apresoline) 25 mg BID PO Last administered on 11/06/16 08:46 ; Admin Dose 25 MG; Start 11/04/16 at 21:00 Nitroglycerin (Nitroglycerin (Sl Tab) 0.4 Mg) 1 tab Q5M PRN SL CHEST PAIN; Start 11/04/16 at 20:30 Potassium Chloride (Klor-Con 20) 20 meq DAILY PO Last administered on 08:46; Admin Dose 20 MEQ; Start 11/05/16 at 09:00 Terazosin HCl (Hytrin) 2 mg HS PO Last administered on 11/05/16 21:01; Admin Dose 2 MG; Start 11/04/16 at 21:00 Ondansetron HCl (Zofran Inj) 4 mg Q6H PRN IV NAUSEA AND/OR VOMITING; Start at 20:30 Aspirin (Halfprin) 81 mg DAILY PO Last administered on 11/06/16 08:45; Admin Dose 81 MG; Start 11/05/16 at 09:00 Methylprednisolone Sodium Succinate (Solu-Medrol) 40 mg DAILY IV Last administered on 11/06/16 08:49; Admin Dose 40 MG; Start 11/05/16 at 09:00 Miscellaneous Information 1 ea NOTE XX ; Start 11/04/16 at 21:00 Glucose (Glutose) 15 gm Q15M PRN PO DECREASED GLUCOSE; Start 11/04/16 at 21:00 Glucose (Glutose) 22.5 gm Q15M PRN PO DECREASED GLUCOSE; Start 11/04/16 at 21: 00 Dextrose (D50w Syringe) 25 ml Q15M PRN IV DECREASED GLUCOSE; Start 11/04/16 at 21:00 Dextrose (D50w Syringe) 50 ml Q15M PRN IV DECREASED GLUCOSE; Start 11/04/16 at 21:00 Glucagon (Glucagen) 1 mg Q15M PRN IM DECREASED GLUCOSE; Start 11/04/16 at 21:00 Glucose (Glutose) 15 gm Q15M PRN BUCCAL DECREASED GLUCOSE; Start 11/04/16 at 21 :00 Hydralazine HCl (Apresoline) 10 mg Q4H PRN IV SBP>170; Start 11/04/16 at 22:00 Apixaban (Eliquis) 5 mg BID PO Last administered on 11/06/16 08:46; Admin Dose 5 MG; Start 11/04/16 at 21:39 Diagnostic Test (Pha) (Accu-Chek) 1 ea 02 XX Last administered on 11/06/16 02: 19; Admin Dose 1 EA; Start 11/06/16 at 02:00 Metoprolol Succinate (Toprol Xl) 25 mg DAILY PO Last administered on 11/06/16 08:49; Admin Dose 25 MG; Start 11/06/16 at 09:00 Insulin Glargine (Lantus) 6 unit DAILY@08 SC Last administered on 11/06/16 08: 52; Admin Dose 6 UNIT; Start 11/06/16 at 08:00 CHUN CHERY M.D. Nov 06, 2016 13:27
[2016-11-06] MEDS: PANTOPRAZOLE (EC) 40 MG TAB PO SCH (17:43)
[2016-11-06] MEDS: TERAZOSIN 2 MG CAP PO SCH (20:36)
[2016-11-07] VITALS (11 sets, daily range): BP systolic 121–155; BP diastolic 68–84; PULSE 48–71; RESP 17–20
[2016-11-07] MEDS: LEVALBUTEROL (NEB) 0.63 MG/3 ML AMP HHN SCH ×4 (02:00→20:52)
[2016-11-07] MEDS: ACCU-CHEK XX SCH (02:00)
[2016-11-07] MEDS: IPRATROPIUM (NEB) 0.5 MG/2.5 ML AMP HHN SCH ×4 (02:00→20:52)
[2016-11-07] MEDS: PANTOPRAZOLE (EC) 40 MG TAB PO SCH ×2 (06:57→17:40)
[2016-11-07] MEDS: FUROSEMIDE 40 MG INJ IV SCH ×2 (06:58→17:42)
[2016-11-07] MEDS: INSULIN ASPART [NOVOLOG] 3 ML PEN SC SCH ×4 (08:12→21:29)
[2016-11-07] MEDS: METHYLPREDNISOLONE 40 MG INJ IV SCH (08:48)
[2016-11-07] MEDS: ENALAPRIL 20 MG TAB PO SCH ×2 (08:49→21:16)
[2016-11-07] MEDS: APIXABAN 5 MG TABLET PO SCH ×2 (08:49→21:16)
[2016-11-07] MEDS: AMLODIPINE 5 MG TAB PO SCH ×2 (08:50→21:16)
[2016-11-07] MEDS: ASPIRIN (EC) 81 MG TAB PO SCH (08:50)
[2016-11-07] MEDS: metFORMIN 500 MG TAB PO SCH ×2 (08:50→17:40)
[2016-11-07] MEDS: POTASSIUM CHLORIDE (SR) 20 MEQ TAB PO SCH (08:50)
[2016-11-07] MEDS: METOPROLOL (XL) 25 MG TAB PO SCH (08:51)
--- NOTE | 2016-11-07 14:06 | CONS ---
Date/Time of Note Date/Time of Note DATE: 11/07/16 TIME: 14:02 Assessment/Plan Assessment/Plan Additional Assessment/Plan 1. Congestive heart failure exacerbation 2. Hypertensive urgency 3. Cardiomyopathy with decreased left ventricular ejection fraction. 4. Atrial fibrillation 5. Dyslipidemia. 6. Diabetes mellitus. 7. Chronic obstructive pulmonary disease. Episodes of marked slow ventricular heart rate Hemodynamically stable Heart failure clinically compensated CXR AM Continue Lasix Hold Metoprolol Continue Hydralazine and Norvasc Continue Eliquis Continue Insulin Consultation Date/Type/Reason Admit Date/Time Nov 04, 2016 at 16:45 Initial Consult Date Type of Consultation: Cardiology Referring Provider: NAE TIPTON MD Exam/Review of Systems Vital Signs Vitals Vital Signs Date Time Temp Pulse Resp B/P Pulse Ox O2 Delivery O2 Flow Rate FiO2 11/07/16 13:00 98.4 71 18 121/77 95 Nasal Cannula 4.0 11/06/16 21:49 36 Exam Constitutional: alert Head: atraumatic, normocephalic Neck: non-tender, supple Respiratory: clear to auscultation Cardiovascular: irregular rhythm Gastrointestinal: nl liver, spleen, non-tender, soft Extremities: normal pulses Results Result Diagram: 11/06/16 0540 11/06/16 0540 Results 24 hrs Laboratory Tests Test 11/06/16 20:35 11/07/16 08:09 11/07/16 12:36 Bedside Glucose 225 H 164 230 H Medications Medications Current Medications Acetaminophen (Tylenol Tab) 650 mg Q6H PRN PO PAIN AND OR ELEVATED TEMP; Start 11/04/16 at 20:00 Amlodipine Besylate (Norvasc) 5 mg BID PO Last administered on 11/07/16 08:50 ; Admin Dose 5 MG; Start 11/04/16 at 21:00 Enalapril Maleate (Vasotec) 20 mg BID PO Last administered on 11/07/16 08:49; Admin Dose 20 MG; Start 11/04/16 at 21:00 Hydralazine HCl (Apresoline) 25 mg BID PO Last administered on 11/07/16 08:50 ; Admin Dose 25 MG; Start 11/04/16 at 21:00 Nitroglycerin (Nitroglycerin (Sl Tab) 0.4 Mg) 1 tab Q5M PRN SL CHEST PAIN; Start 11/04/16 at 20:30 Potassium Chloride (Klor-Con 20) 20 meq DAILY PO Last administered on 08:50; Admin Dose 20 MEQ; Start 11/05/16 at 09:00 Terazosin HCl (Hytrin) 2 mg HS PO Last administered on 11/06/16 20:36; Admin Dose 2 MG; Start 11/04/16 at 21:00 Ondansetron HCl (Zofran Inj) 4 mg Q6H PRN IV NAUSEA AND/OR VOMITING; Start at 20:30 Aspirin (Halfprin) 81 mg DAILY PO Last administered on 11/07/16 08:50; Admin Dose 81 MG; Start 11/05/16 at 09:00 Methylprednisolone Sodium Succinate (Solu-Medrol) 40 mg DAILY IV Last administered on 11/07/16 08:48; Admin Dose 40 MG; Start 11/05/16 at 09:00 Miscellaneous Information 1 ea NOTE XX ; Start 11/04/16 at 21:00 Glucose (Glutose) 15 gm Q15M PRN PO DECREASED GLUCOSE; Start 11/04/16 at 21:00 Glucose (Glutose) 22.5 gm Q15M PRN PO DECREASED GLUCOSE; Start 11/04/16 at 21: 00 Dextrose (D50w Syringe) 25 ml Q15M PRN IV DECREASED GLUCOSE; Start 11/04/16 at 21:00 Dextrose (D50w Syringe) 50 ml Q15M PRN IV DECREASED GLUCOSE; Start 11/04/16 at 21:00 Glucagon (Glucagen) 1 mg Q15M PRN IM DECREASED GLUCOSE; Start 11/04/16 at 21:00 Glucose (Glutose) 15 gm Q15M PRN BUCCAL DECREASED GLUCOSE; Start 11/04/16 at 21 :00 Hydralazine HCl (Apresoline) 10 mg Q4H PRN IV SBP>170; Start 11/04/16 at 22:00 Apixaban (Eliquis) 5 mg BID PO Last administered on 11/07/16 08:49; Admin Dose 5 MG; Start 11/04/16 at 21:39 Diagnostic Test (Pha) (Accu-Chek) 1 ea 02 XX Last administered on 11/06/16 02: 19; Admin Dose 1 EA; Start 6/17/17 at 02:00 Metoprolol Succinate (Toprol Xl) 25 mg DAILY PO Last administered on 11/06/16 08:49; Admin Dose 25 MG; Start 11/06/16 at 09:00 Pantoprazole (Protonix Tab) 40 mg BID@ PO Last administered on 11/07/16 06:57; Admin Dose 40 MG; Start 11/06/16 at 18:00 CHUN CHERY M.D. Nov 07, 2016 14:05
--- NOTE | 2016-11-07 16:47 | PN ---
Date/Time of Note Date/Time of Note DATE: 11/07/16 TIME: 16:46 Assessment/Plan VTE Prophylaxis VTE Prophylaxis Intervention: other Lines/Catheters IV Catheter Type (from Nrs): Saline Lock Urinary Cath still in place: No Assessment/Plan Assessment/Plan - Rule out acute coronary syndrome. Troponin negative 3. - Congestive heart failure exacerbation, systolic, acute on chronic. Continue Lasix monitor electrolytes. Dr. Chen is following and cardiology consultation. - Hypertensive urgency on admission, continue to monitor blood pressure on telemetry floor, continue Vasotec and hydralazine - Cardiomyopathy with ejection fraction of 20%. - Atrial fibrillation, currently rate controlled, on systemic anticoagulation. Continue Eliquis. - Dyslipidemia. - Diabetes mellitus. - Chronic obstructive pulmonary disease with exacerbation, continue steroids, continue breathing treatment. - History of stroke. - Poor medical compliance. Further recommendations based on clinical course. Plan of care discussed with Dr. Gibson. Subjective 24 Hr Interval Summary Free Text/Dictation Late entry for 11/06/2016 Respiratory: shortness of breath Cardiovascular: no complaints Gastrointestinal: no complaints Genitourinary: no complaints Musculoskeletal: no complaints Exam/Review of Systems Vital Signs Vitals Vital Signs Date Time Temp Pulse Resp B/P Pulse Ox O2 Delivery O2 Flow Rate FiO2 11/07/16 14:43 65 20 94 Nasal Cannula 3.0 11/07/16 13:00 98.4 121/77 11/06/16 21:49 36 Exam Constitutional: alert, oriented, well developed Respiratory: diminished breath sounds Cardiovascular: nl pulses, regular rate and rhythm Gastrointestinal: non-tender, soft Extremities: normal pulses Neurological: nl mental status, nl speech Results Result Diagram: 11/06/16 0540 11/06/16 0540 Results 24 hrs Laboratory Tests Test 11/06/16 20:35 11/07/16 08:09 11/07/16 12:36 Bedside Glucose 225 H 164 230 H Medications Medications Current Medications Acetaminophen (Tylenol Tab) 650 mg Q6H PRN PO PAIN AND OR ELEVATED TEMP; Start 11/04/16 at 20:00 Amlodipine Besylate (Norvasc) 5 mg BID PO Last administered on 11/07/16 08:50 ; Admin Dose 5 MG; Start 11/04/16 at 21:00 Enalapril Maleate (Vasotec) 20 mg BID PO Last administered on 11/07/16 08:49; Admin Dose 20 MG; Start 11/04/16 at 21:00 Hydralazine HCl (Apresoline) 25 mg BID PO Last administered on 11/07/16 08:50 ; Admin Dose 25 MG; Start 11/04/16 at 21:00 Nitroglycerin (Nitroglycerin (Sl Tab) 0.4 Mg) 1 tab Q5M PRN SL CHEST PAIN; Start 11/04/16 at 20:30 Potassium Chloride (Klor-Con 20) 20 meq DAILY PO Last administered on 08:50; Admin Dose 20 MEQ; Start 11/05/16 at 09:00 Terazosin HCl (Hytrin) 2 mg HS PO Last administered on 11/06/16 20:36; Admin Dose 2 MG; Start 11/04/16 at 21:00 Ondansetron HCl (Zofran Inj) 4 mg Q6H PRN IV NAUSEA AND/OR VOMITING; Start at 20:30 Aspirin (Halfprin) 81 mg DAILY PO Last administered on 11/07/16 08:50; Admin Dose 81 MG; Start 11/05/16 at 09:00 Methylprednisolone Sodium Succinate (Solu-Medrol) 40 mg DAILY IV Last administered on 11/07/16 08:48; Admin Dose 40 MG; Start 11/05/16 at 09:00 Miscellaneous Information 1 ea NOTE XX ; Start 11/04/16 at 21:00 Glucose (Glutose) 15 gm Q15M PRN PO DECREASED GLUCOSE; Start 11/04/16 at 21:00 Glucose (Glutose) 22.5 gm Q15M PRN PO DECREASED GLUCOSE; Start 11/04/16 at 21: 00 Dextrose (D50w Syringe) 25 ml Q15M PRN IV DECREASED GLUCOSE; Start 11/04/16 at 21:00 Dextrose (D50w Syringe) 50 ml Q15M PRN IV DECREASED GLUCOSE; Start 11/04/16 at 21:00 Glucagon (Glucagen) 1 mg Q15M PRN IM DECREASED GLUCOSE; Start 11/04/16 at 21:00 Glucose (Glutose) 15 gm Q15M PRN BUCCAL DECREASED GLUCOSE; Start 11/04/16 at 21 :00 Hydralazine HCl (Apresoline) 10 mg Q4H PRN IV SBP>170; Start 11/04/16 at 22:00 Apixaban (Eliquis) 5 mg BID PO Last administered on 11/07/16 08:49; Admin Dose 5 MG; Start 11/04/16 at 21:39 Diagnostic Test (Pha) (Accu-Chek) 1 ea 02 XX Last administered on 11/06/16 02: 19; Admin Dose 1 EA; Start 11/06/16 at 02:00 Metoprolol Succinate (Toprol Xl) 25 mg DAILY PO Last administered on 11/06/16 08:49; Admin Dose 25 MG; Start 11/06/16 at 09:00 Pantoprazole (Protonix Tab) 40 mg BID@ PO Last administered on 11/07/16 06:57; Admin Dose 40 MG; Start 11/06/16 at 18:00 NEVILLE GREEN Nov 07, 2016 16:47
--- NOTE | 2016-11-07 16:49 | PN ---
Date/Time of Note Date/Time of Note DATE: 11/07/16 TIME: 16:47 Assessment/Plan Lines/Catheters IV [facility] Sal[facility] Urinary Cath still in place: No Assessment/Plan Assessment/Plan - Rule out acute coronary syndrome. Troponin negative 3. - Congestive heart failure exacerbation, systolic, acute on chronic. Continue Lasix monitor electrolytes. Dr. Chen is following and cardiology consultation. - Hypertensive urgency on admission, continue to monitor blood pressure on telemetry floor, continue Vasotec and hydralazine - Cardiomyopathy with ejection fraction of 20%. - Atrial fibrillation, currently rate controlled, on systemic anticoagulation. Continue Eliquis. - Dyslipidemia. - Diabetes mellitus. - Chronic obstructive pulmonary disease with exacerbation, continue steroids, continue breathing treatment. - History of stroke. - Poor medical compliance. Further recommendations based on clinical course. Plan of care discussed with Dr. Gibson. Subjective 24 Hr Interval Summary Free Text/Dictation resting, Shortness of breath on exertion- on o2 2L NC. 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 afebrile. No new issues reported. Constitutional: requiring O2 Respiratory: shortness of breath Cardiovascular: no complaints Gastrointestinal: no complaints Genitourinary: no complaints Musculoskeletal: no complaints Exam/Review of Systems Vital Signs Vitals Vital Signs Date Time Temp Pulse Resp B/P Pulse Ox O2 Delivery O2 Flow Rate FiO2 11/07/16 14:43 65 20 94 Nasal Cannula 3.0 11/07/16 13:00 98.4 121/77 11/06/16 21:49 36 Exam Constitutional: alert, oriented, well developed Respiratory: diminished breath sounds, normal air movement Cardiovascular: nl pulses, regular rate and rhythm Gastrointestinal: non-tender, soft Musculoskeletal: nl extremities to inspection Neurological: nl mental status, nl speech Results Result Diagram: 11/06/16 0540 11/06/16 0540 Results 24 hrs Laboratory Tests Test 11/06/16 20:35 11/07/16 08:09 11/07/16 12:36 Bedside Glucose 225 H 164 230 H Medications Medications Current Medications Acetaminophen (Tylenol Tab) 650 mg Q6H PRN PO PAIN AND OR ELEVATED TEMP; Start 11/04/16 at 20:00 Amlodipine Besylate (Norvasc) 5 mg BID PO Last administered on 11/07/16t 08:50 ; Admin Dose 5 MG; Start 11/04/16 at 21:00 Enalapril Maleate (Vasotec) 20 mg BID PO Last administered on 11/07/16 08:49; Admin Dose 20 MG; Start 11/04/16 at 21:00 Hydralazine HCl (Apresoline) 25 mg BID PO Last administered on 11/07/16 08:50 ; Admin Dose 25 MG; Start 11/04/16 at 21:00 Nitroglycerin (Nitroglycerin (Sl Tab) 0.4 Mg) 1 tab Q5M PRN SL CHEST PAIN; Start 11/04/16 at 20:30 Potassium Chloride (Klor-Con 20) 20 meq DAILY PO Last administered on 08:50; Admin Dose 20 MEQ; Start 11/05/16 at 09:00 Terazosin HCl (Hytrin) 2 mg HS PO Last administered on 11/06/16 20:36; Admin Dose 2 MG; Start 11/04/16 at 21:00 Ondansetron HCl (Zofran Inj) 4 mg Q6H PRN IV NAUSEA AND/OR VOMITING; Start at 20:30 Aspirin (Halfprin) 81 mg DAILY PO Last administered on 11/07/16 08:50; Admin Dose 81 MG; Start 11/05/16 at 09:00 Methylprednisolone Sodium Succinate (Solu-Medrol) 40 mg DAILY IV Last administered on 11/07/16 08:48; Admin Dose 40 MG; Start 11/05/16 at 09:00 Miscellaneous Information 1 ea NOTE XX ; Start 11/04/16 at 21:00 Glucose (Glutose) 15 gm Q15M PRN PO DECREASED GLUCOSE; Start 11/04/16 at 21:00 Glucose (Glutose) 22.5 gm Q15M PRN PO DECREASED GLUCOSE; Start 11/04/16 at 21: 00 Dextrose (D50w Syringe) 25 ml Q15M PRN IV DECREASED GLUCOSE; Start 11/04/16 at 21:00 Dextrose (D50w Syringe) 50 ml Q15M PRN IV DECREASED GLUCOSE; Start 11/04/16 at 21:00 Glucagon (Glucagen) 1 mg Q15M PRN IM DECREASED GLUCOSE; Start 11/04/16 at 21:00 Glucose (Glutose) 15 gm Q15M PRN BUCCAL DECREASED GLUCOSE; Start 11/04/16 at 21 :00 Hydralazine HCl (Apresoline) 10 mg Q4H PRN IV SBP>170; Start 11/04/16 at 22:00 Apixaban (Eliquis) 5 mg BID PO Last administered on 11/07/16 08:49; Admin Dose 5 MG; Start 11/04/16 at 21:39 Diagnostic Test (Pha) (Accu-Chek) 1 ea 02 XX Last administered on 11/06/16 02: 19; Admin Dose 1 EA; Start 11/06/16 at 02:00 Metoprolol Succinate (Toprol Xl) 25 mg DAILY PO Last administered on 11/06/16 08:49; Admin Dose 25 MG; Start 11/06/16 at 09:00 Pantoprazole (Protonix Tab) 40 mg BID@18 PO Last administered on 11/07/16 06:57; Admin Dose 40 MG; Start 11/06/16 at 18:00 NEVILLE GREEN Nov 07, 2016 16:49
[2016-11-07] MEDS ORDERED: INSULIN GLARGINE [LANtus] 3 ML PEN SC SCH (20:00)
[2016-11-07] MEDS: TERAZOSIN 2 MG CAP PO SCH (21:17)
[2016-11-08] VITALS (13 sets, daily range): BP systolic 118–157; BP diastolic 72–92; PULSE 48–66; RESP 19–20
[2016-11-08] MEDS: ACCU-CHEK XX SCH (02:00)
[2016-11-08] MEDS: PANTOPRAZOLE (EC) 40 MG TAB PO SCH ×2 (06:22→17:24)
[2016-11-08] MEDS: FUROSEMIDE 40 MG INJ IV SCH ×2 (06:22→17:25)
[2016-11-08] MEDS: INSULIN ASPART [NOVOLOG] 3 ML PEN SC SCH ×5 (07:52→20:47)
[2016-11-08] MEDS: LEVALBUTEROL (NEB) 0.63 MG/3 ML AMP HHN SCH ×3 (07:57→20:00)
[2016-11-08] MEDS: IPRATROPIUM (NEB) 0.5 MG/2.5 ML AMP HHN SCH ×3 (07:57→20:00)
[2016-11-08] MEDS ORDERED: INSULIN ASPART [NOVOLOG] 3 ML PEN SC SCH (08:00)
[2016-11-08] MEDS: metFORMIN 500 MG TAB PO SCH ×2 (08:08→17:24)
[2016-11-08] MEDS: POTASSIUM CHLORIDE (SR) 20 MEQ TAB PO SCH (08:09)
[2016-11-08] MEDS: ASPIRIN (EC) 81 MG TAB PO SCH (08:09)
[2016-11-08] MEDS: APIXABAN 5 MG TABLET PO SCH ×2 (08:09→20:42)
[2016-11-08] MEDS: ENALAPRIL 20 MG TAB PO SCH ×2 (08:13→20:47)
[2016-11-08] MEDS: AMLODIPINE 5 MG TAB PO SCH ×2 (08:13→20:47)
[2016-11-08] MEDS: METOPROLOL (XL) 25 MG TAB PO SCH (08:13)
[2016-11-08] MEDS: METHYLPREDNISOLONE 40 MG INJ IV SCH (08:14)
--- NOTE | 2016-11-08 12:51 | CONS ---
Date/Time of Note Date/Time of Note DATE: 11/08/16 TIME: 12:49 Assessment/Plan Assessment/Plan Chief Complaint/Hosp Course IMPRESSION: 1. Congestive heart failure exacerbation, systolic, acute on chronic-slowly improving volume status/negative troponin x 3 2. Hypertensive urgency/emergency-slowly improving on oral anti-hypertensives. 3. Cardiomyopathy with decreased left ventricular ejection fraction. 4. Atrial fibrillation, currently rate controlled, on systemic anticoagulation. 5. Dyslipidemia. 6. Diabetes mellitus. 7. Chronic obstructive pulmonary disease. 8. Lower extremity edema. 9. Increased BNP. REcc: -Tele -Continue norvasc/enalapril/hydralazine with slight uptitration to improve SBP control -Continue BB as tolerated -Continue lasix diuresis -Contine asa -Continue eliquis -Follow volume status closely Problems: Consultation Date/Type/Reason Admit Date/Time Nov 04, 2016 at 16:45 Initial Consult Date 11/05/2016 Type of Consultation: Cardiology Reason for Consultation cardiomyopathy/CHF Referring Provider: NAE TIPTON MD Exam/Review of Systems Vital Signs Vitals Vital Signs Date Time Temp Pulse Resp B/P Pulse Ox O2 Delivery O2 Flow Rate FiO2 11/08/16 08:12 57 11/08/16 08:07 97.8 19 154/92 96 Nasal Cannula 3.0 11/06/16 21:49 36 Exam Review of Systems: CONSTITUTIONAL: No fevers, chills. PULMONARY: mild sob CARDIOVASCULAR: No chest pain/palpitations GASTROINTESTINAL: No nausea/vomiting. GENITOURINARY: No hematuria/dysuria. MUSCULOSKELETAL: No myagias/arthalgias. PSYCHIATRIC: The patient denies depression. NEUROLOGIC: No weakness Constitutional: alert, oriented Psych: no complaints Head: normocephalic ENMT: mucosa pink and moist Neck: jvd (9 cm water), supple Respiratory: diminished breath sounds (at bases/B) Cardiovascular: regular rate and rhythm Gastrointestinal: non-tender, soft Musculoskeletal: muscle tone (normal) Extremities: edema (none) Neurological: other (No focal defuicits) Results Result Diagram: 11/06/16 0540 11/06/16 0540 Results 24 hrs Laboratory Tests Test 11/07/16 17:33 11/07/16 21:12 11/08/16 07:49 11/08/16 11:34 Bedside Glucose 299 H 277 H 178 129 Medications Medications Current Medications Acetaminophen (Tylenol Tab) 650 mg Q6H PRN PO PAIN AND OR ELEVATED TEMP; Start 11/04/16 at 20:00 Amlodipine Besylate (Norvasc) 5 mg BID PO Last administered on 11/08/16 08:13 ; Admin Dose 5 MG; Start 11/04/16 at 21:00 Enalapril Maleate (Vasotec) 20 mg BID PO Last administered on 11/08/16 08:13; Admin Dose 20 MG; Start 11/04/16 at 21:00 Hydralazine HCl (Apresoline) 25 mg BID PO Last administered on 11/08/16 08:12 ; Admin Dose 25 MG; Start 11/04/16 at 21:00 Nitroglycerin (Nitroglycerin (Sl Tab) 0.4 Mg) 1 tab Q5M PRN SL CHEST PAIN; Start 11/04/16 at 20:30 Potassium Chloride (Klor-Con 20) 20 meq DAILY PO Last administered on 08:09; Admin Dose 20 MEQ; Start 11/05/16 at 09:00 Terazosin HCl (Hytrin) 2 mg HS PO Last administered on 11/07/16 21:17; Admin Dose 2 MG; Start 11/04/16 at 21:00 Ondansetron HCl (Zofran Inj) 4 mg Q6H PRN IV NAUSEA AND/OR VOMITING; Start at 20:30 Aspirin (Halfprin) 81 mg DAILY PO Last administered on 11/08/16 08:09; Admin Dose 81 MG; Start 11/05/16 at 09:00 Methylprednisolone Sodium Succinate (Solu-Medrol) 40 mg DAILY IV Last administered on 11/08/16 08:14; Admin Dose 40 MG; Start 11/05/16 at 09:00 Miscellaneous Information 1 ea NOTE XX ; Start 11/04/16 at 21:00 Glucose (Glutose) 15 gm Q15M PRN PO DECREASED GLUCOSE; Start 11/04/16 at 21:00 Glucose (Glutose) 22.5 gm Q15M PRN PO DECREASED GLUCOSE; Start 11/04/16 at 21: 00 Dextrose (D50w Syringe) 25 ml Q15M PRN IV DECREASED GLUCOSE; Start 11/04/16 at 21:00 Dextrose (D50w Syringe) 50 ml Q15M PRN IV DECREASED GLUCOSE; Start 11/04/16 at 21:00 Glucagon (Glucagen) 1 mg Q15M PRN IM DECREASED GLUCOSE; Start 11/04/16 at 21:00 Glucose (Glutose) 15 gm Q15M PRN BUCCAL DECREASED GLUCOSE; Start 11/04/16 at 21 :00 Hydralazine HCl (Apresoline) 10 mg Q4H PRN IV SBP>170; Start 11/04/16 at 22:00 Apixaban (Eliquis) 5 mg BID PO Last administered on 11/08/16 08:09; Admin Dose 5 MG; Start 11/04/16 at 21:39 Diagnostic Test (Pha) (Accu-Chek) 1 ea 02 XX Last administered on 11/06/16 02: 19; Admin Dose 1 EA; Start 11/06/16 at 02:00 Metoprolol Succinate (Toprol Xl) 25 mg DAILY PO Last administered on 11/06/16 08:49; Admin Dose 25 MG; Start 11/06/16 at 09:00 Pantoprazole (Protonix Tab) 40 mg BID@06,18 PO Last administered on 11/08/16 06:22; Admin Dose 40 MG; Start 11/06/16 at 18:00 Insulin Glargine (Lantus) 6 unit DAILY@20 SC Last administered on 11/07/16 21: 32; Admin Dose 6 UNIT; Start 11/07/16 at 20:00 Insulin Aspart (Novolog Insulin Pen) 6 unit DAILY@08 SC Last administered on 08:23; Admin Dose 6 UNIT; Start 11/08/16 at 08:00 ALISSON POTTER Nov 08, 2016 12:51
--- NOTE | 2016-11-08 14:12 | PN ---
Date/Time of Note Date/Time of Note DATE: 11/08/16 TIME: 14:02 Assessment/Plan VTE Prophylaxis VTE Prophylaxis Intervention: SCD's Lines/Catheters [facility] Urinary Cath still in place: No Assessment/Plan Chief Complaint/Hosp Course Patient continues to be in atrial fibrillation with a rate relatively controlled with episodes of bradycardia last night, patient complains of shortness of breath on exertion however comfortable at rest. Assessment/Plan - Congestive heart failure exacerbation, systolic, acute on chronic. Continue Lasix monitor electrolytes. Dr. Chen is following and cardiology consultation. - Acute coronary syndrome ruled out. - Hypertensive urgency on admission, continue to monitor blood pressure on telemetry floor, continue Vasotec and hydralazine - Cardiomyopathy with ejection fraction of 20%. - Atrial fibrillation, currently rate controlled, on systemic anticoagulation. - Dyslipidemia. - Diabetes mellitus. Continue metformin Lantus and pre-meal NovoLog as well as NovoLog per mild algorithm sliding scale. - Chronic obstructive pulmonary disease with exacerbation, continue steroids, continue breathing treatment. - History of stroke. - Poor medical compliance. Further recommendations based on clinical course. Plan of care discussed with Dr. Gibson. Problems: Exam/Review of Systems Vital Signs Vitals Vital Signs Date Time Temp Pulse Resp B/P Pulse Ox O2 Delivery O2 Flow Rate FiO2 11/08/16 12:19 66 11/08/16 08:07 97.8 19 154/92 96 Nasal Cannula 3.0 11/06/16 21:49 36 Exam Constitutional: alert, oriented Head: normocephalic Neck: supple Respiratory: diminished breath sounds Cardiovascular: irregular rhythm Gastrointestinal: non-tender, soft Extremities: normal pulses Neurological: [employer] REPRESENTATIVE II-XII intact Results Result Diagram: 11/06/16 0540 11/06/16 0540 Results 24 hrs Laboratory Tests Test 11/07/16 17:33 11/07/16 21:12 11/08/16 07:49 11/08/16 11:34 Bedside Glucose 299 H 277 H 178 129 Medications Medications Current Medications Acetaminophen (Tylenol Tab) 650 mg Q6H PRN PO PAIN AND OR ELEVATED TEMP; Start 11/04/16 at 20:00 Amlodipine Besylate (Norvasc) 5 mg BID PO Last administered on 11/08/16t 08:13 ; Admin Dose 5 MG; Start 11/04/16 at 21:00 Enalapril Maleate (Vasotec) 20 mg BID PO Last administered on 11/08/16 08:13; Admin Dose 20 MG; Start 11/04/16 at 21:00 Nitroglycerin (Nitroglycerin (Sl Tab) 0.4 Mg) 1 tab Q5M PRN SL CHEST PAIN; Start 11/04/16 at 20:30 Potassium Chloride (Klor-Con 20) 20 meq DAILY PO Last administered on 08:09; Admin Dose 20 MEQ; Start 11/05/16 at 09:00 Terazosin HCl (Hytrin) 2 mg HS PO Last administered on 11/07/16 21:17; Admin Dose 2 MG; Start 11/04/16 at 21:00 Ondansetron HCl (Zofran Inj) 4 mg Q6H PRN IV NAUSEA AND/OR VOMITING; Start at 20:30 Aspirin (Halfprin) 81 mg DAILY PO Last administered on 11/08/16 08:09; Admin Dose 81 MG; Start 11/05/16 at 09:00 Methylprednisolone Sodium Succinate (Solu-Medrol) 40 mg DAILY IV Last administered on 11/08/16 08:14; Admin Dose 40 MG; Start 11/05/16 at 09:00 Miscellaneous Information 1 ea NOTE XX ; Start 11/04/16 at 21:00 Glucose (Glutose) 15 gm Q15M PRN PO DECREASED GLUCOSE; Start 11/04/16 at 21:00 Glucose (Glutose) 22.5 gm Q15M PRN PO DECREASED GLUCOSE; Start 11/04/16 at 21: 00 Dextrose (D50w Syringe) 25 ml Q15M PRN IV DECREASED GLUCOSE; Start 11/04/16 at 21:00 Dextrose (D50w Syringe) 50 ml Q15M PRN IV DECREASED GLUCOSE; Start 11/04/16 at 21:00 Glucagon (Glucagen) 1 mg Q15M PRN IM DECREASED GLUCOSE; Start 11/04/16 at 21:00 Glucose (Glutose) 15 gm Q15M PRN BUCCAL DECREASED GLUCOSE; Start 11/04/16 at 21 :00 Hydralazine HCl (Apresoline) 10 mg Q4H PRN IV SBP>170; Start 11/04/16 at 22:00 Apixaban (Eliquis) 5 mg BID PO Last administered on 11/08/16 08:09; Admin Dose 5 MG; Start 11/04/16 at 21:39 Diagnostic Test (Pha) (Accu-Chek) 1 ea 02 XX Last administered on 11/06/16 02: 19; Admin Dose 1 EA; Start 11/06/16 at 02:00 Metoprolol Succinate (Toprol Xl) 25 mg DAILY PO Last administered on 11/06/16 08:49; Admin Dose 25 MG; Start 11/06/16 at 09:00 Pantoprazole (Protonix Tab) 40 mg BID@06,18 PO Last administered on 11/08/16 06:22; Admin Dose 40 MG; Start 11/06/16 at 18:00 Insulin Glargine (Lantus) 6 unit DAILY@20 SC Last administered on 11/07/16 21: 32; Admin Dose 6 UNIT; Start 11/07/16 at 20:00 Insulin Aspart (Novolog Insulin Pen) 6 unit DAILY@08 SC Last administered on 08:23; Admin Dose 6 UNIT; Start 11/08/16 at 08:00 Hydralazine HCl (Apresoline) 25 mg Q8 PO Last administered on 11/08/16 13:21; Admin Dose 25 MG; Start 11/08/16 at 14:00 ARIN CHEN Nov 08, 2016 14:12
[2016-11-08 15:57] LABS: ADD SCAN DIFF NO
[2016-11-08 16:08] LABS: ABNORMAL IP MESSAGE 1; BASOPHILS % 0.1 % (0.0-2.0); HEMOGLOBIN 15.9 g/dl (14.0-18.0); LYMPHOCYTES # 0.3 10^3/ul (0.8-2.9); MEAN CORPUSCULAR HEMOGLOBIN 29.2 pg (29.0-33.0); MEAN CORPUSCULAR HGB CONC 32.4 g/dl (32.0-37.0); MEAN CORPUSCULAR VOLUME 90.1 fl (82.0-101.0); MEAN PLATELET VOLUME 10.6 fl (7.4-10.4); MONOCYTE # 0.2 10^3/ul (0.3-0.9); MONOCYTES % 2.3 % (0.0-11.0); NEUTROPHIL # 7.1 10^3/ul (1.6-7.5); NEUTROPHILS % 92.8 % (39.0-77.0); PLATELET COUNT 240 10^3/UL (140-415); RED BLOOD COUNT 5.44 10^6/ul (4.70-6.10); RED CELL DISTRIBUTION WIDTH 16.3 % (11.5-14.5); WHITE BLOOD COUNT 7.7 10^3/ul (4.8-10.8)
[2016-11-08 16:16] LABS: CALCIUM 8.8 mg/dl (8.4-10.2); CREATININE 0.95 mg/dl (0.61-1.24); POTASSIUM 4.4 mmol/L (3.5-5.1)
[2016-11-08] MEDS: TERAZOSIN 2 MG CAP PO SCH (20:46)
[2016-11-08] MEDS: INSULIN GLARGINE [LANtus] 3 ML PEN SC SCH (20:50)
[2016-11-09] VITALS (14 sets, daily range): BP systolic 132–154; BP diastolic 81–100; PULSE 30–140; RESP 17–20
[2016-11-09] MEDS: LEVALBUTEROL (NEB) 0.63 MG/3 ML AMP HHN SCH ×4 (01:43→21:04)
[2016-11-09] MEDS: IPRATROPIUM (NEB) 0.5 MG/2.5 ML AMP HHN SCH ×4 (01:43→21:03)
[2016-11-09] MEDS: ACCU-CHEK XX SCH (02:00)
[2016-11-09] MEDS: PANTOPRAZOLE (EC) 40 MG TAB PO SCH ×2 (06:29→18:39)
[2016-11-09] MEDS: FUROSEMIDE 40 MG INJ IV SCH ×2 (06:30→18:39)
[2016-11-09] MEDS: metFORMIN 500 MG TAB PO SCH ×2 (07:52→18:39)
[2016-11-09] MEDS: INSULIN ASPART [NOVOLOG] 3 ML PEN SC SCH ×7 (07:52→21:02)
[2016-11-09] MEDS: METOPROLOL (XL) 25 MG TAB PO SCH ×2 (08:23→20:55)
[2016-11-09] MEDS: ASPIRIN (EC) 81 MG TAB PO SCH (08:23)
[2016-11-09] MEDS: AMLODIPINE 5 MG TAB PO SCH ×2 (08:24→20:54)
[2016-11-09] MEDS: ENALAPRIL 20 MG TAB PO SCH ×2 (08:24→20:55)
[2016-11-09] MEDS: POTASSIUM CHLORIDE (SR) 20 MEQ TAB PO SCH (08:24)
[2016-11-09] MEDS: METHYLPREDNISOLONE 40 MG INJ IV SCH (08:24)
[2016-11-09] MEDS: APIXABAN 5 MG TABLET PO SCH ×2 (08:24→20:52)
--- NOTE | 2016-11-09 08:59 | CONS ---
Date/Time of Note Date/Time of Note DATE: 11/09/16 TIME: 08:56 Assessment/Plan Assessment/Plan Additional Assessment/Plan 1. Congestive heart failure exacerbation, systolic, acute on chronic-slowly improving volume status/negative troponin x 3 - no CP now 2. Hypertensive urgency/emergency-slowly improving on oral anti-hypertensives- better BP now 3. Cardiomyopathy with decreased left ventricular ejection fraction - con;t gentle diuresis 4. Atrial fibrillation, currently rate controlled, on systemic anticoagulation - NOW IN SINUS 5. Dyslipidemia. 6. Diabetes mellitus. 7. Chronic obstructive pulmonary disease. 8. Lower extremity edema. 9. Increased BNP. 10. NSVT - very short rub, BB as tolerated Consultation Date/Type/Reason Admit Date/Time Nov 04, 2016 at 16:45 Initial Consult Date Type of Consultation: Cardiology Referring Provider: NAE TIPTON MD 24 HR Interval Summary Free Text/Dictation NSVT last night 7 beats - BP stable - now in sinus - increase BB as tolerated ROS: No fever, no chills, no nausea, no vomiting, no diarrhea/constipation No recent weight changes No chest pain, no PND, no orthopnea + SOB No dizziness, blurred vision No thirst, no heat or cold intolerance Exam/Review of Systems Vital Signs Vitals Vital Signs Date Time Temp Pulse Resp B/P Pulse Ox O2 Delivery O2 Flow Rate FiO2 11/09/16 08:09 63 20 95 Nasal Cannula 3.0 11/09/16 07:34 97.9 154/100 11/06/16 21:49 36 Intake and Output 11/08/16 11/08/16 11/09/16 15:00 23:00 07:00 Intake Total 750 ml 600 ml Output Total 1200 ml Balance -450 ml 600 ml Exam General: WN/WD/NAD, AOx 1-2 HEENT: Unicetric/atraumatic/EOMI (does not follow commands) NECK: JVD elevated, no thyromegaly Lymph: no lymphadenopathy HEART: regular with no S3, II/ systolic murmur at apex, PMI L LUNGS: Coarse sounds ABD: soft, NT, ND, +BS : Intact Neuro: non focal SKIN: chronic changes EXT: trace edema Results Result Diagram: 11/08/16 1535 11/08/16 1535 Results 24 hrs Laboratory Tests Test 11/08/16 11:34 11/08/16 15:35 11/08/16 17:27 11/08/16 20:45 Bedside Glucose 129 295 H 164 White Blood Count 7.7 Red Blood Count 5.44 Hemoglobin 15.9 Hematocrit 49.0 Mean Corpuscular Volume 90.1 Mean Corpuscular Hemoglobin 29.2 Mean Corpuscular Hemoglobin Concent 32.4 Red Cell Distribution Width 16.3 H Platelet Count 240 Mean Platelet Volume 10.6 H Neutrophils % 92.8 H Lymphocytes % 4.0 L Monocytes % 2.3 Eosinophils % 0.0 Basophils % 0.1 Nucleated Red Blood Cells % 0.0 Neutrophils # 7.1 Lymphocytes # 0.3 L Monocytes # 0.2 L Eosinophils # 0.0 Basophils # 0.0 Nucleated Red Blood Cells # 0.0 Sodium Level 132 L Potassium Level 4.4 Chloride Level 100 Carbon Dioxide Level 25 Anion Gap 11 Blood Urea Nitrogen 29 H Creatinine 0.95 Glucose Level 276 H Calcium Level 8.8 Test 11/09/16 06:40 11/09/16 07:50 Hemoglobin A1c 8.1 H Bedside Glucose 127 Medications Medications Current Medications Acetaminophen (Tylenol Tab) 650 mg Q6H PRN PO PAIN AND OR ELEVATED TEMP; Start 11/04/16 at 20:00 Amlodipine Besylate (Norvasc) 5 mg BID PO Last administered on 11/09/16 08:24 ; Admin Dose 5 MG; Start 11/04/16 at 21:00 Enalapril Maleate (Vasotec) 20 mg BID PO Last administered on 11/09/16 08:24; Admin Dose 20 MG; Start 11/04/16 at 21:00 Nitroglycerin (Nitroglycerin (Sl Tab) 0.4 Mg) 1 tab Q5M PRN SL CHEST PAIN; Start 11/04/16 at 20:30 Potassium Chloride (Klor-Con 20) 20 meq DAILY PO Last administered on 08:24; Admin Dose 20 MEQ; Start 11/05/16 at 09:00 Terazosin HCl (Hytrin) 2 mg HS PO Last administered on 11/08/16 20:46; Admin Dose 2 MG; Start 11/04/16 at 21:00 Ondansetron HCl (Zofran Inj) 4 mg Q6H PRN IV NAUSEA AND/OR VOMITING; Start at 20:30 Aspirin (Halfprin) 81 mg DAILY PO Last administered on 11/09/16 08:23; Admin Dose 81 MG; Start 11/05/16 at 09:00 Methylprednisolone Sodium Succinate (Solu-Medrol) 40 mg DAILY IV Last administered on 11/09/16 08:24; Admin Dose 40 MG; Start 11/05/16 at 09:00 Miscellaneous Information 1 ea NOTE XX ; Start 11/04/16 at 21:00 Glucose (Glutose) 15 gm Q15M PRN PO DECREASED GLUCOSE; Start 11/04/16 at 21:00 Glucose (Glutose) 22.5 gm Q15M PRN PO DECREASED GLUCOSE; Start 11/04/16 at 21: 00 Dextrose (D50w Syringe) 25 ml Q15M PRN IV DECREASED GLUCOSE; Start 11/04/16 at 21:00 Dextrose (D50w Syringe) 50 ml Q15M PRN IV DECREASED GLUCOSE; Start 11/04/16 at 21:00 Glucagon (Glucagen) 1 mg Q15M PRN IM DECREASED GLUCOSE; Start 11/04/16 at 21:00 Glucose (Glutose) 15 gm Q15M PRN BUCCAL DECREASED GLUCOSE; Start 11/04/16 at 21 :00 Hydralazine HCl (Apresoline) 10 mg Q4H PRN IV SBP>170; Start 11/04/16 at 22:00 Apixaban (Eliquis) 5 mg BID PO Last administered on 11/09/16 08:24; Admin Dose 5 MG; Start 11/04/16 at 21:39 Diagnostic Test (Pha) (Accu-Chek) 1 ea 02 XX Last administered on 11/06/16 02: 19; Admin Dose 1 EA; Start 11/06/16 at 02:00 Metoprolol Succinate (Toprol Xl) 25 mg DAILY PO Last administered on 11/09/16 08:23; Admin Dose 25 MG; Start 11/06/16 at 09:00 Pantoprazole (Protonix Tab) 40 mg BID@,18 PO Last administered on 11/09/16 06:29; Admin Dose 40 MG; Start 11/06/16 at 18:00 Hydralazine HCl (Apresoline) 25 mg Q8 PO Last administered on 11/09/16 06:31; Admin Dose 25 MG; Start 11/08/16 at 14:00 Insulin Glargine (Lantus) 10 unit DAILY@20 SC Last administered on 11/08/16t 20 :50; Admin Dose 10 UNIT; Start 11/08/16 at 20:00 RONAK SUAREZ MD Nov 09, 2016 08:59
--- NOTE | 2016-11-09 17:53 | PN ---
Date/Time of Note Date/Time of Note DATE: 11/09/16 TIME: 17:49 Assessment/Plan VTE Prophylaxis VTE Prophylaxis Intervention: SCD's Lines/Catheters IV [facility] Urinary Cath still in place: No Assessment/Plan Chief Complaint/Hosp Course Atrial fibrillation at the rate about 40-60, comfortable on supplemental oxygen at rest, patient refusing a chest x-ray. Assessment/Plan - Congestive heart failure exacerbation, systolic, acute on chronic. Continue Lasix monitor electrolytes. Dr. Chen is following and cardiology consultation. - Acute coronary syndrome ruled out. - Hypertensive urgency on admission, continue to monitor blood pressure on telemetry floor, continue Vasotec, Toprol, Norvasc and hydralazine - Cardiomyopathy with ejection fraction of 20%. - Atrial fibrillation, currently rate controlled, on systemic anticoagulation. - Dyslipidemia. Continue statin. - Diabetes mellitus. Hemoglobin A1c is 8.1. Continue metformin Lantus and pre- meal NovoLog as well as NovoLog per mild algorithm sliding scale. - Chronic obstructive pulmonary disease with exacerbation, continue steroids, continue breathing treatment. - History of stroke. - Poor medical compliance. Further recommendations based on clinical course. Plan of care discussed with Dr. Gibson. Problems: Exam/Review of Systems Vital Signs Vitals Vital Signs Date Time Temp Pulse Resp B/P Pulse Ox O2 Delivery O2 Flow Rate FiO2 11/09/16 17:37 62 11/09/16 15:38 98.2 19 148/88 93 11/09/16 13:27 3.0 11/09/16 08:09 Nasal Cannula 11/06/16 21:49 36 Intake and Output 11/08/16 11/08/16 11/09/16 15:00 23:00 07:00 Intake Total 750 ml 600 ml Output Total 1200 ml Balance -450 ml 600 ml Exam Constitutional: alert, oriented Head: normocephalic Neck: supple Respiratory: normal air movement Cardiovascular: irregular rhythm Gastrointestinal: non-tender, soft Musculoskeletal: nl gait and stance Extremities: normal pulses Neurological: nl mental status Results Result Diagram: 11/08/16 1535 11/08/16 1535 Results 24 hrs Laboratory Tests Test 11/08/16 20:45 11/09/16 06:40 11/09/16 07:50 11/09/16 11:21 Bedside Glucose 164 127 229 H Hemoglobin A1c 8.1 H Medications Medications Current Medications Acetaminophen (Tylenol Tab) 650 mg Q6H PRN PO PAIN AND OR ELEVATED TEMP; Start 11/04/16 at 20:00 Amlodipine Besylate (Norvasc) 5 mg BID PO Last administered on 11/09/16 08:24 ; Admin Dose 5 MG; Start 11/04/16 at 21:00 Enalapril Maleate (Vasotec) 20 mg BID PO Last administered on 11/09/16 08:24; Admin Dose 20 MG; Start 11/04/16 at 21:00 Nitroglycerin (Nitroglycerin (Sl Tab) 0.4 Mg) 1 tab Q5M PRN SL CHEST PAIN; Start 11/04/16 at 20:30 Potassium Chloride (Klor-Con 20) 20 meq DAILY PO Last administered on 08:24; Admin Dose 20 MEQ; Start 11/05/16 at 09:00 Terazosin HCl (Hytrin) 2 mg HS PO Last administered on 11/08/16 20:46; Admin Dose 2 MG; Start 11/04/16 at 21:00 Ondansetron HCl (Zofran Inj) 4 mg Q6H PRN IV NAUSEA AND/OR VOMITING; Start at 20:30 Aspirin (Halfprin) 81 mg DAILY PO Last administered on 11/09/16 08:23; Admin Dose 81 MG; Start 11/05/16 at 09:00 Methylprednisolone Sodium Succinate (Solu-Medrol) 40 mg DAILY IV Last administered on 11/09/16 08:24; Admin Dose 40 MG; Start 11/05/16 at 09:00 Miscellaneous Information 1 ea NOTE XX ; Start 11/04/16 at 21:00 Glucose (Glutose) 15 gm Q15M PRN PO DECREASED GLUCOSE; Start 11/04/16 at 21:00 Glucose (Glutose) 22.5 gm Q15M PRN PO DECREASED GLUCOSE; Start 11/04/16 at 21: 00 Dextrose (D50w Syringe) 25 ml Q15M PRN IV DECREASED GLUCOSE; Start 11/04/16 at 21:00 Dextrose (D50w Syringe) 50 ml Q15M PRN IV DECREASED GLUCOSE; Start 11/04/16 at 21:00 Glucagon (Glucagen) 1 mg Q15M PRN IM DECREASED GLUCOSE; Start 11/04/16 at 21:00 Glucose (Glutose) 15 gm Q15M PRN BUCCAL DECREASED GLUCOSE; Start 11/04/16 at 21 :00 Hydralazine HCl (Apresoline) 10 mg Q4H PRN IV SBP>170; Start 11/04/16 at 22:00 Apixaban (Eliquis) 5 mg BID PO Last administered on 11/09/16 08:24; Admin Dose 5 MG; Start 11/04/16 at 21:39 Diagnostic Test (Pha) (Accu-Chek) 1 ea 02 XX Last administered on 11/06/16 02: 19; Admin Dose 1 EA; Start 11/06/16 at 02:00 Pantoprazole (Protonix Tab) 40 mg BID@06,18 PO Last administered on 11/09/16 06:29; Admin Dose 40 MG; Start 11/06/16 at 18:00 Hydralazine HCl (Apresoline) 25 mg Q8 PO Last administered on 11/09/16 14:28; Admin Dose 25 MG; Start 11/08/16 at 14:00 Insulin Glargine (Lantus) 10 unit DAILY@20 SC Last administered on 11/08/16 20 :50; Admin Dose 10 UNIT; Start 11/08/16 at 20:00 Metoprolol Succinate (Toprol Xl) 25 mg BID PO ; Start 11/09/16 at 21:00 ARIN CHEN Nov 09, 2016 17:53
[2016-11-09] MEDS: TERAZOSIN 2 MG CAP PO SCH (20:54)
[2016-11-09] MEDS: INSULIN GLARGINE [LANtus] 3 ML PEN SC SCH (21:03)
[2016-11-10] VITALS (14 sets, daily range): BP systolic 122–155; BP diastolic 72–88; PULSE 45–55; RESP 17–20
[2016-11-10] MEDS: IPRATROPIUM (NEB) 0.5 MG/2.5 ML AMP HHN SCH ×4 (02:00→20:00)
[2016-11-10] MEDS: ACCU-CHEK XX SCH (02:00)
[2016-11-10] MEDS: LEVALBUTEROL (NEB) 0.63 MG/3 ML AMP HHN SCH ×4 (02:00→20:00)
[2016-11-10] MEDS: PANTOPRAZOLE (EC) 40 MG TAB PO SCH ×2 (05:55→18:00)
[2016-11-10] MEDS: FUROSEMIDE 40 MG INJ IV SCH ×2 (05:58→17:56)
[2016-11-10] MEDS: INSULIN ASPART [NOVOLOG] 3 ML PEN SC SCH ×7 (07:55→21:07)
[2016-11-10] MEDS: METOPROLOL (XL) 25 MG TAB PO SCH (09:00)
[2016-11-10] MEDS: ASPIRIN (EC) 81 MG TAB PO SCH (09:03)
[2016-11-10] MEDS: METHYLPREDNISOLONE 40 MG INJ IV SCH (09:03)
[2016-11-10] MEDS: APIXABAN 5 MG TABLET PO SCH ×2 (09:03→20:59)
[2016-11-10] MEDS: metFORMIN 500 MG TAB PO SCH ×2 (09:03→17:56)
[2016-11-10] MEDS: AMLODIPINE 5 MG TAB PO SCH ×2 (09:04→21:02)
[2016-11-10] MEDS: ENALAPRIL 20 MG TAB PO SCH ×2 (09:05→21:01)
[2016-11-10] MEDS: POTASSIUM CHLORIDE (SR) 20 MEQ TAB PO SCH (09:05)
--- NOTE | 2016-11-10 14:30 | CONS ---
Date/Time of Note Date/Time of Note DATE: 11/10/16 TIME: 14:26 Assessment/Plan Assessment/Plan Chief Complaint/Hosp Course IMPRESSION: 1. Congestive heart failure exacerbation, systolic, acute on chronic-slowly improving volume status/negative troponin x 3 2. Hypertensive urgency/emergency-slowly improving on oral anti-hypertensives. 3. Cardiomyopathy with decreased left ventricular ejection fraction. 4. Atrial fibrillation, currently rate controlled, on systemic anticoagulation. 5. Dyslipidemia. 6. Diabetes mellitus. 7. Chronic obstructive pulmonary disease. 8. Lower extremity edema. 9. Increased BNP. 10. BRadycardia REcc: -Tele -Continue norvasc/enalapril/hydralazine with slight uptitration of hydralazine to improve SBP control -Continue BB as tolerated and guven katrina will decrease dose -Continue lasix diuresis and will add metolazone to increase diuresis -Contine asa -Continue eliquis -Follow volume status closely -Check CXR to assess for ongoing congestion Problems: Consultation Date/Type/Reason Admit Date/Time Nov 04, 2016 at 16:45 Initial Consult Date 11/05/2016 Type of Consultation: Cardiology Reason for Consultation CHF Referring Provider: NAE TIPTON MD Exam/Review of Systems Vital Signs Vitals Vital Signs Date Time Temp Pulse Resp B/P Pulse Ox O2 Delivery O2 Flow Rate FiO2 11/10/16 12:32 45 11/10/16 11:55 97.8 20 141/86 94 11/10/16 08:34 Nasal Cannula 3.0 11/06/16 21:49 36 Intake and Output 11/09/16 11/09/16 11/10/16 15:00 23:00 07:00 Intake Total 560 ml 500 ml Output Total 4 ml Balance 556 ml 500 ml Exam Review of Systems: CONSTITUTIONAL: No fevers, chills. PULMONARY: No sob CARDIOVASCULAR: No chest pain/palpitations GASTROINTESTINAL: No nausea/vomiting. GENITOURINARY: No hematuria/dysuria. MUSCULOSKELETAL: No myagias/arthalgias. PSYCHIATRIC: The patient denies depression. NEUROLOGIC: No weakness Constitutional: alert, oriented Psych: no complaints Head: normocephalic ENMT: mucosa pink and moist Neck: jvd (9 cm water), supple Respiratory: diminished breath sounds (at bases/B) Cardiovascular: regular rate and rhythm Gastrointestinal: non-tender, soft Musculoskeletal: muscle tone (normal) Extremities: edema (trace/B) Neurological: other (No focal deficits) Results Result Diagram: 11/08/16 1535 11/08/16 1535 Results 24 hrs Laboratory Tests Test 11/09/16 18:37 11/09/16 20:58 11/10/16 08:27 11/10/16 12:03 Bedside Glucose 244 H 229 H 135 164 Medications Medications Current Medications Acetaminophen (Tylenol Tab) 650 mg Q6H PRN PO PAIN AND OR ELEVATED TEMP; Start 11/04/16 at 20:00 Amlodipine Besylate (Norvasc) 5 mg BID PO Last administered on 11/10/16 09:04 ; Admin Dose 5 MG; Start 11/04/16 at 21:00 Enalapril Maleate (Vasotec) 20 mg BID PO Last administered on 11/10/16 09:05; Admin Dose 20 MG; Start 11/04/16 at 21:00 Nitroglycerin (Nitroglycerin (Sl Tab) 0.4 Mg) 1 tab Q5M PRN SL CHEST PAIN; Start 11/04/16 at 20:30 Potassium Chloride (Klor-Con 20) 20 meq DAILY PO Last administered on 09:05; Admin Dose 20 MEQ; Start 11/05/16 at 09:00 Terazosin HCl (Hytrin) 2 mg HS PO Last administered on 11/09/16 20:54; Admin Dose 2 MG; Start 11/04/16 at 21:00 Ondansetron HCl (Zofran Inj) 4 mg Q6H PRN IV NAUSEA AND/OR VOMITING; Start at 20:30 Aspirin (Halfprin) 81 mg DAILY PO Last administered on 11/10/16 09:03; Admin Dose 81 MG; Start 11/05/16 at 09:00 Methylprednisolone Sodium Succinate (Solu-Medrol) 40 mg DAILY IV Last administered on 11/10/16 09:03; Admin Dose 40 MG; Start 11/05/16 at 09:00 Miscellaneous Information 1 ea NOTE XX ; Start 11/04/16 at 21:00 Glucose (Glutose) 15 gm Q15M PRN PO DECREASED GLUCOSE; Start 11/04/16 at 21:00 Glucose (Glutose) 22.5 gm Q15M PRN PO DECREASED GLUCOSE; Start 11/04/16 at 21: 00 Dextrose (D50w Syringe) 25 ml Q15M PRN IV DECREASED GLUCOSE; Start 11/04/16 at 21:00 Dextrose (D50w Syringe) 50 ml Q15M PRN IV DECREASED GLUCOSE; Start 11/04/16 at 21:00 Glucagon (Glucagen) 1 mg Q15M PRN IM DECREASED GLUCOSE; Start 11/04/16 at 21:00 Glucose (Glutose) 15 gm Q15M PRN BUCCAL DECREASED GLUCOSE; Start 11/04/16 at 21 :00 Hydralazine HCl (Apresoline) 10 mg Q4H PRN IV SBP>170; Start 11/04/16 at 22:00 Apixaban (Eliquis) 5 mg BID PO Last administered on 11/10/16 09:03; Admin Dose 5 MG; Start 11/04/16 at 21:39 Diagnostic Test (Pha) (Accu-Chek) 1 ea 02 XX Last administered on 11/06/16 02: 19; Admin Dose 1 EA; Start 11/06/16 at 02:00 Pantoprazole (Protonix Tab) 40 mg BID@06,18 PO Last administered on 11/10/16 05:55; Admin Dose 40 MG; Start 11/06/16 at 18:00 Hydralazine HCl (Apresoline) 25 mg Q8 PO Last administered on 11/10/16 13:20; Admin Dose 25 MG; Start 11/08/16 at 14:00 Insulin Glargine (Lantus) 10 unit DAILY@20 SC Last administered on 11/09/16 21 :03; Admin Dose 10 UNIT; Start 11/08/16 at 20:00 Metoprolol Succinate (Toprol Xl) 25 mg BID PO ; Start 11/09/16 at 21:00 ALISSON POTTER Nov 10, 2016 14:30
[2016-11-10] MEDS: METOLAZONE 5 MG TAB PO SCH (15:22)
--- NOTE | 2016-11-10 17:20 | PN ---
Date/Time of Note Date/Time of Note DATE: 11/10/16 TIME: 17:18 Assessment/Plan VTE Prophylaxis VTE Prophylaxis Intervention: SCD's Lines/Catheters [facility] Type [facility]from [facility] Urinary Cath still in place: No Assessment/Plan Chief Complaint/Hosp Course Patient denies any chest pain, bradycardic, patient refused chest x-ray and labs , after conversation with patient patient agreed to labs tomorrow morning. Continue telemetry monitoring and titration of blood pressure medication by cardiology. Assessment/Plan - Congestive heart failure exacerbation, systolic, acute on chronic. Continue Lasix monitor electrolytes. Dr. Chen is following and cardiology consultation. - Acute coronary syndrome ruled out. - Hypertensive urgency on admission, continue to monitor blood pressure on telemetry floor, continue Vasotec, Toprol, Norvasc and hydralazine - Cardiomyopathy with ejection fraction of 20%. - Atrial fibrillation, currently rate controlled, on systemic anticoagulation. - Dyslipidemia. Continue statin. - Diabetes mellitus. Hemoglobin A1c is 8.1. Continue metformin Lantus and pre- meal NovoLog as well as NovoLog per mild algorithm sliding scale. - Chronic obstructive pulmonary disease with exacerbation, continue steroids, continue breathing treatment. - History of stroke. - Poor medical compliance. Further recommendations based on clinical course. Plan of care discussed with Dr. Gibson. Problems: Exam/Review of Systems Vital Signs Vitals Vital Signs Date Time Temp Pulse Resp B/P Pulse Ox O2 Delivery O2 Flow Rate FiO2 11/10/16 16:59 50 11/10/16 16:00 98.3 20 155/88 92 11/10/16 08:34 Nasal Cannula 3.0 11/06/16 21:49 36 Intake and Output 11/09/16 11/09/16 11/10/16 15:00 23:00 07:00 Intake Total 560 ml 500 ml Output Total 4 ml Balance 556 ml 500 ml Exam Constitutional: alert, oriented Head: normocephalic Neck: supple Respiratory: normal air movement Cardiovascular: irregular rhythm Gastrointestinal: non-tender, soft Musculoskeletal: nl gait and stance Extremities: normal pulses Neurological: nl mental status Results Result Diagram: 11/08/16 1535 11/08/16 1535 Results 24 hrs Laboratory Tests Test 11/09/16 18:37 11/09/16 20:58 11/10/16 08:27 11/10/16 12:03 Bedside Glucose 244 H 229 H 135 164 Medications Medications Current Medications Acetaminophen (Tylenol Tab) 650 mg Q6H PRN PO PAIN AND OR ELEVATED TEMP; Start 11/04/16 at 20:00 Amlodipine Besylate (Norvasc) 5 mg BID PO Last administered on 11/10/16 09:04 ; Admin Dose 5 MG; Start 11/04/16 at 21:00 Enalapril Maleate (Vasotec) 20 mg BID PO Last administered on 11/10/16 09:05; Admin Dose 20 MG; Start 11/04/16 at 21:00 Nitroglycerin (Nitroglycerin (Sl Tab) 0.4 Mg) 1 tab Q5M PRN SL CHEST PAIN; Start 11/04/16 at 20:30 Potassium Chloride (Klor-Con 20) 20 meq DAILY PO Last administered on 09:05; Admin Dose 20 MEQ; Start 11/05/16 at 09:00 Terazosin HCl (Hytrin) 2 mg HS PO Last administered on 11/09/16 20:54; Admin Dose 2 MG; Start 11/04/16 at 21:00 Ondansetron HCl (Zofran Inj) 4 mg Q6H PRN IV NAUSEA AND/OR VOMITING; Start at 20:30 Aspirin (Halfprin) 81 mg DAILY PO Last administered on 11/10/16 09:03; Admin Dose 81 MG; Start 11/05/16 at 09:00 Methylprednisolone Sodium Succinate (Solu-Medrol) 40 mg DAILY IV Last administered on 11/10/16 09:03; Admin Dose 40 MG; Start 11/05/16 at 09:00 Miscellaneous Information 1 ea NOTE XX ; Start 11/04/16 at 21:00 Glucose (Glutose) 15 gm Q15M PRN PO DECREASED GLUCOSE; Start 11/04/16 at 21:00 Glucose (Glutose) 22.5 gm Q15M PRN PO DECREASED GLUCOSE; Start 11/04/16 at 21: 00 Dextrose (D50w Syringe) 25 ml Q15M PRN IV DECREASED GLUCOSE; Start 11/04/16 at 21:00 Dextrose (D50w Syringe) 50 ml Q15M PRN IV DECREASED GLUCOSE; Start 11/04/16 at 21:00 Glucagon (Glucagen) 1 mg Q15M PRN IM DECREASED GLUCOSE; Start 11/04/16 at 21:00 Glucose (Glutose) 15 gm Q15M PRN BUCCAL DECREASED GLUCOSE; Start 11/04/16 at 21 :00 Hydralazine HCl (Apresoline) 10 mg Q4H PRN IV SBP>170; Start 11/04/16 at 22:00 Apixaban (Eliquis) 5 mg BID PO Last administered on 11/10/16 09:03; Admin Dose 5 MG; Start 11/04/16 at 21:39 Diagnostic Test (Pha) (Accu-Chek) 1 ea 02 XX Last administered on 11/06/16 02: 19; Admin Dose 1 EA; Start 11/06/16 at 02:00 Pantoprazole (Protonix Tab) 40 mg BID@06,18 PO Last administered on 11/10/16 05:55; Admin Dose 40 MG; Start 11/06/16 at 18:00 Insulin Glargine (Lantus) 10 unit DAILY@20 SC Last administered on 11/09/16 21 :03; Admin Dose 10 UNIT; Start 11/08/16 at 20:00 Hydralazine HCl (Apresoline) 50 mg Q8 PO ; Start 11/10/16 at 22:00 Metoprolol Succinate (Toprol Xl) 25 mg DAILY PO ; Start 11/11/16 at 09:00 Metolazone (Zaroxolyn) 5 mg DAILY PO Last administered on 11/10/16 15:22; Admin Dose 5 MG; Start 11/10/16 at 14:30 ARIN CHEN Nov 10, 2016 17:20
[2016-11-10] MEDS: TERAZOSIN 2 MG CAP PO SCH (21:01)
[2016-11-10] MEDS: INSULIN GLARGINE [LANtus] 3 ML PEN SC SCH (21:05)
[2016-11-11] VITALS (13 sets, daily range): BP systolic 117–127; BP diastolic 64–81; PULSE 49–70; RESP 17–19
[2016-11-11] MEDS: LEVALBUTEROL (NEB) 0.63 MG/3 ML AMP HHN SCH ×4 (02:00→20:00)
[2016-11-11] MEDS: ACCU-CHEK XX SCH (02:00)
[2016-11-11] MEDS: IPRATROPIUM (NEB) 0.5 MG/2.5 ML AMP HHN SCH ×4 (02:00→20:00)
[2016-11-11] MEDS: FUROSEMIDE 40 MG INJ IV SCH (05:08)
[2016-11-11] MEDS: PANTOPRAZOLE (EC) 40 MG TAB PO SCH ×2 (05:08→18:00)
[2016-11-11] MEDS: INSULIN ASPART [NOVOLOG] 3 ML PEN SC SCH ×7 (07:55→21:14)
[2016-11-11] MEDS: metFORMIN 500 MG TAB PO SCH ×2 (08:47→18:04)
[2016-11-11] MEDS: POTASSIUM CHLORIDE (SR) 20 MEQ TAB PO SCH (08:47)
[2016-11-11] MEDS: ENALAPRIL 20 MG TAB PO SCH ×2 (08:47→21:10)
[2016-11-11] MEDS: AMLODIPINE 5 MG TAB PO SCH ×2 (08:47→21:10)
[2016-11-11] MEDS: METHYLPREDNISOLONE 40 MG INJ IV SCH (08:47)
[2016-11-11] MEDS: ASPIRIN (EC) 81 MG TAB PO SCH (08:48)
[2016-11-11] MEDS: APIXABAN 5 MG TABLET PO SCH ×2 (08:48→21:10)
[2016-11-11] MEDS: METOPROLOL (XL) 25 MG TAB PO SCH (09:00)
[2016-11-11] MEDS: METOLAZONE 5 MG TAB PO SCH (09:01)
--- NOTE | 2016-11-11 13:49 | CONS ---
Date/Time of Note Date/Time of Note DATE: 11/11/16 TIME: 13:47 Assessment/Plan Assessment/Plan Chief Complaint/Hosp Course IMPRESSION: 1. Congestive heart failure exacerbation, systolic, acute on chronic-slowly improving volume status/negative troponin x 3 2. Hypertensive urgency/emergency-slowly improving on oral anti-hypertensives. 3. Cardiomyopathy with decreased left ventricular ejection fraction. 4. Atrial fibrillation, currently rate controlled, on systemic anticoagulation. 5. Dyslipidemia. 6. Diabetes mellitus. 7. Chronic obstructive pulmonary disease. 8. Lower extremity edema. 9. Increased BNP. 10. BRadycardia REcc: -Tele -Continue norvasc/enalapril/hydralazine with slight uptitration of hydralazine to improve SBP control -Continue BB as tolerated and guven katrina will decrease dose -Continue lasix diuresis/metolazone diuresis with probable change to PO soon -Contine asa -Continue eliquis -Follow volume status closely -Check CXR to assess for ongoing congestion today -Will consider fluid restriction Problems: Consultation Date/Type/Reason Admit Date/Time Nov 04, 2016 at 16:45 Initial Consult Date 11/05/2016 Type of Consultation: Cardiology Reason for Consultation CHF/cardiomyopathy Referring Provider: NAE TIPTON MD Exam/Review of Systems Vital Signs Vitals Vital Signs Date Time Temp Pulse Resp B/P Pulse Ox O2 Delivery O2 Flow Rate FiO2 11/11/16 11:29 98.0 64 17 122/75 95 11/11/16 04:12 3.0 11/10/16 20:49 Nasal Cannula Intake and Output 11/10/16 11/10/16 11/11/16 15:00 23:00 07:00 Intake Total 1200 ml 800 ml Output Total 800 ml Balance 400 ml 800 ml Exam Review of Systems: CONSTITUTIONAL: No fevers, chills. PULMONARY: No sob CARDIOVASCULAR: No chest pain/palpitations GASTROINTESTINAL: No nausea/vomiting. GENITOURINARY: No hematuria/dysuria. MUSCULOSKELETAL: No myagias/arthalgias. PSYCHIATRIC: The patient denies depression. NEUROLOGIC: No weakness Constitutional: alert, oriented Psych: no complaints Head: normocephalic ENMT: mucosa pink and moist Neck: jvd (9 cm water), supple Respiratory: diminished breath sounds (at bases/B) Cardiovascular: regular rate and rhythm Gastrointestinal: non-tender, soft Musculoskeletal: muscle tone (normal) Extremities: pitting pedal edema (Bilateral) Neurological: lethargic, other (No focal deficits) Results Result Diagram: 11/08/16 1535 11/08/16 1535 Results 24 hrs Laboratory Tests Test 11/10/16 17:52 11/10/16 20:58 11/11/16 02:46 11/11/16 08:20 Bedside Glucose 224 H 210 183 139 Test 11/11/16 12:17 Bedside Glucose 217 Medications Medications Current Medications Acetaminophen (Tylenol Tab) 650 mg Q6H PRN PO PAIN AND OR ELEVATED TEMP; Start 11/04/16 at 20:00 Amlodipine Besylate (Norvasc) 5 mg BID PO Last administered on 11/11/16 08:47 ; Admin Dose 5 MG; Start 11/04/16 at 21:00 Enalapril Maleate (Vasotec) 20 mg BID PO Last administered on 11/11/16 08:47; Admin Dose 20 MG; Start 11/04/16 at 21:00 Nitroglycerin (Nitroglycerin (Sl Tab) 0.4 Mg) 1 tab Q5M PRN SL CHEST PAIN; Start 11/04/16 at 20:30 Potassium Chloride (Klor-Con 20) 20 meq DAILY PO Last administered on 08:47; Admin Dose 20 MEQ; Start 11/05/16 at 09:00 Terazosin HCl (Hytrin) 2 mg HS PO Last administered on 11/10/16 21:01; Admin Dose 2 MG; Start 11/04/16 at 21:00 Ondansetron HCl (Zofran Inj) 4 mg Q6H PRN IV NAUSEA AND/OR VOMITING; Start at 20:30 Aspirin (Halfprin) 81 mg DAILY PO Last administered on 11/11/16 08:48; Admin Dose 81 MG; Start 11/05/16 at 09:00 Methylprednisolone Sodium Succinate (Solu-Medrol) 40 mg DAILY IV Last administered on 11/11/16 08:47; Admin Dose 40 MG; Start 11/05/16 at 09:00 Miscellaneous Information 1 ea NOTE XX ; Start 11/04/16 at 21:00 Glucose (Glutose) 15 gm Q15M PRN PO DECREASED GLUCOSE; Start 11/04/16 at 21:00 Glucose (Glutose) 22.5 gm Q15M PRN PO DECREASED GLUCOSE; Start 11/04/16 at 21: 00 Dextrose (D50w Syringe) 25 ml Q15M PRN IV DECREASED GLUCOSE; Start 11/04/16 at 21:00 Dextrose (D50w Syringe) 50 ml Q15M PRN IV DECREASED GLUCOSE; Start 11/04/16 at 21:00 Glucagon (Glucagen) 1 mg Q15M PRN IM DECREASED GLUCOSE; Start 11/04/16 at 21:00 Glucose (Glutose) 15 gm Q15M PRN BUCCAL DECREASED GLUCOSE; Start 11/04/16 at 21 :00 Hydralazine HCl (Apresoline) 10 mg Q4H PRN IV SBP>170; Start 11/04/16 at 22:00 Apixaban (Eliquis) 5 mg BID PO Last administered on 11/11/16 08:48; Admin Dose 5 MG; Start 11/04/16 at 21:39 Diagnostic Test (Pha) (Accu-Chek) 1 ea 02 XX Last administered on 11/06/16 02: 19; Admin Dose 1 EA; Start 11/06/16 at 02:00 Pantoprazole (Protonix Tab) 40 mg BID@06,18 PO Last administered on 11/10/16 05:55; Admin Dose 40 MG; Start 11/06/16 at 18:00 Insulin Glargine (Lantus) 10 unit DAILY@20 SC Last administered on 11/10/16 21 :05; Admin Dose 10 UNIT; Start 11/08/16 at 20:00 Hydralazine HCl (Apresoline) 50 mg Q8 PO Last administered on 11/11/16 05:08; Admin Dose 50 MG; Start 11/10/16 at 22:00 Metoprolol Succinate (Toprol Xl) 25 mg DAILY PO ; Start 11/11/16 at 09:00 Metolazone (Zaroxolyn) 5 mg DAILY PO Last administered on 11/11/16 09:01; Admin Dose 5 MG; Start 11/10/16 at 14:30 ALISSON POTTER Nov 11, 2016 13:49
--- NOTE | 2016-11-11 15:16 | PN ---
Date/Time of Note Date/Time of Note DATE: 11/11/16 TIME: 15:13 Assessment/Plan VTE Prophylaxis VTE Prophylaxis Intervention: other Lines/Catheters IV Catheter Type (from [facility] Saline Lock Urinary Cath still in place: No Assessment/Plan Assessment/Plan - Congestive heart failure exacerbation, systolic, acute on chronic. Continue Lasix monitor electrolytes. Dr. Chen is following and cardiology consultation. - Acute coronary syndrome ruled out. - Hypertensive urgency on admission, continue to monitor blood pressure on telemetry floor, continue Vasotec, Toprol, Norvasc and hydralazine - Cardiomyopathy with ejection fraction of 20%. - Atrial fibrillation, currently rate controlled, on systemic anticoagulation. - Dyslipidemia. Continue statin. - Diabetes mellitus. Hemoglobin A1c is 8.1. Continue metformin Lantus and pre- meal NovoLog as well as NovoLog per mild algorithm sliding scale. - Chronic obstructive pulmonary disease with exacerbation, continue steroids, continue breathing treatment. - History of stroke. - Poor medical compliance. Further recommendations based on clinical course. Plan of care discussed with Dr. Gibson. Subjective 24 Hr Interval Summary Free Text/Dictation Patient denies any chest pain, shortness of breath, patient refused chest x-ray and labs even after the treatment and medication compliance were dw patient. dw with staff. Constitutional: improved Respiratory: no complaints Cardiovascular: no complaints Gastrointestinal: no complaints Exam/Review of Systems Vital Signs Vitals Vital Signs Date Time Temp Pulse Resp B/P Pulse Ox O2 Delivery O2 Flow Rate FiO2 11/11/16 12:30 53 11/11/16 11:29 98.0 17 122/75 95 11/11/16 08:30 Nasal Cannula 3.0 Intake and Output 11/10/16 11/10/16 11/11/16 15:00 23:00 07:00 Intake Total 1200 ml 800 ml Output Total 800 ml Balance 400 ml 800 ml Exam Constitutional: alert, oriented, well developed Respiratory: clear to auscultation, normal air movement Cardiovascular: nl pulses, regular rate and rhythm Gastrointestinal: non-tender, soft Musculoskeletal: nl extremities to inspection Extremities: normal pulses Neurological: nl mental status, nl speech Results Result Diagram: 11/08/16 1535 11/08/16 1535 Results 24 hrs Laboratory Tests Test 11/10/16 17:52 11/10/16 20:58 11/11/16 02:46 11/11/16 08:20 Bedside Glucose 224 H 210 183 139 Test 11/11/16 12:17 Bedside Glucose 217 Medications Medications Current Medications Acetaminophen (Tylenol Tab) 650 mg Q6H PRN PO PAIN AND OR ELEVATED TEMP; Start 11/04/16 at 20:00 Amlodipine Besylate (Norvasc) 5 mg BID PO Last administered on 11/11/16 08:47 ; Admin Dose 5 MG; Start 11/04/16 at 21:00 Enalapril Maleate (Vasotec) 20 mg BID PO Last administered on 11/11/16 08:47; Admin Dose 20 MG; Start 11/04/16 at 21:00 Nitroglycerin (Nitroglycerin (Sl Tab) 0.4 Mg) 1 tab Q5M PRN SL CHEST PAIN; Start 11/04/16 at 20:30 Potassium Chloride (Klor-Con 20) 20 meq DAILY PO Last administered on 08:47; Admin Dose 20 MEQ; Start 11/05/16 at 09:00 Terazosin HCl (Hytrin) 2 mg HS PO Last administered on 11/10/16 21:01; Admin Dose 2 MG; Start 11/04/16 at 21:00 Ondansetron HCl (Zofran Inj) 4 mg Q6H PRN IV NAUSEA AND/OR VOMITING; Start at 20:30 Aspirin (Halfprin) 81 mg DAILY PO Last administered on 11/11/16 08:48; Admin Dose 81 MG; Start 11/05/16 at 09:00 Methylprednisolone Sodium Succinate (Solu-Medrol) 40 mg DAILY IV Last administered on 11/11/16 08:47; Admin Dose 40 MG; Start 11/05/16 at 09:00 Miscellaneous Information 1 ea NOTE XX ; Start 11/04/16 at 21:00 Glucose (Glutose) 15 gm Q15M PRN PO DECREASED GLUCOSE; Start 11/04/16 at 21:00 Glucose (Glutose) 22.5 gm Q15M PRN PO DECREASED GLUCOSE; Start 11/04/16 at 21: 00 Dextrose (D50w Syringe) 25 ml Q15M PRN IV DECREASED GLUCOSE; Start 11/04/16 at 21:00 Dextrose (D50w Syringe) 50 ml Q15M PRN IV DECREASED GLUCOSE; Start 11/04/16 at 21:00 Glucagon (Glucagen) 1 mg Q15M PRN IM DECREASED GLUCOSE; Start 11/04/16 at 21:00 Glucose (Glutose) 15 gm Q15M PRN BUCCAL DECREASED GLUCOSE; Start 11/04/16 at 21 :00 Hydralazine HCl (Apresoline) 10 mg Q4H PRN IV SBP>170; Start 11/04/16 at 22:00 Apixaban (Eliquis) 5 mg BID PO Last administered on 11/11/16 08:48; Admin Dose 5 MG; Start 11/04/16 at 21:39 Diagnostic Test (Pha) (Accu-Chek) 1 ea 02 XX Last administered on 11/06/16 02: 19; Admin Dose 1 EA; Start 11/06/16 at 02:00 Pantoprazole (Protonix Tab) 40 mg BID@06,18 PO Last administered on 11/10/16 05:55; Admin Dose 40 MG; Start 11/06/16 at 18:00 Insulin Glargine (Lantus) 10 unit DAILY@20 SC Last administered on 11/10/16 21 :05; Admin Dose 10 UNIT; Start 11/08/16 at 20:00 Hydralazine HCl (Apresoline) 50 mg Q8 PO Last administered on 11/11/16 05:08; Admin Dose 50 MG; Start 11/10/16 at 22:00 Metoprolol Succinate (Toprol Xl) 25 mg DAILY PO ; Start 11/11/16 at 09:00 Metolazone (Zaroxolyn) 5 mg DAILY PO Last administered on 11/11/16 09:01; Admin Dose 5 MG; Start 11/10/16 at 14:30 NEVILLE GREEN Nov 11, 2016 15:16
[2016-11-11] MEDS: FUROSEMIDE 40 MG TAB PO SCH (18:05)
[2016-11-11] MEDS ORDERED: INSULIN GLARGINE [LANtus] 3 ML PEN SC SCH (20:00)
[2016-11-11] MEDS: TERAZOSIN 2 MG CAP PO SCH (21:11)
[2016-11-12] VITALS (7 sets, daily range): BP systolic 104–116; BP diastolic 66–70; PULSE 53–77; RESP 18–19
[2016-11-12] MEDS: IPRATROPIUM (NEB) 0.5 MG/2.5 ML AMP HHN SCH ×2 (02:00→08:00)
[2016-11-12] MEDS: LEVALBUTEROL (NEB) 0.63 MG/3 ML AMP HHN SCH ×2 (02:00→08:00)
[2016-11-12] MEDS: ACCU-CHEK XX SCH (02:00)
[2016-11-12] MEDS: FUROSEMIDE 40 MG TAB PO SCH (05:24)
[2016-11-12] MEDS: PANTOPRAZOLE (EC) 40 MG TAB PO SCH (05:28)
[2016-11-12] MEDS: metFORMIN 500 MG TAB PO SCH (08:02)
[2016-11-12] MEDS: INSULIN ASPART [NOVOLOG] 3 ML PEN SC SCH ×4 (08:14→12:48)
[2016-11-12] MEDS: METOPROLOL (XL) 25 MG TAB PO SCH (09:00)
[2016-11-12] MEDS: ENALAPRIL 20 MG TAB PO SCH (09:23)
[2016-11-12] MEDS: AMLODIPINE 5 MG TAB PO SCH (09:23)
[2016-11-12] MEDS: APIXABAN 5 MG TABLET PO SCH (09:23)
[2016-11-12] MEDS: METHYLPREDNISOLONE 40 MG INJ IV SCH (09:23)
[2016-11-12] MEDS: ASPIRIN (EC) 81 MG TAB PO SCH (09:23)
[2016-11-12] MEDS: POTASSIUM CHLORIDE (SR) 20 MEQ TAB PO SCH (09:25)
[2016-11-12] MEDS: METOLAZONE 5 MG TAB PO SCH (09:27)
--- NOTE | 2016-11-12 10:41 | CONS ---
Date/Time of Note Date/Time of Note DATE: 11/12/16 TIME: 10:40 Assessment/Plan Assessment/Plan Additional Assessment/Plan 1. Congestive heart failure exacerbation, systolic, acute on chronic-slowly improving volume status/negative troponin x 3 - better overall 2. Hypertensive urgency/emergency-slowly improving on oral anti-hypertensives. - improved 3. Cardiomyopathy with decreased left ventricular ejection fraction - con't diuresis 4. Atrial fibrillation, currently rate controlled, on systemic anticoagulation - rate controlled 5. Dyslipidemia. 6. Diabetes mellitus. 7. Chronic obstructive pulmonary disease. 8. Lower extremity edema. 9. Increased BNP. 10. Radycardia - rate controlled now Consultation Date/Type/Reason Admit Date/Time Nov 04, 2016 at 16:45 Type of Consultation: Cardiology Referring Provider: NAE TIPTON MD 24 HR Interval Summary Free Text/Dictation NO acute change - short run of NSVT - no CP now ROS: No fever, no chills, no nausea, no vomiting, no diarrhea/constipation No recent weight changes No chest pain, no PND, no orthopnea No dizziness, blurred vision No thirst, no heat or cold intolerance Exam/Review of Systems Vital Signs Vitals Vital Signs Date Time Temp Pulse Resp B/P Pulse Ox O2 Delivery O2 Flow Rate FiO2 11/12/16 08:31 58 11/12/16 07:35 98.0 19 108/70 91 11/12/16 06:58 2.0 11/12/16 02:00 Nasal Cannula Intake and Output 11/11/16 11/11/16 11/12/16 15:00 23:00 07:00 Intake Total 450 ml 500 ml Balance 450 ml 500 ml Exam General: WN/WD/NAD, AOx 2-3 HEENT: Unicetric/atraumatic/EOMI (follow commands) NECK: JVD elevated, no thyromegaly Lymph: no lymphadenopathy HEART: regular with no S3, II/ systolic murmur at apex LUNGS: Coarse sounds ABD: soft, NT, ND, +BS : Intact Neuro: non focal SKIN: chronic changes EXT: trace edema Results Result Diagram: 11/08/16 1535 11/08/16 1535 Results 24 hrs Laboratory Tests Test 11/11/16 12:17 11/11/16 17:52 11/11/16 21:00 11/12/16 02:19 Bedside Glucose 217 268 H 278 H 183 Test 11/12/16 08:01 Bedside Glucose 152 Medications Medications Current Medications Acetaminophen (Tylenol Tab) 650 mg Q6H PRN PO PAIN AND OR ELEVATED TEMP; Start 11/04/16 at 20:00 Amlodipine Besylate (Norvasc) 5 mg BID PO Last administered on 11/12/16 09:23 ; Admin Dose 5 MG; Start 11/04/16 at 21:00 Enalapril Maleate (Vasotec) 20 mg BID PO Last administered on 11/12/16 09:23; Admin Dose 20 MG; Start 11/04/16 at 21:00 Nitroglycerin (Nitroglycerin (Sl Tab) 0.4 Mg) 1 tab Q5M PRN SL CHEST PAIN; Start 11/04/16 at 20:30 Potassium Chloride (Klor-Con 20) 20 meq DAILY PO Last administered on 09:25; Admin Dose 20 MEQ; Start 11/05/16 at 09:00 Terazosin HCl (Hytrin) 2 mg HS PO Last administered on 11/11/16 21:11; Admin Dose 2 MG; Start 11/04/16 at 21:00 Ondansetron HCl (Zofran Inj) 4 mg Q6H PRN IV NAUSEA AND/OR VOMITING; Start at 20:30 Aspirin (Halfprin) 81 mg DAILY PO Last administered on 11/12/16 09:23; Admin Dose 81 MG; Start 11/05/16 at 09:00 Methylprednisolone Sodium Succinate (Solu-Medrol) 40 mg DAILY IV Last administered on 11/12/16 09:23; Admin Dose 40 MG; Start 11/05/16 at 09:00 Miscellaneous Information 1 ea NOTE XX ; Start 11/04/16 at 21:00 Glucose (Glutose) 15 gm Q15M PRN PO DECREASED GLUCOSE; Start 11/04/16 at 21:00 Glucose (Glutose) 22.5 gm Q15M PRN PO DECREASED GLUCOSE; Start 11/04/16 at 21: 00 Dextrose (D50w Syringe) 25 ml Q15M PRN IV DECREASED GLUCOSE; Start 11/04/16 at 21:00 Dextrose (D50w Syringe) 50 ml Q15M PRN IV DECREASED GLUCOSE; Start 6/15/17 at 21:00 Glucagon (Glucagen) 1 mg Q15M PRN IM DECREASED GLUCOSE; Start 11/04/16 at 21:00 Glucose (Glutose) 15 gm Q15M PRN BUCCAL DECREASED GLUCOSE; Start 11/04/16 at 21 :00 Hydralazine HCl (Apresoline) 10 mg Q4H PRN IV SBP>170; Start 11/04/16 at 22:00 Apixaban (Eliquis) 5 mg BID PO Last administered on 11/12/16 09:23; Admin Dose 5 MG; Start 11/04/16 at 21:39 Diagnostic Test (Pha) (Accu-Chek) 1 ea 02 XX Last administered on 11/06/16 02: 19; Admin Dose 1 EA; Start 11/06/16 at 02:00 Pantoprazole (Protonix Tab) 40 mg BID@06,18 PO Last administered on 11/10/16 05:55; Admin Dose 40 MG; Start 11/06/16 at 18:00 Hydralazine HCl (Apresoline) 50 mg Q8 PO Last administered on 11/12/16 05:25; Admin Dose 50 MG; Start 11/10/16 at 22:00 Metoprolol Succinate (Toprol Xl) 25 mg DAILY PO ; Start 11/11/16 at 09:00 Metolazone (Zaroxolyn) 5 mg DAILY PO Last administered on 11/12/16 09:27; Admin Dose 5 MG; Start 11/10/16 at 14:30 Insulin Glargine (Lantus) 16 unit DAILY@20 SC Last administered on 11/11/16 21 :14; Admin Dose 16 UNIT; Start 11/11/16 at 20:00 RONAK SUAREZ MD Nov 12, 2016 10:41
[2016-11-12] MEDS ORDERED: FURO40TA4 PO (12:52)
[2016-11-12] MEDS ORDERED: AMLO5TAB4 PO (12:52)
[2016-11-12] MEDS ORDERED: HYDR-3671 PO (12:52)
[2016-11-12] MEDS ORDERED: ASPI81TA3 PO (12:52)
[2016-11-12] MEDS ORDERED: METO25TA7 PO (12:52)
[2016-11-12] MEDS ORDERED: APIX5TAB PO (12:52)
[2016-11-12] MEDS ORDERED: POTA20TA15 PO (12:52)
[2016-11-12] MEDS ORDERED: METF1000 PO (12:52)
== END 2016-11-12 16:15 | disposition home or self-care (01) | DRG 292 ==
LOC: E/R 15:14 → TEL 16:45
PROVIDERS: ADMIT Internal Medicine; ATTEND Internal Medicine
DX: I50.43 Acute on chronic combined systolic (congestive) and diastolic (congestive) heart failure (principal); J44.1 Chronic obstructive pulmonary disease with (acute) exacerbation; I48.2 Chronic atrial fibrillation; I42.9 Cardiomyopathy, unspecified; R00.1 Bradycardia, unspecified; I11.0 Hypertensive heart disease with heart failure; E11.9 Type 2 diabetes mellitus without complications; Z91.14 Patient's other noncompliance with medication regimen; E78.5 Hyperlipidemia, unspecified; Z79.82 Long term (current) use of aspirin; R60.9 Edema, unspecified; Z86.73 Personal history of transient ischemic attack (TIA), and cerebral infarction without residual deficits
CPT/HCPCS: 36415; 80048; 80053; 80061; 81001; 82550; 82553; 82962; 83036; 83880; 84484; 85025; 85610; 85730; 93005; 93306; 94640; 94644; 94664; 96374; C9113; J1815; J1940; J2920

== ENCOUNTER 2016-12-16 21:36 | Inpatient (IN) | payer MEDICARE, BC ==
[~2016-12-16] VITALS: Ht 180.3 cm; Wt 92.2 kg
[~2016-12-16 21:36] MED LIST changes: -ENAL20TA PO; +METF1000 PO; +METO25TA7 PO
--- NOTE | 2016-12-16 21:49 | ERA ---
ER Documentation Chief Complaint Date/Time DATE: 12/16/16 TIME: 21:49 Chief Complaint SOB started a few hrs ago with dizziness and headache HPI 66-year-old man presents with shortness of breath and dizziness similar to previous episodes. He has had peripheral edema as well, son is at the bedside and states he has not been using all of his medications as prescribed. He denies fevers or chills, no vomiting or diarrhea, no weakness in his arms or legs, no blurry vision. ROS All systems reviewed and are negative except as per history of present illness. Medications Home Meds Active Scripts Hydralazine Hcl* (Hydralazine Hcl*) 25 Mg Tab, 50 MG PO Q8 for 30 Days, TAB Prov:ARIN CHEN 11/12/16 Metformin Hcl* (Metformin Hcl*) 1,000 Mg Tablet, 1000 MG PO WITH BREAKFAST for 30 Days, #30 TAB Prov:ARIN CHEN 11/12/16 Metoprolol Succinate* (Toprol XL*) 25 Mg Tab.sr.24h, 25 MG PO DAILY for 30 Days Prov:ARIN CHEN 11/12/16 Potassium Chloride* (K-Dur*) 20 Meq Tab.prt.sr, 20 MEQ PO DAILY for 30 Days Prov:ARIN CHEN 11/12/16 Furosemide* (Furosemide*) 40 Mg Tablet, 40 MG PO BID DIURETICS for 30 Days, TAB Prov:ARIN CHEN 11/12/16 Aspirin (Aspirin) 81 Mg Chew, 81 MG PO DAILY for 30 Days, TAB Prov:ARIN CHEN 11/12/16 Apixaban* (Eliquis*) 5 Mg Tablet, 5 MG PO BID for 30 Days, TAB Prov:ARIN CHEN 11/12/16 Amlodipine Besylate* (Norvasc*) 5 Mg Tablet, 5 MG PO BID for 30 Days, #60 TAB Prov:ARIN CHEN 11/12/16 Terazosin Hcl* (Terazosin Hcl*) 2 Mg Capsule, 2 MG PO HS for 30 Days, CAP Prov:NEVILLE RGEEN 08/26/16 Pantoprazole* (Pantoprazole*) 40 Mg Tablet.dr, 40 MG PO DAILY@06 for 30 Days Prov:NEVILLE GREEN 08/26/16 Nitroglycerin* (Nitrostat*) 0.4 Mg Tab.subl, 1 TAB SL Q5M Y for CHEST PAIN for 30 Days Prov:NEVILLE GREEN 08/26/16 Allergies Allergies: Coded Allergies: No Known Allergies (Unverified Allergy, Unknown, 12/16/16) PMhx/Soc Congestive heart failure exacerbation, systolic, acute on chronic. - Hypertensive urgency - Cardiomyopathy with ejection fraction of 20%. - Atrial fibrillation, currently rate controlled, on systemic anticoagulation. - Dyslipidemia. - Diabetes mellitus. - Chronic obstructive pulmonary disease with exacerbation. - History of stroke. - Poor medical compliance. History of Surgery: Yes (Craniotomy) Anesthesia Reaction: No Hx Neurological Disorder: Yes (CVA) Hx Respiratory Disorders: Yes (COPD) Hx Cardiac Disorders: Yes (CHF, Chronic Afib, Cardiomyopathy, CAD, HTN, ) Hx Psychiatric Problems: No Hx Miscellaneous Medical Probl: No Hx Alcohol Use: Yes (occasion) Hx Substance Use: No Hx Tobacco Use: Yes FmHx Family History: diabetes Physical Exam Vitals Vital Signs Date Time Temp Pulse Resp B/P Pulse Ox O2 Delivery O2 Flow Rate FiO2 12/16/16 23:49 98.0 62 29 164/109 94 Nasal Cannula 4.0 12/16/16 22:10 53 95 30 12/16/16 21:39 98.0 50 29 186/102 92 Physical Exam GENERAL: Well-developed, well-nourished, dyspneic, afebrile HEENT: Moist mucous membranes, pink conjunctiva, no cervical spine tenderness or step-off deformities, no goiter, no jaundice or icterus, extraocular movements intact without pain. No submandibular induration, and no pharyngeal erythema NEURO: Alert and oriented 3, cranial nerves II through XII intact bilaterally, pupils equal round reactive to light, no focal deficits or facial asymmetry, sensation intact distally Strength 5/5 in upper and lower extremities bilaterally CARDIAC: Regular rate and rhythm, no murmurs rubs or gallops LUNGS: Poor breath sounds bilaterally, bibasilar crackles, no wheezing or stridor ABDOMEN: Soft nontender, no guarding, no rigidity, no rebound, no psoas sign no obturator sign. SKIN: Warm and dry to touch, no abrasions, contusions, or hematomas, no lacerations, no ecchymosis, no target lesions, and without ulcers EXTREMITIES: No clubbing cyanosis, 1+ pitting edema in the lower extremities bilaterally calves are bilaterally symmetrical, no Homans sign, no popliteal cord sign. Distal pulses equal and bilateral PSYCH: Normal affect without agitation or irritability Result Diagram: 12/16/16214912/16/162149 Results 24 hrs Laboratory Tests Test 12/16/16 21:50 White Blood Count 5.310^3/ul Red Blood Count 5.8010^6/ul Hemoglobin 16.7g/dl Hematocrit 50.5% Mean Corpuscular Volume 87.1fl Mean Corpuscular Hemoglobin 28.8pg Mean Corpuscular Hemoglobin Concent 33.1g/dl Red Cell Distribution Width 16.4% Platelet Count 19504^3/UL Mean Platelet Volume 10.5fl Neutrophils % 68.2% Lymphocytes % 17.9% Monocytes % 11.0% Eosinophils % 1.5% Basophils % 1.0% Nucleated Red Blood Cells % 0.0/100WBC Neutrophils # 3.610^3/ul Lymphocytes # 0.910^3/ul Monocytes # 0.610^3/ul Eosinophils # 0.110^3/ul Basophils # 0.110^3/ul Nucleated Red Blood Cells # 0.010^3/ul Sodium Level 147mmol/L Potassium Level 3.7mmol/L Chloride Level 105mmol/L Carbon Dioxide Level 24mmol/L Anion Gap 22 Blood Urea Nitrogen 15mg/dl Creatinine 1.20mg/dl Glucose Level 187mg/dl Calcium Level 8.8mg/dl Total Bilirubin 0.6mg/dl Direct Bilirubin 0.00mg/dl Indirect Bilirubin 0.6mg/dl Aspartate Amino Transf (AST/SGOT) 28IU/L Alanine Aminotransferase (ALT/SGPT) 35IU/L Alkaline Phosphatase 114IU/L Troponin I 0.046ng/ml Total Protein 7.2g/dl Albumin 3.9g/dl Globulin 3.30g/dl Albumin/Globulin Ratio 1.18 Lipase 161U/L Current Medications Medications (Trade) Dose Ordered Sig/Tavon Route PRN Reason Start Time Stop Time Status Last Admin Dose Admin Aspirin (Aspirin) 324 mg ONCE ONCE PO 12/16/16 22:00 12/16/16 22:01 DC 12/16/16 22:02 Nitroglycerin (Nitroglycerin (Sl Tab) 0.4 Mg) 1 tab ONCE ONCE SL 12/16/16 22:00 12/16/16 22:01 DC 12/16/16 22:02 Furosemide (Lasix) 60 mg ONCE ONCE IV 12/16/16 22:00 12/16/16 22:01 DC 12/16/16 22:04 Enalaprilat (Vasotec Iv) 1.25 mg ONCE ONCE IV 12/16/16 22:00 12/16/16 22:01 DC 12/16/16 22:02 Hydrochlorothiazide (Hydrochlorothiazide) 100 mg ONCE ONCE PO 12/16/16 22:00 12/16/16 22:01 DC Hydrochlorothiazide (Hydrochlorothiazide) 100 mg ONCE ONCE PO 12/16/16 22:30 12/16/16 22:31 DC Hydralazine HCl (Apresoline) 20 mg ONCE ONCE IV 12/16/16 23:30 12/16/16 23:40 DC 12/16/16 23:45 Procedures/MDM IV line was established patient was placed on health workers rhythm strip revealed a sinus rhythm at about 70 bpm. Patient was afebrile. For severe dyspnea and hypertension BiPAP therapy was ordered by me, patient tolerated BiPAP for about 20 minutes. EKG performed, read by me revealed an atrial fibrillation rate controlled at 67 bpm, left axis deviation, intraventricular block with poor R-wave progression in inferior and precordial leads consistent with previous DE. One view chest x-ray performed, read by me revealed cardiomegaly and bilateral pulmonary vascular congestion, no acute infiltrates, no pneumothorax. I administered aspirin 324 mg p.o. for cardioprotective measures, nitroglycerin 0.4 mg sublingual, furosemide 40 mg IV 1, and enalapril 1.25 mg IV for hypertension. For continued hypertension he received hydralazine 20 mg IV CBC was normal, electrolytes normal, liver function tests normal, troponin was negative. Cardiac Critical Care: Time: 50 minutes, this was time separate from other billable procedures Treatments/Evaluations: Close monitoring for dangerous arrhythmia and cardiovascular collapse, while treating with advance cardiac medications and techniques. Patient will be admitted to telemetry setting for continued medical management and cardiology consultation. Departure Diagnosis: Primary Impression: Acute respiratory failure Qualified Code: J96.01 - Acute respiratory failure with hypoxia and hypercapnia Additional Impressions: CHF (congestive heart failure) Qualified Code: I50.21 - Acute systolic congestive heart failure Ischemic cardiomyopathy Hypertensive emergency Condition: Serious TONYA WHITEHEAD MD Dec 16, 2016 21:49
[2016-12-16] MEDS ORDERED: NITROGLYCERIN (SL) 0.4 MG TAB SL ONE (22:00)
[2016-12-16] MEDS ORDERED: ENALAPRILAT 1.25 MG INJ IV ONE (22:00)
[2016-12-16] MEDS ORDERED: ASPIRIN 81 MG TAB PO ONE (22:00)
[2016-12-16] MEDS ORDERED: FUROSEMIDE 40 MG INJ IV ONE (22:00)
[2016-12-16] MEDS ORDERED: HYDROCHLOROTHIAZIDE 50 MG TAB PO ONE (22:00)
[2016-12-16 22:23] LABS: BASOPHIL # 0.1 10^3/ul (0.0-0.1); EOSINOPHILS # 0.1 10^3/ul (0.0-0.5); EOSINOPHILS % 1.5 % (0.0-7.0); HEMATOCRIT 50.5 % (42.0-52.0); HEMOGLOBIN 16.7 g/dl (14.0-18.0); LYMPHOCYTES # 0.9 10^3/ul (0.8-2.9); LYMPHOCYTES % 17.9 % (15.0-51.0); MEAN CORPUSCULAR HEMOGLOBIN 28.8 pg (29.0-33.0); MEAN CORPUSCULAR HGB CONC 33.1 g/dl (32.0-37.0); MEAN CORPUSCULAR VOLUME 87.1 fl (82.0-101.0); MEAN PLATELET VOLUME 10.5 fl (7.4-10.4); MONOCYTE # 0.6 10^3/ul (0.3-0.9); NEUTROPHIL # 3.6 10^3/ul (1.6-7.5); NEUTROPHILS % 68.2 % (39.0-77.0); PLATELET COUNT 216 10^3/UL (140-415); RED CELL DISTRIBUTION WIDTH 16.4 % (11.5-14.5); WHITE BLOOD COUNT 5.3 10^3/ul (4.8-10.8)
[2016-12-16] MEDS ORDERED: HYDROCHLOROTHIAZIDE 25 MG TAB PO ONE (22:30)
[2016-12-16 22:49] LABS: ALBUMIN 3.9 g/dl (3.3-4.9); ALBUMIN/GLOBULIN RATIO 1.18; BILIRUBIN,INDIRECT 0.6 mg/dl (0-1.1); BILIRUBIN,TOTAL 0.6 mg/dl (0.2-1.3); CALCIUM 8.8 mg/dl (8.4-10.2); CREATININE 1.2 mg/dl (0.61-1.24); POTASSIUM 3.7 mmol/L (3.5-5.1); TOTAL PROTEIN 7.2 g/dl (6.1-8.1)
[2016-12-16 23:00] LABS: TROPONIN-I 0.046 ng/ml (0.00-0.12)
--- NOTE | 2016-12-16 23:16 | RADRPT ---
PROCEDURE: XR Chest. CLINICAL INDICATION: Pain. TECHNIQUE: Single frontal chest x-ray. COMPARISON: 08/21/2016 FINDINGS: Heart is enlarged.. There is mild CHF. There are small) left pleural effusions. There is no pneum othorax. The osseous structures are unremarkable. IMPRESSION: Cardiomegaly. Mild CHF. Small) left pleural effusions. RPTAT: [facility]VK .Jeromy Gifford MD, MD Date Time Electronically viewed and signed by .Jeromy Gifford MD, MD on 12/16/2016 23:15 .K/
[2016-12-16] MEDS ORDERED: hydrALAzine 20 MG INJ IV ONE (23:30)
[2016-12-17] VITALS (11 sets, daily range): BP systolic 154–206; BP diastolic 80–124; PULSE 68–83; RESP 18–30; TEMP 98; Ht 180.3 cm; Wt 92.2 kg
[2016-12-17] MEDS ORDERED: ONDANSETRON 4 MG INJ IV ONE (02:02)
[2016-12-17] MEDS: morphine 2 MG INJ IV PRN ×3 (06:00→10:03)
[2016-12-17] MEDS ORDERED: morphine 2 MG INJ IV PRN (07:30)
[2016-12-17] MEDS ORDERED: ONDANSETRON 4 MG INJ IV PRN (07:30)
[2016-12-17] MEDS ORDERED: NACL 0.9% 3 ML SYG IV SCH (07:30)
[2016-12-17] MEDS ORDERED: LORAZEPAM 2 MG INJ IV ONE (08:30)
[2016-12-17] MEDS ORDERED: ENOXAPARIN 30 MG/0.3 ML SYG SC SCH (09:00)
[2016-12-17] MEDS: POTASSIUM CHLORIDE (SR) 20 MEQ TAB PO SCH (09:53)
[2016-12-17] MEDS: ASPIRIN 81 MG TAB PO SCH (09:54)
[2016-12-17] MEDS: FUROSEMIDE 40 MG INJ IV SCH ×2 (09:54→20:59)
--- NOTE | 2016-12-17 11:27 | RADRPT ---
Echocardiogram Report Patient Name: LUISANA PERALTA Gender: Male Date: 1950 Study Date: 17-Dec-2016 Vat Washer: Deanne Nogueira [facility] Location: 3303 Ref. Physician: NEVAEH ALEJANDRE Quality: Good Procedures: Transthoracic echocardiogram with complete 2D, M-Mode, and doppler examination. Indications: Congestive Heart Failure. 2D/M Mode Doppler Measurement Value Normal Ranges Measurement Value Normal Ranges LVIDd 2D 5.7 3.5 - 5.6 cm AV Peak Justin 1.7 m/sec LVIDs 2D 4.5 2.1 - 4.1 cm AV Peak PG 11.0 mmHg FS 2D 22.0 % LVOT Peak Justin 0.9 m/sec LVPWd 2D 1.5 0.6 - 1.1 cm LVOT Peak PG 3.0 mmHg IVSd 2D 1.5 0.6 - 1.1 cm MV E Peak Justin 1.3 m/sec IVS/LVPW 2D 1.0 MV Decel Time 165 msec AoR Diam 2D 3.3 2.0 - 3.7 cm LA/Ao 2D 1 0 - 1 EDV 2D 189.0 cm3 ESV 2D 89.9 cm3 LA Dimen 2D 4.3 2.3 - 4.0 cm Findings Left Ventricle: Normal left ventricular cavity size. Moderate concentric left ventricular hypertrophy. Severe left ventricular systolic dysfunction. Ejection fraction is visually estimated at 25 %. Tissue Doppler/Mitral Doppler indices are consistent with pseudonormalization with mildly elevated left atrial pressure (Stage II diastolic dysfunction). Right Ventricle: Normal right ventricular size. Normal right ventricular systolic function. Left Atrium: There is mild enlargement of left atrium. Right Atrium: The right atrium is normal in size. Mitral Valve: Mitral valve leaflets appear mildly thickened. Mild mitral annular calcification. Mild mitral valve regurgitation. Aortic Valve: No significant aortic stenosis or insufficiency. Aortic cusps appear mildly calcified. Tricuspid Valve: Normal appearance and function of the tricuspid valve with trace physiologic regurgitation. Pulmonic Valve: Pulmonic valve not well visualized. There is trace pulmonic regurgitation. Pericardium: Normal pericardium with no significant pericardial effusion. Pleural effusion seen. Aorta: Normal aortic root. IVC: Dilated IVC with respiratory collapse consistent with elevated right atrial pressure. Conclusions 1.Normal left ventricular cavity size. Moderate concentric left ventricular hypertrophy. Severe left ventricular systolic dysfunction. Ejection fraction is visually estimated at 25 %. Tissue Doppler/Mitral Doppler indices are consistent with pseudonormalization with mildly elevated left atrial pressure (Stage II diastolic dysfunction). 2.Normal right ventricular size. Normal right ventricular systolic function. 3.There is mild enlargement of left atrium. 4.The right atrium is normal in size. 5.Mild mitral valve regurgitation. 6.No significant valvular stenosis or regurgitation seen of remaining visualized valves. 7.Normal pericardium with no significant pericardial effusion. Pleural effusion seen. Electronically Signed By: Jeromy Zuniga 17-Dec-2016 11:26:35 -0700 Patient Name: LUISANA PERALTA Study Date: 17-Dec-2016 [id number]
[2016-12-17] MEDS ORDERED: PANTOPRAZOLE (EC) 40 MG TAB PO ONE (11:35)
[2016-12-17] MEDS ORDERED: GLUCOSE GEL 15 GRAM TUBE BUCCAL PRN (12:00)
[2016-12-17] MEDS ORDERED: DEXTROSE 50% 50 ML SYRINGE IV PRN ×2 (12:00)
[2016-12-17] MEDS ORDERED: GLUCAGON 1 MG INJ IM PRN (12:00)
[2016-12-17] MEDS ORDERED: GLUCOSE GEL 15 GRAM TUBE PO PRN ×2 (12:00)
[2016-12-17] MEDS: AMLODIPINE 5 MG TAB PO SCH ×2 (12:14→21:00)
[2016-12-17] MEDS: FAMOTIDINE 20 MG INJ IV SCH ×2 (12:14→21:06)
--- NOTE | 2016-12-17 14:18 | HP ---
Date/Time of Note Date/Time of Note DATE: 12/17/16 TIME: 14:16 Assessment/Plan VTE Prophylaxis VTE Prophylaxis Intervention: other Assessment/Plan Chief Complaint/Hosp Course 1) CHF - IV lasix - monitor clinically 2) hypertension - continue home meds - clonidine prn 3) diabetes - monitor blood sugar, sliding scale insulin Problems: HPI/ROS Admit Date/Time Admit Date/Time Dec 16, 2016 at 22:53 Hx of Present Illness Patient with hypertension, diabetes, congestive heart failure comes in with shortness of breath. Patient was on bipap in the emergency room but his respiratory status improved. Patient is still feeling weak. PMH/Family/Social Past Medical History Medical History: congestive heart failure, diabetes, hypertension Past Surgical History Past Surgical Hx: endoscopy, other Social History Smoking Status: Current every day smoker Exam/Review of Systems Vital Signs Vitals Vital Signs Date Time Temp Pulse Resp B/P Pulse Ox O2 Delivery O2 Flow Rate FiO2 12/17/16 13:10 78 12/17/16 12:35 26 191/110 94 Nasal Cannula 4.0 12/17/16 09:29 98.4 12/16/16 22:10 30 Exam Constitutional: well developed Head: atraumatic, normocephalic Respiratory: diminished breath sounds Cardiovascular: regular rate and rhythm Gastrointestinal: non-tender, soft Extremities: normal pulses Labs Result Diagram: 12/16/16214912/16/162149 Medications Medications Current Medications Morphine Sulfate (morphine) 2 mg Q4H PRN IV MODERATE PAIN LEVEL 4-6 Last administered on 12/17/16 06:00; Admin Dose 2 MG; Start 12/17/16 at 06:00 Ondansetron HCl (Zofran Inj) 4 mg Q6H PRN IV NAUSEA AND/OR VOMITING; Start at 07:30 Aspirin (Aspirin) 81 mg DAILY PO Last administered on 12/17/16 09:54; Admin Dose 81 MG; Start 12/17/16 at 09:00 Furosemide (Lasix) 20 mg Q12 IV Last administered on 12/17/16 09:54; Admin Dose 20 MG; Start 12/17/16 at 09:00 Morphine Sulfate (morphine) 2 mg Q4H PRN IV PAIN LEVEL 7-10; Start 12/17/16 at 07:30 Famotidine (Pepcid Iv) 20 mg Q12 IV Last administered on 12/17/16 12:14; Admin Dose 20 MG; Start 12/17/16 at 09:00 Enoxaparin Sodium (Lovenox) 30 mg DAILY SC Last administered on 12/17/16 12:17 ; Admin Dose 30 MG; Start 12/17/16 at 09:00 Potassium Chloride (Klor-Con 20) 20 meq DAILY PO Last administered on 09:53; Admin Dose 20 MEQ; Start 12/17/16 at 09:00 Amlodipine Besylate (Norvasc) 5 mg BID PO Last administered on 12/17/16 12:14 ; Admin Dose 5 MG; Start 12/17/16 at 11:30 Hydralazine HCl (Apresoline) 50 mg Q8 PO ; Start 12/17/16 at 14:00 Metoprolol Succinate (Toprol Xl) 25 mg DAILY PO ; Start 12/17/16 at 17:00 Terazosin HCl (Hytrin) 2 mg HS PO ; Start 12/17/16 at 21:00 Miscellaneous Information 1 ea NOTE XX ; Start 12/17/16 at 12:00 Glucose (Glutose) 15 gm Q15M PRN PO DECREASED GLUCOSE; Start 12/17/16 at 12:00 Glucose (Glutose) 22.5 gm Q15M PRN PO DECREASED GLUCOSE; Start 12/17/16 at 12: 00 Dextrose (D50w Syringe) 25 ml Q15M PRN IV DECREASED GLUCOSE; Start 12/17/16 at 12:00 Dextrose (D50w Syringe) 50 ml Q15M PRN IV DECREASED GLUCOSE; Start 12/17/16 at 12:00 Glucagon (Glucagen) 1 mg Q15M PRN IM DECREASED GLUCOSE; Start 12/17/16 at 12:00 Glucose (Glutose) 15 gm Q15M PRN BUCCAL DECREASED GLUCOSE; Start 12/17/16 at 12 :00 NEVAEH ALEJANDRE Dec 17, 2016 14:18
[2016-12-17] MEDS ORDERED: NITROGLYCERIN (SL) 0.4 MG TAB SL PRN (14:30)
[2016-12-17] MEDS: METOPROLOL (XL) 25 MG TAB PO SCH (17:42)
[2016-12-17] MEDS ORDERED: FUROSEMIDE 40 MG TAB PO SCH (18:00)
[2016-12-17] MEDS: INSULIN ASPART [NOVOLOG] 3 ML PEN SC SCH (18:54)
[2016-12-17] MEDS: TERAZOSIN 2 MG CAP PO SCH (21:00)
[2016-12-17] MEDS ORDERED: AMLODIPINE 5 MG TAB PO SCH (21:00)
[2016-12-17] MEDS ORDERED: TERAZOSIN 2 MG CAP PO SCH (21:00)
[2016-12-17] MEDS: APIXABAN 5 MG TABLET PO SCH (21:01)
[2016-12-18] VITALS (18 sets, daily range): BP systolic 95–170; BP diastolic 57–106; PULSE 34–141; RESP 18–20
[2016-12-18] MEDS: ACCU-CHEK XX SCH (02:00)
[2016-12-18] MEDS: PANTOPRAZOLE (EC) 40 MG TAB PO SCH (05:50)
[2016-12-18 07:09] LABS: BASOPHIL # 0.1 10^3/ul (0.0-0.1); EOSINOPHILS # 0.2 10^3/ul (0.0-0.5); EOSINOPHILS % 3.1 % (0.0-7.0); HEMATOCRIT 48.6 % (42.0-52.0); HEMOGLOBIN 16.1 g/dl (14.0-18.0); LYMPHOCYTES % 18.7 % (15.0-51.0); MEAN CORPUSCULAR HGB CONC 33.1 g/dl (32.0-37.0); MEAN CORPUSCULAR VOLUME 87.6 fl (82.0-101.0); MEAN PLATELET VOLUME 11.1 fl (7.4-10.4); MONOCYTE # 0.8 10^3/ul (0.3-0.9); MONOCYTES % 15.8 % (0.0-11.0); NEUTROPHIL # 3.2 10^3/ul (1.6-7.5); PLATELET COUNT 187 10^3/UL (140-415); RED BLOOD COUNT 5.55 10^6/ul (4.70-6.10); RED CELL DISTRIBUTION WIDTH 16.6 % (11.5-14.5); WHITE BLOOD COUNT 5.2 10^3/ul (4.8-10.8)
[2016-12-18] MEDS ORDERED: metFORMIN 500 MG TAB PO SCH (07:35)
[2016-12-18 07:38] LABS: ALBUMIN 3.3 g/dl (3.3-4.9); ALBUMIN/GLOBULIN RATIO 1.1; BILIRUBIN,INDIRECT 2.1 mg/dl (0-1.1); BILIRUBIN,TOTAL 2.1 mg/dl (0.2-1.3); CALCIUM 8.7 mg/dl (8.4-10.2); CREATININE 1.24 mg/dl (0.61-1.24); POTASSIUM 3.8 mmol/L (3.5-5.1); TOTAL PROTEIN 6.3 g/dl (6.1-8.1)
[2016-12-18] MEDS: INSULIN ASPART [NOVOLOG] 3 ML PEN SC SCH ×3 (07:55→17:43)
[2016-12-18] MEDS: metFORMIN 500 MG TAB PO SCH (08:00)
[2016-12-18] MEDS ORDERED: METOPROLOL (XL) 25 MG TAB PO SCH (09:00)
[2016-12-18] MEDS ORDERED: ASPIRIN 81 MG TAB PO SCH (09:00)
[2016-12-18] MEDS ORDERED: POTASSIUM CHLORIDE (SR) 20 MEQ TAB PO SCH (09:00)
[2016-12-18] MEDS: POTASSIUM CHLORIDE (SR) 20 MEQ TAB PO SCH (09:20)
[2016-12-18] MEDS: APIXABAN 5 MG TABLET PO SCH ×2 (09:21→20:35)
[2016-12-18] MEDS: AMLODIPINE 5 MG TAB PO SCH ×2 (09:21→20:35)
[2016-12-18] MEDS: METOPROLOL (XL) 25 MG TAB PO SCH (09:21)
[2016-12-18] MEDS: ASPIRIN 81 MG TAB PO SCH (09:22)
[2016-12-18] MEDS: FUROSEMIDE 40 MG INJ IV SCH ×2 (09:22→20:35)
[2016-12-18] MEDS: FAMOTIDINE 20 MG INJ IV SCH ×2 (09:22→22:22)
--- NOTE | 2016-12-18 10:28 | PN ---
Date/Time of Note Date/Time of Note DATE: 12/18/16 TIME: 10:28 Assessment/Plan VTE Prophylaxis VTE Prophylaxis Intervention: other Lines/Catheters IV Catheter Type (from Nrs): Saline Lock Assessment/Plan Chief Complaint/Hosp Course 1) CHF - IV lasix - monitor clinically 2) hypertension - continue home meds - clonidine prn 3) diabetes - monitor blood sugar, sliding scale insulin Problems: Subjective 24 Hr Interval Summary Free Text/Dictation Patient feels better, is ambulating Exam/Review of Systems Vital Signs Vitals Vital Signs Date Time Temp Pulse Resp B/P Pulse Ox O2 Delivery O2 Flow Rate FiO2 12/18/16 08:29 49 12/18/16 07:42 98.0 18 131/90 98 12/18/16 03:12 2.0 28 12/17/16 23:09 Nasal Cannula Intake and Output 12/17/16 12/17/16 12/18/16 15:00 23:00 07:00 Intake Total 350 ml Output Total 175 ml 200 ml 600 ml Balance -175 ml -200 ml -250 ml Exam Constitutional: well developed Head: atraumatic, normocephalic Neck: supple Respiratory: clear to auscultation Cardiovascular: regular rate and rhythm Gastrointestinal: non-tender, soft Extremities: normal pulses Results Result Diagram: 12/18/16 0547 12/18/16 0547 Results 24 hrs Laboratory Tests Test 12/17/16 14:56 12/17/16 18:52 12/17/16 20:29 12/18/16 02:32 Troponin I 0.043 Bedside Glucose 132 181 144 Test 12/18/16 05:47 12/18/16 07:59 White Blood Count 5.2 Red Blood Count 5.55 Hemoglobin 16.1 Hematocrit 48.6 Mean Corpuscular Volume 87.6 Mean Corpuscular Hemoglobin 29.0 Mean Corpuscular Hemoglobin Concent 33.1 Red Cell Distribution Width 16.6 H Platelet Count 187 Mean Platelet Volume 11.1 H Neutrophils % 61.0 Lymphocytes % 18.7 Monocytes % 15.8 H Eosinophils % 3.1 Basophils % 1.0 Nucleated Red Blood Cells % 0.0 Neutrophils # 3.2 Lymphocytes # 1.0 Monocytes # 0.8 Eosinophils # 0.2 Basophils # 0.1 Nucleated Red Blood Cells # 0.0 Sodium Level 145 H Potassium Level 3.8 Chloride Level 102 Carbon Dioxide Level 30 Anion Gap 17 H Blood Urea Nitrogen 17 Creatinine 1.24 Glucose Level 127 # Calcium Level 8.7 Total Bilirubin 2.1 H Direct Bilirubin 0.00 Indirect Bilirubin 2.1 H Aspartate Amino Transf (AST/SGOT) 22 Alanine Aminotransferase (ALT/SGPT) 26 Alkaline Phosphatase 96 Total Protein 6.3 Albumin 3.3 Globulin 3.00 Albumin/Globulin Ratio 1.10 Bedside Glucose 132 Medications Medications Current Medications Ondansetron HCl (Zofran Inj) 4 mg Q6H PRN IV NAUSEA AND/OR VOMITING; Start at 07:30 Aspirin (Aspirin) 81 mg DAILY PO Last administered on 12/18/16 09:22; Admin Dose 81 MG; Start 12/17/16 at 09:00 Furosemide (Lasix) 20 mg Q12 IV Last administered on 12/18/16 09:22; Admin Dose 20 MG; Start 12/17/16 at 09:00 Morphine Sulfate (morphine) 2 mg Q4H PRN IV PAIN LEVEL 7-10; Start 12/17/16 at 07:30 Famotidine (Pepcid Iv) 20 mg Q12 IV Last administered on 12/18/16 09:22; Admin Dose 20 MG; Start 12/17/16 at 09:00 Potassium Chloride (Klor-Con 20) 20 meq DAILY PO Last administered on 09:20; Admin Dose 20 MEQ; Start 12/17/16 at 09:00 Amlodipine Besylate (Norvasc) 5 mg BID PO Last administered on 12/18/16 09:21 ; Admin Dose 5 MG; Start 12/17/16 at 11:30 Hydralazine HCl (Apresoline) 50 mg Q8 PO Last administered on 12/18/16 05:50; Admin Dose 50 MG; Start 12/17/16 at 14:00 Metoprolol Succinate (Toprol Xl) 25 mg DAILY PO Last administered on 12/18/16 09:21; Admin Dose 25 MG; Start 12/17/16 at 17:00 Terazosin HCl (Hytrin) 2 mg HS PO Last administered on 12/17/16 21:00; Admin Dose 2 MG; Start 12/17/16 at 21:00 Miscellaneous Information 1 ea NOTE XX ; Start 12/17/16 at 12:00 Glucose (Glutose) 15 gm Q15M PRN PO DECREASED GLUCOSE; Start 12/17/16 at 12:00 Glucose (Glutose) 22.5 gm Q15M PRN PO DECREASED GLUCOSE; Start 12/17/16 at 12: 00 Dextrose (D50w Syringe) 25 ml Q15M PRN IV DECREASED GLUCOSE; Start 12/17/16 at 12:00 Dextrose (D50w Syringe) 50 ml Q15M PRN IV DECREASED GLUCOSE; Start 12/17/16 at 12:00 Glucagon (Glucagen) 1 mg Q15M PRN IM DECREASED GLUCOSE; Start 12/17/16 at 12:00 Glucose (Glutose) 15 gm Q15M PRN BUCCAL DECREASED GLUCOSE; Start 12/17/16 at 12 :00 Apixaban (Eliquis) 5 mg BID PO Last administered on 12/18/16 09:21; Admin Dose 5 MG; Start 12/17/16 at 21:00 Nitroglycerin (Nitroglycerin (Sl Tab) 0.4 Mg) 1 tab Q5M PRN SL CHEST PAIN; Start 12/17/16 at 14:30 Pantoprazole (Protonix Tab) 40 mg DAILY@06 PO Last administered on 12/18/16 05 :50; Admin Dose 40 MG; Start 12/18/16 at 06:00 Diagnostic Test (Pha) (Accu-Chek) 1 ea 02 XX ; Start 12/18/16 at 02:00 Clonidine (Catapres) 0.1 mg Q6H PRN PO SPB > 160 Last administered on 01:22; Admin Dose 0.1 MG; Start 12/17/16 at 14:30 NEVAEH ALEJANRDE Dec 18, 2016 10:28
[2016-12-18] MEDS: TERAZOSIN 2 MG CAP PO SCH (20:35)
[2016-12-19] VITALS (8 sets, daily range): BP systolic 130–142; BP diastolic 70–85; PULSE 50–53; RESP 18–20
[2016-12-19] MEDS: ACCU-CHEK XX SCH (02:00)
[2016-12-19] MEDS: PANTOPRAZOLE (EC) 40 MG TAB PO SCH (06:30)
[2016-12-19] MEDS: INSULIN ASPART [NOVOLOG] 3 ML PEN SC SCH ×2 (07:55→11:46)
[2016-12-19] MEDS: metFORMIN 500 MG TAB PO SCH (08:00)
[2016-12-19] MEDS: FAMOTIDINE 20 MG INJ IV SCH (08:55)
[2016-12-19] MEDS: AMLODIPINE 5 MG TAB PO SCH (08:56)
[2016-12-19] MEDS: POTASSIUM CHLORIDE (SR) 20 MEQ TAB PO SCH (08:56)
[2016-12-19] MEDS: ASPIRIN 81 MG TAB PO SCH (08:56)
[2016-12-19] MEDS: FUROSEMIDE 40 MG INJ IV SCH (08:56)
[2016-12-19] MEDS: APIXABAN 5 MG TABLET PO SCH (08:56)
[2016-12-19] MEDS: METOPROLOL (XL) 25 MG TAB PO SCH (08:58)
--- NOTE | 2016-12-19 11:44 | DS ---
Date/Time of Note Date/Time of Note DATE: 12/19/16 TIME: 11:42 Discharge Summary Admission/Discharge Info Admit Date/Time Dec 16, 2016 at 22:53 Discharge Date/Time 12/19/16 Discharge Diagnosis 1) CHF 2) diabetes 3) hypertension Patient Condition: Fair Hx of Present Illness Patient with hypertension, diabetes, congestive heart failure comes in with shortness of breath. Patient was on bipap in the emergency room but his respiratory status improved. Patient is still feeling weak. Hospital Course Patient comes in with weakness and shortness of breath. Patient treated with intravenous lasix. Patient had 2D echo which showed poor ejection fraction. Patient clinically improved with intravenous lasix. He will be sent home with his usual regimen and encouraged to take extra lasix if he has further difficulty. Patient will follow up with his regular physician. 1) CHF - IV lasix - monitor clinically 2) hypertension - continue home meds - clonidine prn 3) diabetes - monitor blood sugar, sliding scale insulin Home Meds Active Scripts Hydralazine Hcl* (Hydralazine Hcl*) 25 Mg Tab, 50 MG PO Q8 for 30 Days, TAB Prov:ARIN CHEN 11/12/16 Metformin Hcl* (Metformin Hcl*) 1,000 Mg Tablet, 1000 MG PO WITH BREAKFAST for 30 Days, #30 TAB Prov:JEFE CHENLANA 11/12/16 Metoprolol Succinate* (Toprol XL*) 25 Mg Tab.sr.24h, 25 MG PO DAILY for 30 Days Prov:JEFE CHENLANA 11/12/16 Potassium Chloride* (K-Dur*) 20 Meq Tab.prt.sr, 20 MEQ PO DAILY for 30 Days Prov:JEFE CHENLANA 11/12/16 Furosemide* (Furosemide*) 40 Mg Tablet, 40 MG PO BID DIURETICS for 30 Days, TAB Prov:JEFE CHENLANA 11/12/16 Aspirin (Aspirin) 81 Mg Chew, 81 MG PO DAILY for 30 Days, TAB Prov:LIBBY CHEN11/12/16 Apixaban* (Eliquis*) 5 Mg Tablet, 5 MG PO BID for 30 Days, TAB Prov:ARIN CHEN 11/12/16 Amlodipine Besylate* (Norvasc*) 5 Mg Tablet, 5 MG PO BID for 30 Days, #60 TAB Prov:SHERI CHENA 11/12/16 Terazosin Hcl* (Terazosin Hcl*) 2 Mg Capsule, 2 MG PO HS for 30 Days, CAP Prov:NEVILLE GREEN 08/26/16 Pantoprazole* (Pantoprazole*) 40 Mg Tablet.dr, 40 MG PO DAILY@06 for 30 Days Prov:NEVILLE GREEN 08/26/16 Nitroglycerin* (Nitrostat*) 0.4 Mg Tab.subl, 1 TAB SL Q5M Y for CHEST PAIN for 30 Days Prov:NEVILLE GREEN 08/26/16 Primary Care Provider Farhan Camacho MD Pending Labs Laboratory Tests Test 12/18/16 17:43 12/19/16 07:59 Bedside Glucose 151mg/dL (70-220) 149mg/dL (70-220) NEVAEH ALEJANDRE Dec 19, 2016 11:44
== END 2016-12-19 12:10 | disposition home or self-care (01) | DRG 292 ==
LOC: E/R 21:36 → MS3 22:53 → TEL 12-17 19:30
PROVIDERS: ADMIT Internal Medicine; ATTEND Internal Medicine
DX: I11.0 Hypertensive heart disease with heart failure (principal); J44.1 Chronic obstructive pulmonary disease with (acute) exacerbation; I48.2 Chronic atrial fibrillation; I50.21 Acute systolic (congestive) heart failure; F17.210 Nicotine dependence, cigarettes, uncomplicated; I16.0 Hypertensive urgency; I25.5 Ischemic cardiomyopathy; E78.5 Hyperlipidemia, unspecified; E11.9 Type 2 diabetes mellitus without complications; I25.10 Atherosclerotic heart disease of native coronary artery without angina pectoris; Z79.4 Long term (current) use of insulin; Z79.82 Long term (current) use of aspirin; Z79.02 Long term (current) use of antithrombotics/antiplatelets; Z91.19 Patient's noncompliance with other medical treatment and regimen; Z86.73 Personal history of transient ischemic attack (TIA), and cerebral infarction without residual deficits
CPT/HCPCS: 36415; 71010; 80053; 82962; 83690; 84484; 85025; 93005; 93306; 94660; 96374; 96375; J0360; J1650; J1815; J1940; J2060; J2270; J2405

== ENCOUNTER 2016-12-22 20:54 | Emergency (ER) | payer BC, MEDICARE ==
[~2016-12-22] VITALS: Wt 92.0 kg
== END 2016-12-22 21:04 | disposition left against medical advice (07) ==
LOC: E/R 20:54
DX: Z53.21 Procedure and treatment not carried out due to patient leaving prior to being seen by health care provider (principal)

== ENCOUNTER 2017-01-09 18:20 | Inpatient (IN) | payer MEDICARE, BC ==
[~2017-01-09] VITALS: Ht 177.8 cm; Wt 98.0 kg
[~2017-01-09 18:20] MED LIST changes: +AMLO-147 PO; +APRS PO; +ASPI-664 PO; +ASPI-716 PO; +ASPI325T32 PO; +ASPI325T4 PO; +ATOR20TA38 PO; +BENA20TA48 PO; +BENA40TA41 PO; +BENAZEPRIL PO; +Bumetanide PO; +CARV3.1260 PO; +CARV6.25 PO; +CLON-379 PO; +ENAL10TA PO; +ENAL20TA PO; +ENAL5TAB PO; +FURO-109 PO; +FURO20TA3 PO; +GLIP5TAB13 PO; +ISOS20TA19 PO; +Ipratropium 0.02% (Neb) HHN; +KDUR PO; +LANT3I SC; +LORA-441 PO; +MAGN400T27 PO; +METO-429 PO; +METO-448 PO; +NIFE30TA60 PO; +NIFE30TA66 PO; +NIFE30TA7 PO; +NOVO3I SC; +OMEP20CA16 PO; +OXYC-281 PO; +PANT40TA3 PO; +PANT40VI7 PO; +POTA8CAP PO; +SERT20OR PO; +SPIR25TA PO; +VALS160T20 PO
[2017-01-09] MEDS ORDERED: ASPIRIN 325 MG TAB PO STA (18:39)
[2017-01-09 18:58] LABS: BASOPHIL # 0.1 10^3/ul (0.0-0.1); BASOPHILS % 1.1 % (0.0-2.0); EOSINOPHILS # 0.1 10^3/ul (0.0-0.5); EOSINOPHILS % 2.6 % (0.0-7.0); HEMATOCRIT 49.5 % (42.0-52.0); HEMOGLOBIN 16.3 g/dl (14.0-18.0); LYMPHOCYTES # 1.2 10^3/ul (0.8-2.9); LYMPHOCYTES % 26.3 % (15.0-51.0); MEAN CORPUSCULAR HEMOGLOBIN 29.1 pg (29.0-33.0); MEAN CORPUSCULAR HGB CONC 32.9 g/dl (32.0-37.0); MEAN CORPUSCULAR VOLUME 88.2 fl (82.0-101.0); MEAN PLATELET VOLUME 10.8 fl (7.4-10.4); MONOCYTE # 0.7 10^3/ul (0.3-0.9); NEUTROPHILS % 55.6 % (39.0-77.0); PLATELET COUNT 204 10^3/UL (140-415); RED BLOOD COUNT 5.61 10^6/ul (4.70-6.10); RED CELL DISTRIBUTION WIDTH 17.4 % (11.5-14.5); WHITE BLOOD COUNT 4.6 10^3/ul (4.8-10.8)
[2017-01-09 19:13] LABS: INR 1.06; PROTIME 13.8 Sec (12.2-14.2); PT RATIO 1.1
[2017-01-09 19:14] LABS: PARTIAL THROMBOPLASTIN TIME 31.9 Sec (25.0-35.0)
[2017-01-09 19:20] LABS: CALCIUM 8.8 mg/dl (8.4-10.2); CREATININE 1.02 mg/dl (0.61-1.24); POTASSIUM 3.5 mmol/L (3.5-5.1)
[2017-01-09 19:32] LABS: TROPONIN-I 0.038 ng/ml (0.00-0.12)
[2017-01-09] MEDS ORDERED: LIDOCAINE/MYLANTA 40 ML BTL PO ONE (20:00)
[2017-01-09] MEDS ORDERED: FUROSEMIDE 40 MG INJ IV ONE (20:00)
[2017-01-09] MEDS ORDERED: NITROGLYCERIN (SL) 0.4 MG TAB SL ONE (20:00)
--- NOTE | 2017-01-09 20:10 | RADRPT ---
PROCEDURE: Portable chest x-ray. CLINICAL INDICATION: 66 years of age, male. Chest pain. TECHNIQUE: Portable AP view of the chest. COMPARISON: December 16, 2016 FINDINGS: Tortuous aorta. Enlarged cardiopericardial silhouette. Bilateral hilar fullness. Pulmonary vessels are prominent and indistinct with perihilar increased interstitial markings. Right lung base opacity may represent atelectasis, aspiration or pneumonia and is similar to prior exam. Small right pleural effusion. Negative for left pleural effusion or pneumothorax. No acute bony abnormality. IMPRESSION: Enlarged heart and prominent pulmonary vasculature in keeping with interstitial pulmonary edema that is similar to prior exam. Right lower lobe opacity is similar to prior exam. Differential diagnosis includes, but is not limi julien to, atelectasis, aspiration or pneumonia. Small right pleural effusion. RPTAT: HCTS Physician Mann Date Time Electronically viewed and signed by Physician Mann on 01/09/2017 20:10 /
[2017-01-09] MEDS ORDERED: ACETAMINOPHEN 325 MG TAB PO PRN ×2 (20:30→21:00)
[2017-01-09] MEDS ORDERED: ONDANSETRON 4 MG INJ IV PRN ×2 (20:30→21:00)
[2017-01-09 20:44] VITALS: TEMP 98.6
--- NOTE | 2017-01-09 20:53 | ERD ---
ER Documentation Chief Complaint Date/Time DATE: 01/09/17 TIME: 20:44 Chief Complaint chest pain x 3 days, worse today. Denies cough. JARRETT. HPI 66-year-old male comes in very short of breath with chest pain for 3 days on his left chest described as a pressure-like sensation that got worse today. Has a history of congestive heart failure. No cough or fever. ROS All systems reviewed and are negative except as per history of present illness. Medications Home Meds Active Scripts Hydralazine Hcl* (Hydralazine Hcl*) 25 Mg Tab, 50 MG PO Q8 for 30 Days, TAB Prov:ARIN CHEN 11/12/16 Metformin Hcl* (Metformin Hcl*) 1,000 Mg Tablet, 1000 MG PO WITH BREAKFAST for 30 Days, #30 TAB Prov:ARIN CHEN 11/12/16 Metoprolol Succinate* (Toprol XL*) 25 Mg Tab.sr.24h, 25 MG PO DAILY for 30 Days Prov:ARIN CHEN 11/12/16 Potassium Chloride* (K-Dur*) 20 Meq Tab.prt.sr, 20 MEQ PO DAILY for 30 Days Prov:ARIN CHEN 11/12/16 Furosemide* (Furosemide*) 40 Mg Tablet, 40 MG PO BID DIURETICS for 30 Days, TAB Prov:ARIN CHEN 11/12/16 Aspirin (Aspirin) 81 Mg Chew, 81 MG PO DAILY for 30 Days, TAB Prov:ARIN CHEN 11/12/16 Apixaban* (Eliquis*) 5 Mg Tablet, 5 MG PO BID for 30 Days, TAB Prov:ARIN CHEN 11/12/16 Amlodipine Besylate* (Norvasc*) 5 Mg Tablet, 5 MG PO BID for 30 Days, #60 TAB Prov:ARIN CHEN 11/12/16 Terazosin Hcl* (Terazosin Hcl*) 2 Mg Capsule, 2 MG PO HS for 30 Days, CAP Prov:NEVILLE GREEN 08/26/16 Pantoprazole* (Pantoprazole*) 40 Mg Tablet.dr, 40 MG PO DAILY@06 for 30 Days Prov:NEVILLE GREEN 08/26/16 Nitroglycerin* (Nitrostat*) 0.4 Mg Tab.subl, 1 TAB SL Q5M Y for CHEST PAIN for 30 Days Prov:NEVILLE GREEN 08/26/16 Allergies Allergies: Coded Allergies: No Known Allergies (Unverified Allergy, Unknown, 01/09/17) PMhx/Soc History of Surgery: Yes (Craniotomy) Anesthesia Reaction: No Hx Neurological Disorder: Yes (CVA) Hx Respiratory Disorders: Yes (COPD) Hx Cardiac Disorders: Yes (CHF, HTN, Cardiomyopathy, 20% EF, Atrial Fibrillation) Hx Psychiatric Problems: No Hx Miscellaneous Medical Probl: Yes (Hyperlipidemia) Hx Alcohol Use: Yes (Social) Hx Substance Use: No Hx Tobacco Use: Yes Smoking Status: Never smoker Physical Exam Vitals Vital Signs Date Time Temp Pulse Resp B/P Pulse Ox O2 Delivery O2 Flow Rate FiO2 01/09/17 19:34 98.3 54 23 119/101 96 Nasal Cannula 3.0 01/09/17 18:49 Nasal Cannula 2 01/09/17 18:27 97.7 54 18 184/110 97 Physical Exam Const: [] Moderate distress, appears uncomfortable with difficulty breathing Head: Atraumatic Eyes: Normal Conjunctiva ENT: Normal External Ears, Nose and Mouth. Neck: Full range of motion..~ No meningismus. Resp: Mild decreased bibasilar breath sounds with right basilar rales, tachypnea, mild accessory muscle use Cardio: Regular rate and rhythm, no murmurs Abd: Soft, non tender, non distended. Normal bowel sounds Skin: No petechiae or rashes Back: No midline or flank tenderness Ext: No cyanosis, or 2+ pitting edema bilateral lower extreme Neur: Awake and alert oriented 3, no focal deficit Psych: Normal Mood and Affect Result Diagram: 01/09/17184401/09/171844 Results 24 hrs Laboratory Tests Test 01/09/17 18:45 White Blood Count 4.610^3/ul Red Blood Count 5.6110^6/ul Hemoglobin 16.3g/dl Hematocrit 49.5% Mean Corpuscular Volume 88.2fl Mean Corpuscular Hemoglobin 29.1pg Mean Corpuscular Hemoglobin Concent 32.9g/dl Red Cell Distribution Width 17.4% Platelet Count 33283^3/UL Mean Platelet Volume 10.8fl Neutrophils % 55.6% Lymphocytes % 26.3% Monocytes % 14.0% Eosinophils % 2.6% Basophils % 1.1% Nucleated Red Blood Cells % 0.0/100WBC Neutrophils # (Manual) 310^3/ul Lymphocytes # 1.210^3/ul Monocytes # 0.710^3/ul Eosinophils # 0.110^3/ul Basophils # 0.110^3/ul Nucleated Red Blood Cells # 0.010^3/ul Prothrombin Time 13.8Sec Prothrombin Time Ratio 1.1 INR International Normalized Ratio 1.06 Activated Partial Thromboplast Time 31.9Sec Sodium Level 143mmol/L Potassium Level 3.5mmol/L Chloride Level 106mmol/L Carbon Dioxide Level 26mmol/L Anion Gap 15 Blood Urea Nitrogen 16mg/dl Creatinine 1.02mg/dl Glucose Level 163mg/dl Calcium Level 8.8mg/dl Troponin I 0.038ng/ml B-Type Natriuretic Peptide 7530PG/ML Current Medications Medications (Trade) Dose Ordered Sig/Tavon Route PRN Reason Start Time Stop Time Status Last Admin Dose Admin Aspirin (Aspirin) 325 mg ONCE STAT PO 01/09/17 18:39 01/09/17 18:42 DC 01/09/17 18:56 Miscellaneous Medication (Gi Cocktail (2)) 40 ml ONCE ONCE PO 01/09/17 20:00 01/09/17 20:01 DC 01/09/17 19:55 Furosemide (Lasix) 40 mg ONCE ONCE IV 01/09/17 20:00 01/09/17 20:01 DC 01/09/17 19:56 Nitroglycerin (Nitroglycerin (Sl Tab) 0.4 Mg) 1 tab ONCE ONCE SL 01/09/17 20:00 01/09/17 20:01 DC Ondansetron HCl (Zofran Inj) 4 mg ER BRIDGE PRN IV NAUSEA AND/OR VOMITING 01/09/17 20:30 01/10/17 20:29 Acetaminophen (Tylenol Tab) 650 mg ER BRIDGE PRN PO MILD PAIN/FEVER 01/09/17 20:30 01/10/17 20:29 IV Flush (NS 3 ml) 3 ml PER PROTOCOL IV 01/09/17 21:00 UNV Ondansetron HCl (Zofran Inj) 4 mg Q6H PRN IV NAUSEA AND/OR VOMITING 01/09/17 21:00 UNV Aspirin (Aspirin) 81 mg DAILY PO 01/10/17 09:00 UNV Furosemide (Lasix) 20 mg Q12 IV 01/09/17 21:00 UNV Acetaminophen (Tylenol Tab) 650 mg Q6H PRN PO PAIN LEVEL 1-3 OR FEVER 01/09/17 21:00 UNV Morphine Sulfate (morphine) 2 mg Q4H PRN IV PAIN LEVEL 7-10 01/09/17 21:00 UNV Famotidine (Pepcid Iv) 20 mg Q12 IV 01/09/17 21:00 UNV Enoxaparin Sodium (Lovenox) 30 mg DAILY SC 01/10/17 09:00 UNV Potassium Chloride (Klor-Con 20) 20 meq DAILY PO 01/10/17 09:00 UNV Procedures/MDM Moderate to severe CHF exacerbation with respiratory distress and chest pain. No signs of acute ischemia yet. Patient's work of breathing increased while he was in the emergency room. He had been given 40 mg of Lasix and nitroglycerin. Then placed him on BiPAP. Was given 1 mg Ativan because he says he does not like the BiPAP. Is also given 325 mg of aspirin. Spoke with Dr. Orozco will be admitting to telemetry. I think the patient does not need ICU currently. Interpretation: A. fib with slow ventricular response rate of 53, left axis deviation, no ST or T-wave changes concerning for acute ischemia EKG #2 interpretation: A. fib rate of 62, left axis deviation no ST or T-wave changes concerning for acute ischemia. Chest x-ray interpretation: Right pleural effusion, engorgement of pulmonary vasculature suggestive of congestive heart failure, no pneumothorax, no infiltrate, no fracture Critical care time 46 minutes: This includes treatment of decompensated congestive heart failure with increased work of breathing, use of noninvasive posture preservation, consideration of invasive procedures, treatment of unstable vital signs, chart reviewed, multiple visits patient's bedside to reassess status, discussion with patient's son and admitting doctor. This does not include billable procedures Departure Diagnosis: Primary Impression: Chest pain Additional Impression: CHF (congestive heart failure) Condition: Serious MARILUZ HOANG Jan 09, 2017 20:53
[2017-01-09] MEDS ORDERED: NACL 0.9% 3 ML SYG IV SCH (21:00)
[2017-01-09] MEDS ORDERED: LORAZEPAM 2 MG INJ IV ONE (21:00)
[2017-01-09 21:12] LABS: AADO2 Arterial 106.9 mmHg (7.0-24.0); Allen Test ACCEPTAB; Arterial Base Excess -1.1 mmol/L (-3.0-3); Arterial COHb 0.6 % (0.0-3.0); Arterial Fraction of Oxyhgb 93.9 % (93.0-99.0); Arterial HCO3 21.2 mmol/L (22.0-26.0); Arterial MetHb 0.2 % (0.0-1.5); Arterial Total Hemglobin 16.9 g/dl (12.0-18.0); MODE NASAL CANNULA
[2017-01-09] MEDS: FAMOTIDINE 20 MG INJ IV SCH (21:27)
[2017-01-09] MEDS: FUROSEMIDE 40 MG INJ IV SCH (21:35)
[2017-01-09 21:55] VITALS: PULSE 70
[2017-01-09 22:00] VITALS: Ht 177.8 cm; Wt 98.0 kg
[2017-01-09 23:00] VITALS: BP 201/108; PULSE 201; RESP 18
[2017-01-10] VITALS (13 sets, daily range): BP systolic 136–198; BP diastolic 86–114; PULSE 55–75; RESP 18–20
[2017-01-10 01:00] LABS: TROPONIN-I 0.045 ng/ml (0.00-0.12)
[2017-01-10 01:11] LABS: CK-MB 1.18 ng/ml (0.0-2.4)
[2017-01-10 02:02] LABS: TROPONIN-I 0.051 ng/ml (0.00-0.12)
[2017-01-10 02:15] LABS: CK-MB 1.22 ng/ml (0.0-2.4)
[2017-01-10 06:57] LABS: BASOPHIL # 0.1 10^3/ul (0.0-0.1); BASOPHILS % 1.3 % (0.0-2.0); EOSINOPHILS # 0.1 10^3/ul (0.0-0.5); EOSINOPHILS % 2.2 % (0.0-7.0); HEMATOCRIT 47.2 % (42.0-52.0); HEMOGLOBIN 15.6 g/dl (14.0-18.0); MEAN CORPUSCULAR HEMOGLOBIN 29.2 pg (29.0-33.0); MEAN CORPUSCULAR HGB CONC 33.1 g/dl (32.0-37.0); MEAN CORPUSCULAR VOLUME 88.4 fl (82.0-101.0); MEAN PLATELET VOLUME 11.2 fl (7.4-10.4); MONOCYTE # 0.9 10^3/ul (0.3-0.9); MONOCYTES % 15.8 % (0.0-11.0); NEUTROPHILS % 62.5 % (39.0-77.0); PLATELET COUNT 179 10^3/UL (140-415); RED BLOOD COUNT 5.34 10^6/ul (4.70-6.10); WHITE BLOOD COUNT 5.4 10^3/ul (4.8-10.8)
[2017-01-10 07:36] LABS: ALBUMIN 3.3 g/dl (3.3-4.9); ALBUMIN/GLOBULIN RATIO 1.32; BILIRUBIN,INDIRECT 1.6 mg/dl (0-1.1); BILIRUBIN,TOTAL 1.6 mg/dl (0.2-1.3); CALCIUM 8.6 mg/dl (8.4-10.2); CREATININE 0.87 mg/dl (0.61-1.24); POTASSIUM 3.6 mmol/L (3.5-5.1); TOTAL PROTEIN 5.8 g/dl (6.1-8.1)
[2017-01-10 07:44] LABS: TROPONIN-I 0.049 ng/ml (0.00-0.12)
[2017-01-10 07:46] LABS: CK-MB 1.16 ng/ml (0.0-2.4)
[2017-01-10] MEDS: ASPIRIN 81 MG TAB PO SCH (08:22)
[2017-01-10] MEDS: FAMOTIDINE 20 MG INJ IV SCH ×2 (08:22→21:40)
[2017-01-10] MEDS: POTASSIUM CHLORIDE (SR) 20 MEQ TAB PO SCH (08:22)
[2017-01-10] MEDS: FUROSEMIDE 40 MG INJ IV SCH ×2 (08:23→21:41)
[2017-01-10] MEDS ORDERED: ENOXAPARIN 30 MG/0.3 ML SYG SC SCH (09:00)
[2017-01-10] MEDS ORDERED: FUROSEMIDE 40 MG INJ IV ONE (10:00)
[2017-01-10] MEDS: ALBUTEROL/IPRATROPIUM (NEB) 3 ML AMP HHN SCH ×3 (10:15→19:44)
--- NOTE | 2017-01-10 11:17 | RADRPT ---
PROCEDURE: XR Chest. CLINICAL INDICATION: Cough TECHNIQUE: An AP view of the chest was obtained. COMPARISON: Chest x-ray dated 01/09/2017 FINDINGS: There is prominence of the interstitial and central pulmonary vascular markings with small bilatera l pleural effusions. No focal airspace opacification or pneumothorax is seen. The cardiomediastin al silhouette is moderately enlarged. Calcifications are seen within the aortic arch. The osseous s tructures demonstrate senescent changes. IMPRESSION: 1. Findings suggestive of pulmonary vascular congestion with small bilateral pleural effusions. Fi ndings are mildly increased when compared to the prior examination. 2. Moderate cardiomegaly and aortic atherosclerosis. RPTAT: HH .Yoly Amato MD, MD Date Time Electronically viewed and signed by .Yoly Amato MD, on 01/10/2017 11:17 .G/
[2017-01-10] MEDS ORDERED: NITROGLYCERIN 2% 1 GM OINT PKT TD SCH (12:00)
--- NOTE | 2017-01-10 12:12 | CONS ---
Date/Time of Note Date/Time of Note DATE: 01/10/17 TIME: 12:08 Assessment/Plan Assessment/Plan Additional Assessment/Plan Chest x-ray showing cardiomegaly with changes consistent with congestive heart failure. Assessment and recommendations; 1. Patient admitted with CHF exacerbation due to underlying cardia myopathy with interval improvement after being diuresed. 2. History of chronic atrial fibrillation, prior craniotomy, hypertension and hyperlipidemia. Continue current treatment. Patient responding well to current treatment regimen. Currently there is no evidence of any pneumonia. Consultation Date/Type/Reason Admit Date/Time Jan 09, 2017 at 20:05 Date of Consultation: Jan 10, 2017 Type of Consultation: Pulmonary Reason for Consultation Pulmonary consultation requested for evaluation of CHF versus pneumonia. History of presenting any; patient is a pleasant 66-year-old white male who was admitted to the hospital today with complaints of being short of breath for the last few days. Patient however denies any fever, wheezing, cough or sputum production. A chest x-ray was done which I reviewed personally which is showing changes consistent with congestive heart failure. The patient is feeling somewhat better now but denies any chest pain, any body aches or myalgias. Any recent vomiting or nausea. Past medical history; 1. Patient with history of cardia myopathy with poor ejection fraction of around 20%. 2. Hypertension. 3. Chronic atrial fibrillation. 4. Hyperlipidemia. 5. History of craniotomy. Medications; reviewed. Allergies; none. Social history; patient never smoked. Family history; noncontributory. Occupation history; noncontributory. Review systems; patient denies any headache, sinus symptoms. Any visual changes. Any seizures. Denies any nausea or vomiting. Denies any abdominal pain, constipation, melena or hematochezia. Denies any urinary symptoms. Does complain of dyspnea on exertion. Denies any weight change. Does complain of mild orthopnea. Next General exam; elderly male, awake and alert. Currently in no distress. Past Surgical History Past Surgical Hx: endoscopy, other Social History Smoking Status: Never smoker Exam/Review of Systems Vital Signs Vitals Vital Signs Date Time Temp Pulse Resp B/P Pulse Ox O2 Delivery O2 Flow Rate FiO2 01/10/17 11:12 98.2 61 18 180/112 97 01/10/17 10:18 10.0 01/10/17 10:17 Simple Mask Intake and Output 01/09/17 01/09/17 01/10/17 15:00 23:00 07:00 Intake Total 120 ml Output Total 1600 ml Balance -1480 ml Exam HEENT exam; supple neck, positive JVD. No lymphadenopathy. Midline trachea. No thyromegaly. Patient is edentulous. Pupils are equal and reactive to light. No neck bruits. Chest exam; diminished but clear breath sound. S1-S2 audible, no murmurs. Irregular rhythm. Abdomen exam; soft, nontender. Nondistended. Bowel sounds audible. Extremity exam; no peripheral edema. Pulses 1+ bilaterally. No clubbing. [employer] exam; no focal deficit. Results Result Diagram: 01/10/17 0600 01/10/17 0600 Results 24 hrs Laboratory Tests Test 01/09/17 18:45 01/09/17 21:06 01/09/17 23:57 01/10/17 01:11 White Blood Count 4.6 L Red Blood Count 5.61 Hemoglobin 16.3 Hematocrit 49.5 Mean Corpuscular Volume 88.2 Mean Corpuscular Hemoglobin 29.1 Mean Corpuscular Hemoglobin Concent 32.9 Red Cell Distribution Width 17.4 H Platelet Count 204 Mean Platelet Volume 10.8 H Neutrophils % 55.6 Lymphocytes % 26.3 Monocytes % 14.0 H Eosinophils % 2.6 Basophils % 1.1 Nucleated Red Blood Cells % 0.0 Neutrophils # (Manual) 3 Lymphocytes # 1.2 Monocytes # 0.7 Eosinophils # 0.1 Basophils # 0.1 Nucleated Red Blood Cells # 0.0 Prothrombin Time 13.8 Prothrombin Time Ratio 1.1 INR International Normalized Ratio 1.06 Activated Partial Thromboplast Time 31.9 Sodium Level 143 Potassium Level 3.5 Chloride Level 106 Carbon Dioxide Level 26 Anion Gap 15 Blood Urea Nitrogen 16 Creatinine 1.02 Glucose Level 163 Calcium Level 8.8 Troponin I 0.038 0.045 0.051 B-Type Natriuretic Peptide 7530 H Blood Gas Specimen Source Blood arterial Arterial Blood Date Drawn 01/09/2017 9:01:21 PM Arterial Blood pH (Temp corrected) 7.465 H Arterial Blood pCO2 (Temp correct) 30.2 L Arterial Blood pO2 (Temp corrected) 71.5 L Arterial Blood HCO3 21.2 L Arterial Blood Base Excess -1.1 Arterial Blood Oxygen Saturation 94.7 L Eugenio Test ACCEPTAB Arterial Blood Gas Puncture Site Right Radial Arterial Blood Carboxyhemoglobin 0.6 Arterial Blood Methemoglobin 0.2 Blood Gas A-a O2 Differential 106.9 H Oxyhemoglobin Percent 93.9 Total Hemoglobin 16.9 Blood Gas Temperature 37.0 Blood Gas Modality NASAL CANNULA FiO2 30.0 Blood Gas Notified Whom BR Blood Gas Notified Time 01/09/2017 9:11:59 PM Creatine Kinase 32 32 Creatine Kinase Index 3.7 3.8 Creatinine Kinase MB (Mass) 1.18 1.22 Test 01/10/17 06:00 White Blood Count 5.4 Red Blood Count 5.34 Hemoglobin 15.6 Hematocrit 47.2 Mean Corpuscular Volume 88.4 Mean Corpuscular Hemoglobin 29.2 Mean Corpuscular Hemoglobin Concent 33.1 Red Cell Distribution Width 17.0 H Platelet Count 179 Mean Platelet Volume 11.2 H Neutrophils % 62.5 Lymphocytes % 18.0 Monocytes % 15.8 H Eosinophils % 2.2 Basophils % 1.3 Nucleated Red Blood Cells % 0.0 Neutrophils # (Manual) 3 Lymphocytes # 1.0 Monocytes # 0.9 Eosinophils # 0.1 Basophils # 0.1 Nucleated Red Blood Cells # 0.0 Sodium Level 143 Potassium Level 3.6 Chloride Level 103 Carbon Dioxide Level 27 Anion Gap 17 H Blood Urea Nitrogen 15 Creatinine 0.87 Glucose Level 153 Calcium Level 8.6 Total Bilirubin 1.6 H Direct Bilirubin 0.00 Indirect Bilirubin 1.6 H Aspartate Amino Transf (AST/SGOT) 26 Alanine Aminotransferase (ALT/SGPT) 36 Alkaline Phosphatase 118 Creatine Kinase 30 Creatine Kinase Index 3.9 Creatinine Kinase MB (Mass) 1.16 Troponin I 0.049 Total Protein 5.8 L Albumin 3.3 Globulin 2.50 Albumin/Globulin Ratio 1.32 Medications Medications Current Medications Ondansetron HCl (Zofran Inj) 4 mg Q6H PRN IV NAUSEA AND/OR VOMITING; Start at 21:00 Aspirin (Aspirin) 81 mg DAILY PO Last administered on 01/10/17 08:22; Admin Dose 81 MG; Start 01/10/17 at 09:00 Furosemide (Lasix) 20 mg Q12 IV Last administered on 01/10/17 08:23; Admin Dose 20 MG; Start 01/09/17 at 21:00 Acetaminophen (Tylenol Tab) 650 mg Q6H PRN PO PAIN LEVEL 1-3 OR FEVER; Start at 21:00 Morphine Sulfate (morphine) 2 mg Q4H PRN IV PAIN LEVEL 7-10; Start 01/09/17 at 21:00 Famotidine (Pepcid Iv) 20 mg Q12 IV Last administered on 01/10/17 08:22; Admin Dose 20 MG; Start 01/09/17 at 21:00 Enoxaparin Sodium (Lovenox) 30 mg DAILY SC Last administered on 01/10/17 08:31 ; Admin Dose 30 MG; Start 01/10/17 at 09:00 Potassium Chloride (Klor-Con 20) 20 meq DAILY PO Last administered on 08:22; Admin Dose 20 MEQ; Start 01/10/17 at 09:00 Clonidine (Catapres) 0.1 mg Q6H PRN PO ELEVATED SYSTOLIC BP Last administered on 01/09/17 23:06; Admin Dose 0.1 MG; Start 01/09/17 at 22:30 Hydralazine HCl (Apresoline) 25 mg Q6H PRN PO ELEVATED SYSTOLIC BP Last administered on 01/10/17 08:24; Admin Dose 25 MG; Start 01/10/17 at 01:30 Nitroglycerin (Nitroglycerin 2% Oint) 1 inch Q6 TD ; Start 01/10/17 at 12:00 MK MACIAS Jan 10, 2017 12:12
[2017-01-10] MEDS ORDERED: hydrALAzine 20 MG INJ IV PRN (12:30)
[2017-01-10] MEDS ORDERED: GLUCAGON 1 MG INJ IM PRN (13:00)
[2017-01-10] MEDS ORDERED: GLUCOSE GEL 15 GRAM TUBE PO PRN ×2 (13:00)
[2017-01-10] MEDS ORDERED: GLUCOSE GEL 15 GRAM TUBE BUCCAL PRN (13:00)
[2017-01-10] MEDS ORDERED: DEXTROSE 50% 50 ML SYRINGE IV PRN ×2 (13:00)
[2017-01-10] MEDS: ISOSORBIDE DINITRATE 10 MG TAB PO SCH ×2 (13:22→21:41)
[2017-01-10] MEDS: LEVOFLOXACIN 500MG/D5W (PMX) 100 ML IVPB SCH (13:22)
--- NOTE | 2017-01-10 13:30 | CONS ---
DATE OF ADMISSION: 01/09/2017 DATE OF CONSULTATION: 01/10/2017 REASON FOR CONSULTATION: Shortness of breath, congestive heart failure exacerbation. REQUESTING PHYSICIAN: Dr. Lv Gibson. HISTORY OF PRESENT ILLNESS: Mr. Hill is a 66-year-old male, well known to myself with multiple prior hospital admissions. He has a history of cardiomyopathy with severely depressed left ventricular ejection fraction, last approximately 25 percent by echo November 2016 with recurrent bouts of systolic congestive heart failure, prior myocardial infarction with most recent stress marked July 2016, revealing and patient refusing stress. REASON FOR ADMISSION: Hypertension, dyslipidemia, atrial fibrillation, medical noncompliance, who presents with complaints of shortness of breath and additionally complaints of substernal chest pain. Upon arrival, temperature of 97.7, blood pressure markedly elevated at 184/110, pulse 54, respirations 18 satting 97 percent. LABORATORY AND DIAGNOSTIC STUDIES: Patient's labs revealed a white count 426, hemoglobin 6.3, platelet count 204, sodium 143, potassium 3.5, creatinine 1.0, BUN 16. Troponin negative. BNP of 7532. INR 1.0. Patient underwent a chest x-ray revealing a large heart and prominent pulmonary vasculature, right lower lobe opacity and small right pleural effusions. Patient's electrocardiogram atrial fibrillation, rate of 62 with left axis deviation, inferior Q-waves, lateral Q-waves. The patient subsequently admitted to the floor. After being admitted to the floor he had continued shortness of breath through chronic face mask. Patient has been initiated on nitropaste, Lasix diuresis. PAST MEDICAL HISTORY: As above in history of past medical history. MEDICATION: Currently in hospital: 1. Nitropaste 1 inch q.6h. 2. DuoNeb. 3. Aspirin 81 mg daily. 4. Lovenox 1 subcu daily. 5. Potassium chloride 10 mEq daily. 6. Hydralazine p.r.n. 7. Clonidine p.r.n. 8. Zofran p.r.n. 9. Lasix 20 mg IV q.12h. 10. Tylenol p.r.n. 11. Pepcid 10 mg IV q.12. 12. Zofran p.r.n. ALLERGIES: NO KNOWN DRUG ALLERGIES. SOCIAL HISTORY: Positive tobacco. Social EtOH. No illicit drug use. FAMILY HISTORY: No history of early cardiac or early CD. REVIEW OF SYSTEMS: CONSTITUTIONAL: No fevers or chills. RESPIRATORY: Shortness of breath. HEART: Atrial fibrillation, congestive heart failure. GASTROINTESTINAL: No vomiting. GENITOURINARY: No hematuria. MUSCULOSKELETAL: Degenerative joint disease. PSYCH: The patient has depression. No documented CVA. PHYSICAL EXAMINATION: VITAL SIGNS: Temperature 98.6, blood pressure 180/112, pulse 61, respirations 18, satting 97 percent. GENERAL: The patient is alert, awake, and with shortness of breath. NECK: JVP of 9-10 cm water. CHEST: Bibasilar crackles. HEART: Regular rate and rhythm. Normal S1, S2. 1/6 systolic murmur. Nondisplaced PMI. ABDOMEN: Positive bowel sounds. Soft. EXTREMITIES: 1+ pitting edema bilaterally. 1+ pulses bilaterally. LABORATORY: As above in history of present illness. Most recently today sodium 43, potassium 0.6, creatinine 0.8, BUN 15, white count 5.4, hemoglobin 10.6, platelet count 179. IMAGING STUDIES: As above in history of present illness. No further imaging studies are reviewed at this time. ECG as above in history of present illness. No further diagnostic studies done at this time. IMPRESSION: 1. Congestive heart failure exacerbation, systolic, acute on chronic. 2. Cardiomyopathy, decreased left ejection fraction of approximately 25 percent by echo, November 2016. 3. Chest pain on admit. Assess for acute coronary syndrome. 4. History of coronary disease. 5. Medical noncompliance. 6. Hypertension. 7. Dyslipidemia. 8. Atrial fibrillation. RECOMMENDATIONS: 1. At this time, would maintain patient on telemetry monitoring to follow rhythm and rate control closely. 2. We would complete the patient's workup for myocardial infarction. 3. Resume the patient's baseline beta padmini, hydralazine, Norvasc, and apixaban. 4. Check a fasting lipid panel for general stratification with continue patient's Lasix diuresis following strict intake and output and correct diuresis closely. 5. Continue to check serial EKGs as recently revealing changes. Thank you for allowing me to take part in follow closely with you through patient's hospital course. Dictated By: Delia Lemus /elizabeth/ /Document#: [id number] CC: Lv Gibson MD;*EndCC*
--- NOTE | 2017-01-10 14:18 | HP ---
DATE OF ADMISSION: 01/09/2017 CHIEF COMPLAINT: Chest pain for the last 3 days, shortness of breath. HISTORY OF PRESENT ILLNESS: The patient is a 64-year-old male with past medical history of systolic and diastolic congestive heart failure, hypertension, hyperlipidemia, diabetes, history of stroke with craniotomy, history of cardiomyopathy with ejection fraction of 30 percent and former smoker, history of poor medical compliance. The patient presented to the emergency room with complaints of shortness of breath and chest pain for the last 3 days. In the emergency room, the patient was found to have hypertension also. Troponin was negative, however, BNP was not elevated. The patient with CHF, also with possible left lower lobe pneumonia. The patient complains occasional nausea, however patient denies any fever, denies any cough, denies any new vomiting. Denies any dark stools. The patient stated that she was not consistent with taking his diuretics. Medication the patient had is admitted for further evaluation and management. Past medical history per HPI. PAST SURGICAL HISTORY: Patient status post craniotomy for cerebellar decompression for significant edema related to a large cerebellar infarct in February 2015. FAMILY HISTORY: Noncontributory. SOCIAL HISTORY: Patient is a former smoker. Smoked for more than 10 years. Stopped in 1992. The patient denies any illicit drug use. Patient drinks alcohol occasionally. 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 MEDICATIONS: 1. Norvasc 2. Eliquis 3. Aspirin 4. Lasix 5. Hydralazine 6. Metformin 7. Toprol-XL 8. Nitroglycerin 9. Protonix 10. K-Dur 11. Terazosin. REVIEW OF SYSTEMS: Twelve point review of systems is negative unless mentioned in history of present illness. PHYSICAL EXAMINATION: GENERAL: Well-developed, obese male, currently is awake, alert, is currently is on face mask. VITAL SIGNS: Temperature is 98.2, pulse is 61, blood pressure is 180/112, respiratory rate 18, oxygen saturation 97 percent on simple mask 10 L. HEENT: Head is atraumatic, normocephalic. Pupils equal, round, reactive to light and accommodation. Oral mucosa is pink and moist. NECK: Supple. No cervical lymphadenopathy. JVD is present. LUNGS: Diminished breath sounds. No rhonchi or wheezes noted. CARDIOVASCULAR: Norrmal S1, S2. No murmurs, gallops, clicks or rubs noted. ABDOMEN: Protuberant, soft, nondistended, nontender. Bowel sounds present. EXTREMITIES: Mild edema 1+. NEUROLOGICAL: Patient is awake, alert, no focal deficits noted. Motor strength is 5/5 in all extremities. LABORATORY DATA: On admission, CBC white blood cells 4.6, hemoglobin 16.3, hematocrit 49.5, platelets 204. Chemistry, sodium is 143, potassium 3.5, chloride 106, carbon dioxide 26, anion gap 15, BUN 16, creatinine 1.02. Glucose 163, calcium is 8.8. BNP is 7538, troponin is 0.038. IMAGING STUDIES: Chest x-ray on admission, enlarged heart and prominent pulmonary vasculature in keeping with interstitial pulmonary edema that is similar to prior exam. Right lower lobe opacity similar to prior exam. Differential diagnosis includes but not limited to, atelectasis, aspiration and pneumonia and small right pleural effusion. ASSESSMENT AND PLAN: 1. Acute respiratory distress, most likely secondary to exacerbation of congestive heart failure. 2. Rule out acute coronary syndrome. We will obtain troponins x3 and 12-lead EKG. Dr. Chen will be following patient in cardiology consultation. 3. Hypertension. Continue Norvasc, hydralazine. 4. Cardiomyopathy with ejection fraction of 30 percent. 5. Diabetes mellitus. Continue NovoLog with Accu-Chek q.a.c. and HS 1,800 ADA, 2 g sodium, low-fat, low-cholesterol diet. 6. Possible community-acquired pneumonia. Will start patient on Levaquin. 7. History of CVA status post craniotomy. 8. Number poor medical compliance. 9. Systolic and diastolic congestive heart failure with acute exacerbation. Continue Lasix and monitor electrolytes. Zofran p.r.n. for nausea. Morphine p.r.n. for pain. Continue Lovenox for deep venous thrombosis prophylaxis and add Pepcid for peptic ulcer disease prophylaxis. Further recommendations based on clinical course. 10. Plan of care discussed with Dr. Gibson. Dictated By: Amairani Richardson NP /elizabeth/ /Document#: [id number]
[2017-01-10] MEDS: morphine 2 MG INJ IV PRN (16:23)
[2017-01-10] MEDS ORDERED: APIXABAN 5 MG TABLET PO SCH (21:00)
[2017-01-10] MEDS: APIXABAN 5 MG TABLET PO SCH (21:42)
[2017-01-10] MEDS: AMLODIPINE 5 MG TAB PO SCH (21:42)
[2017-01-10] MEDS: BENAZEPRIL 10 MG TAB PO SCH (21:43)
[2017-01-10] MEDS: TERAZOSIN 2 MG CAP PO SCH (21:43)
[2017-01-11] VITALS (12 sets, daily range): BP systolic 105–150; BP diastolic 64–91; PULSE 57–76; RESP 17–20
[2017-01-11] MEDS: ALBUTEROL/IPRATROPIUM (NEB) 3 ML AMP HHN SCH ×4 (01:15→19:49)
[2017-01-11] MEDS: morphine 2 MG INJ IV PRN ×2 (04:04→08:22)
[2017-01-11 07:03] LABS: ABNORMAL IP MESSAGE 1; BASOPHIL # 0.1 10^3/ul (0.0-0.1); BASOPHILS % 0.9 % (0.0-2.0); EOSINOPHILS # 0.1 10^3/ul (0.0-0.5); EOSINOPHILS % 0.9 % (0.0-7.0); HEMATOCRIT 45.3 % (42.0-52.0); HEMOGLOBIN 14.8 g/dl (14.0-18.0); LYMPHOCYTES # 0.5 10^3/ul (0.8-2.9); LYMPHOCYTES % 8.4 % (15.0-51.0); MEAN CORPUSCULAR HEMOGLOBIN 28.5 pg (29.0-33.0); MEAN CORPUSCULAR HGB CONC 32.7 g/dl (32.0-37.0); MEAN CORPUSCULAR VOLUME 87.1 fl (82.0-101.0); MEAN PLATELET VOLUME 11.2 fl (7.4-10.4); MONOCYTE # 0.8 10^3/ul (0.3-0.9); MONOCYTES % 13.1 % (0.0-11.0); NEUTROPHILS % 76.2 % (39.0-77.0); PLATELET COUNT 170 10^3/UL (140-415); POSITIVE DIFF @See below; RED CELL DISTRIBUTION WIDTH 17.3 % (11.5-14.5); WHITE BLOOD COUNT 6.3 10^3/ul (4.8-10.8)
[2017-01-11 07:25] LABS: CHOL/HDL RATIO 3.1 RATIO
[2017-01-11 07:27] LABS: CALCIUM 8.6 mg/dl (8.4-10.2); CREATININE 1.22 mg/dl (0.61-1.24); POTASSIUM 3.2 mmol/L (3.5-5.1)
[2017-01-11 07:34] LABS: TROPONIN-I 0.053 ng/ml (0.00-0.12)
[2017-01-11] MEDS: POTASSIUM CHLORIDE (SR) 20 MEQ TAB PO SCH ×2 (08:19→21:19)
[2017-01-11] MEDS: APIXABAN 5 MG TABLET PO SCH ×2 (08:19→21:19)
[2017-01-11] MEDS: AMLODIPINE 5 MG TAB PO SCH ×2 (08:20→21:20)
[2017-01-11] MEDS: BENAZEPRIL 10 MG TAB PO SCH ×2 (08:20→21:19)
[2017-01-11] MEDS: ISOSORBIDE DINITRATE 10 MG TAB PO SCH ×3 (08:20→21:19)
[2017-01-11] MEDS: ASPIRIN 81 MG TAB PO SCH (08:20)
[2017-01-11] MEDS: metFORMIN 500 MG TAB PO SCH (08:21)
[2017-01-11] MEDS: FAMOTIDINE 20 MG INJ IV SCH (08:21)
[2017-01-11] MEDS: FUROSEMIDE 40 MG INJ IV SCH ×2 (08:21→21:18)
[2017-01-11] MEDS: METOPROLOL (XL) 25 MG TAB PO SCH (08:30)
[2017-01-11] MEDS ORDERED: ASPIRIN 81 MG TAB PO SCH (09:00)
[2017-01-11] MEDS ORDERED: METOPROLOL (XL) 25 MG TAB PO SCH (09:00)
--- NOTE | 2017-01-11 11:47 | CONS ---
Date/Time of Note Date/Time of Note DATE: 01/11/17 TIME: 11:45 Assessment/Plan Assessment/Plan Additional Assessment/Plan 1. Congestive heart failure exacerbation, systolic, acute on chronic - con't to keep euvolemic via diuresis. 2. Cardiomyopathy, decreased left ejection fraction of approximately 25 percent by echo, November 2016. Stable. 3. Chest pain on admit. Assess for acute coronary syndrome. R/O DE - doubt ischemia. 4. History of coronary disease - no CP today. 5. Medical noncompliance. 6. Hypertension- stable, rx as needed. 7. Dyslipidemia. 8. Atrial fibrillation0- rate controlled in 50s - on Lovenox. No pauses on tele. Consultation Date/Type/Reason Admit Date/Time Jan 09, 2017 at 20:05 Initial Consult Date 01/10/17 Type of Consultation: Pulmonary 24 HR Interval Summary Free Text/Dictation Atrial fibrillation0- rate controlled in 50s - on Lovenox. No pauses on tele. ROS: No fever, no chills, no nausea, no vomiting, no diarrhea/constipation No recent weight changes No chest pain, no PND, no orthopnea + SOB, better No dizziness, blurred vision No thirst, no heat or cold intolerance Exam/Review of Systems Vital Signs Vitals Vital Signs Date Time Temp Pulse Resp B/P Pulse Ox O2 Delivery O2 Flow Rate FiO2 01/11/17 11:34 97.3 65 20 105/64 94 01/11/17 07:46 Nasal Cannula 4.0 Intake and Output 01/10/17 01/10/17 01/11/17 15:00 23:00 07:00 Intake Total 1300 ml 400 ml Output Total 900 ml 900 ml Balance 400 ml -500 ml Exam General: WN/WD/NAD, AOx 1-2 HEENT: Unicetric/atraumatic/EOMI (follow commands) NECK: JVD elevated, no thyromegaly Lymph: no lymphadenopathy HEART: Irregular with no S3, II/ systolic murmur at apex, PMI L LUNGS: Coarse sounds ABD: soft, NT, ND, +BS : Intact Neuro: non focal SKIN: chronic changes EXT: edema Results Result Diagram: 01/11/17 0621 01/11/17 0621 Results 24 hrs Laboratory Tests Test 01/11/17 06:21 White Blood Count 6.3 Red Blood Count 5.20 Hemoglobin 14.8 Hematocrit 45.3 Mean Corpuscular Volume 87.1 Mean Corpuscular Hemoglobin 28.5 L Mean Corpuscular Hemoglobin Concent 32.7 Red Cell Distribution Width 17.3 H Platelet Count 170 Mean Platelet Volume 11.2 H Neutrophils % 76.2 Lymphocytes % 8.4 L Monocytes % 13.1 H Eosinophils % 0.9 Basophils % 0.9 Nucleated Red Blood Cells % 0.0 Neutrophils # (Manual) 5 Lymphocytes # 0.5 L Monocytes # 0.8 Eosinophils # 0.1 Basophils # 0.1 Nucleated Red Blood Cells # 0.0 Sodium Level 139 Potassium Level 3.2 L Chloride Level 102 Carbon Dioxide Level 27 Anion Gap 13 Blood Urea Nitrogen 19 Creatinine 1.22 Glucose Level 185 Hemoglobin A1c 7.3 H Calcium Level 8.6 Troponin I 0.053 Triglycerides Level 107 Cholesterol Level 169 LDL Cholesterol, Calculated 94 HDL Cholesterol 54 Cholesterol/HDL Ratio 3.1 Medications Medications Current Medications Ondansetron HCl (Zofran Inj) 4 mg Q6H PRN IV NAUSEA AND/OR VOMITING; Start at 21:00 Aspirin (Aspirin) 81 mg DAILY PO Last administered on 01/11/17 08:20; Admin Dose 81 MG; Start 01/10/17 at 09:00 Furosemide (Lasix) 20 mg Q12 IV Last administered on 01/11/17 08:21; Admin Dose 20 MG; Start 01/09/17 at 21:00 Acetaminophen (Tylenol Tab) 650 mg Q6H PRN PO PAIN LEVEL 1-3 OR FEVER Last administered on 01/11/17 05:05; Admin Dose 650 MG; Start 01/09/17 at 21:00 Morphine Sulfate (morphine) 2 mg Q4H PRN IV PAIN LEVEL 7-10 Last administered on 01/11/17 08:22; Admin Dose 2 MG; Start 01/09/17 at 21:00 Famotidine (Pepcid Iv) 20 mg Q12 IV Last administered on 01/11/17 08:21; Admin Dose 20 MG; Start 01/09/17 at 21:00 Potassium Chloride (Klor-Con 20) 20 meq DAILY PO Last administered on 08:19; Admin Dose 20 MEQ; Start 01/10/17 at 09:00 Clonidine (Catapres) 0.1 mg Q6H PRN PO ELEVATED SYSTOLIC BP Last administered on 01/09/17 23:06; Admin Dose 0.1 MG; Start 01/09/17 at 22:30 Hydralazine HCl (Apresoline) 25 mg Q6H PRN PO ELEVATED SYSTOLIC BP Last administered on 01/10/17 08:24; Admin Dose 25 MG; Start 01/10/17 at 01:30 Apixaban (Eliquis) 5 mg BID PO Last administered on 01/11/17 08:19; Admin Dose 5 MG; Start 01/10/17 at 21:00 Metoprolol Succinate (Toprol Xl) 25 mg DAILY PO Last administered on 01/11/17 08:30; Admin Dose 25 MG; Start 01/11/17 at 09:00 Benazepril HCl (Lotensin) 10 mg BID PO Last administered on 01/11/17 08:20; Admin Dose 10 MG; Start 01/10/17 at 21:00 Isosorbide Dinitrate (Isordil) 10 mg TID PO Last administered on 01/11/17 08: 20; Admin Dose 10 MG; Start 01/10/17 at 13:00 Hydralazine HCl 10 mg 10 mg Q4H PRN IV SBP>170 Last administered on 01/10/17 18:35; Admin Dose 10 MG; Start 01/10/17 at 12:30 Levofloxacin/ Dextrose (Levaquin 500mg/ D5W 100 ml (Pmx)) 100 ml @ 100 mls/hr Q24H IVPB Last administered on 01/10/17 13:22; Admin Dose 100 MLS/HR; Start at 13:00 Amlodipine Besylate (Norvasc) 5 mg BID PO Last administered on 01/11/17 08:20 ; Admin Dose 5 MG; Start 01/10/17 at 21:00 Hydralazine HCl (Apresoline) 50 mg Q8 PO Last administered on 01/11/17 05:45; Admin Dose 50 MG; Start 01/10/17 at 14:00 Terazosin HCl (Hytrin) 2 mg HS PO Last administered on 01/10/17 21:43; Admin Dose 2 MG; Start 01/10/17 at 21:00 Miscellaneous Information 1 ea NOTE XX ; Start 01/10/17 at 13:00 Glucose (Glutose) 15 gm Q15M PRN PO DECREASED GLUCOSE; Start 01/10/17 at 13:00 Glucose (Glutose) 22.5 gm Q15M PRN PO DECREASED GLUCOSE; Start 01/10/17 at 13: 00 Dextrose (D50w Syringe) 25 ml Q15M PRN IV DECREASED GLUCOSE; Start 01/10/17 at 13:00 Dextrose (D50w Syringe) 50 ml Q15M PRN IV DECREASED GLUCOSE; Start 01/10/17 at 13:00 Glucagon (Glucagen) 1 mg Q15M PRN IM DECREASED GLUCOSE; Start 01/10/17 at 13:00 Glucose (Glutose) 15 gm Q15M PRN BUCCAL DECREASED GLUCOSE; Start 01/10/17 at 13 :00 RONAK SUAREZ MD Jan 11, 2017 11:47
[2017-01-11] MEDS ORDERED: POTASSIUM CHLORIDE 20 MEQ POWDER FOR ORAL SOLN PO ONE (13:00)
[2017-01-11] MEDS: LEVOFLOXACIN 500MG/D5W (PMX) 100 ML IVPB SCH (13:16)
--- NOTE | 2017-01-11 17:15 | PN ---
Date/Time of Note Date/Time of Note DATE: 01/11/17 TIME: 17:10 Assessment/Plan VTE Prophylaxis VTE Prophylaxis Intervention: SCD's Lines/Catheters [facility]from [facility] Saline Lock Urinary Cath still in place: Yes Reason Cath still needed: urinary retention Assessment/Plan Chief Complaint/Hosp Course Patient respiratory status improved, continues on supplemental oxygen with occasional shortness of breath. Patient had a urinary retention, Dr. Campos is asked to see patient in urology consultation. Problems: Assessment/Plan -Acute respiratory distress, most likely secondary to exacerbation of congestive heart failure. -Acute coronary syndrome ruled out, cardiac enzymes are negative 3. -Acute on chronic systolic and diastolic congestive heart failure. Continue diuretics monitor electrolytes. Dr. Chen is following and cardiology consultation. -Cardiomyopathy with ejection fraction of 25% -Hypertension. Continue Norvasc, hydralazine. -Atrial fibrillation, continue Eliquis and metoprolol. -Diabetes mellitus. Continue NovoLog with Accu-Chek q.a.c. - Possible community-acquired pneumonia. Continue Levaquin. -History of CVA status post craniotomy. -Poor medical compliance. Further recommendations based on clinical course. Plan of care discussed with Dr. Gibson. Exam/Review of Systems Vital Signs Vitals Vital Signs Date Time Temp Pulse Resp B/P Pulse Ox O2 Delivery O2 Flow Rate FiO2 01/11/17 16:17 57 01/11/17 15:24 97.7 20 121/75 94 01/11/17 13:57 Nasal Cannula 3.0 Intake and Output 01/10/17 01/10/17 01/11/17 15:00 23:00 07:00 Intake Total 1300 ml 400 ml Output Total 900 ml 900 ml Balance 400 ml -500 ml Exam Constitutional: alert, oriented Head: normocephalic Neck: supple Respiratory: diminished breath sounds Cardiovascular: irregular rhythm Genitourinary - Male: other (Hooker) Extremities: normal pulses Neurological: nl mental status Results Result Diagram: 01/11/1721 01/11/17 0621 Results 24 hrs Laboratory Tests Test 01/11/17 06:21 White Blood Count 6.3 Red Blood Count 5.20 Hemoglobin 14.8 Hematocrit 45.3 Mean Corpuscular Volume 87.1 Mean Corpuscular Hemoglobin 28.5 L Mean Corpuscular Hemoglobin Concent 32.7 Red Cell Distribution Width 17.3 H Platelet Count 170 Mean Platelet Volume 11.2 H Neutrophils % 76.2 Lymphocytes % 8.4 L Monocytes % 13.1 H Eosinophils % 0.9 Basophils % 0.9 Nucleated Red Blood Cells % 0.0 Neutrophils # (Manual) 5 Lymphocytes # 0.5 L Monocytes # 0.8 Eosinophils # 0.1 Basophils # 0.1 Nucleated Red Blood Cells # 0.0 Sodium Level 139 Potassium Level 3.2 L Chloride Level 102 Carbon Dioxide Level 27 Anion Gap 13 Blood Urea Nitrogen 19 Creatinine 1.22 Glucose Level 185 Hemoglobin A1c 7.3 H Calcium Level 8.6 Troponin I 0.053 Triglycerides Level 107 Cholesterol Level 169 LDL Cholesterol, Calculated 94 HDL Cholesterol 54 Cholesterol/HDL Ratio 3.1 Medications Medications Current Medications Ondansetron HCl (Zofran Inj) 4 mg Q6H PRN IV NAUSEA AND/OR VOMITING; Start at 21:00 Aspirin (Aspirin) 81 mg DAILY PO Last administered on 01/11/17 08:20; Admin Dose 81 MG; Start 01/10/17 at 09:00 Furosemide (Lasix) 20 mg Q12 IV Last administered on 01/11/17 08:21; Admin Dose 20 MG; Start 01/09/17 at 21:00 Acetaminophen (Tylenol Tab) 650 mg Q6H PRN PO PAIN LEVEL 1-3 OR FEVER Last administered on 01/11/17 05:05; Admin Dose 650 MG; Start 01/09/17 at 21:00 Morphine Sulfate (morphine) 2 mg Q4H PRN IV PAIN LEVEL 7-10 Last administered on 01/11/17 08:22; Admin Dose 2 MG; Start 01/09/17 at 21:00 Potassium Chloride (Klor-Con 20) 20 meq DAILY PO Last administered on 08:19; Admin Dose 20 MEQ; Start 01/10/17 at 09:00 Clonidine (Catapres) 0.1 mg Q6H PRN PO ELEVATED SYSTOLIC BP Last administered on 01/09/17 23:06; Admin Dose 0.1 MG; Start 01/09/17 at 22:30 Hydralazine HCl (Apresoline) 25 mg Q6H PRN PO ELEVATED SYSTOLIC BP Last administered on 01/10/17 08:24; Admin Dose 25 MG; Start 01/10/17 at 01:30 Apixaban (Eliquis) 5 mg BID PO Last administered on 01/11/17 08:19; Admin Dose 5 MG; Start 01/10/17 at 21:00 Metoprolol Succinate (Toprol Xl) 25 mg DAILY PO Last administered on 01/11/17 08:30; Admin Dose 25 MG; Start 01/11/17 at 09:00 Benazepril HCl (Lotensin) 10 mg BID PO Last administered on 01/11/17 08:20; Admin Dose 10 MG; Start 01/10/17 at 21:00 Isosorbide Dinitrate (Isordil) 10 mg TID PO Last administered on 01/11/17 13: 16; Admin Dose 10 MG; Start 01/10/17 at 13:00 Hydralazine HCl 10 mg 10 mg Q4H PRN IV SBP>170 Last administered on 01/10/17 18:35; Admin Dose 10 MG; Start 01/10/17 at 12:30 Levofloxacin/ Dextrose (Levaquin 500mg/ D5W 100 ml (Pmx)) 100 ml @ 100 mls/hr Q24H IVPB Last administered on 01/11/17 13:16; Admin Dose 100 MLS/HR; Start at 13:00 Amlodipine Besylate (Norvasc) 5 mg BID PO Last administered on 01/11/17 08:20 ; Admin Dose 5 MG; Start 01/10/17 at 21:00 Hydralazine HCl (Apresoline) 50 mg Q8 PO Last administered on 01/11/17 13:15; Admin Dose 50 MG; Start 01/10/17 at 14:00 Terazosin HCl (Hytrin) 2 mg HS PO Last administered on 01/10/17 21:43; Admin Dose 2 MG; Start 01/10/17 at 21:00 Miscellaneous Information 1 ea NOTE XX ; Start 01/10/17 at 13:00 Glucose (Glutose) 15 gm Q15M PRN PO DECREASED GLUCOSE; Start 01/10/17 at 13:00 Glucose (Glutose) 22.5 gm Q15M PRN PO DECREASED GLUCOSE; Start 01/10/17 at 13: 00 Dextrose (D50w Syringe) 25 ml Q15M PRN IV DECREASED GLUCOSE; Start 01/10/17 at 13:00 Dextrose (D50w Syringe) 50 ml Q15M PRN IV DECREASED GLUCOSE; Start 01/10/17 at 13:00 Glucagon (Glucagen) 1 mg Q15M PRN IM DECREASED GLUCOSE; Start 01/10/17 at 13:00 Glucose (Glutose) 15 gm Q15M PRN BUCCAL DECREASED GLUCOSE; Start 01/10/17 at 13 :00 Famotidine (Pepcid) 20 mg BID PO ; Start 01/11/17 at 21:00 ARIN CHEN Jan 11, 2017 17:15
--- NOTE | 2017-01-11 17:36 | PN ---
DATE: 01/11/2017 SUBJECTIVE DATA: This patient is stable this morning, sitting up in a chair. Denies any hemoptysis or hematemesis. Still has productive cough and exertional dyspnea. OBJECTIVE DATA: VITAL SIGNS: Temperature 98, pulse 65, blood pressure 105/64, and O2 sat 96 percent on 4 L. NECK: Neck is supple. No JVD. HEART: S1, S2. No added sounds or murmurs. CHEST: Diminished air entry both lung bases. ABDOMEN: Soft, nontender. No guarding or rebound. EXTREMITIES: No signs of clubbing or edema. NEUROLOGIC: Generalized weakness, but no focal deficits. LABS: White count 6.3, hemoglobin 14.8, platelets of 170. BUN 19, creatinine 1.22. Troponin negative. Chest x-ray performed yesterday showed mild congestive cardiac failure. IMPRESSION: 1. Hypoxemic respiratory distress likely secondary to acute congestive heart failure (CHF), likely acute on chronic systolic dysfunction. 2. History of cardiomyopathy with decreased ejection fraction. 3. Remote tobacco history. 4. Rate controlled atrial fibrillation. PLAN: 1. Continue cardiac recommendations pending formal echocardiogram. 2. Continue IV diuretics. 3. Consider discontinuing Levaquin as no significant pneumonia and absence of leukocytosis. 4. Encourage out of bed. 5. DVT and GI prophylaxis. Dictated By: Chris Singh MD /elizabeth/bj /Document#: [id number]
[2017-01-11] MEDS ORDERED: [UNRECOGNIZED DRUG - REMARK] XX SCH (18:30)
[2017-01-11] MEDS: FAMOTIDINE 20 MG TAB PO SCH (21:19)
[2017-01-11] MEDS: TERAZOSIN 2 MG CAP PO SCH (21:19)
[2017-01-12] VITALS (13 sets, daily range): BP systolic 124–144; BP diastolic 66–100; PULSE 58–83; RESP 18
[2017-01-12] MEDS: ALBUTEROL/IPRATROPIUM (NEB) 3 ML AMP HHN SCH ×4 (01:25→19:57)
[2017-01-12] MEDS ORDERED: POTASSIUM CHLORIDE (SR) 20 MEQ TAB PO SCH (09:00)
[2017-01-12] MEDS: METOPROLOL (XL) 25 MG TAB PO SCH (09:00)
[2017-01-12] MEDS: morphine 2 MG INJ IV PRN (09:24)
[2017-01-12] MEDS: FUROSEMIDE 40 MG INJ IV SCH ×2 (09:25→21:56)
[2017-01-12] MEDS: POTASSIUM CHLORIDE (SR) 20 MEQ TAB PO SCH ×2 (09:26→21:57)
[2017-01-12] MEDS: FAMOTIDINE 20 MG TAB PO SCH ×2 (09:26→21:57)
[2017-01-12] MEDS: metFORMIN 500 MG TAB PO SCH (09:26)
[2017-01-12] MEDS: ISOSORBIDE DINITRATE 10 MG TAB PO SCH ×3 (09:27→21:57)
[2017-01-12] MEDS: ASPIRIN 81 MG TAB PO SCH (09:27)
[2017-01-12] MEDS: AMLODIPINE 5 MG TAB PO SCH ×2 (09:27→21:58)
[2017-01-12] MEDS: APIXABAN 5 MG TABLET PO SCH ×2 (09:27→21:57)
[2017-01-12] MEDS: BENAZEPRIL 10 MG TAB PO SCH ×2 (09:28→21:57)
--- NOTE | 2017-01-12 11:14 | PN ---
DATE: 01/12/2017 SUBJECTIVE DATA: Mr. Hill's condition is stable. The patient reports decreased shortness of breath. Denies any coughing, wheezing, chest pain, abdominal pain, nausea, vomiting. OBJECTIVE DATA: GENERAL: Elderly male, awake, alert, currently in no distress. VITAL SIGNS: Temperature is 98.8 degrees Fahrenheit, respiratory rate is 18 per minute, O2 sat 95 percent on 2 L nasal cannula, blood pressure 122/68, heart rate 70 per minute. NECK: Supple. No JVD. No lymphadenopathy. Midline trachea. No thyromegaly. Pharynx is clear. No neck bruits. HEENT: Patient has a well-healed craniotomy scar. The patient is edentulous. Pupils are equal and reactive to light bilaterally. CHEST: Clear to auscultation. CARDIAC: S1, S2 audible. No murmurs. Irregular rhythm. ABDOMEN: Soft, nontender, nondistended. Bowel sounds audible. EXTREMITIES: No peripheral edema. NEWS WRITER: No focal deficit. MEDICATIONS: Reviewed. ASSESSMENT: 1. Patient admitted for shortness of breath due to congestive heart failure exacerbation, with significant clinical improvement after being diuresed. 2. History of chronic atrial fibrillation. 3. Hypertension. 4. Diabetes. 5. Prior craniotomy. RECOMMENDATIONS: Continue current supportive care. Patient is reporting improvement on current treatment regimen. Dictated By: Bj Bright MD /elizabeth/wong /Document#: [id number]
--- NOTE | 2017-01-12 13:08 | CONS ---
Date/Time of Note Date/Time of Note DATE: 01/12/17 TIME: 13:02 Assessment/Plan Assessment/Plan Chief Complaint/Hosp Course IMPRESSION: 1. Congestive heart failure exacerbation, systolic, acute on chronic. 2. Cardiomyopathy, decreased left ejection fraction of approximately 25 percent by echo, November 2016. 3. Chest pain on admit. Assess for acute coronary syndrome. 4. History of coronary disease. 5. Medical noncompliance. 6. Hypertension. 7. Dyslipidemia. 8. Atrial fibrillation.-RATE CONTROLLED Recc: -Tele -serial ecg's -Continue lasix ditomásius and marcusley change to PO tomorrow -Continue current anti-hypertenives with hydralazine/benazepril/norvasc as tolerated -Follow HR closely and continue BB as tolerated only Problems: Consultation Date/Type/Reason Admit Date/Time Jan 09, 2017 at 20:05 Initial Consult Date 01/10/17 Type of Consultation: cardiology Reason for Consultation CHF/cardiomyopathy Exam/Review of Systems Vital Signs Vitals Vital Signs Date Time Temp Pulse Resp B/P Pulse Ox O2 Delivery O2 Flow Rate FiO2 01/12/17 12:24 63 01/12/17 11:47 97.8 18 125/78 97 01/12/17 08:00 Nasal Cannula 4.0 Intake and Output 01/11/17 01/11/17 01/12/17 15:00 23:00 07:00 Intake Total 100 ml 400 ml Output Total 900 ml Balance 100 ml -500 ml Exam Review of Systems: CONSTITUTIONAL: No fevers, chills. PULMONARY: No sob CARDIOVASCULAR: No chest pain/palpitations GASTROINTESTINAL: No nausea/vomiting. GENITOURINARY: No hematuria/dysuria. MUSCULOSKELETAL: No myagias/arthalgias. PSYCHIATRIC: The patient denies depression. NEUROLOGIC: No weakness Constitutional: alert Psych: no complaints Head: normocephalic ENMT: mucosa pink and moist Neck: jvd (9 cm water), supple Respiratory: diminished breath sounds Cardiovascular: regular rate and rhythm Gastrointestinal: non-tender, soft Musculoskeletal: muscle tone (normal) Extremities: edema Neurological: other (No focal; deficits) Results Result Diagram: 01/11/1762001/11/17620 Medications Medications Current Medications Ondansetron HCl (Zofran Inj) 4 mg Q6H PRN IV NAUSEA AND/OR VOMITING; Start at 21:00 Aspirin (Aspirin) 81 mg DAILY PO Last administered on 01/12/17 09:27; Admin Dose 81 MG; Start 01/10/17 at 09:00 Furosemide (Lasix) 20 mg Q12 IV Last administered on 01/12/17 09:25; Admin Dose 20 MG; Start 01/09/17 at 21:00 Acetaminophen (Tylenol Tab) 650 mg Q6H PRN PO PAIN LEVEL 1-3 OR FEVER Last administered on 01/11/17 05:05; Admin Dose 650 MG; Start 01/09/17 at 21:00 Morphine Sulfate (morphine) 2 mg Q4H PRN IV PAIN LEVEL 7-10 Last administered on 01/12/17 09:24; Admin Dose 2 MG; Start 01/09/17 at 21:00 Clonidine (Catapres) 0.1 mg Q6H PRN PO ELEVATED SYSTOLIC BP Last administered on 01/09/17 23:06; Admin Dose 0.1 MG; Start 01/09/17 at 22:30 Hydralazine HCl (Apresoline) 25 mg Q6H PRN PO ELEVATED SYSTOLIC BP Last administered on 01/10/17 08:24; Admin Dose 25 MG; Start 01/10/17 at 01:30 Apixaban (Eliquis) 5 mg BID PO Last administered on 01/12/17 09:27; Admin Dose 5 MG; Start 01/10/17 at 21:00 Metoprolol Succinate (Toprol Xl) 25 mg DAILY PO Last administered on 01/11/17 08:30; Admin Dose 25 MG; Start 01/11/17 at 09:00 Benazepril HCl (Lotensin) 10 mg BID PO Last administered on 01/12/17 09:28; Admin Dose 10 MG; Start 01/10/17 at 21:00 Isosorbide Dinitrate (Isordil) 10 mg TID PO Last administered on 01/12/17 09: 27; Admin Dose 10 MG; Start 01/10/17 at 13:00 Hydralazine HCl 10 mg 10 mg Q4H PRN IV SBP>170 Last administered on 01/10/17 18:35; Admin Dose 10 MG; Start 01/10/17 at 12:30 Levofloxacin/ Dextrose (Levaquin 500mg/ D5W 100 ml (Pmx)) 100 ml @ 100 mls/hr Q24H IVPB Last administered on 01/11/17 13:16; Admin Dose 100 MLS/HR; Start at 13:00 Amlodipine Besylate (Norvasc) 5 mg BID PO Last administered on 01/12/17 09:27 ; Admin Dose 5 MG; Start 01/10/17 at 21:00 Hydralazine HCl (Apresoline) 50 mg Q8 PO Last administered on 01/12/17 06:09; Admin Dose 50 MG; Start 01/10/17 at 14:00 Terazosin HCl (Hytrin) 2 mg HS PO Last administered on 01/11/17 21:19; Admin Dose 2 MG; Start 01/10/17 at 21:00 Miscellaneous Information 1 ea NOTE XX ; Start 01/10/17 at 13:00 Glucose (Glutose) 15 gm Q15M PRN PO DECREASED GLUCOSE; Start 01/10/17 at 13:00 Glucose (Glutose) 22.5 gm Q15M PRN PO DECREASED GLUCOSE; Start 01/10/17 at 13: 00 Dextrose (D50w Syringe) 25 ml Q15M PRN IV DECREASED GLUCOSE; Start 01/10/17 at 13:00 Dextrose (D50w Syringe) 50 ml Q15M PRN IV DECREASED GLUCOSE; Start 01/10/17 at 13:00 Glucagon (Glucagen) 1 mg Q15M PRN IM DECREASED GLUCOSE; Start 01/10/17 at 13:00 Glucose (Glutose) 15 gm Q15M PRN BUCCAL DECREASED GLUCOSE; Start 01/10/17 at 13 :00 Famotidine (Pepcid) 20 mg BID PO Last administered on 01/12/17 09:26; Admin Dose 20 MG; Start 01/11/17 at 21:00 Potassium Chloride (Klor-Con 20) 20 meq BID PO Last administered on 01/12/17 09:26; Admin Dose 20 MEQ; Start 01/11/17 at 21:00 ALISSON POTTER Jan 12, 2017 13:08
[2017-01-12] MEDS: LEVOFLOXACIN 500MG/D5W (PMX) 100 ML IVPB SCH (13:21)
[2017-01-12 14:46] LABS: BASOPHIL # 0.1 10^3/ul (0.0-0.1); BASOPHILS % 0.9 % (0.0-2.0); EOSINOPHILS # 0.2 10^3/ul (0.0-0.5); EOSINOPHILS % 2.8 % (0.0-7.0); HEMATOCRIT 43.9 % (42.0-52.0); HEMOGLOBIN 14.7 g/dl (14.0-18.0); LYMPHOCYTES # 0.7 10^3/ul (0.8-2.9); LYMPHOCYTES % 13.2 % (15.0-51.0); MEAN CORPUSCULAR HEMOGLOBIN 29.7 pg (29.0-33.0); MEAN CORPUSCULAR HGB CONC 33.5 g/dl (32.0-37.0); MEAN CORPUSCULAR VOLUME 88.7 fl (82.0-101.0); MEAN PLATELET VOLUME 10.6 fl (7.4-10.4); MONOCYTE # 0.7 10^3/ul (0.3-0.9); MONOCYTES % 12.3 % (0.0-11.0); NEUTROPHILS % 70.4 % (39.0-77.0); PLATELET COUNT 176 10^3/UL (140-415); RED BLOOD COUNT 4.95 10^6/ul (4.70-6.10); RED CELL DISTRIBUTION WIDTH 17.2 % (11.5-14.5); WHITE BLOOD COUNT 5.4 10^3/ul (4.8-10.8)
[2017-01-12 14:55] LABS: CALCIUM 8.6 mg/dl (8.4-10.2); CREATININE 1.01 mg/dl (0.61-1.24); POTASSIUM 3.8 mmol/L (3.5-5.1)
--- NOTE | 2017-01-12 15:12 | PN ---
Date/Time of Note Date/Time of Note DATE: 01/12/17 TIME: 15:09 Assessment/Plan VTE Prophylaxis VTE Prophylaxis Intervention: SCD's Lines/Catheters [facility] Saline Lock Urinary Cath still in place: Yes Reason Cath still needed: urinary retention Assessment/Plan Chief Complaint/Hosp Course Patient looks more comfortable, continued on supplemental oxygen, denies shortness of breath at rest. Assessment/Plan -Acute on chronic systolic and diastolic congestive heart failure. Continue diuretics monitor electrolytes. Dr. Chen is following and cardiology consultation. -Cardiomyopathy with ejection fraction of 25% -Urinary retention, continue Hooker catheter, Dr. Campos is asked to see patient in urology consultation -Acute respiratory distress, most likely secondary to exacerbation of congestive heart failure. -Acute coronary syndrome ruled out, cardiac enzymes are negative 3. -Hypertension. Continue Norvasc, hydralazine. -Atrial fibrillation, continue Eliquis and metoprolol. -Diabetes mellitus. Continue NovoLog with Accu-Chek q.a.c. - Possible community-acquired pneumonia. Continue Levaquin. -History of CVA status post craniotomy. -Poor medical compliance. Further recommendations based on clinical course. Plan of care discussed with Dr. Gibson. Problems: Exam/Review of Systems Vital Signs Vitals Vital Signs Date Time Temp Pulse Resp B/P Pulse Ox O2 Delivery O2 Flow Rate FiO2 01/12/17 12:24 63 01/12/17 11:47 97.8 18 125/78 97 01/12/17 08:00 Nasal Cannula 4.0 Intake and Output 01/11/17 01/11/17 01/12/17 15:00 23:00 07:00 Intake Total 100 ml 400 ml Output Total 900 ml Balance 100 ml -500 ml Exam Constitutional: alert, oriented Head: normocephalic Neck: supple Respiratory: diminished breath sounds Cardiovascular: irregular rhythm Genitourinary - Male: other (Hooker) Extremities: normal pulses Neurological: nl mental status Results Result Diagram: 01/12/17 1410 01/12/17 1410 Results 24 hrs Laboratory Tests Test 01/12/17 14:10 White Blood Count 5.4 Red Blood Count 4.95 Hemoglobin 14.7 Hematocrit 43.9 Mean Corpuscular Volume 88.7 Mean Corpuscular Hemoglobin 29.7 Mean Corpuscular Hemoglobin Concent 33.5 Red Cell Distribution Width 17.2 H Platelet Count 176 Mean Platelet Volume 10.6 H Neutrophils % 70.4 Lymphocytes % 13.2 L Monocytes % 12.3 H Eosinophils % 2.8 Basophils % 0.9 Nucleated Red Blood Cells % 0.0 Neutrophils # (Manual) 4 Lymphocytes # 0.7 L Monocytes # 0.7 Eosinophils # 0.2 Basophils # 0.1 Nucleated Red Blood Cells # 0.0 Sodium Level 141 Potassium Level 3.8 Chloride Level 103 Carbon Dioxide Level 25 Anion Gap 17 H Blood Urea Nitrogen 18 Creatinine 1.01 Glucose Level 180 Calcium Level 8.6 Medications Medications Current Medications Ondansetron HCl (Zofran Inj) 4 mg Q6H PRN IV NAUSEA AND/OR VOMITING; Start at 21:00 Aspirin (Aspirin) 81 mg DAILY PO Last administered on 01/12/17 09:27; Admin Dose 81 MG; Start 01/10/17 at 09:00 Furosemide (Lasix) 20 mg Q12 IV Last administered on 01/12/17 09:25; Admin Dose 20 MG; Start 01/09/17 at 21:00 Acetaminophen (Tylenol Tab) 650 mg Q6H PRN PO PAIN LEVEL 1-3 OR FEVER Last administered on 01/11/17 05:05; Admin Dose 650 MG; Start 01/09/17 at 21:00 Morphine Sulfate (morphine) 2 mg Q4H PRN IV PAIN LEVEL 7-10 Last administered on 01/12/17 09:24; Admin Dose 2 MG; Start 01/09/17 at 21:00 Clonidine (Catapres) 0.1 mg Q6H PRN PO ELEVATED SYSTOLIC BP Last administered on 01/09/17 23:06; Admin Dose 0.1 MG; Start 01/09/17 at 22:30 Hydralazine HCl (Apresoline) 25 mg Q6H PRN PO ELEVATED SYSTOLIC BP Last administered on 01/10/17 08:24; Admin Dose 25 MG; Start 01/10/17 at 01:30 Apixaban (Eliquis) 5 mg BID PO Last administered on 01/12/17 09:27; Admin Dose 5 MG; Start 01/10/17 at 21:00 Benazepril HCl (Lotensin) 10 mg BID PO Last administered on 01/12/17 09:28; Admin Dose 10 MG; Start 01/10/17 at 21:00 Isosorbide Dinitrate (Isordil) 10 mg TID PO Last administered on 01/12/17 13: 22; Admin Dose 10 MG; Start 01/10/17 at 13:00 Hydralazine HCl 10 mg 10 mg Q4H PRN IV SBP>170 Last administered on 01/10/17 18:35; Admin Dose 10 MG; Start 01/10/17 at 12:30 Levofloxacin/ Dextrose (Levaquin 500mg/ D5W 100 ml (Pmx)) 100 ml @ 100 mls/hr Q24H IVPB Last administered on 01/12/17 13:21; Admin Dose 100 MLS/HR; Start at 13:00 Amlodipine Besylate (Norvasc) 5 mg BID PO Last administered on 01/12/17 09:27 ; Admin Dose 5 MG; Start 01/10/17 at 21:00 Hydralazine HCl (Apresoline) 50 mg Q8 PO Last administered on 01/12/17 13:21; Admin Dose 50 MG; Start 01/10/17 at 14:00 Terazosin HCl (Hytrin) 2 mg HS PO Last administered on 01/11/17 21:19; Admin Dose 2 MG; Start 01/10/17 at 21:00 Miscellaneous Information 1 ea NOTE XX ; Start 01/10/17 at 13:00 Glucose (Glutose) 15 gm Q15M PRN PO DECREASED GLUCOSE; Start 01/10/17 at 13:00 Glucose (Glutose) 22.5 gm Q15M PRN PO DECREASED GLUCOSE; Start 01/10/17 at 13: 00 Dextrose (D50w Syringe) 25 ml Q15M PRN IV DECREASED GLUCOSE; Start 01/10/17 at 13:00 Dextrose (D50w Syringe) 50 ml Q15M PRN IV DECREASED GLUCOSE; Start 01/10/17 at 13:00 Glucagon (Glucagen) 1 mg Q15M PRN IM DECREASED GLUCOSE; Start 01/10/17 at 13:00 Glucose (Glutose) 15 gm Q15M PRN BUCCAL DECREASED GLUCOSE; Start 01/10/17 at 13 :00 Famotidine (Pepcid) 20 mg BID PO Last administered on 01/12/17 09:26; Admin Dose 20 MG; Start 01/11/17 at 21:00 Potassium Chloride (Klor-Con 20) 20 meq BID PO Last administered on 01/12/17 09:26; Admin Dose 20 MEQ; Start 01/11/17 at 21:00 Metoprolol Succinate (Toprol Xl) 12.5 mg DAILY PO ; Start 01/13/17 at 09:00 ARIN CHEN Jan 12, 2017 15:12
[2017-01-12] MEDS ORDERED: MAGNESIUM SULFATE 1 GM/D5W 100 ML IVPB ONE (21:30)
[2017-01-12] MEDS: TERAZOSIN 2 MG CAP PO SCH (21:58)
[2017-01-13] VITALS (9 sets, daily range): BP systolic 132–148; BP diastolic 74–88; PULSE 45–66; RESP 18–19
[2017-01-13] MEDS: ALBUTEROL/IPRATROPIUM (NEB) 3 ML AMP HHN SCH (01:46)
[2017-01-13] MEDS: metFORMIN 500 MG TAB PO SCH (08:07)
[2017-01-13] MEDS: FUROSEMIDE 40 MG INJ IV SCH (08:08)
[2017-01-13] MEDS: ASPIRIN 81 MG TAB PO SCH (08:08)
[2017-01-13] MEDS: BENAZEPRIL 10 MG TAB PO SCH (08:09)
[2017-01-13] MEDS: FAMOTIDINE 20 MG TAB PO SCH (08:09)
[2017-01-13] MEDS: APIXABAN 5 MG TABLET PO SCH (08:09)
[2017-01-13] MEDS: POTASSIUM CHLORIDE (SR) 20 MEQ TAB PO SCH (08:09)
[2017-01-13] MEDS: AMLODIPINE 5 MG TAB PO SCH (08:10)
[2017-01-13] MEDS: ISOSORBIDE DINITRATE 10 MG TAB PO SCH (08:18)
[2017-01-13] MEDS ORDERED: METOPROLOL (XL) 25 MG TAB PO SCH (09:00)
[2017-01-13 11:38] LABS: BASOPHILS % 0.4 % (0.0-2.0); EOSINOPHILS # 0.2 10^3/ul (0.0-0.5); EOSINOPHILS % 3.4 % (0.0-7.0); HEMATOCRIT 44.1 % (42.0-52.0); HEMOGLOBIN 14.4 g/dl (14.0-18.0); LYMPHOCYTES # 0.7 10^3/ul (0.8-2.9); LYMPHOCYTES % 12.6 % (15.0-51.0); MEAN CORPUSCULAR HEMOGLOBIN 29.4 pg (29.0-33.0); MEAN CORPUSCULAR HGB CONC 32.7 g/dl (32.0-37.0); MEAN CORPUSCULAR VOLUME 90.2 fl (82.0-101.0); MEAN PLATELET VOLUME 10.6 fl (7.4-10.4); MONOCYTE # 0.7 10^3/ul (0.3-0.9); MONOCYTES % 12.5 % (0.0-11.0); NEUTROPHILS % 70.7 % (39.0-77.0); PLATELET COUNT 167 10^3/UL (140-415); RED BLOOD COUNT 4.89 10^6/ul (4.70-6.10); RED CELL DISTRIBUTION WIDTH 17.2 % (11.5-14.5); WHITE BLOOD COUNT 5.5 10^3/ul (4.8-10.8)
--- NOTE | 2017-01-13 11:39 | CONS ---
Date/Time of Note Date/Time of Note DATE: 01/13/17 TIME: 11:35 Assessment/Plan Assessment/Plan Chief Complaint/Hosp Course IMPRESSION: 1. Congestive heart failure exacerbation, systolic, acute on chronic. 2. Cardiomyopathy, decreased left ejection fraction of approximately 25 percent by echo, November 2016. 3. Chest pain on admit. Assess for acute coronary syndrome. 4. History of coronary disease. 5. Medical noncompliance. 6. Hypertension. 7. Dyslipidemia. 8. Atrial fibrillation.-RATE CONTROLLED Recc: -Tele -serial ecg's -Continue lasix diuresis and will check CXR for ongoing congestion -Continue current anti-hypertenives with hydralazine/benazepril/norvasc -Follow HR closely and continue BB as tolerated only -Continue abx's and f/u cx data -Bronchodilators Problems: Consultation Date/Type/Reason Admit Date/Time Jan 09, 2017 at 20:05 Initial Consult Date 01/10/17 Type of Consultation: cardiology Reason for Consultation CHF Referring Provider: NAE TIPTON MD Exam/Review of Systems Vital Signs Vitals Vital Signs Date Time Temp Pulse Resp B/P Pulse Ox O2 Delivery O2 Flow Rate FiO2 01/13/17 11:13 98.6 60 19 132/74 96 01/13/17 08:00 Nasal Cannula 3.0 Intake and Output 01/12/17 01/12/17 01/13/17 15:00 23:00 07:00 Intake Total 880 ml 400 ml Output Total 600 ml 900 ml Balance 280 ml -500 ml Exam Review of Systems: CONSTITUTIONAL: No fevers, chills. PULMONARY: mild sob CARDIOVASCULAR: No chest pain/palpitations GASTROINTESTINAL: No nausea/vomiting. GENITOURINARY: No hematuria/dysuria. MUSCULOSKELETAL: No myagias/arthalgias. PSYCHIATRIC: The patient denies depression. NEUROLOGIC: generalized weakness Constitutional: alert Psych: no complaints Head: normocephalic ENMT: mucosa pink and moist Neck: jvd (9cm), supple Respiratory: diminished breath sounds (at bases/B) Cardiovascular: regular rate and rhythm Gastrointestinal: non-tender, soft Musculoskeletal: muscle tone Extremities: edema (none) Neurological: other (focal deficits) Results Result Diagram: 01/12/17 1410 01/12/17 1410 Results 24 hrs Laboratory Tests Test 01/12/17 14:10 01/13/17 10:43 White Blood Count 5.4 Pending Red Blood Count 4.95 Pending Hemoglobin 14.7 Pending Hematocrit 43.9 Pending Mean Corpuscular Volume 88.7 Pending Mean Corpuscular Hemoglobin 29.7 Pending Mean Corpuscular Hemoglobin Concent 33.5 Pending Red Cell Distribution Width 17.2 H Pending Platelet Count 176 Pending Mean Platelet Volume 10.6 H Pending Neutrophils % 70.4 Lymphocytes % 13.2 L Monocytes % 12.3 H Eosinophils % 2.8 Basophils % 0.9 Nucleated Red Blood Cells % 0.0 Neutrophils # (Manual) 4 Lymphocytes # 0.7 L Monocytes # 0.7 Eosinophils # 0.2 Basophils # 0.1 Nucleated Red Blood Cells # 0.0 Sodium Level 141 Potassium Level 3.8 Chloride Level 103 Carbon Dioxide Level 25 Anion Gap 17 H Blood Urea Nitrogen 18 Creatinine 1.01 Glucose Level 180 Calcium Level 8.6 Medications Medications Current Medications Ondansetron HCl (Zofran Inj) 4 mg Q6H PRN IV NAUSEA AND/OR VOMITING; Start at 21:00 Aspirin (Aspirin) 81 mg DAILY PO Last administered on 01/13/17 08:08; Admin Dose 81 MG; Start 01/10/17 at 09:00 Furosemide (Lasix) 20 mg Q12 IV Last administered on 01/13/17 08:08; Admin Dose 20 MG; Start 01/09/17 at 21:00 Acetaminophen (Tylenol Tab) 650 mg Q6H PRN PO PAIN LEVEL 1-3 OR FEVER Last administered on 01/11/17 05:05; Admin Dose 650 MG; Start 01/09/17 at 21:00 Morphine Sulfate (morphine) 2 mg Q4H PRN IV PAIN LEVEL 7-10 Last administered on 01/12/17 09:24; Admin Dose 2 MG; Start 01/09/17 at 21:00 Clonidine (Catapres) 0.1 mg Q6H PRN PO ELEVATED SYSTOLIC BP Last administered on 01/09/17 23:06; Admin Dose 0.1 MG; Start 01/09/17 at 22:30 Hydralazine HCl (Apresoline) 25 mg Q6H PRN PO ELEVATED SYSTOLIC BP Last administered on 01/10/17 08:24; Admin Dose 25 MG; Start 01/10/17 at 01:30 Apixaban (Eliquis) 5 mg BID PO Last administered on 01/13/17 08:09; Admin Dose 5 MG; Start 01/10/17 at 21:00 Benazepril HCl (Lotensin) 10 mg BID PO Last administered on 01/13/17 08:09; Admin Dose 10 MG; Start 01/10/17 at 21:00 Isosorbide Dinitrate (Isordil) 10 mg TID PO Last administered on 01/13/17 08: 18; Admin Dose 10 MG; Start 01/10/17 at 13:00 Hydralazine HCl (Apresoline) 10 mg Q4H PRN IV SBP>170 Last administered on 01/10 18:35; Admin Dose 10 MG; Start 01/10/17 at 12:30 Amlodipine Besylate (Norvasc) 5 mg BID PO Last administered on 01/13/17 08:10 ; Admin Dose 5 MG; Start 01/10/17 at 21:00 Hydralazine HCl (Apresoline) 50 mg Q8 PO Last administered on 01/13/17 05:14; Admin Dose 50 MG; Start 01/10/17 at 14:00 Terazosin HCl (Hytrin) 2 mg HS PO Last administered on 01/12/17 21:58; Admin Dose 2 MG; Start 01/10/17 at 21:00 Miscellaneous Information 1 ea NOTE XX ; Start 01/10/17 at 13:00 Glucose (Glutose) 15 gm Q15M PRN PO DECREASED GLUCOSE; Start 01/10/17 at 13:00 Glucose (Glutose) 22.5 gm Q15M PRN PO DECREASED GLUCOSE; Start 01/10/17 at 13: 00 Dextrose (D50w Syringe) 25 ml Q15M PRN IV DECREASED GLUCOSE; Start 01/10/17 at 13:00 Dextrose (D50w Syringe) 50 ml Q15M PRN IV DECREASED GLUCOSE; Start 01/10/17 at 13:00 Glucagon (Glucagen) 1 mg Q15M PRN IM DECREASED GLUCOSE; Start 01/10/17 at 13:00 Glucose (Glutose) 15 gm Q15M PRN BUCCAL DECREASED GLUCOSE; Start 01/10/17 at 13 :00 Famotidine (Pepcid) 20 mg BID PO Last administered on 01/13/17 08:09; Admin Dose 20 MG; Start 01/11/17 at 21:00 Potassium Chloride (Klor-Con 20) 20 meq BID PO Last administered on 01/13/17 08:09; Admin Dose 20 MEQ; Start 01/11/17 at 21:00 Metoprolol Succinate (Toprol Xl) 12.5 mg DAILY PO Last administered on 08:18; Admin Dose 12.5 MG; Start 01/13/17 at 09:00 Levofloxacin (Levaquin) 500 mg DAILY@06 PO ; Start 01/13/17 at 13:00 ALISSON POTTER Jan 13, 2017 11:39
--- NOTE | 2017-01-13 11:46 | CONS ---
Date/Time of Note Date/Time of Note DATE: 01/13/17 TIME: 11:44 Assessment/Plan Assessment/Plan Additional Assessment/Plan Assessment recommendations; 1. Patient admitted with CHF exacerbation with significant clinical improvement. 2. Other comorbidities including history of chronic atrial fibrillation, prior craniotomy, hypertension and hyperlipidemia. Continue current treatment. Consider discharge. Consultation Date/Type/Reason Admit Date/Time Jan 09, 2017 at 20:05 Initial Consult Date 01/10/17 Type of Consultation: Pulmonary Referring Provider: NAE TIPTON MD 24 HR Interval Summary Free Text/Dictation Patient condition is stable. Denies any chest pain, shortness of breath, wheezing, cough or sputum production. Patient wants to go home. General exam; elderly male, awake and alert. Currently in no distress. Exam/Review of Systems Vital Signs Vitals Vital Signs Date Time Temp Pulse Resp B/P Pulse Ox O2 Delivery O2 Flow Rate FiO2 01/13/17 11:13 98.6 60 19 132/74 96 01/13/17 08:00 Nasal Cannula 3.0 Intake and Output 01/12/17 01/12/17 01/13/17 15:00 23:00 07:00 Intake Total 880 ml 400 ml Output Total 600 ml 900 ml Balance 280 ml -500 ml Exam HEENT exam; supple neck, no JVD. No lymphadenopathy. Midline trachea. No thyromegaly. Patient is edentulous. Chest exam; clear to auscultation. S1-S2 audible, no murmurs. Irregular rhythm. Abdomen exam; soft, nontender. No organomegaly. Bowel sounds audible. Extremity exam; no peripheral edema. Pulses 1+ bilaterally. BENEFITS MANAGER exam; no focal deficit. Results Result Diagram: 01/13/17 1043 01/12/17 1410 Results 24 hrs Laboratory Tests Test 01/12/17 14:10 01/13/17 10:43 White Blood Count 5.4 5.5 Red Blood Count 4.95 4.89 Hemoglobin 14.7 14.4 Hematocrit 43.9 44.1 Mean Corpuscular Volume 88.7 90.2 Mean Corpuscular Hemoglobin 29.7 29.4 Mean Corpuscular Hemoglobin Concent 33.5 32.7 Red Cell Distribution Width 17.2 H 17.2 H Platelet Count 176 167 Mean Platelet Volume 10.6 H 10.6 H Neutrophils % 70.4 70.7 Lymphocytes % 13.2 L 12.6 L Monocytes % 12.3 H 12.5 H Eosinophils % 2.8 3.4 Basophils % 0.9 0.4 Nucleated Red Blood Cells % 0.0 0.0 Neutrophils # (Manual) 4 4 Lymphocytes # 0.7 L 0.7 L Monocytes # 0.7 0.7 Eosinophils # 0.2 0.2 Basophils # 0.1 0.0 Nucleated Red Blood Cells # 0.0 0.0 Sodium Level 141 Potassium Level 3.8 Chloride Level 103 Carbon Dioxide Level 25 Anion Gap 17 H Blood Urea Nitrogen 18 Creatinine 1.01 Glucose Level 180 Calcium Level 8.6 Medications Medications Current Medications Ondansetron HCl (Zofran Inj) 4 mg Q6H PRN IV NAUSEA AND/OR VOMITING; Start at 21:00 Aspirin (Aspirin) 81 mg DAILY PO Last administered on 01/13/17 08:08; Admin Dose 81 MG; Start 01/10/17 at 09:00 Acetaminophen (Tylenol Tab) 650 mg Q6H PRN PO PAIN LEVEL 1-3 OR FEVER Last administered on 01/11/17 05:05; Admin Dose 650 MG; Start 01/09/17 at 21:00 Morphine Sulfate (morphine) 2 mg Q4H PRN IV PAIN LEVEL 7-10 Last administered on 01/12/17 09:24; Admin Dose 2 MG; Start 01/09/17 at 21:00 Clonidine (Catapres) 0.1 mg Q6H PRN PO ELEVATED SYSTOLIC BP Last administered on 01/09/17 23:06; Admin Dose 0.1 MG; Start 01/09/17 at 22:30 Hydralazine HCl (Apresoline) 25 mg Q6H PRN PO ELEVATED SYSTOLIC BP Last administered on 01/10/17 08:24; Admin Dose 25 MG; Start 01/10/17 at 01:30 Apixaban (Eliquis) 5 mg BID PO Last administered on 01/13/17 08:09; Admin Dose 5 MG; Start 01/10/17 at 21:00 Benazepril HCl (Lotensin) 10 mg BID PO Last administered on 01/13/17 08:09; Admin Dose 10 MG; Start 01/10/17 at 21:00 Isosorbide Dinitrate (Isordil) 10 mg TID PO Last administered on 01/13/17 08: 18; Admin Dose 10 MG; Start 01/10/17 at 13:00 Hydralazine HCl (Apresoline) 10 mg Q4H PRN IV SBP>170 Last administered on 01/10 18:35; Admin Dose 10 MG; Start 01/10/17 at 12:30 Amlodipine Besylate (Norvasc) 5 mg BID PO Last administered on 01/13/17 08:10 ; Admin Dose 5 MG; Start 01/10/17 at 21:00 Hydralazine HCl (Apresoline) 50 mg Q8 PO Last administered on 01/13/17 05:14; Admin Dose 50 MG; Start 01/10/17 at 14:00 Terazosin HCl (Hytrin) 2 mg HS PO Last administered on 01/12/17 21:58; Admin Dose 2 MG; Start 01/10/17 at 21:00 Miscellaneous Information 1 ea NOTE XX ; Start 01/10/17 at 13:00 Glucose (Glutose) 15 gm Q15M PRN PO DECREASED GLUCOSE; Start 01/10/17 at 13:00 Glucose (Glutose) 22.5 gm Q15M PRN PO DECREASED GLUCOSE; Start 01/10/17 at 13: 00 Dextrose (D50w Syringe) 25 ml Q15M PRN IV DECREASED GLUCOSE; Start 01/10/17 at 13:00 Dextrose (D50w Syringe) 50 ml Q15M PRN IV DECREASED GLUCOSE; Start 01/10/17 at 13:00 Glucagon (Glucagen) 1 mg Q15M PRN IM DECREASED GLUCOSE; Start 01/10/17 at 13:00 Glucose (Glutose) 15 gm Q15M PRN BUCCAL DECREASED GLUCOSE; Start 01/10/17 at 13 :00 Famotidine (Pepcid) 20 mg BID PO Last administered on 01/13/17 08:09; Admin Dose 20 MG; Start 01/11/17 at 21:00 Potassium Chloride (Klor-Con 20) 20 meq BID PO Last administered on 01/13/17 08:09; Admin Dose 20 MEQ; Start 01/11/17 at 21:00 Metoprolol Succinate (Toprol Xl) 12.5 mg DAILY PO Last administered on 08:18; Admin Dose 12.5 MG; Start 01/13/17 at 09:00 Levofloxacin (Levaquin) 500 mg DAILY@06 PO ; Start 01/13/17 at 13:00 Furosemide (Lasix) 40 mg Q12 IV ; Start 01/13/17 at 21:00; Status MK TAYLOR Jan 13, 2017 11:46
[2017-01-13 11:55] LABS: CALCIUM 8.8 mg/dl (8.4-10.2); CREATININE 1.01 mg/dl (0.61-1.24); POTASSIUM 3.9 mmol/L (3.5-5.1)
[2017-01-13] MEDS ORDERED: LEVOFLOXACIN 500 MG TAB PO SCH (13:00)
[2017-01-13] MEDS ORDERED: FUROSEMIDE 40 MG INJ IV SCH (18:00)
--- NOTE | 2017-01-14 17:07 | RADRPT ---
Vent Rate: 72 bpm RR Interval: 0 msec [place] Interval: 0 msec QRS Duration: 130 msec QT Interval: 492 msec QTC Interval: 538 msec P-R-T Radiant: 0 - -50 - 111 degrees Atrial fibrillation with premature ventricular or aberrantly conducted complexes Left axis deviation Left ventricular hypertrophy with QRS widening T wave abnormality, consider lateral ischemia or digitalis effect Abnormal ECG Electronically Signed By: Jamey Valadez [id number]
--- NOTE | 2017-01-15 04:25 | DS ---
DATE OF ADMISSION: 01/09/2017 DATE OF DISCHARGE: 01/13/2017 FINAL DIAGNOSES: 1. Acute decompensated systolic heart failure. 2. Severe cardiomyopathy with ejection fraction of 25 percent. 3. Coronary artery disease. 4. Hypertension. 5. Dyslipidemia. 6. Chronic atrial fibrillation. DISCHARGE MEDICATIONS: None as the patient left against medical advice. The patient is noncompliant with his care. REASON FOR ADMISSION: The patient is a 64-year-old gentleman with a history of systolic and diastolic congestive heart failure, hypertension, severe cardiomyopathy, hyperlipidemia, diabetes, coronary disease, history of CVA, and as mentioned above, he is poorly compliant with his medications. The patient came to ER with increasing shortness of breath and chest pain for the last 2 days. The patient was ruled out for SD. The patient was diagnosed with acute on chronic congestive heart failure exacerbation. HISTORY OF PRESENT ILLNESS: The patient was treated with IV Lasix and was also started on hydralazine, benazepril, amlodipine, and isosorbide. The patient was given Eliquis for chronic AFib. The patient also received aspirin for coronary artery disease. Chest x-ray also was positive for possible pneumonia and was treated with Levaquin. The patient was also seen by Dr. Bj Bright. The patient's labs on 01/14/2016 revealed white count of 5.5, hemoglobin 14.4, platelets 167. Chemistries revealed a sodium of 141, potassium 3.9, BUN 16, creatinine 1, glucose 138, calcium 8.8, magnesium 1.8. Vital signs on the day of discharge, temperature 98.6, pulse 58, respirations 19, blood pressure 152/74, O2 sat 96 percent. The patient, meanwhile, had significant improvement in his edema and was also noted to become less orthopneic. I met with the son a couple of times during this hospitalization and explained to him the reason for patient's recurrent admissions due to exacerbation of CHF. The patient has been noncompliant with medical care and in addition to multiple admissions has had multiple ER visits also. The patient was seen by Dr. Bj Bright from pulmonary standpoint and Dr. Tremaine Chen from cardiac standpoint. The patient's son told me that he is being seen by Dr. Farhan Camacho. Dictated By: Lv Gibson MD /elizabeth/jameson /Document#: [id number]
== END 2017-01-13 13:00 | disposition left against medical advice (07) | DRG 291 ==
LOC: E/R 18:20 → TEL 20:05
PROVIDERS: ADMIT Internal Medicine; ATTEND Internal Medicine
DX: I11.0 Hypertensive heart disease with heart failure (principal); J18.9 Pneumonia, unspecified organism; I42.9 Cardiomyopathy, unspecified; I48.2 Chronic atrial fibrillation; I50.43 Acute on chronic combined systolic (congestive) and diastolic (congestive) heart failure; I25.10 Atherosclerotic heart disease of native coronary artery without angina pectoris; E78.5 Hyperlipidemia, unspecified; Z86.73 Personal history of transient ischemic attack (TIA), and cerebral infarction without residual deficits; Z91.14 Patient's other noncompliance with medication regimen; Z87.891 Personal history of nicotine dependence; E11.9 Type 2 diabetes mellitus without complications; R07.9 Chest pain, unspecified; R33.9 Retention of urine, unspecified; Z79.82 Long term (current) use of aspirin
CPT/HCPCS: 36415; 36600; 71010; 80048; 80053; 80061; 82550; 82553; 82803; 83036; 83735; 83880; 84484; 85025; 85610; 85730; 93005; 94640; 94664; 96374; 96375; 96376; J0360; J1650; J1940; J1956; J2060; J2270; J3475

== ENCOUNTER 2017-03-22 01:31 | Inpatient (IN) | payer MEDICARE, BC ==
[~2017-03-22] VITALS: Ht 177.8 cm; Wt 102.8 kg
[~2017-03-22 01:31] MED LIST changes: -AMLO-147 PO; -APRS PO; -ASPI-664 PO; -ASPI-716 PO; -ASPI325T32 PO; -ASPI325T4 PO; -ATOR20TA38 PO; -BENA20TA48 PO; -BENA40TA41 PO; -BENAZEPRIL PO; -Bumetanide PO; -CARV3.1260 PO; -CARV6.25 PO; -CLON-379 PO; -ENAL10TA PO; -ENAL20TA PO; -ENAL5TAB PO; -FURO-109 PO; -FURO20TA3 PO; -GLIP5TAB13 PO; -ISOS20TA19 PO; -Ipratropium 0.02% (Neb) HHN; -KDUR PO; -LANT3I SC; -LORA-441 PO; -MAGN400T27 PO; +METO-335 PO; -METO-429 PO; -METO-448 PO; -METO25TA7 PO; -NIFE30TA60 PO; -NIFE30TA66 PO; -NIFE30TA7 PO; -NOVO3I SC; -OMEP20CA16 PO; -OXYC-281 PO; -PANT40TA3 PO; -PANT40VI7 PO; -POTA8CAP PO; -SERT20OR PO; -SPIR25TA PO; -VALS160T20 PO
--- NOTE | 2017-03-22 02:17 | RADRPT ---
PROCEDURE: Chest. CLINICAL INDICATION: Shortness of breath. TECHNIQUE: Single frontal view of the chest was obtained. COMPARISON: 01/10/2017. FINDINGS: The cardiac silhouette is enlarged. The aortic arch is unremarkable. There is pulmonary venous con gestion with interstitial edema. There are moderate and small left-sided pleural effusions. There i s no pneumothorax. IMPRESSION: Moderate cardiomegaly with pulmonary venous congestion and interstitial edema, slightly increased. Moderate and small left-sided pleural effusions, increased. .Kody Quinn MD, Date Time Electronically viewed and signed by .Kody Quinn MD, on 03/22/2017 02:17 .T/
[2017-03-22] MEDS ORDERED: FUROSEMIDE 40 MG INJ IV ONE ×2 (03:00→13:30)
--- NOTE | 2017-03-22 03:52 | ERD ---
ER Documentation Chief Complaint Chief Complaint SOB x3days,worse today.Speaking in 1-2 word sentence Hx CHF,not taking meds HPI This is a 66-year-old male with shortness of breath for 3 days is worse today. He speaks in 1-2 word sentences. Vital by EMS on a nonrebreather. Patient here multiple times in the past for CHF related issues. Patient is noncompliant with his medications. Denies any chest pain. ROS All systems reviewed and are negative except as per history of present illness. Medications Home Meds Active Scripts Hydralazine Hcl* (Hydralazine Hcl*) 25 Mg Tab, 50 MG PO Q8 for 30 Days, TAB Prov:ARIN CHEN 11/12/16 Metformin Hcl* (Metformin Hcl*) 1,000 Mg Tablet, 1000 MG PO WITH BREAKFAST for 30 Days, #30 TAB Prov:ARIN CHEN 11/12/16 Metoprolol Succinate* (Toprol XL*) 25 Mg Tab.sr.24h, 25 MG PO DAILY for 30 Days Prov:ARIN CHEN 11/12/16 Potassium Chloride* (K-Dur*) 20 Meq Tab.prt.sr, 20 MEQ PO DAILY for 30 Days Prov:ARIN CHEN 11/12/16 Furosemide* (Furosemide*) 40 Mg Tablet, 40 MG PO BID DIURETICS for 30 Days, TAB Prov:LIBBY CHENETLANA 11/12/16 Aspirin (Aspirin) 81 Mg Chew, 81 MG PO DAILY for 30 Days, TAB Prov:ARIN CHEN 11/12/16 Apixaban* (Eliquis*) 5 Mg Tablet, 5 MG PO BID for 30 Days, TAB Prov:ARIN CHEN 11/12/16 Amlodipine Besylate* (Norvasc*) 5 Mg Tablet, 5 MG PO BID for 30 Days, #60 TAB Prov:ARIN CHEN 11/12/16 Terazosin Hcl* (Terazosin Hcl*) 2 Mg Capsule, 2 MG PO HS for 30 Days, CAP Prov:NEVILLE GREEN 08/26/16 Pantoprazole* (Pantoprazole*) 40 Mg Tablet.dr, 40 MG PO DAILY@06 for 30 Days Prov:ENVILLE GREEN 08/26/16 Nitroglycerin* (Nitrostat*) 0.4 Mg Tab.subl, 1 TAB SL Q5M Y for CHEST PAIN for 30 Days Prov:NEVILLE GREEN 08/26/16 Allergies Allergies: Coded Allergies: No Known Allergies (Unverified Allergy, Unknown, 03/22/17) PMhx/Soc History of Surgery: Yes (craniectomy 2 years ago) Anesthesia Reaction: No Hx Neurological Disorder: Yes (CVA 2 years ago) Hx Respiratory Disorders: No Hx Cardiac Disorders: Yes (chf) Hx Psychiatric Problems: No Hx Miscellaneous Medical Probl: No Hx Alcohol Use: Yes (Socially) Hx Substance Use: No Hx Tobacco Use: Yes (Quit cigarettes 15+ years ago) Smoking Status: Former smoker Physical Exam Vitals Vital Signs Date Time Temp Pulse Resp B/P Pulse Ox O2 Delivery O2 Flow Rate FiO2 03/22/17 01:55 63 98 40 03/22/17 01:53 98.1 66 20 173/121 100 BIPAP 03/22/17 01:37 98.1 72 32 179/108 95 Physical Exam Const: [] Head: Atraumatic Eyes: Normal Conjunctiva ENT: Normal External Ears, Nose and Mouth. Neck: Full range of motion..~ No meningismus. Resp: Clear to auscultation bilaterally Cardio: Regular rate and rhythm, no murmurs Abd: Soft, non tender, non distended. Normal bowel sounds Skin: No petechiae or rashes Back: No midline or flank tenderness Ext: No cyanosis, or edema Neur: Awake and alert Psych: Normal Mood and Affect Result Diagram: 03/22/1720203/22/17 0203 Results 24 hrs Laboratory Tests Test 03/22/17 02:03 White Blood Count 6.610^3/ul Red Blood Count 5.9510^6/ul Hemoglobin 16.7g/dl Hematocrit 52.3% Mean Corpuscular Volume 87.9fl Mean Corpuscular Hemoglobin 28.1pg Mean Corpuscular Hemoglobin Concent 31.9g/dl Red Cell Distribution Width 16.4% Platelet Count 39985^3/UL Mean Platelet Volume 11.0fl Neutrophils % 70.3% Lymphocytes % 15.9% Monocytes % 10.5% Eosinophils % 2.1% Basophils % 0.9% Nucleated Red Blood Cells % 0.0/100WBC Neutrophils # 4.610^3/ul Lymphocytes # 1.110^3/ul Monocytes # 0.710^3/ul Eosinophils # 0.110^3/ul Basophils # 0.110^3/ul Nucleated Red Blood Cells # 0.010^3/ul Prothrombin Time 14.3Sec Prothrombin Time Ratio 1.1 INR International Normalized Ratio 1.11 Activated Partial Thromboplast Time 37.8Sec Sodium Level 144mmol/L Potassium Level 4.3mmol/L Chloride Level 106mmol/L Carbon Dioxide Level 25mmol/L Anion Gap 17 Blood Urea Nitrogen 20mg/dl Creatinine 1.19mg/dl Glucose Level 179mg/dl Calcium Level 9.4mg/dl Total Bilirubin 0.8mg/dl Direct Bilirubin 0.00mg/dl Indirect Bilirubin 0.8mg/dl Aspartate Amino Transf (AST/SGOT) 25IU/L Alanine Aminotransferase (ALT/SGPT) 31IU/L Alkaline Phosphatase 152IU/L Troponin I 0.056ng/ml B-Type Natriuretic Peptide 71655WP/ML Total Protein 7.7g/dl Albumin 4.5g/dl Globulin 3.20g/dl Albumin/Globulin Ratio 1.40 Current Medications Medications (Trade) Dose Ordered Sig/Tavon Route PRN Reason Start Time Stop Time Status Last Admin Dose Admin Furosemide (Lasix) 80 mg ONCE ONCE IV 03/22/17 03:00 03/22/17 03:07 DC 03/22/17 03:15 Procedures/MDM EKG: Rate/Rhythm: [Normal Sinus Rhythm] QRS, ST, T-waves: [No changes consistent w/ acute ischemia] Impression: [No evidence of ischemia or arrhythmia] Chest X-ray 1V Interpreted by me: Soft Tissue: No acute abnormalities Bones: No acute abnormalities Mediastinum/Cardiac Silhouette/Lungs: Cardiomegaly Patient's heart failure symptoms is concerning for acute decompensation and will require inpatient workup and monitoring. Further w/u for ischemia, arrhythmia, PE or dissection will be deferred to the inpatient team. Accepting Care Team: Current data and ongoing care discussed. Time: 3 AM Primary Provider: Dr. Powers Consulting: [XOXOXO] Outstanding Data: none Departure Diagnosis: Primary Impression: Shortness of breath Condition: Serious ENRICO FRANCO Mar 22, 2017 03:52
[2017-03-22 06:00] VITALS: TEMP 98.5
--- NOTE | 2017-03-22 12:21 | HP ---
Date/Time of Note Date/Time of Note DATE: 03/22/17 TIME: 12:20 Assessment/Plan VTE Prophylaxis VTE Prophylaxis Intervention: LMWH Assessment/Plan Assessment/Plan - Acute respiratory failure requiring BiPAP, most likely secondary to CHF exacerbation. - Acute on chronic systolic and diastolic congestive heart failure, continue Lasix, nitro electrolytes. Dr. Chen is asked to see patient in cardiology consultation. - Rule out acute coronary syndrome. Cardiac enzymes every 6 hours 3. - Hypertension. Continue benazepril, metoprolol, hydralazine. - Cardiomyopathy with ejection fraction of 30 percent. - Diabetes mellitus. Continue NovoLog with Accu-Chek q.a.c.and HS 1,800 ADA, 2 g sodium, low-fat, low-cholesterol diet. - History of CVA status post craniotomy. - Poor medical compliance. Further recommendations based on clinical course. Plan of care discussed with Dr. Gibson. HPI/ROS Admit Date/Time Admit Date/Time Hx of Present Illness The patient is a 66-year-old male known to me from previous admission. Patient was congestive heart patient with congestive heart failure, COPD, high hypertension, diabetes hyperlipidemia and history of stroke. Patient was poor medical compliance was left AMA her last admission. The patient stated that he did not take any diuretics over the past week. Patient developed shortness of breath mild chest pain and bilateral lower extremities edema. Shortness of breath gets extremely worse yesterday and patient decided to seek care in the emergency room. Chest x-ray in the emergency room revealed moderate cardiomegaly with pulmonary venous congestion and interstitial edema, slightly increased. Moderate and small left-sided pleural effusions, increased. Patient denies any fever chills denies any nausea vomiting denies diarrhea. Patient was given Lasix and placed on BiPAP. Patient will be admitted to telemetry floor for further management. 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 Past Surgical Hx: endoscopy, other Family History Significant Family History: no pertinent family hx Social History Alcohol Use: occasionally Smoking Status: Former smoker Drug Use: none Exam/Review of Systems Vital Signs Vitals Vital Signs Date Time Temp Pulse Resp B/P Pulse Ox O2 Delivery O2 Flow Rate FiO2 03/22/17 12:06 74 25 170/122 96 Nasal Cannula 4.0 03/22/17 06:00 98.5 03/22/17 05:50 40 Exam Constitutional: alert, oriented Head: normocephalic Neck: supple Respiratory: diminished breath sounds Cardiovascular: nl pulses Gastrointestinal: non-tender, soft Musculoskeletal: nl extremities to inspection Extremities: edema Neurological: nl mental status Skin: nl turgor Labs Result Diagram: 03/22/1720203/22/17202 Medications Medications Current Medications Metoprolol Succinate (Toprol Xl) 12.5 mg DAILY PO ; Start 03/22/17 at 12:30; Status UNV Benazepril HCl (Lotensin) 10 mg BID PO ; Start 03/22/17 at 12:30; Status UNV Aspirin (Aspirin) 81 mg DAILY PO ; Start 03/23/17 at 09:00; Status UNV Hydralazine HCl (Apresoline) 50 mg Q8 PO ; Start 03/22/17 at 14:00; Status UNV ARIN CHEN Mar 22, 2017 12:21
[2017-03-22] MEDS ORDERED: DOCUSATE SODIUM 100 MG CAP PO PRN (12:30)
[2017-03-22] MEDS ORDERED: morphine 2 MG INJ IV PRN (12:30)
[2017-03-22] MEDS ORDERED: NACL 0.9% 3 ML SYG IV SCH (12:30)
[2017-03-22] MEDS ORDERED: ONDANSETRON 4 MG INJ IV PRN (12:30)
[2017-03-22] MEDS ORDERED: NITROGLYCERIN (SL) 0.4 MG TAB SL PRN (12:30)
[2017-03-22] MEDS: BENAZEPRIL 10 MG TAB PO SCH ×2 (12:30→22:27)
[2017-03-22] MEDS ORDERED: ACETAMINOPHEN 325 MG TAB PO PRN (12:30)
[2017-03-22] MEDS: ISOSORBIDE DINITRATE 10 MG TAB PO SCH ×2 (13:00→21:00)
[2017-03-22] MEDS: METOPROLOL (XL) 25 MG TAB PO SCH (13:00)
[2017-03-22] MEDS ORDERED: LORAZEPAM 2 MG INJ IV ONE (13:30)
[2017-03-22] MEDS ORDERED: hydrALAzine 20 MG INJ IV ONE (13:30)
--- NOTE | 2017-03-22 17:35 | CONS ---
Date/Time of Note Date/Time of Note DATE: 03/22/17 TIME: 17:34 Assessment/Plan Assessment/Plan Additional Assessment/Plan Acute on chronic CHF - con't diuresis # [id number] thank you Full note dictated. Consultation Date/Type/Reason Admit Date/Time Initial Consult Date Exam/Review of Systems Vital Signs Vitals Vital Signs Date Time Temp Pulse Resp B/P Pulse Ox O2 Delivery O2 Flow Rate FiO2 03/22/17 16:01 68 27 150/100 100 Nasal Cannula 4.0 03/22/17 06:00 98.5 03/22/17 05:50 40 Results Result Diagram: 03/22/17 0203 03/22/17 0203 Results 24 hrs Laboratory Tests Test 03/22/17 01:45 03/22/17 02:03 Blood Gas Specimen Source Blood arterial Arterial Blood Date Drawn 03/22/2017 2:40:00 AM Arterial Blood pH (Temp corrected) 7.410 Arterial Blood pCO2 (Temp correct) 32.8 L Arterial Blood pO2 (Temp corrected) 91.4 Arterial Blood HCO3 20.3 L Arterial Blood Base Excess -3.2 L Arterial Blood Oxygen Saturation 96.9 Eugenio Test ACCEPTAB Arterial Blood Gas Puncture Site Right Radial Arterial Blood Carboxyhemoglobin 0.5 Arterial Blood Methemoglobin 0.3 Blood Gas A-a O2 Differential 156.1 H Oxyhemoglobin Percent 96.1 Total Hemoglobin 16.8 Blood Gas Temperature 37.0 Blood Gas Respiration Rate 14.0 Blood Gas Actual Respiration Rate 30 Blood Gas Modality MASK - BIPAP FiO2 40.0 Blood Gas Inspiratory Time 0.8 Blood Gas IPAP/EPAP Ratio 15/5 Blood Gas Notified Whom AA Blood Gas Notified Time 03/22/2017 2:52:00 AM White Blood Count 6.6 Red Blood Count 5.95 # Hemoglobin 16.7 Hematocrit 52.3 H Mean Corpuscular Volume 87.9 Mean Corpuscular Hemoglobin 28.1 L Mean Corpuscular Hemoglobin Concent 31.9 L Red Cell Distribution Width 16.4 H Platelet Count 208 # Mean Platelet Volume 11.0 H Neutrophils % 70.3 Lymphocytes % 15.9 Monocytes % 10.5 Eosinophils % 2.1 Basophils % 0.9 Nucleated Red Blood Cells % 0.0 Neutrophils # 4.6 Lymphocytes # 1.1 Monocytes # 0.7 Eosinophils # 0.1 Basophils # 0.1 Nucleated Red Blood Cells # 0.0 Prothrombin Time 14.3 H Prothrombin Time Ratio 1.1 INR International Normalized Ratio 1.11 Activated Partial Thromboplast Time 37.8 H Sodium Level 144 Potassium Level 4.3 Chloride Level 106 Carbon Dioxide Level 25 Anion Gap 17 H Blood Urea Nitrogen 20 Creatinine 1.19 Glucose Level 179 Calcium Level 9.4 Total Bilirubin 0.8 Direct Bilirubin 0.00 Indirect Bilirubin 0.8 Aspartate Amino Transf (AST/SGOT) 25 Alanine Aminotransferase (ALT/SGPT) 31 Alkaline Phosphatase 152 H Troponin I 0.056 B-Type Natriuretic Peptide 33925 H Total Protein 7.7 Albumin 4.5 Globulin 3.20 Albumin/Globulin Ratio 1.40 Medications Medications Current Medications Metoprolol Succinate (Toprol Xl) 12.5 mg DAILY PO ; Start 03/22/17 at 13:00 Benazepril HCl (Lotensin) 10 mg BID PO ; Start 03/22/17 at 12:30 Aspirin (Aspirin) 81 mg DAILY PO ; Start 03/23/17 at 09:00 Hydralazine HCl (Apresoline) 50 mg Q8 PO ; Start 03/22/17 at 14:00 Ondansetron HCl (Zofran Inj) 4 mg Q6H PRN IV NAUSEA AND/OR VOMITING; Start at 12:30 Nitroglycerin (Nitroglycerin (Sl Tab) 0.4 Mg) 1 tab Q5M PRN SL CHEST PAIN; Start 03/22/17 at 12:30 Isosorbide Dinitrate (Isordil) 10 mg TID PO ; Start 03/22/17 at 13:00 Acetaminophen (Tylenol Tab) 650 mg Q6H PRN PO PAIN LEVEL 1-3 OR FEVER; Start 03/22/17 at 12:30 Morphine Sulfate (morphine) 2 mg Q4H PRN IV PAIN LEVEL 7-10; Start 03/22/17 at 12:30 Docusate Sodium (Colace) 100 mg Q12H PRN PO CONSTIPATION; Start 03/22/17 at 12 :30 Famotidine (Pepcid) 20 mg Q12 PO ; Start 03/22/17 at 21:00 RONAK SUAREZ MD Mar 22, 2017 17:35
--- NOTE | 2017-03-22 17:43 | RADRPT ---
PROCEDURE: Bilateral LOWER EXTREMITY DVT STUDY CLINICAL INDICATION: Leg swelling TECHNIQUE: Scans of the lower extremity veins were performed with color Doppler imaging compression and augmentation and spectal analysis. COMPARISON: None FINDINGS: Bilateral Lower Extremity: The bilateral common femoral, superficial femoral, and posterior tibial veins show good flow with augmentation of flow and with the veins being fully compressible. 2-D imag ing shows no filling defects. Right popliteal vein demonstrates intraluminal thrombus with the no compression noted. Bilateral low er leg edema seen. IMPRESSION: DVT right popliteal vein. No DVT left lower extremity RPTAT: AA[facility] Physician Alvina Date Time Electronically viewed and signed by Physician Alvina on 03/22/2017 17:43 MB/
[2017-03-22] MEDS: hydrALAzine 20 MG INJ IV PRN (20:39)
[2017-03-22 22:05] VITALS: Ht 177.8 cm; Wt 102.8 kg
[2017-03-22 22:15] VITALS: BP 148/85; RESP 22
[2017-03-22] MEDS: FAMOTIDINE 20 MG TAB PO SCH (22:26)
[2017-03-22] MEDS: FUROSEMIDE 40 MG INJ IV SCH (22:27)
[2017-03-22 22:33] VITALS: PULSE 60
[2017-03-22 23:50] VITALS: BP 140/76; RESP 20
[2017-03-23] VITALS (11 sets, daily range): BP systolic 115–143; BP diastolic 71–92; PULSE 52–65; RESP 18–22
[2017-03-23] MEDS: ISOSORBIDE DINITRATE 10 MG TAB PO SCH ×3 (01:57→20:44)
--- NOTE | 2017-03-23 05:43 | CONS ---
DATE OF ADMISSION: 03/22/2017 DATE OF CONSULTATION: 03/22/2017 HISTORY OF PRESENT ILLNESS: As reported by the patient, Mr. Hill is a 66-year-old gentleman known to me from prior admission with history of hypertension, heart failure with EF of 30%, history of C OPD, hypertension, diabetes and prior history of CVA, who comes to the hospital now for evaluation o f shortness of breath. The patient said that he has been getting progressively more short of breath over the last 3 to 4 days and finally decided to come into the emergency room. Patient is in jus d heart failure at this point with high BNP; however, there is no ischemia noted. For now, we will continue to diurese the patient. He responded well to initial diuresis with excellent urine output. We will continue to diurese the patient and then afterload reduction. Once his fluid status is im proved. For now, the patient is fairly stable. There was a plan for BiPAP, but he is off BiPAP now . PAST MEDICAL HISTORY: 1. Hypertension. 2. Dyslipidemia. 3. History of heart failure with preserved ejection fraction. 4. COPD. 5. Hypertension. 6. Diabetes. 7. History of CVA. ALLERGIES: NO KNOWN ALLERGIES. SOCIAL HISTORY: The patient ____ smoke, does not drink, does not use any drugs. FAMILY HISTORY: Negative for sudden cardiac or premature coronary artery disease. MEDICATIONS 1. Metoprolol 12.5 mg p.o. ____. 2. Benazepril 10 mg p.o. b.i.d. 3. Aspirin 81 mg ____. 4. He received IV Lasix. REVIEW OF SYSTEMS: CONSTITUTIONAL: No fevers, no chills, no weight gain. HEENT: No changes in vision or hearing. CARDIAC: ____ chest pain reported now. RESPIRATORY: Shortness of breath, acute on chronic. GASTROINTESTINAL: No nausea, vomiting, diarrhea, constipation. GENITOURINARY: No dysuria, hematuria. NEUROLOGIC: No focal neurologic deficits. HEMATOLOGIC: ____ . PSYCHIATRIC: History of anxiety. PHYSICAL EXAMINATION: VITAL SIGNS: Temperature is 98.7, heart rate 74, blood pressure 170/____. GENERAL: He is an obese gentleman in no acute distress, alert and oriented x3, aware of his conditi on. HEAD: Normocephalic, atraumatic. Eyes anicteric. NECK: Supple. JVD is elevated to 11 cm. There is no lymphadenopathy, no thyromegaly. HEART: Regular but tachycardic. Soft holosystolic murmur. PMI ____. LUNGS: Coarse wheezing, stridor. ABDOMEN: Distended, bowel sounds present. ____ EXTREMITIES: Show 2 to 3+ edema. LABORATORY DATA: White blood cell count 6.6, hemoglobin 16.7, platelets 208. INR is 1.1. Sodium 1 44, potassium 4.3. His BUN and creatinine are 1.19. Troponin is negative at 0.056. BNP is over ___ _. ASSESSMENT AND PLAN: 1. The patient has heart failure, systolic, acute on chronic. Continue diuresis now. Will add aft erload reduction as patient tolerates. For now, IV Lasix appears to be with good function. 2. Coronary artery disease. The patient has coronary artery disease, no chest pain reported now. Continue to adjust medical management as needed. Continue to monitor closely. The patient did not rule in for acute ischemia. Abnormal EKG. Prior changes noted. No intervention is needed. 3. History of cardiomyopathy ____ severe cardiomyopathy ____. 4. Noncompliance. The patient has history of medical noncompliance, left AMA last time. I hope he continues to comply with therapy. 5. Psychiatric illness. Defer to primary team for evaluation and management. 6. Dysphagia. Continue ____ for prophylaxis. I would like to thank Dr. Gibson for referring this patient for my evaluation. Dictated By: RONAK COLLINS/ALIE Conf#: [id number] DID#: [id number]
[2017-03-23] MEDS: ASPIRIN 81 MG TAB PO SCH (11:10)
[2017-03-23] MEDS: FAMOTIDINE 20 MG TAB PO SCH ×2 (11:10→20:43)
[2017-03-23] MEDS: BENAZEPRIL 10 MG TAB PO SCH ×2 (11:11→20:44)
[2017-03-23] MEDS: METOPROLOL (XL) 25 MG TAB PO SCH (11:11)
[2017-03-23] MEDS: FUROSEMIDE 40 MG INJ IV SCH ×2 (11:12→20:43)
--- NOTE | 2017-03-23 17:36 | PN ---
Date/Time of Note Date/Time of Note DATE: 03/23/17 TIME: 17:31 Assessment/Plan VTE Prophylaxis VTE Prophylaxis Intervention: SCD's Lines/Catheters [facility] Saline Lock Urinary Cath still in place: No Assessment/Plan Chief Complaint/Hosp Course Patient stated improvement in respiratory status however complains of difficulty voiding, will start tamsulosin Assessment/Plan - Acute respiratory failure requiring BiPAP, most likely secondary to CHF exacerbation. - Acute on chronic systolic and diastolic congestive heart failure, continue Lasix, nitro electrolytes. Dr. Chen is asked to see patient in cardiology consultation. - Atrial fibrillation. Continue Eliquis. - DVT right popliteal vein. Continue Eliquis. - Hypertension. Continue benazepril, metoprolol, hydralazine. - Cardiomyopathy with ejection fraction of 30%. - Diabetes mellitus hemoglobin A1c 7.7. Continue NovoLog with Accu-Chek q.a.c. - History of CVA status post craniotomy. - Poor medical compliance. Further recommendations based on clinical course. Plan of care discussed with Dr. Gibson. Problems: Exam/Review of Systems Vital Signs Vitals Vital Signs Date Time Temp Pulse Resp B/P Pulse Ox O2 Delivery O2 Flow Rate FiO2 03/23/17 16:26 52 03/23/17 15:55 98.0 22 120/75 91 03/23/17 08:10 2.0 03/23/17 00:00 Nasal Cannula 03/22/17 05:50 40 Intake and Output 03/22/17 03/22/17 03/23/17 15:00 23:00 07:00 Intake Total 550 ml Output Total 1000 ml 1000 ml 1400 ml Balance -1000 ml -1000 ml -850 ml Exam Constitutional: alert Head: normocephalic Neck: supple Respiratory: diminished breath sounds Cardiovascular: irregular rhythm Gastrointestinal: non-tender, soft Musculoskeletal: nl extremities to inspection Extremities: normal pulses Neurological: nl mental status Results Result Diagram: 03/23/17 1418 03/23/17 1418 Results 24 hrs Laboratory Tests Test 03/23/17 14:18 White Blood Count 7.3 Red Blood Count 5.52 Hemoglobin 15.8 Hematocrit 48.4 Mean Corpuscular Volume 87.7 Mean Corpuscular Hemoglobin 28.6 L Mean Corpuscular Hemoglobin Concent 32.6 Red Cell Distribution Width 15.5 H Platelet Count 195 Mean Platelet Volume 10.3 Neutrophils % 74.1 Lymphocytes % 10.3 L Monocytes % 13.2 H Eosinophils % 1.5 Basophils % 0.5 Nucleated Red Blood Cells % 0.0 Neutrophils # 5.4 Lymphocytes # 0.8 Monocytes # 1.0 H Eosinophils # 0.1 Basophils # 0.0 Nucleated Red Blood Cells # 0.0 Sodium Level 141 Potassium Level 3.8 Chloride Level 104 Carbon Dioxide Level 30 Anion Gap 11 Blood Urea Nitrogen 22 H Creatinine 1.26 H Glucose Level 165 Hemoglobin A1c 7.7 H Calcium Level 8.7 Magnesium Level 1.8 Total Bilirubin 1.0 Direct Bilirubin 0.00 Indirect Bilirubin 1.0 Aspartate Amino Transf (AST/SGOT) 22 Alanine Aminotransferase (ALT/SGPT) 34 Alkaline Phosphatase 97 Creatine Kinase 33 Creatine Kinase Index 3.1 Creatinine Kinase MB (Mass) 1.02 Troponin I 0.037 Total Protein 6.2 # Albumin 3.1 #L Globulin 3.10 Albumin/Globulin Ratio 1.00 Thyroid Stimulating Hormone (TSH) 0.975 Medications Medications Current Medications Metoprolol Succinate (Toprol Xl) 12.5 mg DAILY PO Last administered on 11:11; Admin Dose 12.5 MG; Start 03/22/17 at 13:00 Benazepril HCl (Lotensin) 10 mg BID PO Last administered on 03/23/17 11:11; Admin Dose 10 MG; Start 03/22/17 at 12:30 Aspirin (Aspirin) 81 mg DAILY PO Last administered on 03/23/17 11:10; Admin Dose 81 MG; Start 03/23/17 at 09:00 Hydralazine HCl (Apresoline) 50 mg Q8 PO Last administered on 03/23/17 11:12; Admin Dose 50 MG; Start 03/22/17 at 14:00 Ondansetron HCl (Zofran Inj) 4 mg Q6H PRN IV NAUSEA AND/OR VOMITING; Start at 12:30 Nitroglycerin (Nitroglycerin (Sl Tab) 0.4 Mg) 1 tab Q5M PRN SL CHEST PAIN; Start 03/22/17 at 12:30 Isosorbide Dinitrate (Isordil) 10 mg TID PO Last administered on 03/23/17 11: 10; Admin Dose 10 MG; Start 03/22/17 at 13:00 Acetaminophen (Tylenol Tab) 650 mg Q6H PRN PO PAIN LEVEL 1-3 OR FEVER; Start 03/22/17 at 12:30 Morphine Sulfate (morphine) 2 mg Q4H PRN IV PAIN LEVEL 7-10; Start 03/22/17 at 12:30 Docusate Sodium (Colace) 100 mg Q12H PRN PO CONSTIPATION; Start 03/22/17 at 12 :30 Famotidine (Pepcid) 20 mg Q12 PO Last administered on 03/23/17 11:10; Admin Dose 20 MG; Start 03/22/17 at 21:00 Furosemide (Lasix) 40 mg BID IV Last administered on 03/23/17 11:12; Admin Dose 40 MG; Start 03/22/17 at 21:00 Hydralazine HCl (Apresoline) 20 mg Q4 PRN IV sbp > 160 Last administered on 20:39; Admin Dose 20 MG; Start 03/22/17 at 20:30 ARIN CHEN Mar 23, 2017 17:36
--- NOTE | 2017-03-23 19:26 | CONS ---
Date/Time of Note Date/Time of Note DATE: 03/23/17 TIME: 19:19 Assessment/Plan Assessment/Plan Chief Complaint/Hosp Course IMP: 1. CHf-systolic acute on chronic EF 35% by echo 11/2016/negative stress for ischemia 07/2016 2.HTN 3.CAD 4.Medical non-compliance 5. DM 6.SOB-secondary to number 1 7.AF Recc: -Tele -serial ecg's -contniue lasix diuresis -start BB/ACEI/asa/iosrdil/hydralazine -Resume eliquis for AF Problems: Consultation Date/Type/Reason Admit Date/Time Mar 22, 2017 at 03:31 Initial Consult Date 03/22/2017 Type of Consultation: cardiology Reason for Consultation CHF Referring Provider: NAE TIPTON MD Exam/Review of Systems Vital Signs Vitals Vital Signs Date Time Temp Pulse Resp B/P Pulse Ox O2 Delivery O2 Flow Rate FiO2 03/23/17 16:26 52 03/23/17 15:55 98.0 22 120/75 91 03/23/17 08:10 2.0 03/23/17 00:00 Nasal Cannula 03/22/17 05:50 40 Intake and Output 03/22/17 03/22/17 03/23/17 15:00 23:00 07:00 Intake Total 550 ml Output Total 1000 ml 1000 ml 1400 ml Balance -1000 ml -1000 ml -850 ml Exam Review of Systems: CONSTITUTIONAL: No fevers, chills. PULMONARY: moderate sob CARDIOVASCULAR: No chest pain/palpitations GASTROINTESTINAL: No nausea/vomiting. GENITOURINARY: No hematuria/dysuria. MUSCULOSKELETAL: No myagias/arthalgias. PSYCHIATRIC: The patient denies depression. NEUROLOGIC: No weakness Constitutional: alert Psych: no complaints Head: normocephalic ENMT: mucosa pink and moist Neck: jvd (9-10 cm water), supple Respiratory: diminished breath sounds (at bases/B) Cardiovascular: regular rate and rhythm Gastrointestinal: non-tender, soft Musculoskeletal: muscle tone (normal) Extremities: pitting pedal edema Neurological: other (No focal deficits) Results Result Diagram: 03/23/17 1418 03/23/17 1418 Results 24 hrs Laboratory Tests Test 03/23/17 14:18 White Blood Count 7.3 Red Blood Count 5.52 Hemoglobin 15.8 Hematocrit 48.4 Mean Corpuscular Volume 87.7 Mean Corpuscular Hemoglobin 28.6 L Mean Corpuscular Hemoglobin Concent 32.6 Red Cell Distribution Width 15.5 H Platelet Count 195 Mean Platelet Volume 10.3 Neutrophils % 74.1 Lymphocytes % 10.3 L Monocytes % 13.2 H Eosinophils % 1.5 Basophils % 0.5 Nucleated Red Blood Cells % 0.0 Neutrophils # 5.4 Lymphocytes # 0.8 Monocytes # 1.0 H Eosinophils # 0.1 Basophils # 0.0 Nucleated Red Blood Cells # 0.0 Sodium Level 141 Potassium Level 3.8 Chloride Level 104 Carbon Dioxide Level 30 Anion Gap 11 Blood Urea Nitrogen 22 H Creatinine 1.26 H Glucose Level 165 Hemoglobin A1c 7.7 H Calcium Level 8.7 Magnesium Level 1.8 Total Bilirubin 1.0 Direct Bilirubin 0.00 Indirect Bilirubin 1.0 Aspartate Amino Transf (AST/SGOT) 22 Alanine Aminotransferase (ALT/SGPT) 34 Alkaline Phosphatase 97 Creatine Kinase 33 Creatine Kinase Index 3.1 Creatinine Kinase MB (Mass) 1.02 Troponin I 0.037 Total Protein 6.2 # Albumin 3.1 #L Globulin 3.10 Albumin/Globulin Ratio 1.00 Thyroid Stimulating Hormone (TSH) 0.975 Medications Medications Current Medications Metoprolol Succinate (Toprol Xl) 12.5 mg DAILY PO Last administered on 11:11; Admin Dose 12.5 MG; Start 03/22/17 at 13:00 Benazepril HCl (Lotensin) 10 mg BID PO Last administered on 03/23/17 11:11; Admin Dose 10 MG; Start 03/22/17 at 12:30 Aspirin (Aspirin) 81 mg DAILY PO Last administered on 03/23/17 11:10; Admin Dose 81 MG; Start 03/23/17 at 09:00 Hydralazine HCl (Apresoline) 50 mg Q8 PO Last administered on 03/23/17 11:12; Admin Dose 50 MG; Start 03/22/17 at 14:00 Ondansetron HCl (Zofran Inj) 4 mg Q6H PRN IV NAUSEA AND/OR VOMITING; Start at 12:30 Nitroglycerin (Nitroglycerin (Sl Tab) 0.4 Mg) 1 tab Q5M PRN SL CHEST PAIN; Start 03/22/17 at 12:30 Isosorbide Dinitrate (Isordil) 10 mg TID PO Last administered on 03/23/17 11: 10; Admin Dose 10 MG; Start 03/22/17 at 13:00 Acetaminophen (Tylenol Tab) 650 mg Q6H PRN PO PAIN LEVEL 1-3 OR FEVER; Start 03/22/17 at 12:30 Morphine Sulfate (morphine) 2 mg Q4H PRN IV PAIN LEVEL 7-10; Start 03/22/17 at 12:30 Docusate Sodium (Colace) 100 mg Q12H PRN PO CONSTIPATION; Start 03/22/17 at 12 :30 Famotidine (Pepcid) 20 mg Q12 PO Last administered on 03/23/17 11:10; Admin Dose 20 MG; Start 03/22/17 at 21:00 Furosemide (Lasix) 40 mg BID IV Last administered on 03/23/17 11:12; Admin Dose 40 MG; Start 03/22/17 at 21:00 Hydralazine HCl (Apresoline) 20 mg Q4 PRN IV sbp > 160 Last administered on 20:39; Admin Dose 20 MG; Start 03/22/17 at 20:30 Tamsulosin HCl (Flomax) 0.4 mg HS PO ; Start 03/23/17 at 21:00 ALISSON POTTER Mar 23, 2017 19:26
[2017-03-23] MEDS: APIXABAN 5 MG TABLET PO SCH (20:43)
[2017-03-23] MEDS: TAMSULOSIN (SR) 0.4 MG CAP PO SCH (20:43)
[2017-03-24] VITALS (10 sets, daily range): BP systolic 111–140; BP diastolic 59–80; PULSE 55–73; RESP 18–21
[2017-03-24] MEDS: APIXABAN 5 MG TABLET PO SCH ×2 (09:04→20:52)
[2017-03-24] MEDS: ISOSORBIDE DINITRATE 10 MG TAB PO SCH ×3 (09:04→20:54)
[2017-03-24] MEDS: FAMOTIDINE 20 MG TAB PO SCH ×2 (09:04→20:52)
[2017-03-24] MEDS: ASPIRIN 81 MG TAB PO SCH (09:04)
[2017-03-24] MEDS: BENAZEPRIL 10 MG TAB PO SCH ×2 (09:04→20:52)
[2017-03-24] MEDS: FUROSEMIDE 40 MG INJ IV SCH ×2 (09:05→20:52)
[2017-03-24] MEDS: METOPROLOL (XL) 25 MG TAB PO SCH (09:05)
--- NOTE | 2017-03-24 12:16 | PN ---
Date/Time of Note Date/Time of Note DATE: 03/24/17 TIME: 12:15 Assessment/Plan VTE Prophylaxis VTE Prophylaxis Intervention: other Lines/Catheters [facility] Saline Lock Urinary Cath still in place: Yes Assessment/Plan Assessment/Plan - Acute respiratory failure requiring BiPAP, most likely secondary to CHF exacerbation. - Acute on chronic systolic and diastolic congestive heart failure, continue Lasix, nitro electrolytes. Dr. Chen is asked to see patient in cardiology consultation. - Hypertension. Continue benazepril, metoprolol, hydralazine. - Cardiomyopathy with ejection fraction of 30%. - Diabetes mellitus hemoglobin A1c 7.7. Continue NovoLog with Accu-Chek q.a.c. - History of CVA status post craniotomy. - Poor medical compliance. Further recommendations based on clinical course. Plan of care discussed with Dr. Gibson. Subjective 24 Hr Interval Summary Free Text/Dictation resting, denies any complaints- dw staff, non compliant- refuses labs. Respiratory: no complaints Cardiovascular: no complaints Gastrointestinal: no complaints Genitourinary: no complaints Musculoskeletal: no complaints Exam/Review of Systems Vital Signs Vitals Vital Signs Date Time Temp Pulse Resp B/P Pulse Ox O2 Delivery O2 Flow Rate FiO2 03/24/17 11:46 98.4 63 18 111/59 94 03/24/17 08:25 Nasal Cannula 2.0 03/22/17 05:50 40 Intake and Output 03/23/17 03/23/17 03/24/17 15:00 23:00 07:00 Intake Total 480 ml 500 ml Output Total 1450 ml 1200 ml Balance -970 ml -700 ml Exam Constitutional: alert, oriented, well developed Respiratory: diminished breath sounds Cardiovascular: nl pulses, other (s1s2) Gastrointestinal: non-tender, soft Musculoskeletal: nl extremities to inspection Extremities: normal pulses Neurological: nl mental status, nl speech Results Result Diagram: 03/23/17 1418 03/23/17 1418 Results 24 hrs Laboratory Tests Test 03/23/17 14:18 White Blood Count 7.3 Red Blood Count 5.52 Hemoglobin 15.8 Hematocrit 48.4 Mean Corpuscular Volume 87.7 Mean Corpuscular Hemoglobin 28.6 L Mean Corpuscular Hemoglobin Concent 32.6 Red Cell Distribution Width 15.5 H Platelet Count 195 Mean Platelet Volume 10.3 Neutrophils % 74.1 Lymphocytes % 10.3 L Monocytes % 13.2 H Eosinophils % 1.5 Basophils % 0.5 Nucleated Red Blood Cells % 0.0 Neutrophils # 5.4 Lymphocytes # 0.8 Monocytes # 1.0 H Eosinophils # 0.1 Basophils # 0.0 Nucleated Red Blood Cells # 0.0 Sodium Level 141 Potassium Level 3.8 Chloride Level 104 Carbon Dioxide Level 30 Anion Gap 11 Blood Urea Nitrogen 22 H Creatinine 1.26 H Glucose Level 165 Hemoglobin A1c 7.7 H Calcium Level 8.7 Magnesium Level 1.8 Total Bilirubin 1.0 Direct Bilirubin 0.00 Indirect Bilirubin 1.0 Aspartate Amino Transf (AST/SGOT) 22 Alanine Aminotransferase (ALT/SGPT) 34 Alkaline Phosphatase 97 Creatine Kinase 33 Creatine Kinase Index 3.1 Creatinine Kinase MB (Mass) 1.02 Troponin I 0.037 Total Protein 6.2 # Albumin 3.1 #L Globulin 3.10 Albumin/Globulin Ratio 1.00 Thyroid Stimulating Hormone (TSH) 0.975 Medications Medications Current Medications Metoprolol Succinate (Toprol Xl) 12.5 mg DAILY PO Last administered on 09:05; Admin Dose 12.5 MG; Start 03/22/17 at 13:00 Benazepril HCl (Lotensin) 10 mg BID PO Last administered on 03/24/17 09:04; Admin Dose 10 MG; Start 03/22/17 at 12:30 Aspirin (Aspirin) 81 mg DAILY PO Last administered on 03/24/17 09:04; Admin Dose 81 MG; Start 03/23/17 at 09:00 Hydralazine HCl (Apresoline) 50 mg Q8 PO Last administered on 03/24/17 05:36; Admin Dose 50 MG; Start 03/22/17 at 14:00 Ondansetron HCl (Zofran Inj) 4 mg Q6H PRN IV NAUSEA AND/OR VOMITING; Start at 12:30 Nitroglycerin (Nitroglycerin (Sl Tab) 0.4 Mg) 1 tab Q5M PRN SL CHEST PAIN; Start 03/22/17 at 12:30 Isosorbide Dinitrate (Isordil) 10 mg TID PO Last administered on 03/24/17 09: 04; Admin Dose 10 MG; Start 03/22/17 at 13:00 Acetaminophen (Tylenol Tab) 650 mg Q6H PRN PO PAIN LEVEL 1-3 OR FEVER; Start 03/22/17 at 12:30 Morphine Sulfate (morphine) 2 mg Q4H PRN IV PAIN LEVEL 7-10; Start 03/22/17 at 12:30 Docusate Sodium (Colace) 100 mg Q12H PRN PO CONSTIPATION; Start 03/22/17 at 12 :30 Famotidine (Pepcid) 20 mg Q12 PO Last administered on 03/24/17 09:04; Admin Dose 20 MG; Start 03/22/17 at 21:00 Furosemide (Lasix) 40 mg BID IV Last administered on 03/24/17 09:05; Admin Dose 40 MG; Start 03/22/17 at 21:00 Hydralazine HCl (Apresoline) 20 mg Q4 PRN IV sbp > 160 Last administered on 20:39; Admin Dose 20 MG; Start 03/22/17 at 20:30 Tamsulosin HCl (Flomax) 0.4 mg HS PO Last administered on 03/23/17 20:43; Admin Dose 0.4 MG; Start 03/23/17 at 21:00 Apixaban (Eliquis) 5 mg BID PO Last administered on 03/24/17 09:04; Admin Dose 5 MG; Start 03/23/17 at 21:00 NEVILLE GREEN Mar 24, 2017 12:16
--- NOTE | 2017-03-24 18:28 | CONS ---
Date/Time of Note Date/Time of Note DATE: 03/24/17 TIME: 18:24 Assessment/Plan Assessment/Plan Chief Complaint/Hosp Course IMP: 1. CHf-systolic acute on chronic EF 35% by echo 11/2016/negative stress for ischemia 07/2016 2.HTN 3.CAD 4.Medical non-compliance 5. DM 6.SOB-secondary to number 1 7.AF-rate controlled 8. RLE DVT of popliteal vein Recc: -Tele -serial ecg's -contniue lasix diuresis but follow creatnine closely which had slight bump -Continue BB/ACEI/asa/iosrdil/hydralazine -Resume eliquis for AF and for treatment of DVT Problems: Consultation Date/Type/Reason Admit Date/Time Mar 22, 2017 at 03:31 Initial Consult Date 03/22/2017 Type of Consultation: cardiology Reason for Consultation CHF Referring Provider: NAE TIPTON MD Exam/Review of Systems Vital Signs Vitals Vital Signs Date Time Temp Pulse Resp B/P Pulse Ox O2 Delivery O2 Flow Rate FiO2 03/24/17 17:33 2.0 03/24/17 16:05 55 03/24/17 15:37 97.9 20 120/71 95 03/24/17 08:25 Nasal Cannula 03/22/17 05:50 40 Intake and Output 03/23/17 03/23/17 03/24/17 15:00 23:00 07:00 Intake Total 480 ml 500 ml Output Total 1450 ml 1200 ml Balance -970 ml -700 ml Exam Review of Systems: CONSTITUTIONAL: No fevers, chills. PULMONARY: ongoing sob CARDIOVASCULAR: No chest pain/palpitations GASTROINTESTINAL: No nausea/vomiting. GENITOURINARY: No hematuria/dysuria. MUSCULOSKELETAL: No myagias/arthalgias. PSYCHIATRIC: The patient denies depression. NEUROLOGIC: No weakness Constitutional: alert, oriented Psych: no complaints Head: normocephalic ENMT: mucosa pink and moist Neck: jvd (9-10 cm water), supple Respiratory: diminished breath sounds (at bases/B) Cardiovascular: irregular rhythm Gastrointestinal: non-tender, soft Extremities: pitting pedal edema (bilateral) Neurological: other (No focal deficits) Results Result Diagram: 03/23/17 1418 03/23/17 1418 Medications Medications Current Medications Metoprolol Succinate (Toprol Xl) 12.5 mg DAILY PO Last administered on 09:05; Admin Dose 12.5 MG; Start 03/22/17 at 13:00 Benazepril HCl (Lotensin) 10 mg BID PO Last administered on 03/24/17 09:04; Admin Dose 10 MG; Start 03/22/17 at 12:30 Aspirin (Aspirin) 81 mg DAILY PO Last administered on 03/24/17 09:04; Admin Dose 81 MG; Start 03/23/17 at 09:00 Hydralazine HCl (Apresoline) 50 mg Q8 PO Last administered on 03/24/17 14:09; Admin Dose 50 MG; Start 03/22/17 at 14:00 Ondansetron HCl (Zofran Inj) 4 mg Q6H PRN IV NAUSEA AND/OR VOMITING; Start at 12:30 Nitroglycerin (Nitroglycerin (Sl Tab) 0.4 Mg) 1 tab Q5M PRN SL CHEST PAIN; Start 03/22/17 at 12:30 Isosorbide Dinitrate (Isordil) 10 mg TID PO Last administered on 03/24/17 12: 35; Admin Dose 10 MG; Start 03/22/17 at 13:00 Acetaminophen (Tylenol Tab) 650 mg Q6H PRN PO PAIN LEVEL 1-3 OR FEVER; Start 03/22/17 at 12:30 Morphine Sulfate (morphine) 2 mg Q4H PRN IV PAIN LEVEL 7-10; Start 03/22/17 at 12:30 Docusate Sodium (Colace) 100 mg Q12H PRN PO CONSTIPATION; Start 03/22/17 at 12 :30 Famotidine (Pepcid) 20 mg Q12 PO Last administered on 03/24/17 09:04; Admin Dose 20 MG; Start 03/22/17 at 21:00 Furosemide (Lasix) 40 mg BID IV Last administered on 03/24/17 09:05; Admin Dose 40 MG; Start 03/22/17 at 21:00 Hydralazine HCl (Apresoline) 20 mg Q4 PRN IV sbp > 160 Last administered on 20:39; Admin Dose 20 MG; Start 03/22/17 at 20:30 Tamsulosin HCl (Flomax) 0.4 mg HS PO Last administered on 03/23/17 20:43; Admin Dose 0.4 MG; Start 03/23/17 at 21:00 Apixaban (Eliquis) 5 mg BID PO Last administered on 03/24/17 09:04; Admin Dose 5 MG; Start 03/23/17 at 21:00 ALISSON POTTER Mar 24, 2017 18:28
[2017-03-24] MEDS: TAMSULOSIN (SR) 0.4 MG CAP PO SCH (20:54)
[2017-03-24] MEDS: hydrALAzine 20 MG INJ IV PRN (23:29)
[2017-03-25] VITALS (12 sets, daily range): BP systolic 115–163; BP diastolic 62–93; PULSE 52–64; RESP 18–22
[2017-03-25] MEDS: FAMOTIDINE 20 MG TAB PO SCH ×2 (09:00→21:08)
[2017-03-25] MEDS: ASPIRIN 81 MG TAB PO SCH (09:31)
[2017-03-25] MEDS: APIXABAN 5 MG TABLET PO SCH ×2 (09:31→21:08)
[2017-03-25] MEDS: FUROSEMIDE 40 MG INJ IV SCH ×2 (09:32→21:07)
[2017-03-25] MEDS: ISOSORBIDE DINITRATE 10 MG TAB PO SCH ×3 (09:33→21:00)
[2017-03-25] MEDS: METOPROLOL (XL) 25 MG TAB PO SCH (09:35)
[2017-03-25] MEDS: BENAZEPRIL 10 MG TAB PO SCH ×2 (09:37→21:08)
--- NOTE | 2017-03-25 12:15 | PN ---
Date/Time of Note Date/Time of Note DATE: 03/25/17 TIME: 12:10 Assessment/Plan VTE Prophylaxis VTE Prophylaxis Intervention: SCD's Lines/Catheters IV [facility] Sal[place] Lock Urinary Cath still in place: Yes Reason Cath still needed: urinary retention Assessment/Plan Chief Complaint/Hosp Course Patient patient remains in atrial fibrillation with variations in the rate, controlled rate to bradycardia. Patient stated that his respiratory status is better denies chest pain denies shortness of breath at rest. PT evaluation. Continue Hooker catheter for urinary retention, monitor intake and output. Mild hypokalemia potassium replacement ordered. Assessment/Plan - Acute respiratory failure requiring BiPAP, most likely secondary to CHF exacerbation. - Acute on chronic systolic and diastolic congestive heart failure, continue Lasix, nitro electrolytes. Dr. Chen is asked to see patient in cardiology consultation. - Atrial fibrillation. Continue Eliquis. - DVT right popliteal vein. Continue Eliquis. - Hypertension. Continue benazepril, metoprolol, hydralazine. - Cardiomyopathy with ejection fraction of 30%. - Diabetes mellitus hemoglobin A1c 7.7. Continue NovoLog with Accu-Chek q.a.c. - History of CVA status post craniotomy. - Poor medical compliance. Further recommendations based on clinical course. Plan of care discussed with Dr. Gibson. Problems: Exam/Review of Systems Vital Signs Vitals Vital Signs Date Time Temp Pulse Resp B/P Pulse Ox O2 Delivery O2 Flow Rate FiO2 03/25/17 11:54 98.7 70 20 115/62 96 03/25/17 08:00 Nasal Cannula 2.0 03/22/17 05:50 40 Intake and Output 03/24/17 03/24/17 03/25/17 15:00 23:00 07:00 Intake Total 960 ml 800 ml Output Total 900 ml 2200 ml Balance 60 ml -1400 ml Exam Constitutional: alert Respiratory: diminished breath sounds Cardiovascular: irregular rhythm Gastrointestinal: non-tender, soft Musculoskeletal: nl extremities to inspection Extremities: normal pulses Neurological: nl mental status Results Result Diagram: 03/25/17 0807 03/25/17 0807 Results 24 hrs Laboratory Tests Test 03/25/17 08:07 White Blood Count 5.3 # Red Blood Count 5.49 Hemoglobin 15.3 Hematocrit 47.9 Mean Corpuscular Volume 87.2 Mean Corpuscular Hemoglobin 27.9 L Mean Corpuscular Hemoglobin Concent 31.9 L Red Cell Distribution Width 15.6 H Platelet Count 197 Mean Platelet Volume 10.5 H Neutrophils % 61.4 Lymphocytes % 15.8 Monocytes % 17.7 H Eosinophils % 3.4 Basophils % 1.3 Nucleated Red Blood Cells % 0.0 Neutrophils # 3.3 Lymphocytes # 0.8 Monocytes # 0.9 Eosinophils # 0.2 Basophils # 0.1 Nucleated Red Blood Cells # 0.0 Sodium Level 143 Potassium Level 3.3 L Chloride Level 106 Carbon Dioxide Level 30 Anion Gap 10 Blood Urea Nitrogen 21 H Creatinine 1.06 Glucose Level 155 Calcium Level 8.6 Medications Medications Current Medications Metoprolol Succinate (Toprol Xl) 12.5 mg DAILY PO Last administered on 09:35; Admin Dose 12.5 MG; Start 03/22/17 at 13:00 Benazepril HCl (Lotensin) 10 mg BID PO Last administered on 03/25/17 09:37; Admin Dose 10 MG; Start 03/22/17 at 12:30 Aspirin (Aspirin) 81 mg DAILY PO Last administered on 03/25/17 09:31; Admin Dose 81 MG; Start 03/23/17 at 09:00 Hydralazine HCl (Apresoline) 50 mg Q8 PO Last administered on 03/25/17 05:50; Admin Dose 50 MG; Start 03/22/17 at 14:00 Ondansetron HCl (Zofran Inj) 4 mg Q6H PRN IV NAUSEA AND/OR VOMITING; Start at 12:30 Nitroglycerin (Nitroglycerin (Sl Tab) 0.4 Mg) 1 tab Q5M PRN SL CHEST PAIN; Start 03/22/17 at 12:30 Isosorbide Dinitrate (Isordil) 10 mg TID PO Last administered on 03/25/17 09: 33; Admin Dose 10 MG; Start 03/22/17 at 13:00 Acetaminophen (Tylenol Tab) 650 mg Q6H PRN PO PAIN LEVEL 1-3 OR FEVER; Start 03/22/17 at 12:30 Morphine Sulfate (morphine) 2 mg Q4H PRN IV PAIN LEVEL 7-10; Start 03/22/17 at 12:30 Docusate Sodium (Colace) 100 mg Q12H PRN PO CONSTIPATION; Start 03/22/17 at 12 :30 Famotidine (Pepcid) 20 mg Q12 PO Last administered on 03/24/17 20:52; Admin Dose 20 MG; Start 03/22/17 at 21:00 Furosemide (Lasix) 40 mg BID IV Last administered on 03/25/17 09:32; Admin Dose 40 MG; Start 03/22/17 at 21:00 Hydralazine HCl (Apresoline) 20 mg Q4 PRN IV sbp > 160 Last administered on 23:29; Admin Dose 20 MG; Start 03/22/17 at 20:30 Tamsulosin HCl (Flomax) 0.4 mg HS PO Last administered on 03/24/17 20:54; Admin Dose 0.4 MG; Start 03/23/17 at 21:00 Apixaban (Eliquis) 10 mg BID PO Last administered on 03/25/17 09:31; Admin Dose 10 MG; Start 03/24/17 at 21:00; Stop 03/31/17 at 20:59 Apixaban (Eliquis) 5 mg BID PO ; Start 03/31/17 at 21:00 ARIN CHEN Mar 25, 2017 12:15
[2017-03-25] MEDS ORDERED: POTASSIUM CHLORIDE 20 MEQ POWDER FOR ORAL SOLN PO ONE (12:30)
--- NOTE | 2017-03-25 13:49 | CONS ---
Date/Time of Note Date/Time of Note DATE: 03/25/17 TIME: 13:48 Assessment/Plan Assessment/Plan Chief Complaint/Hosp Course IMP: 1. CHf-systolic acute on chronic EF 35% by echo 11/2016/negative stress for ischemia 07/2016 2.HTN 3.CAD 4.Medical non-compliance 5. DM 6.SOB-secondary to number 1 7.AF-rate controlled 8. RLE DVT of popliteal vein Recc: -Tele -serial ecg's -contniue lasix diuresis but follow creatnine closely which had slight bump -Continue BB/ACEI/asa/iosrdil/hydralazine -Continue eliquis for AF and for treatment of DVT Problems: Consultation Date/Type/Reason Admit Date/Time Mar 22, 2017 at 03:31 Initial Consult Date 03/22/2017 Type of Consultation: cardiology Reason for Consultation cardiomyopathy/CHF Referring Provider: NAE TIPTON MD Exam/Review of Systems Vital Signs Vitals Vital Signs Date Time Temp Pulse Resp B/P Pulse Ox O2 Delivery O2 Flow Rate FiO2 03/25/17 13:10 52 03/25/17 11:54 98.7 20 115/62 96 03/25/17 08:00 Nasal Cannula 2.0 03/22/17 05:50 40 Intake and Output 03/24/17 03/24/17 03/25/17 15:00 23:00 07:00 Intake Total 960 ml 800 ml Output Total 900 ml 2200 ml Balance 60 ml -1400 ml Exam Review of Systems: CONSTITUTIONAL: No fevers, chills. PULMONARY: No sob CARDIOVASCULAR: No chest pain/palpitations GASTROINTESTINAL: No nausea/vomiting. GENITOURINARY: No hematuria/dysuria. MUSCULOSKELETAL: No myagias/arthalgias. PSYCHIATRIC: The patient denies depression. NEUROLOGIC: No weakness Constitutional: alert, oriented Psych: no complaints Head: normocephalic ENMT: mucosa pink and moist Neck: jvd (9 cm water), supple Respiratory: diminished breath sounds (at bases/B) Cardiovascular: regular rate and rhythm Gastrointestinal: non-tender, soft Musculoskeletal: muscle tone (normal) Extremities: edema (none) Neurological: other (No focal deficits) Results Result Diagram: 03/25/17 0807 03/25/17 0807 Results 24 hrs Laboratory Tests Test 03/25/17 08:07 White Blood Count 5.3 # Red Blood Count 5.49 Hemoglobin 15.3 Hematocrit 47.9 Mean Corpuscular Volume 87.2 Mean Corpuscular Hemoglobin 27.9 L Mean Corpuscular Hemoglobin Concent 31.9 L Red Cell Distribution Width 15.6 H Platelet Count 197 Mean Platelet Volume 10.5 H Neutrophils % 61.4 Lymphocytes % 15.8 Monocytes % 17.7 H Eosinophils % 3.4 Basophils % 1.3 Nucleated Red Blood Cells % 0.0 Neutrophils # 3.3 Lymphocytes # 0.8 Monocytes # 0.9 Eosinophils # 0.2 Basophils # 0.1 Nucleated Red Blood Cells # 0.0 Sodium Level 143 Potassium Level 3.3 L Chloride Level 106 Carbon Dioxide Level 30 Anion Gap 10 Blood Urea Nitrogen 21 H Creatinine 1.06 Glucose Level 155 Calcium Level 8.6 Medications Medications Current Medications Metoprolol Succinate (Toprol Xl) 12.5 mg DAILY PO Last administered on 09:35; Admin Dose 12.5 MG; Start 03/22/17 at 13:00 Benazepril HCl (Lotensin) 10 mg BID PO Last administered on 03/25/17 09:37; Admin Dose 10 MG; Start 03/22/17 at 12:30 Aspirin (Aspirin) 81 mg DAILY PO Last administered on 03/25/17 09:31; Admin Dose 81 MG; Start 03/23/17 at 09:00 Hydralazine HCl (Apresoline) 50 mg Q8 PO Last administered on 03/25/17 05:50; Admin Dose 50 MG; Start 03/22/17 at 14:00 Ondansetron HCl (Zofran Inj) 4 mg Q6H PRN IV NAUSEA AND/OR VOMITING; Start at 12:30 Nitroglycerin (Nitroglycerin (Sl Tab) 0.4 Mg) 1 tab Q5M PRN SL CHEST PAIN; Start 03/22/17 at 12:30 Isosorbide Dinitrate (Isordil) 10 mg TID PO Last administered on 03/25/17 13: 07; Admin Dose 10 MG; Start 03/22/17 at 13:00 Acetaminophen (Tylenol Tab) 650 mg Q6H PRN PO PAIN LEVEL 1-3 OR FEVER; Start 03/22/17 at 12:30 Morphine Sulfate (morphine) 2 mg Q4H PRN IV PAIN LEVEL 7-10; Start 03/22/17 at 12:30 Docusate Sodium (Colace) 100 mg Q12H PRN PO CONSTIPATION; Start 03/22/17 at 12 :30 Famotidine (Pepcid) 20 mg Q12 PO Last administered on 03/24/17 20:52; Admin Dose 20 MG; Start 03/22/17 at 21:00 Furosemide (Lasix) 40 mg BID IV Last administered on 03/25/17 09:32; Admin Dose 40 MG; Start 03/22/17 at 21:00 Hydralazine HCl (Apresoline) 20 mg Q4 PRN IV sbp > 160 Last administered on 23:29; Admin Dose 20 MG; Start 03/22/17 at 20:30 Tamsulosin HCl (Flomax) 0.4 mg HS PO Last administered on 03/24/17 20:54; Admin Dose 0.4 MG; Start 03/23/17 at 21:00 Apixaban (Eliquis) 10 mg BID PO Last administered on 03/25/17 09:31; Admin Dose 10 MG; Start 03/24/17 at 21:00; Stop 03/31/17 at 20:59 Apixaban (Eliquis) 5 mg BID PO ; Start 03/31/17 at 21:00 ALISSON POTTER Mar 25, 2017 13:49
--- NOTE | 2017-03-25 14:03 | RADRPT ---
Vent Rate: 59 bpm RR Interval: 0 msec ID Interval: 0 msec QRS Duration: 136 msec QT Interval: 504 msec QTC Interval: 498 msec P-R-T [place]: 0 - -63 - 106 degrees Atrial fibrillation with slow ventricular response Left axis deviation Left bundle branch block Abnormal ECG Electronically Signed By: Rick Danielson [id number]
--- NOTE | 2017-03-25 14:03 | RADRPT ---
Vent Rate: 59 bpm RR Interval: 0 msec [place] Interval: 0 msec QRS Duration: 136 msec QT Interval: 504 msec QTC Interval: 498 msec P-R-T [place]: 0 - -63 - 106 degrees Atrial fibrillation with slow ventricular response Left axis deviation Left bundle branch block Abnormal ECG Electronically Signed By: Rick Danielson [id number]
--- NOTE | 2017-03-25 14:03 | RADRPT ---
Vent Rate: 59 bpm RR Interval: 0 msec [place] Interval: 0 msec QRS Duration: 136 msec QT Interval: 504 msec QTC Interval: 498 msec P-R-T [place]: 0 - -63 - 106 degrees Atrial fibrillation with slow ventricular response Left axis deviation Left bundle branch block Abnormal ECG Electronically Signed By: Rick Danielson [id number]
[2017-03-25] MEDS ORDERED: LORAZEPAM 2 MG INJ IV ONE (15:00)
[2017-03-25] MEDS: TAMSULOSIN (SR) 0.4 MG CAP PO SCH (21:08)
[2017-03-26] VITALS (10 sets, daily range): BP systolic 123–155; BP diastolic 73–86; PULSE 41–135; RESP 17–19
[2017-03-26] MEDS: ASPIRIN 81 MG TAB PO SCH (09:13)
[2017-03-26] MEDS: APIXABAN 5 MG TABLET PO SCH (09:13)
[2017-03-26] MEDS: FAMOTIDINE 20 MG TAB PO SCH (09:13)
[2017-03-26] MEDS: FUROSEMIDE 40 MG INJ IV SCH (09:13)
[2017-03-26] MEDS: BENAZEPRIL 10 MG TAB PO SCH (09:14)
[2017-03-26] MEDS: METOPROLOL (XL) 25 MG TAB PO SCH (09:14)
[2017-03-26] MEDS: ISOSORBIDE DINITRATE 10 MG TAB PO SCH ×2 (09:15→12:53)
--- NOTE | 2017-03-26 15:31 | CONS ---
Date/Time of Note Date/Time of Note DATE: 03/26/17 TIME: 15:27 Assessment/Plan Assessment/Plan Additional Assessment/Plan Acute on chronic systolic heart failure CAD Atrial fibrillation Hypertension Diabetes Atrial fibrillation RLE DVT of popliteal vein clinically and hemodynamically stable Continue imdur Continue Metoprolol Continue Lasix Continue Eliquis Continue Hydralazine and Benazepril Consultation Date/Type/Reason Admit Date/Time Mar 22, 2017 at 03:31 Respiratory: no complaints Cardiovascular: no complaints Gastrointestinal: no complaints Genitourinary: no complaints Musculoskeletal: no complaints Psychological: no complaints Past Medical History Medical History: congestive heart failure, diabetes, hypertension Past Surgical History Past Surgical Hx: endoscopy, other Social History Alcohol Use: occasionally Smoking Status: Former smoker Drug Use: none Exam/Review of Systems Vital Signs Vitals Vital Signs Date Time Temp Pulse Resp B/P Pulse Ox O2 Delivery O2 Flow Rate FiO2 03/26/17 14:15 142/73 03/26/17 12:06 52 03/26/17 11:51 98.0 17 94 03/26/17 08:00 Nasal Cannula 2.0 Intake and Output 03/25/17 03/25/17 03/26/17 15:00 23:00 07:00 Intake Total 960 ml 700 ml Output Total 1600 ml 1400 ml Balance -640 ml -700 ml Exam Head: atraumatic, normocephalic Neck: non-tender, supple Respiratory: clear to auscultation Cardiovascular: irregular rhythm Gastrointestinal: nl liver, spleen, non-tender, soft Extremities: normal pulses Results Result Diagram: 03/26/17 0840 03/26/17 0840 Results 24 hrs Laboratory Tests Test 03/26/17 08:40 White Blood Count 6.6 # Red Blood Count 5.59 Hemoglobin 15.4 Hematocrit 49.1 Mean Corpuscular Volume 87.8 Mean Corpuscular Hemoglobin 27.5 L Mean Corpuscular Hemoglobin Concent 31.4 L Red Cell Distribution Width 15.7 H Platelet Count 216 Mean Platelet Volume 10.9 H Neutrophils % 66.1 Lymphocytes % 14.7 L Monocytes % 14.8 H Eosinophils % 3.3 Basophils % 0.9 Nucleated Red Blood Cells % 0.0 Neutrophils # 4.4 Lymphocytes # 1.0 Monocytes # 1.0 H Eosinophils # 0.2 Basophils # 0.1 Nucleated Red Blood Cells # 0.0 Sodium Level 141 Potassium Level 3.4 L Chloride Level 104 Carbon Dioxide Level 29 Anion Gap 11 Blood Urea Nitrogen 22 H Creatinine 1.10 Glucose Level 183 Calcium Level 8.6 Medications Medications Current Medications Metoprolol Succinate (Toprol Xl) 12.5 mg DAILY PO Last administered on 09:14; Admin Dose 12.5 MG; Start 03/22/17 at 13:00 Benazepril HCl (Lotensin) 10 mg BID PO Last administered on 03/26/17 09:14; Admin Dose 10 MG; Start 03/22/17 at 12:30 Aspirin (Aspirin) 81 mg DAILY PO Last administered on 03/26/17 09:13; Admin Dose 81 MG; Start 03/23/17 at 09:00 Hydralazine HCl (Apresoline) 50 mg Q8 PO Last administered on 03/26/17 14:13; Admin Dose 50 MG; Start 03/22/17 at 14:00 Ondansetron HCl (Zofran Inj) 4 mg Q6H PRN IV NAUSEA AND/OR VOMITING; Start at 12:30 Nitroglycerin (Nitroglycerin (Sl Tab) 0.4 Mg) 1 tab Q5M PRN SL CHEST PAIN; Start 03/22/17 at 12:30 Isosorbide Dinitrate (Isordil) 10 mg TID PO Last administered on 03/26/17 12: 53; Admin Dose 10 MG; Start 03/22/17 at 13:00 Acetaminophen (Tylenol Tab) 650 mg Q6H PRN PO PAIN LEVEL 1-3 OR FEVER; Start 03/22/17 at 12:30 Morphine Sulfate (morphine) 2 mg Q4H PRN IV PAIN LEVEL 7-10 Last administered on 03/25/17 14:24; Admin Dose 2 MG; Start 03/22/17 at 12:30 Docusate Sodium (Colace) 100 mg Q12H PRN PO CONSTIPATION; Start 03/22/17 at 12 :30 Famotidine (Pepcid) 20 mg Q12 PO Last administered on 03/26/17 09:13; Admin Dose 20 MG; Start 03/22/17 at 21:00 Furosemide (Lasix) 40 mg BID IV Last administered on 03/26/17 09:13; Admin Dose 40 MG; Start 03/22/17 at 21:00 Hydralazine HCl (Apresoline) 20 mg Q4 PRN IV sbp > 160 Last administered on 23:29; Admin Dose 20 MG; Start 03/22/17 at 20:30 Tamsulosin HCl (Flomax) 0.4 mg HS PO Last administered on 03/25/17 21:08; Admin Dose 0.4 MG; Start 03/23/17 at 21:00 Apixaban (Eliquis) 10 mg BID PO Last administered on 03/26/17 09:13; Admin Dose 10 MG; Start 03/24/17 at 21:00; Stop 03/31/17 at 20:59 Apixaban (Eliquis) 5 mg BID PO ; Start 03/31/17 at 21:00 CHUN CHERY M.D. Mar 26, 2017 15:31
--- NOTE | 2017-03-27 03:21 | DS ---
DATE OF ADMISSION: 03/22/2017 DATE OF DISCHARGE: 03/26/2017 DISCHARGE DIAGNOSES: 1. Acute respiratory failure. 2. Tcjcy-sy-aqhqeyr systolic and diastolic congestive heart failure. 3. Cardiomyopathy. 4. Hypertension. 5. Diabetes. 6. History of cerebrovascular accident. 7. Noncompliance. DISCHARGE MEDICATIONS: None as patient left against medical advice. REASON FOR ADMISSION: The patient is a 66-year-old gentleman well known to us from previous admissi on. The patient is noncompliant, has multiple medical problems as listed above. The patient came t o ER with increasing shortness of breath and mild chest pain and bilateral lower extremity edema. T he patient was diagnosed with acute respiratory failure. The patient was put on BiPAP and was start ed on IV Lasix. The patient was seen by Dr. Cha from cardiac standpoint. The patient's fu nctions were monitored. The patient ruled out for [place]. Chest x-ray revealed interstitial edema and bilateral pleural effusions. Venous Doppler positive for DVT, left upper extremity. The patient wa s started on Eliquis. The patient also has history of atrial fibrillation, needing anticoagulation. The patient had some improvement in his edema and this morning, he was on nasal cannula. The hear t rate varies between 41 through 135. Patient's labs this morning revealed sodium 141, potassium 3. 4, BUN 22, creatinine 1.1, glucose 183. WBC 6.6, hemoglobin 15.4, platelets 216. Patient left [facility] medical advice. The patient was seen by Dr. Lundberg today from cardiac standpoint. The patien t also was seen by physical therapy, although patient declined PT. Dictated By: NAE URIBE/ALIE Conf#: [id number] DID#: [id number]
--- NOTE | 2017-03-27 03:21 | DS ---
DATE OF ADMISSION: 03/22/2017 DATE OF DISCHARGE: 03/26/2017 DISCHARGE DIAGNOSES: 1. Acute respiratory failure. 2. Rmnji-tc-qqizsch systolic and diastolic congestive heart failure. 3. Cardiomyopathy. 4. Hypertension. 5. Diabetes. 6. History of cerebrovascular accident. 7. Noncompliance. DISCHARGE MEDICATIONS: None as patient left against medical advice. REASON FOR ADMISSION: The patient is a 66-year-old gentleman well known to us from previous admissi on. The patient is noncompliant, has multiple medical problems as listed above. The patient came t o ER with increasing shortness of breath and mild chest pain and bilateral lower extremity edema. T he patient was diagnosed with acute respiratory failure. The patient was put on BiPAP and was start ed on IV Lasix. The patient was seen by Dr. Cha from cardiac standpoint. The patient's fu nctions were monitored. The patient ruled out for [place]. Chest x-ray revealed interstitial edema and bilateral pleural effusions. Venous Doppler positive for DVT, left upper extremity. The patient wa s started on Eliquis. The patient also has history of atrial fibrillation, needing anticoagulation. The patient had some improvement in his edema and this morning, he was on nasal cannula. The hear t rate varies between 41 through 135. Patient's labs this morning revealed sodium 141, potassium 3. 4, BUN 22, creatinine 1.1, glucose 183. WBC 6.6, hemoglobin 15.4, platelets 216. Patient left [facility] medical advice. The patient was seen by Dr. Lundberg today from cardiac standpoint. The patien t also was seen by physical therapy, although patient declined PT. Dictated By: NAE URIBE/ALIE Conf#: [id number] DID#: [id number]
--- NOTE | 2017-03-27 03:21 | DS ---
DATE OF ADMISSION: 03/22/2017 DATE OF DISCHARGE: 03/26/2017 DISCHARGE DIAGNOSES: 1. Acute respiratory failure. 2. Ziumi-ur-tywgmtu systolic and diastolic congestive heart failure. 3. Cardiomyopathy. 4. Hypertension. 5. Diabetes. 6. History of cerebrovascular accident. 7. Noncompliance. DISCHARGE MEDICATIONS: None as patient left against medical advice. REASON FOR ADMISSION: The patient is a 66-year-old gentleman well known to us from previous admissi on. The patient is noncompliant, has multiple medical problems as listed above. The patient came t o ER with increasing shortness of breath and mild chest pain and bilateral lower extremity edema. T he patient was diagnosed with acute respiratory failure. The patient was put on BiPAP and was start ed on IV Lasix. The patient was seen by Dr. Cha from cardiac standpoint. The patient's fu nctions were monitored. The patient ruled out for [place]. Chest x-ray revealed interstitial edema and bilateral pleural effusions. Venous Doppler positive for DVT, left upper extremity. The patient wa s started on Eliquis. The patient also has history of atrial fibrillation, needing anticoagulation. The patient had some improvement in his edema and this morning, he was on nasal cannula. The hear t rate varies between 41 through 135. Patient's labs this morning revealed sodium 141, potassium 3. 4, BUN 22, creatinine 1.1, glucose 183. WBC 6.6, hemoglobin 15.4, platelets 216. Patient left [facility] medical advice. The patient was seen by Dr. Lundberg today from cardiac standpoint. The patien t also was seen by physical therapy, although patient declined PT. Dictated By: NAE URIBE/ALIE Conf#: [id number] DID#: [id number]
[2017-03-31] MEDS ORDERED: APIXABAN 5 MG TABLET PO SCH (21:00)
== END 2017-03-26 17:20 | disposition left against medical advice (07) | DRG 291 ==
LOC: E/R 01:31 → MS4 03:31
PROVIDERS: ADMIT Internal Medicine; ATTEND Internal Medicine
PROC: 5A1935Z Respiratory Ventilation, Less than 24 Consecutive Hours (ICD-10-PCS; principal; 2017-03-22)
DX: I11.0 Hypertensive heart disease with heart failure (principal); J96.00 Acute respiratory failure, unspecified whether with hypoxia or hypercapnia; I82.431 Acute embolism and thrombosis of right popliteal vein; I50.43 Acute on chronic combined systolic (congestive) and diastolic (congestive) heart failure; I42.9 Cardiomyopathy, unspecified; E11.9 Type 2 diabetes mellitus without complications; Z86.73 Personal history of transient ischemic attack (TIA), and cerebral infarction without residual deficits; Z87.891 Personal history of nicotine dependence; J44.9 Chronic obstructive pulmonary disease, unspecified; Z91.19 Patient's noncompliance with other medical treatment and regimen; I25.10 Atherosclerotic heart disease of native coronary artery without angina pectoris; F99 Mental disorder, not otherwise specified; R13.10 Dysphagia, unspecified; I48.91 Unspecified atrial fibrillation; Z79.01 Long term (current) use of anticoagulants
CPT/HCPCS: 36415; 36600; 71010; 80048; 80053; 82550; 82553; 82803; 83036; 83735; 83880; 84443; 84484; 85025; 85610; 85730; 93005; 93970; 94660; 96374; 96375; 96376; 97161; J0360; J1940; J2060; J2270

== ENCOUNTER 2017-07-27 08:58 | Inpatient (IN) | END 2017-07-29 19:51 | disposition left against medical advice (07) | DRG 291 ==

== ENCOUNTER 2017-08-12 02:30 | Inpatient (IN) | END 2017-08-15 17:35 | disposition left against medical advice (07) | DRG 871 ==

== ENCOUNTER 2017-09-03 00:49 | Emergency (ER) | END 2017-09-03 04:07 | disposition left against medical advice (07) ==

== ENCOUNTER 2017-10-22 04:28 | Emergency (ER) | END 2017-10-22 09:03 | disposition home or self-care (01) ==

== ENCOUNTER 2017-10-26 22:50 | Inpatient (IN) | END 2017-10-30 17:55 | disposition home health service (06) | DRG 292 ==

== ENCOUNTER 2017-11-20 18:23 | Inpatient (IN) | END 2017-11-23 18:56 | disposition home or self-care (01) | DRG 292 ==

== ENCOUNTER 2017-12-04 13:17 | Emergency (ER) | END 2017-12-04 18:51 | disposition home or self-care (01) ==

== ENCOUNTER 2018-01-16 02:51 | Observation (INO) | END 2018-01-16 17:50 | disposition left against medical advice (07) ==

== ENCOUNTER 2018-03-07 20:34 | Inpatient (IN) | END 2018-03-09 16:37 | disposition home or self-care (01) | DRG 291 ==

== ENCOUNTER 2018-03-20 16:11 | Inpatient (IN) | END 2018-03-23 15:30 | disposition home health service (06) | DRG 292 ==

== ENCOUNTER 2018-05-01 15:15 | Inpatient (IN) | END 2018-05-12 18:05 | disposition home health service (06) | DRG 226 ==

== ENCOUNTER 2018-06-17 18:21 | Observation (INO) | payer MEDICARE, BC ==
[~2018-06-17] VITALS: Ht 177.8 cm; Wt 97.2 kg
[~2018-06-17 18:21] MED LIST changes: -AMLO5TAB4 PO; -ASPI81TA3 PO; +CEPH-443 PO; +GLIP5TAB3 PO; -GLIP5TAB82 PO; -HYDR-3671 PO; +HYDR-3672 PO; +LISI-471 PO; -METF1000 PO; +METF500T24 PO; -METF500T4 PO; -METO-335 PO; +METO5TAB65 PO; -NIT4 SL; -PANT40TA4 PO; -POTA20TA15 PO; +SPIR25TA PO; +TAMS0.4C2 ORAL; -TERA2CAP3 PO; +TRAM50TA2 PO
[2018-06-17 18:26] VITALS: Ht 177.8 cm; Wt 97.2 kg
[2018-06-17] MEDS ORDERED: FUROSEMIDE 40 MG INJ IV ONE (20:00)
--- NOTE | 2018-06-17 21:10 | ERD ---
ER Documentation Chief Complaint Chief Complaint BIB FAMILY W/ C/O WORSENING SOB SINCE 10AM, HX OF CHF HPI This 68-year-old male who presents with 2 days of progressive shortness of breath, he has a history of CHF, history of coronary disease. He is on Lasix 40 mg, he denies fever, denies wheezing, he denies syncope or near syncope. ROS All systems reviewed and are negative except as per history of present illness. Medications Home Meds Active Scripts Potassium Chloride* (K-Dur*) 20 Meq Tab.prt.sr, 20 MEQ PO DAILY for 30 Days Prov:FEI WAGNER MD 06/18/18 Metoprolol Tartrate* (Lopressor*) 50 Mg Tab, 50 MG PO BID for 30 Days, TAB Prov:FEI WAGNER MD 06/18/18 Furosemide* (Furosemide*) 40 Mg Tablet, 40 MG PO BID for 30 Days, TAB 3 Refills Prov:FEI WAGNER MD 06/18/18 Metolazone* (Metolazone*) 5 Mg Tablet, 5 MG PO DAILY for 30 Days, TAB 3 Refills Prov:ARY THOMPSON 05/12/18 Tramadol HCl (Tramadol HCl) 50 Mg Tablet, 50 MG PO Q12H PRN for PAIN, #20 TAB Prov:ARY THOMPSON 05/12/18 Spironolactone* (Aldactone*) 25 Mg Tablet, 25 MG PO DAILY for 30 Days, TAB 3 Refills Prov:ARY THOMPSON 05/12/18 Hydralazine Hcl* (Apresoline*) 50 Mg Tab, 50 MG PO TID for 30 Days, TAB 3 Refills Prov:ARY THOMPSON 05/12/18 Lisinopril* (Lisinopril*) 20 Mg Tablet, 20 MG PO BID for 30 Days, #60 TAB Prov:REMI RAMIREZ MD 03/09/18 Apixaban* (Eliquis*) 5 Mg Tablet, 5 MG PO BID for 30 Days, #60 TAB Prov:REMI RAMIREZ MD 03/09/18 Reported Medications Tamsulosin Hcl* (Tamsulosin Hcl*) 0.4 Mg Cap.er.24h, 0.4 MG ORAL HS 03/20/18 Discontinued Scripts Cephalexin* (Keflex*) 500 Mg Capsule, 500 MG PO Q8 for 3 Days, #9 CAP Prov:ARY THOMPSON 05/12/18 Allergies Allergies: Coded Allergies: No Known Allergies (Unverified Allergy, Unknown, 05/01/18) PMhx/Soc History of Surgery: Yes (Craniotomy,Pacemaker) Anesthesia Reaction: No Hx Neurological Disorder: Yes (CVA) Hx Respiratory Disorders: No Hx Cardiac Disorders: Yes (HTN,CHF,EF 25%,AFib) Hx Psychiatric Problems: No Hx Miscellaneous Medical Probl: No Hx Alcohol Use: Yes (Social) Hx Substance Use: No Hx Tobacco Use: Yes Smoking Status: Former smoker Physical Exam Vitals Vital Signs Date Temp Pulse Resp B/P (MAP) Pulse Ox O2 O2 Flow FiO2 Time Delivery Rate 06/17/18 Nasal 2.0 19:10 Cannula 06/17/18 98.7 60 25 188/99 97 18:26 (128) Physical Exam Const: Elderly appearing male on nasal cannula, no overt distress Head: Atraumatic Eyes: Normal Conjunctiva ENT: Normal External Ears, Nose and Mouth. Neck: Full range of motion. No meningismus. Resp: Breath sounds are coarse bilaterally, there are no expiratory wheezing Cardio: Regular rate and rhythm, no murmurs Abd: Soft, non tender, non distended. Normal bowel sounds Skin: No petechiae or rashes Back: No midline or flank tenderness Ext: No cyanosis, there is 1+ pitting edema bilaterally. Neur: Awake and alert Psych: Normal Mood and Affect Result Diagram: 06/17/18190306/17/181903 Results 24 hrs Laboratory Tests Test 06/17/18 19:04 06/17/18 19:25 White Blood Count 6.5 10^3/ul Red Blood Count 5.50 10^6/ul Hemoglobin 16.6 g/dl Hematocrit 48.7 % Mean Corpuscular Volume 88.5 fl Mean Corpuscular Hemoglobin 30.2 pg Mean Corpuscular Hemoglobin Concent 34.1 g/dl Red Cell Distribution Width 16.1 % Platelet Count 201 10^3/UL Mean Platelet Volume 9.6 fl Immature Granulocytes % 0.300 % Neutrophils % 73.1 % Lymphocytes % 12.7 % Monocytes % 12.6 % Eosinophils % 0.8 % Basophils % 0.5 % Nucleated Red Blood Cells % 0.0 /100WBC Immature Granulocytes # 0.020 10^3/ul Neutrophils # 4.7 10^3/ul Lymphocytes # 0.8 10^3/ul Monocytes # 0.8 10^3/ul Eosinophils # 0.1 10^3/ul Basophils # 0.0 10^3/ul Nucleated Red Blood Cells # 0.0 10^3/ul Prothrombin Time 15.9 Sec Prothrombin Time Ratio 1.2 INR International Normalized Ratio 1.26 Sodium Level 141 mmol/L Potassium Level 3.6 mmol/L Chloride Level 101 mmol/L Carbon Dioxide Level 26 mmol/L Anion Gap 14 Blood Urea Nitrogen 18 mg/dl Creatinine 1.15 mg/dl Est Glomerular Filtrat Rate mL/min > 60 mL/min Glucose Level 171 mg/dl Calcium Level 10.2 mg/dl Total Bilirubin 2.8 mg/dl Direct Bilirubin 0.00 mg/dl Indirect Bilirubin 2.8 mg/dl Aspartate Amino Transf (AST/SGOT) 25 IU/L Alanine Aminotransferase (ALT/SGPT) 16 IU/L Alkaline Phosphatase 131 IU/L Troponin I 0.060 ng/ml B-Type Natriuretic Peptide 76602 PG/ML Total Protein 8.1 g/dl Albumin 4.4 g/dl Globulin 3.70 g/dl Albumin/Globulin Ratio 1.18 Urine Color YELLOW Urine Clarity CLEAR Urine pH 6.0 Urine Specific [place] 1.009 Urine Ketones TRACE mg/dL Urine Nitrite NEGATIVE mg/dL Urine Bilirubin NEGATIVE mg/dL Urine Urobilinogen NEGATIVE mg/dL Urine Leukocyte Esterase NEGATIVE D[place]/ul Urine Hemoglobin NEGATIVE mg/dL Urine Glucose NEGATIVE mg/dL Urine Total Protein NEGATIVE mg/dl Current Medications Medications Dose Sig/Tavon Start Time Status Last (Trade) Ordered Route PRN Stop Time Admin Dose Reason Admin Furosemide 40 mg ONCE ONCE 06/17/18 DC 06/17/18 (Lasix) IV 20:00 20:28 06/17/18 20:01 Procedures/MDM This is a 68 year old male who presents for evaluation of progressive shortness of breath. History and physical is most consistent with CHF. Low suspicion for PE. Will be treated with diuresis. XR shows pulmonary congestion. Patient will be admitted to tele obs under Dr. Wagner EKG: Rate/Rhythm: Electronic pacemaker QRS, ST, T-waves: No changes consistent w/ acute ischemia Impression: Paced rhythm no evidence of ischemia or arrhythmia Departure Diagnosis: Primary Impression: Shortness of breath Additional Impression: CHF (congestive heart failure) Heart failure type: systolic Heart failure chronicity: acute on chronic Qualified Codes: I50.23 - Acute on chronic systolic (congestive) heart failure Condition: Stable TONYA BRADFORD MD Jun 17, 2018 21:10
[2018-06-17 21:46] VITALS: BP 172/101; PULSE 60; RESP 22
[2018-06-17 21:48] VITALS: PULSE 60
--- NOTE | 2018-06-17 22:20 | NUR ---
Admitted pt from ER. Used phone interpolator for the admission question and assessment.
[2018-06-17 23:15] VITALS: BP 183/94; PULSE 90; RESP 20
[2018-06-18] VITALS (9 sets, daily range): BP systolic 121–151; BP diastolic 60–90; PULSE 60–68; RESP 18–20
[2018-06-18] MEDS ORDERED: ONDANSETRON 4 MG INJ IV PRN
[2018-06-18] MEDS ORDERED: ZOLPIDEM 5 MG TAB PO PRN
[2018-06-18] MEDS ORDERED: ACETAMINOPHEN 325 MG TAB PO PRN
[2018-06-18] MEDS ORDERED: traMADol 50 MG TAB PO PRN
[2018-06-18] MEDS ORDERED: morphine 4 MG/ML VIAL IV PRN ×2
--- NOTE | 2018-06-18 00:15 | NUR ---
Obtained admission order from Dr. Guthrie. Noted and carried out all orders
[2018-06-18] MEDS: METOPROLOL 50 MG TAB PO SCH ×2 (01:17→08:43)
[2018-06-18] MEDS: LISINOPRIL 20 MG TAB PO SCH ×2 (01:17→08:43)
[2018-06-18] MEDS: FUROSEMIDE 40 MG INJ IV SCH ×3 (05:33→16:15)
--- NOTE | 2018-06-18 06:21 | NUR ---
EOSS Pt AAo x4. No s/s of respiratory distress, pain or discomfort. No acute changes. Pt refuses bed alarm.He is able to walk steady to the bathroom. Educated pt on medication side effects and the risk for falls.
--- NOTE | 2018-06-18 08:39 | RADRPT ---
Echocardiogram Report Patient Name: LUISANA PERALTA Gender: Male Date: 1950 Study Date: 18-Jun-2018 Forging Machine Operator: Kimmie Youssef RD Location: 606[facility]A Ref. Physician: FEI WAGNER Quality: Adequate Procedures: Transthoracic echocardiogram with complete 2D, M-Mode, and doppler examination. Indications: Chest Pain . 2D/M Mode Doppler Measurement Value Normal Ranges Measurement Value Normal Ranges LVIDd 2D 5.7 3.5 - 5.6 cm AV Peak Justin 1.4 m/sec LVIDs 2D 4.2 2.1 - 4.1 cm AV Peak PG 8.0 mmHg LVPWd 2D 1.3 0.6 - 1.1 cm LVOT Peak Justin 0.8 m/sec IVSd 2D 1.1 0.6 - 1.1 cm LVOT Peak PG 2.0 mmHg AoR Diam 2D 3.2 2.0 - 3.7 cm MV E Peak Justin 1.1 m/sec LA/Ao 2D 2 0 - 1 MV A Peak Justin 0.4 m/sec LA Dimen 2D 5.1 2.3 - 4.0 cm MV E/A 2.8 MV Decel Time 225 msec Lat E` Justin 0.1 m/sec Lateral E/E` 22.3 Med E` Justin 0.0 m/sec MV E/A 2.8 TR Peak Justin 2.6 m/sec TR Peak PG 27.0 mmHg PV Peak Justin 1.3 m/sec PV Peak PG 7.0 mmHg RVSP 27.0 mmHg RA Pressure 3.0 Findings Left Ventricle: Normal left ventricular systolic function. Normal left ventricular cavity size. Mild concentric left ventricular hypertrophy. Paradoxical septal motion consistent with RV pacemaker. Ejection fraction is visually estimated at 35 %. Tissue Doppler/Mitral Doppler indices are within normal limits. Right Ventricle: Normal right ventricular size. Normal right ventricular systolic function. Left Atrium: The left atrium is normal in size. Right Atrium: The right atrium is normal in size. Mitral Valve: Normal appearance of the mitral valve. Trace mitral regurgitation. Aortic Valve: Normal appearance of the aortic valve. No aortic regurgitation. Tricuspid Valve: Normal appearance of the tricuspid valve. Estimated peak PA systolic pressure 30 mmHg. There is trace tricuspid regurgitation. Pulmonic Valve: Normal pulmonic valve appearance. No evidence of pulmonic regurgitation. Pericardium: Normal pericardium with no significant pericardial effusion. Aorta: Normal aortic root. IVC: Normal size and normal respiratory collapse consistent with normal right atrial pressure. Conclusions Normal left ventricular systolic function. Normal left ventricular cavity size. Mild concentric left ventricular hypertrophy. Paradoxical septal motion consistent with RV pacemaker. Ejection fraction is visually estimated at 35 %. Tissue Doppler/Mitral Doppler indices are within normal limits. Electronically Signed By: Vitor Powell 18-Jun-2018 08:38:31 -0800 Patient Name: LUISANA PERALTA Study Date: 18-Jun-2018 [id number]
[2018-06-18] MEDS ORDERED: METOLAZONE 5 MG TAB PO SCH (09:00)
[2018-06-18] MEDS ORDERED: APIXABAN 5 MG TABLET PO SCH (09:00)
[2018-06-18] MEDS ORDERED: POTASSIUM CHLORIDE (SR) 20 MEQ TAB PO SCH (09:00)
[2018-06-18] MEDS ORDERED: POTA20TA15 PO (09:41)
[2018-06-18] MEDS ORDERED: METO-429 PO (09:41)
[2018-06-18] MEDS ORDERED: FURO40TA4 PO (09:41)
--- NOTE | 2018-06-18 09:42 | PDOCDIS ---
Discharge Instructions CONDITION [id number] Patient Condition: [id number] Good HOME CARE INSTRUCTIONS: [id number] Diet Instructions: [id number] FOLLOW UP/APPOINTMENTS Follow-up Plan pcp 1 week cardiology 1 week FEI WAGNER MD Jun 18, 2018 09:42
--- NOTE | 2018-06-18 12:06 | HP ---
DATE OF ADMISSION: 06/17/2018 CHIEF COMPLAINT: Shortness of breath. HISTORY OF PRESENT ILLNESS: A 68-year-old male with a history of hypertension and ischemic cardiomyo sirena, status post ICD placement, presented to emergency room with complaint of progressive shortness of breath. There was no chest pain. There was no nausea, vomiting or diaphoresis. The patient was found to be in congestive heart failure exacerbation. BNP was elevated to 12,500. His serial tropo nins have been negative. A 2D echo showed decreased ejection fraction of about 30%. At the time of my visit, patient denies any shortness of breath or chest pain. PAST MEDICAL HISTORY: 1. Ischemic cardiomyopathy. 2. History of sick sinus syndrome. 3. Hypertension. 4. Chronic systolic congestive heart failure. PAST SURGICAL HISTORY: Status post ICD placement. MEDICATIONS PRIOR TO ADMISSION: 1. Flomax. 2. Eliquis. 3. Metolazone. 4. Lasix. 5. Hydralazine. 6. Lisinopril. 7. Tramadol. SOCIAL HISTORY: Patient lives at home. He denies tobacco or alcohol use. PHYSICAL EXAMINATION: GENERAL: Well-developed, well-nourished gentleman who is in no apparent distress. He is speaking go od Estonian. VITAL SIGNS: Stable. He is afebrile. HEENT: Extraocular muscles intact. Pupils are equal and reactive to light bilaterally. Sclerae are anicteric. Oropharynx is clear and moist. NECK: Supple, no JVD, no carotid bruits. LUNGS: Clear to auscultation bilaterally. CARDIAC: Regular rate and rhythm. No murmurs, rubs or gallops. ABDOMEN: Soft, nontender, nondistended, normoactive bowel sounds. EXTREMITIES: No clubbing, cyanosis, or edema. NEUROLOGICAL: Nonfocal. ASSESSMENT: 1. A 68-year-old male with acute CHF exacerbation. 2. Ischemic cardiomyopathy with an ejection fraction of 25% to 30%. 3. Hypertension. 4. Benign prostatic hyperplasia. 5. Chronic atrial fibrillation. PLAN: 1. Place in tele observation, IV Lasix. 2. Continue metolazone 3. Continue home medications. 4. The case was discussed with . Dictated By: FEI CABRERA/ALIE Conf#: [id number] [facility]#: [id number]
--- NOTE | 2018-06-18 12:11 | DS ---
DATE OF ADMISSION: 06/17/2018 DATE OF DISCHARGE: DISCHARGE DIAGNOSES: 1. Acute congestive heart failure exacerbation, combined systolic and diastolic. 2. Ischemic cardiomyopathy with ejection fraction of about 30%. 3. Poorly controlled hypertension. 4. Chronic atrial fibrillation. 5. Benign prostatic hyperplasia. PROCEDURES DURING HOSPITALIZATION: A 2-D echo. HOSPITAL COURSE: A 68-year-old male with chronic congestive heart failure and ischemic cardiomyopath y, status post ICD placement, presented to emergency room with complaint of progressive shortness of breath. Patient was diagnosed with acute systolic and diastolic congestive heart failure exacerbatio n. He received IV Lasix. Metolazone was resumed. I added metoprolol 50 mg twice daily for better b lood pressure control. A 2D echo showed EF of about 30%. The case was discussed with . Th e patient's condition improved during his short hospitalization. He is in a stable condition for dis charge. Lasix was increased to 40 mg twice daily. Patient will follow up with his PCP and cardiolog ist in 1 week. Dictated By: FEI CABRERA/NTS Conf#: [id number] DID#: [id number] CC: RONAK SUAREZ MD;*EndCC*
--- NOTE | 2018-06-18 14:35 | NUR ---
Case Mngt: Spoke with Christy/[facility] ([phone]) and informed her regarding DC order:Home w/ Home Health and will arrange home health. Charge nurse notified. Addendum: 06/18/18 at 1458 by MIKEY AHN CM Faxed home health order to Christy at [phone].
--- NOTE | 2018-06-18 16:32 | NUR ---
RN Notes patient awake in bed, aox4 able to make needs known, all due medications given, needs attended. o2 saturation 96% on room air, no SOB, no noted. DC packet given and discussed as well as the prescriptions. pt verbalized understanding. IV access removed, minimal bleeding noted. all belongings given back to the pt. pt's son Kishan aware and will pick his father in few mins. will continue to monitor belgian household appliance mechanic was used to facilitate communication
[2018-06-18] MEDS ORDERED: TAMSULOSIN (SR) 0.4 MG CAP PO SCH (21:00)
[2018-06-20] MEDS ORDERED: POTASSIUM CHLORIDE (SR) 20 MEQ TAB PO SCH (09:00)
== END 2018-06-18 17:20 | disposition home health service (06) ==
LOC: E/R 18:21 → 6WM 21:10
PROVIDERS: ADMIT Internal Medicine; ATTEND Internal Medicine
DX: I11.0 Hypertensive heart disease with heart failure (principal); I50.41 Acute combined systolic (congestive) and diastolic (congestive) heart failure; I25.5 Ischemic cardiomyopathy; I25.10 Atherosclerotic heart disease of native coronary artery without angina pectoris; N40.0 Benign prostatic hyperplasia without lower urinary tract symptoms; I48.2 Chronic atrial fibrillation; Z87.891 Personal history of nicotine dependence; Z86.73 Personal history of transient ischemic attack (TIA), and cerebral infarction without residual deficits; Z95.810 Presence of automatic (implantable) cardiac defibrillator; Z79.01 Long term (current) use of anticoagulants
CPT/HCPCS: 71045; 80053; 81003; 83880; 84484; 85025; 85610; 93306; 96374; 99285; G0378; J1940; 93005

== ENCOUNTER 2018-11-01 09:19 | Emergency (ER) | payer MEDICARE, BC ==
[~2018-11-01] VITALS: Ht 175.3 cm; Wt 80.0 kg
[~2018-11-01 09:19] MED LIST changes: -CEPH-443 PO; +METO-429 PO; +POTA20TA15 PO
[2018-11-01 09:27] VITALS: Ht 175.3 cm; Wt 80.0 kg
[2018-11-01] MEDS ORDERED: IPRATROPIUM (NEB) 0.5 MG/2.5 ML AMP INH STA (09:33)
[2018-11-01] MEDS ORDERED: ALBUTEROL 0.083% (NEB) 2.5 MG/3 ML AMP INH STA (09:33)
[2018-11-01 09:47] VITALS: BP 152/105; PULSE 66; RESP 18
[2018-11-01] MEDS ORDERED: FUROSEMIDE 40 MG INJ IV STA (10:48)
[2018-11-01] MEDS ORDERED: NITROGLYCERIN 2% 1 GM OINT PKT TD STA (10:48)
[2018-11-01] MEDS ORDERED: ACETAMINOPHEN 325 MG TAB PO PRN (11:00)
[2018-11-01] MEDS ORDERED: ONDANSETRON 4 MG INJ IV PRN (11:00)
--- NOTE | 2018-11-01 11:03 | ERD ---
ER Documentation Chief Complaint Chief Complaint SOB FROM HOME, HX COPD, ETOH ON BREATH HPI 68-year-old male presents to the emergency room complaining of shortness of breath. Patient is a difficult historian secondary to language barrier and what appears to be alcohol use. Via the forest ecology professor, patient reports being short of breath for the last few days. He reports a cough with no sputum production. He reports no significant chest pain or hemoptysis. He reports no fevers or chills. ROS All systems reviewed and are negative except as per history of present illness. Medications Home Meds Active Scripts Potassium Chloride* (K-Dur*) 20 Meq Tab.prt.sr, 20 MEQ PO DAILY for 30 Days Prov:FEI WAGNER MD 06/18/18 Metoprolol Tartrate* (Lopressor*) 50 Mg Tab, 50 MG PO BID for 30 Days, TAB Prov:FEI WAGNER MD 06/18/18 Furosemide* (Furosemide*) 40 Mg Tablet, 40 MG PO BID for 30 Days, TAB 3 Refills Prov:FEI WAGNER MD 06/18/18 Metolazone* (Metolazone*) 5 Mg Tablet, 5 MG PO DAILY for 30 Days, TAB 3 Refills Prov:ARY THOMPSON 05/12/18 Tramadol HCl (Tramadol HCl) 50 Mg Tablet, 50 MG PO Q12H PRN for PAIN, #20 TAB Prov:ARY THOMPSON 05/12/18 Spironolactone* (Aldactone*) 25 Mg Tablet, 25 MG PO DAILY for 30 Days, TAB 3 Refills Prov:ARY THOMPSON 05/12/18 Hydralazine Hcl* (Apresoline*) 50 Mg Tab, 50 MG PO TID for 30 Days, TAB 3 Refills Prov:ARY THOMPSON 05/12/18 Lisinopril* (Lisinopril*) 20 Mg Tablet, 20 MG PO BID for 30 Days, #60 TAB Prov:REMI RAMIREZ MD 03/09/18 Apixaban* (Eliquis*) 5 Mg Tablet, 5 MG PO BID for 30 Days, #60 TAB Prov:REMI RAMIREZ MD 03/09/18 Reported Medications Tamsulosin Hcl* (Tamsulosin Hcl*) 0.4 Mg Cap.er.24h, 0.4 MG ORAL HS 03/20/18 Allergies Allergies: Coded Allergies: No Known Allergies (Unverified Allergy, Unknown, 05/01/18) PMhx/Soc History of Surgery: Yes (craniotomy and pacemaker) Anesthesia Reaction: No Hx Neurological Disorder: No Hx Respiratory Disorders: No Hx Cardiac Disorders: Yes (HTN, CHFand Afib) Hx Psychiatric Problems: No Hx Miscellaneous Medical Probl: No Hx Alcohol Use: Yes (social) Hx Substance Use: No Hx Tobacco Use: No (former smoker) Smoking Status: Never smoker FmHx Unknown at this time Physical Exam Vitals Vital Signs Date Temp Pulse Resp B/P (MAP) Pulse Ox O2 O2 Flow FiO2 Time Delivery Rate 11/01/18 61 18 97 Nasal 2.5 10:06 Cannula 11/01/18 Nasal 3 09:54 Cannula 11/01/18 66 18 152/105 99 Nasal 3.0 09:47 (121) Cannula 11/01/18 98.1 61 18 174/112 95 09:27 (132) Physical Exam GENERAL: Ill-appearing 68-year-old with a smell of alcohol in his breath HEENT: Pupils equal, round, and reactive to light. EOMI. There is no scleral icterus. NECK: C-spine is soft and supple, there is no meningismus. There is no cervical lymphadenopathy. LUNGS: Tachypneic. No retractions or use of accessory muscles. Occasional wheezing bilaterally. Occasional crackle at the base. HEART: Regular rate and rhythm, no murmurs, clicks, rubs or gallops. ABDOMEN: Soft, non-tender, non-distended. There are bowel sounds in all four quadrants. No rebound or guarding. EXTREMITIES: 1+ edema bilaterally with no cyanosis or clubbing NEURO: The patient moves all four extremities with 5/5 strength. Cranial nerves II - XII are intact. Slurred speech, appears intoxicated SKIN: There is no apparent rash or petechiae. HEME/LYMPHATIC: There is no evidence of excessive bruising or lymphedema. PSYCHIATRIC: The patient does not appear anxious or depressed. Result Diagram: 11/01/1895411/01/18954 Results 24 hrs Laboratory Tests Test 11/01/18 09:47 11/01/18 09:55 POC Venous Lactate 1.8 mmol/L White Blood Count 5.7 10^3/ul Red Blood Count 5.26 10^6/ul Hemoglobin 15.3 g/dl Hematocrit 46.6 % Mean Corpuscular Volume 88.6 fl Mean Corpuscular Hemoglobin 29.1 pg Mean Corpuscular Hemoglobin Concent 32.8 g/dl Red Cell Distribution Width 16.9 % Platelet Count 172 10^3/UL Mean Platelet Volume 10.2 fl Immature Granulocytes % 0.300 % Neutrophils % 67.9 % Lymphocytes % 17.1 % Monocytes % 11.9 % Eosinophils % 2.3 % Basophils % 0.5 % Nucleated Red Blood Cells % 0.0 /100WBC Immature Granulocytes # 0.020 10^3/ul Neutrophils # 3.9 10^3/ul Lymphocytes # 1.0 10^3/ul Monocytes # 0.7 10^3/ul Eosinophils # 0.1 10^3/ul Basophils # 0.0 10^3/ul Nucleated Red Blood Cells # 0.0 10^3/ul Prothrombin Time 14.1 Sec Prothrombin Time Ratio 1.1 INR International Normalized Ratio 1.08 Activated Partial Thromboplast Time 34.0 Sec Sodium Level 147 mmol/L Potassium Level 4.4 mmol/L Chloride Level 111 mmol/L Carbon Dioxide Level 20 mmol/L Anion Gap 16 Blood Urea Nitrogen 20 mg/dl Creatinine 1.07 mg/dl Est Glomerular Filtrat Rate mL/min > 60 mL/min Glucose Level 127 mg/dl Calcium Level 8.8 mg/dl Total Bilirubin 1.2 mg/dl Direct Bilirubin 0.00 mg/dl Indirect Bilirubin 1.2 mg/dl Aspartate Amino Transf (AST/SGOT) 24 IU/L Alanine Aminotransferase (ALT/SGPT) 24 IU/L Alkaline Phosphatase 106 IU/L Troponin I 0.032 ng/ml B-Type Natriuretic Peptide 3530 PG/ML Total Protein 7.4 g/dl Albumin 4.0 g/dl Globulin 3.40 g/dl Albumin/Globulin Ratio 1.17 Current Medications Medications Dose Sig/Tavon Start Time Status Last (Trade) Ordered Route PRN Stop Time Admin Dose Reason Admin Albuterol 5 mg ONCE STAT 11/01/18 DC 11/01/18 (Proventil INH 09:33 10:05 0.083% (Neb)) 11/01/18 09:37 Ipratropium 0.5 mg ONCE STAT 11/01/18 DC 11/01/18 [place] INH 09:33 10:05 (Atrovent 11/01/18 09:37 0.02% (Neb)) 1 inch ONCE STAT 11/01/18 DC 11/01/18 Nitroglycerin TD 10:48 10:56 11/01/18 10:49 (Nitroglyceri n 2% Oint) Furosemide 40 mg ONCE STAT 11/01/18 DC 11/01/18 (Lasix) IV 10:48 10:56 11/01/18 10:49 Ondansetron 4 mg ER BRIDGE 11/01/18 HCl (Zofran PRN IV 11:00 Inj) NAUSEA/VOMITI 11/02/18 10:59 NG 650 mg ER BRIDGE 11/01/18 Acetaminophen PRN PO 11:00 (Tylenol .MILD PAIN 11/02/18 10:59 Tab) 1-3 OR TEMP Procedures/MDM Patient was taken to a room, seen and evaluated. Comfort measures were initiated. Diagnostic tests were ordered and reviewed. 3 LEAD RHYTHM STRIP: Paced rhythm EK lead EKG reviewed by myself: Paced rhythm Ventricular pacemaker morphology No ST elevation, depression, or T wave inversion Impression: Pacemaker RADIOLOGY: Reviewed with the radiologist CONSULTATION: Hospitalist was notified for admission REEVALUATION: 1105: Diagnostic tests were appreciated. Patient seemed to have some improvement with the albuterol as well as diuretics. He remained without hypoxemia but with the need for nasal cannula. His respiratory distress started to improve. MEDICAL DECISION MAKING: Patient presents for shortness of breath. Differential diagnosis entertained included asthma, pneumonia, other cardiac and pulmonary concerns. After reviewing the patient's diagnostic tests and clinical presentation, patient appears to have decompensated congestive heart failure complicated by his alcohol abuse. He is hypertensive which is starting to normalize. Parent does have a history of COPD as well which may be playing a role though this appe ars to be mostly CHF related. Patient will be admitted to the hospital for further diuresis, bronchodilator therapy as necessary, supportive measures as well as oxygen therapy. Departure Diagnosis: Primary Impression: Alcohol intoxication Additional Impressions: Acute on chronic combined systolic (congestive) and diastolic (congestive) heart failure Severe uncontrolled hypertension Condition: ALVIN Vargas Nov 01, 2018 11:03
[2018-11-01] MEDS ORDERED: ENAL5TAB PO (11:11)
[2018-11-01] MEDS ORDERED: HYDR-3672 PO (11:12)
[2018-11-01] MEDS ORDERED: METF500T24 PO (11:12)
[2018-11-01] MEDS ORDERED: ATOR20TA38 PO (11:13)
[2018-11-01] MEDS ORDERED: INSU100I27 SQ (11:13)
[2018-11-01] MEDS ORDERED: OMEP40CA6 PO (11:14)
== END 2018-11-01 12:35 | disposition left against medical advice (07) ==
LOC: E/R 09:19
DX: I50.43 Acute on chronic combined systolic (congestive) and diastolic (congestive) heart failure (principal); I10 Essential (primary) hypertension; F10.129 Alcohol abuse with intoxication, unspecified; R40.2142 Coma scale, eyes open, spontaneous, at arrival to emergency department; R40.2362 Coma scale, best motor response, obeys commands, at arrival to emergency department; R40.2252 Coma scale, best verbal response, oriented, at arrival to emergency department
CPT/HCPCS: 36415; 71045; 80053; 83605; 83880; 84484; 85025; 85610; 85730; 93005; 94664; 96374; 99285; J1940

== ENCOUNTER 2018-11-18 16:17 | Emergency (ER) | payer MEDICARE, BC ==
[~2018-11-18] VITALS: Ht 177.8 cm; Wt 94.4 kg
[~2018-11-18 16:17] MED LIST changes: +ATOR20TA38 PO; +ENAL5TAB PO; +INSU100I27 SQ; -LISI-471 PO; -METO5TAB65 PO; +OMEP40CA6 PO; -POTA20TA15 PO; -SPIR25TA PO; -TRAM50TA2 PO
[2018-11-18 16:22] VITALS: Ht 177.8 cm; Wt 94.4 kg
[2018-11-18] MEDS ORDERED: ALBUTEROL 0.5% (NEB) 2.5 MG/0.5 ML AMP INH STA (18:12)
[2018-11-18] MEDS ORDERED: FUROSEMIDE 40 MG INJ IV STA (18:12)
--- NOTE | 2018-11-18 18:12 | ERD ---
ER Documentation Chief Complaint Chief Complaint Pt reporting hyperglycemia, [place] and SOB since morning. HPI 68-year-old male history of ischemic cardiomyopathy with EF of 25 to 35% as well as AICD placement, sick sinus syndrome, COPD, CVA, diabetes mellitus type 2, ICH s/p craniotomy, chronic atrial fibrillation on Eliquis and chronic alcohol abuse presents to the ED complaining of a 1 day history of worsening shortness of breath and hyperglycemia. Denies chest pain or palpitations. No orthopnea or PND. No cough or hemoptysis. Denies leg pain or swelling. No abdominal pain, nausea, vomiting, diarrhea constipation. Mild, gradual onset frontal headache but no visual changes, focal weakness or numbness. No neck or back pain. No fevers or chills. Denies recent alcohol consumption. ROS All systems reviewed and are negative except as per history of present illness. Medications Home Meds Active Scripts Albuterol Sulfate* (Proair HFA*) 8.5 Gm Hfa.aer.ad, 2 PUFF INH Q4H PRN for WHEEZING AND SOB, #1 INHALER Prov:MARGAUX VORA MD 11/18/18 Metoprolol Tartrate* (Lopressor*) 50 Mg Tab, 50 MG PO BID for 30 Days, TAB Prov:FEI WAGNER MD 06/18/18 Furosemide* (Furosemide*) 40 Mg Tablet, 40 MG PO BID for 30 Days, TAB 3 Refills Prov:FEI WAGNER MD 06/18/18 Hydralazine Hcl* (Apresoline*) 50 Mg Tab, 50 MG PO TID for 30 Days, TAB 3 Refills Prov:ARY THOMPSON 05/12/18 Apixaban* (Eliquis*) 5 Mg Tablet, 5 MG PO BID for 30 Days, #60 TAB Prov:REMI RAMIREZ MD 03/09/18 Reported Medications Omeprazole* (Omeprazole*) 40 Mg Capsule.dr, 40 MG PO DAILY, #30 CAP 11/01/18 Atorvastatin Calcium* (Atorvastatin Calcium*) 20 Mg Tablet, 20 MG PO QHS, #30 TAB 11/01/18 Insulin Detemir (Levemir Flextouch) 100 Unit/1 Ml Insuln.pen, 30 UNIT SQ QHS, EA 11/01/18 Metformin Hcl* (Metformin Hcl*) 500 Mg Tablet, 500 MG PO WITH BREAKFAST DINNE, #60 TAB 11/01/18 Hydralazine Hcl* (Hydralazine Hcl*) 50 Mg Tab, 50 MG PO TID, #90 TAB 11/01/18 Enalapril Maleate* (Enalapril Maleate*) 5 Mg Tablet, 5 MG PO BID, TAB 11/01/18 Tamsulosin Hcl* (Tamsulosin Hcl*) 0.4 Mg Cap.er.24h, 0.4 MG ORAL HS 03/20/18 Allergies Allergies: Coded Allergies: No Known Allergies (Unverified Allergy, Unknown, 11/01/18) PMhx/Soc Reviewed History of Surgery: Yes (craniotomy and pacemaker) Anesthesia Reaction: No Hx Neurological Disorder: No Hx Respiratory Disorders: No Hx Cardiac Disorders: Yes (HTN, CHFand Afib) Hx Psychiatric Problems: No Hx Miscellaneous Medical Probl: No Hx Alcohol Use: Yes (social) Hx Substance Use: No Hx Tobacco Use: No (former smoker) FmHx No sudden cardiac or stroke Physical Exam Vitals Vital Signs Date Temp Pulse Resp B/P (MAP) Pulse Ox O2 O2 Flow FiO2 Time Delivery Rate 11/18/18 98.6 60 17 141/95 98 Room Air 21:09 (110) 11/18/18 59 17 137/88 98 Room Air 20:30 (104) 11/18/18 60 22 141/92 100 Room Air 20:00 (108) 11/18/18 99 2.0 19:36 11/18/18 60 26 99 Nasal 2.0 19:36 Cannula 11/18/18 60 20 143/94 99 19:30 (110) 11/18/18 60 26 140/100 99 Nasal 2.0 19:00 (113) Cannula 11/18/18 60 16 142/97 100 Room Air 18:31 (112) 11/18/18 98.3 60 24 133/81 96 16:22 (98) Physical Exam Const: Mild distress Head: Atraumatic. S/P craniotomy. Eyes: Normal Conjunctiva ENT: Normal External Ears, Nose and Mouth. Neck: Full range of motion. No JVD. No stridor. Resp: BS diminished bilaterally with mild expiratory wheezing. No rales or rhonchi. No use of accessory muscles of respiration. Cardio: Regular rate and rhythm, no murmurs Abd: Soft, non tender, non distended. No rebound or guarding. Normal bowel sounds Skin: No petechiae or rashes Back: No midline or flank tenderness Ext: No cyanosis, or edema. No calf swelling or tenderness. Neur: Awake and alert Psych: Cooperative. Not anxious or depressed Result Diagram: 11/18/18 1720 11/18/18 1813 Results 24 hrs Laboratory Tests Test 11/18/18 16:30 11/18/18 17:20 11/18/18 18:13 11/18/18 18:24 Bedside Glucose 203 mg/dL 192 mg/dL White Blood Count 6.7 10^3/ul Red Blood Count 5.64 10^6/ul Hemoglobin 16.6 g/dl Hematocrit 48.8 % Mean Corpuscular 86.5 fl Volume Mean Corpuscular 29.4 pg Hemoglobin Mean Corpuscular 34.0 g/dl Hemoglobin Concen t Red Cell 16.1 % Distribution Width Platelet Count 165 10^3/UL Mean Platelet 10.5 fl Volume Immature 0.600 % Granulocytes % Neutrophils % 72.9 % Lymphocytes % 15.0 % Monocytes % 9.5 % Eosinophils % 1.8 % Basophils % 0.2 % Nucleated Red 0.0 /100WBC Blood Cells % Immature 0.040 10^3/ul Granulocytes # Neutrophils # 4.9 10^3/ul Lymphocytes # 1.0 10^3/ul Monocytes # 0.6 10^3/ul Eosinophils # 0.1 10^3/ul Basophils # 0.0 10^3/ul Nucleated Red 0.0 10^3/ul Blood Cells # Sodium Level 139 mmol/L 139 mmol/L Potassium Level 4.0 mmol/L 4.5 mmol/L Chloride Level 103 mmol/L 103 mmol/L Carbon Dioxide 28 mmol/L 29 mmol/L Level Anion Gap 8 7 Blood Urea 28 mg/dl 28 mg/dl Nitrogen Creatinine 0.96 mg/dl 0.98 mg/dl Est Glomerular > 60 mL/min > 60 mL/min Filtrat Rate mL/min Glucose Level 219 mg/dl 216 mg/dl Calcium Level 9.2 mg/dl 9.2 mg/dl Urine Color YELLOW Urine Clarity CLEAR Urine pH 7.0 Urine Specific 1.019 [place] Urine Ketones NEGATIVE mg/dL Urine Nitrite NEGATIVE mg/dL Urine Bilirubin NEGATIVE mg/dL Urine 2+ mg/dL Urobilinogen Urine Leukocyte NEGATIVE Dickson/ul Esterase Urine Microscopic 0 /HPF RBC Urine Microscopic 1 /HPF WBC Urine Bacteria FEW /HPF Urine Hemoglobin NEGATIVE mg/dL Urine Glucose 1+ mg/dL Urine Total 1+ mg/dl Protein Total Bilirubin 1.6 mg/dl Direct Bilirubin 0.00 mg/dl Indirect 1.6 mg/dl Bilirubin Aspartate Amino 28 IU/L Transf (AST/SGOT) Alanine 33 IU/L Aminotransferase (ALT/SGPT) Alkaline 111 IU/L Phosphatase Troponin I 0.016 ng/ml Total Protein 7.2 g/dl Albumin 3.9 g/dl Globulin 3.30 g/dl Albumin/Globulin 1.18 Ratio Current Medications Medications Dose Sig/Tavon Start Time Status Last (Trade) Ordered Route PRN Stop Time Admin Dose Reason Admin Albuterol 15 mg ONCE STAT 11/18/18 DC 11/18/18 (Proventil INH 18:12 19:35 0.5% (Neb)) 11/18/18 18:14 Furosemide 40 mg ONCE STAT 11/18/18 DC 11/18/18 (Lasix) IV 18:12 18:43 11/18/18 18:14 Procedures/MDM DOCUMENTS REVIEWED: ED nurse, prior ED, prior records EKG: Time: 1823. Ventricular paced rhythm. No Sgarbossa criteria for isc hemia. No ectopy. My Interpretation IMAGING: Chest AP portable: Cardiomegaly. Costophrenic angles are clear. No effusions or infiltrates. No mediastinal widening. REEVALUATION: Time: 20:05. Asymptomatic. No shortness of breath. Lungs clear. No rales or rhonchi. VSS. O2 sat: 100% on RA. Requests discharge. MEDICAL DECISION MAKIN-year-old male history of ischemic cardiomyopathy with EF of 25 to 35% as well as AICD placement, sick sinus syndrome, COPD, CVA, diabetes mellitus type 2, ICH s/p craniotomy, chronic atrial fibrillation on Eliquis and chronic alcohol abuse presents to the ED complaining of a 1 day history of worsening shortness of breath and hyperglycemia. CBC unremarkable for anemia, leukocytosis or thrombocytopenia. Chemistry reveals mild hyperglycemia but no anion gap acidosis or acute electrolyte abnormalities. Troponin is not elevated. EKG reveals a paced rhythm with no criteria for ischemia. Chest x-ray does not show signs of congestive heart failure or pneumonia. Patient presents with shortness of breath secondary to COPD exacerbation and improved with nebulized beta agonists. Steroids deferred due to the risks of hyperglycemia. No indication for antibiotics. Pulmonary embolism is unlikely as the patient is already anticoagulated on apixaban. No chest pain, ischemic EKG changes or ACS. Possible small component of CHF but no evidence of significant volume overload. Patient complained of mild, gradual onset, frontal headache treated with acetaminophen. Headache is not consistent with intracranial hemorrhage and CT of the brain is not indicated in this patient with a long history of chronic headaches. Shared decision making regarding disposition. Patient called his son and told him he feels better and wants to go home. Stable for discharge with precautionary instructions and outpatient follow-up as counseled. Counseled patient and family regarding diagnostic workup, diagnosis and need for followup. Understands to return to ED if symptoms recur, worsen or any other concerns. Departure Diagnosis: Primary Impression: Acute dyspnea Additional Impressions: COPD exacerbation History of cardiomyopathy History of CHF (congestive heart failure) Hyperglycemia due to type 2 diabetes mellitus Diabetes mellitus long term care pharmacist insulin use: without long term care pharmacist use Qualified Codes: E11.65 - Type 2 diabetes mellitus with hyperglycemia Condition: Stable ([facility]) MARGAUX VORA MD Nov 18, 2018 18:12
[2018-11-18] MEDS ORDERED: ALBU8.5H8 INH (20:05)
[2018-11-18 21:09] VITALS: BP 141/95; PULSE 60; RESP 17
== END 2018-11-18 21:10 | disposition home or self-care (01) ==
LOC: E/R 16:17
DX: J44.1 Chronic obstructive pulmonary disease with (acute) exacerbation (principal); E11.65 Type 2 diabetes mellitus with hyperglycemia; I11.0 Hypertensive heart disease with heart failure; I50.9 Heart failure, unspecified; Z79.4 Long term (current) use of insulin; Z95.0 Presence of cardiac pacemaker; Z86.79 Personal history of other diseases of the circulatory system
CPT/HCPCS: 36415; 71045; 80048; 80053; 81001; 82962; 84484; 85025; 93005; 94644; 96374; 99285; J1940

== ENCOUNTER 2018-11-19 03:45 | Observation (INO) | payer MEDICARE, BC ==
[~2018-11-19] VITALS: Ht 177.8 cm; Wt 75.0 kg
[~2018-11-19 03:45] MED LIST changes: +ALBU8.5H8 INH
--- NOTE | 2018-11-19 03:53 | ERD ---
ER Documentation Chief Complaint Chief Complaint bib ra from home for sob, patient was recently discharged HPI This is a 68-year-old man with multiple medical conditions and multiple ER visits brought in by EMS for difficulty sleeping tonight and shortness of breath. 911 was called by his daughter who does not live with him, patient lives alone. Patient was just seen and evaluated a few hours ago in this emergency department a full work-up was performed and was unremarkable, he was given albuterol and furosemide and when symptoms improved he was discharged. Patient had complaints of continued shortness of breath. He was transported here without further complications ROS All systems reviewed and are negative except as per history of present illness. Medications Home Meds Active Scripts Albuterol Sulfate* (Proair HFA*) 8.5 Gm Hfa.aer.ad, 2 PUFF INH Q4H PRN for WHE EZING AND SOB, #1 INHALER Prov:MARGAUX VORA MD 11/18/18 Metoprolol Tartrate* (Lopressor*) 50 Mg Tab, 50 MG PO BID for 30 Days, TAB Prov:FEI WAGNER MD 06/18/18 Furosemide* (Furosemide*) 40 Mg Tablet, 40 MG PO BID for 30 Days, TAB 3 Refills Prov:FEI WAGNER MD 06/18/18 Hydralazine Hcl* (Apresoline*) 50 Mg Tab, 50 MG PO TID for 30 Days, TAB 3 Refills Prov:ARY THOMPSON 05/12/18 Apixaban* (Eliquis*) 5 Mg Tablet, 5 MG PO BID for 30 Days, #60 TAB Prov:REMI RAMIREZ MD 03/09/18 Reported Medications Omeprazole* (Omeprazole*) 40 Mg Capsule.dr, 40 MG PO DAILY, #30 CAP 11/01/18 Atorvastatin Calcium* (Atorvastatin Calcium*) 20 Mg Tablet, 20 MG PO QHS, #30 TAB 11/01/18 Insulin Detemir (Levemir Flextouch) 100 Unit/1 Ml Insuln.pen, 30 UNIT SQ QHS, EA 11/01/18 Metformin Hcl* (Metformin Hcl*) 500 Mg Tablet, 500 MG PO WITH BREAKFAST DINNE, #60 TAB 11/01/18 Hydralazine Hcl* (Hydralazine Hcl*) 50 Mg Tab, 50 MG PO TID, #90 TAB 11/01/18 Enalapril Maleate* (Enalapril Maleate*) 5 Mg Tablet, 5 MG PO BID, TAB 11/01/18 Tamsulosin Hcl* (Tamsulosin Hcl*) 0.4 Mg Cap.er.24h, 0.4 MG ORAL HS 03/20/18 Allergies Allergies: Coded Allergies: No Known Allergies (Unverified Allergy, Unknown, 11/01/18) PMhx/Soc ischemic cardiomyopathy with EF of 25 to 35% as well as AICD placement, sick sinus syndrome, COPD, CVA, diabetes mellitus type 2, chronic atrial fibrillation on Eliquis and chronic alcohol abuse History of Surgery: Yes (craniotomy and pacemaker) Anesthesia Reaction: No Hx Neurological Disorder: No Hx Respiratory Disorders: Yes (COPD) Hx Cardiac Disorders: Yes (HTN, CHF, and Afib) Hx Psychiatric Problems: No Hx Miscellaneous Medical Probl: No Hx Alcohol Use: Yes (social) Hx Substance Use: No Hx Tobacco Use: No (former smoker) Smoking Status: Current every day smoker Physical Exam Vitals Vital Signs Date Temp Pulse Resp B/P (MAP) Pulse Ox O2 O2 Flow FiO2 Time Delivery Rate 11/19/18 61 28 126/82 99 Venturi 8.0 04:11 (97) Mask 11/19/18 61 30 95 Nasal 3.0 04:02 Cannula 11/19/18 98.3 99 19 95/74 (81) 100 03:48 11/19/18 98.3 60 19 126/82 96 Nasal 03:48 (97) Cannula Physical Exam Const: Appears anxious, dyspneic, afebrile Resp: Crackles and wheezes throughout the lung hart, no stridor Cardio: Regular rate rhythm, no murmurs Ext: No cyanosis, or edema, calves symmetrical Neur: Awake and alert x2, no focal deficits or facial asymmetry, pupils equal round reactive to light Psych: Appears anxious Result Diagram: 11/19/18 0356 11/19/18 0356 Results 24 hrs Laboratory Tests Test 11/19/18 03:56 White Blood Count 8.2 10^3/ul Red Blood Count 5.24 10^6/ul Hemoglobin 15.4 g/dl Hematocrit 44.9 % Mean Corpuscular Volume 85.7 fl Mean Corpuscular Hemoglobin 29.4 pg Mean Corpuscular Hemoglobin Concent 34.3 g/dl Red Cell Distribution Width 16.6 % Platelet Count 153 10^3/UL Mean Platelet Volume 11.4 fl Immature Granulocytes % 0.700 % Neutrophils % 75.4 % Lymphocytes % 12.8 % Monocytes % 9.4 % Eosinophils % 1.3 % Basophils % 0.4 % Nucleated Red Blood Cells % 0.0 /100WBC Immature Granulocytes # 0.060 10^3/ul Neutrophils # 6.2 10^3/ul Lymphocytes # 1.1 10^3/ul Monocytes # 0.8 10^3/ul Eosinophils # 0.1 10^3/ul Basophils # 0.0 10^3/ul Nucleated Red Blood Cells # 0.0 10^3/ul Sodium Level 139 mmol/L Potassium Level 3.9 mmol/L Chloride Level 105 mmol/L Carbon Dioxide Level 24 mmol/L Anion Gap 10 Blood Urea Nitrogen 34 mg/dl Creatinine 0.98 mg/dl Est Glomerular Filtrat Rate mL/min > 60 mL/min Glucose Level 260 mg/dl Calcium Level 8.8 mg/dl Total Bilirubin 1.0 mg/dl Direct Bilirubin 0.00 mg/dl Indirect Bilirubin 1.0 mg/dl Aspartate Amino Transf (AST/SGOT) 23 IU/L Alanine Aminotransferase (ALT/SGPT) 30 IU/L Alkaline Phosphatase 96 IU/L Troponin I 0.028 ng/ml B-Type Natriuretic Peptide 3430 PG/ML Total Protein 6.2 g/dl Albumin 3.4 g/dl Globulin 2.80 g/dl Albumin/Globulin Ratio 1.21 Lipase 378 U/L Ethyl Alcohol Level < 10.0 mg/dl Current Medications Medications Dose Sig/Tavon Start Time Status Last (Trade) Ordered Route PRN Stop Time Admin Dose Reason Admin Albuterol 10 mg ONCE STAT 11/19/18 DC 11/19/18 (Proventil INH 03:54 04:02 0.5% (Neb)) 11/19/18 03:57 125 mg ONCE ONCE 11/19/18 DC 11/19/18 Methylprednis IV 05:00 05:00 olone Sodium 11/19/18 05:01 Succinate (Solu-Medrol) Procedures/MDM IV line was established patient was placed on windows application packager rhythm strip revealed a wide-complex regular rhythm at 60 bpm. Patient was afebrile Patient refused BiPAP therapy and tore off his mask although I did treat him here with albuterol 10 mg via nebulizer. EKG performed, read by me revealed a paced rhythm at 60 bpm, left axis deviation, bundle branch block, no concerning ST elevations or depressions noted, prolonged QT of 506 ms 1 view chest x-ray performed, read by me revealed cardiomegaly and congestion bilaterally, pacemaker in the left chest ABG performed, read by me revealed a pH of 7.49, PCO2 30, PO2 100, respiratory alkalosis CBC was unremarkable, electrolytes revealed dehydration with a BUN/creatinine of 34/1, liver function tests normal, troponin negative, BNP elevated over 3000 I also administered furosemide 40 mg IV x1 and methylprednisolone 125 mg IV x1 Patient will be admitted to telemetry setting for continued medical management and bronchodilator therapy, he will also require social insurance analyst consultation and evaluation of his living conditions, because he lives alone and this has been his third visit in 2 weeks to our ER Departure Diagnosis: Primary Impression: Shortness of breath Additional Impressions: Acute on chronic combined systolic (congestive) and diastolic (congestive) heart failure COPD (chronic obstructive pulmonary disease) COPD type: COPD with acute exacerbation Qualified Codes: J44.1 - Chronic obstructive pulmonary disease with (acute) exacerbation Acute dehydration Condition: TONYA Hampton MD Nov 19, 2018 03:53
[2018-11-19] MEDS ORDERED: ALBUTEROL 0.5% (NEB) 2.5 MG/0.5 ML AMP INH STA (03:54)
[2018-11-19] MEDS ORDERED: METHYLPREDNISOLONE 125 MG INJ IV ONE (05:00)
[2018-11-19] MEDS ORDERED: FUROSEMIDE 40 MG INJ IV ONE (05:30)
[2018-11-19 07:46] VITALS: BP 157/86; PULSE 60; RESP 18
[2018-11-19 09:26] VITALS: Ht 177.8 cm; Wt 75.0 kg
[2018-11-19] MEDS ORDERED: GLUCOSE GEL 15 GRAM TUBE PO PRN ×2 (10:00)
[2018-11-19] MEDS ORDERED: GLUCOSE GEL 15 GRAM TUBE BUCCAL PRN (10:00)
[2018-11-19] MEDS ORDERED: DEXTROSE 50% 50 ML SYRINGE IV PRN ×2 (10:00)
[2018-11-19] MEDS ORDERED: GLUCAGON 1 MG INJ IM PRN (10:00)
[2018-11-19] MEDS: FUROSEMIDE 40 MG INJ IV SCH ×2 (10:34→17:43)
[2018-11-19] MEDS: METOPROLOL 50 MG TAB PO SCH ×2 (10:35→21:00)
[2018-11-19] MEDS: PANTOPRAZOLE (EC) 40 MG TAB PO SCH (10:35)
[2018-11-19] MEDS: ENALAPRIL 5 MG TAB PO SCH ×2 (11:56→21:14)
[2018-11-19] MEDS: INSULIN ASPART [NOVOLOG] 3 ML PEN SC SCH ×3 (12:09→21:31)
[2018-11-19 12:52] VITALS: BP 147/78; PULSE 70; RESP 18
[2018-11-19 15:43] VITALS: BP 146/93; PULSE 60; RESP 18
--- NOTE | 2018-11-19 16:19 | HP ---
DATE OF ADMISSION: 11/19/2018 CHIEF COMPLAINT: Shortness of breath. HISTORY OF PRESENT ILLNESS: A 68-year-old male with a history of severe cardiomyopathy and EF of abo ut 30%, was brought back to the emergency room after his daughter called 911. The patient lives bassem . He developed shortness of breath and dyspnea on exertion. Patient is [place] speaking. Initial evaluation revealed evidence of acute respiratory distress. BNP was elevated at 3430. Troponin was normal. Renal function was normal. Chest x-ray showed no evidence of acute cardiopulmonary disease. Cardiac silhouette was enlarged. PAST MEDICAL HISTORY: 1. Ischemic cardiomyopathy. 2. Hypertension. 3. Type 2 diabetes mellitus. 4. Chronic atrial fibrillation. 5. COPD. 6. Old cerebrovascular accident. MEDICATIONS PRIOR TO ADMISSION: 1. Albuterol. 2. Lopressor. 3. Lasix. 4. Hydralazine. 5. Eliquis. 6. Omeprazole. 7. Lipitor. 8. Insulin. 9. Metformin. 10. Hydralazine. 11. Enalapril. 12. Flomax. ALLERGIES: THE PATIENT HAS NO KNOWN DRUG ALLERGIES. PAST SURGICAL HISTORY: Status post craniotomy, status post pacemaker placement. PHYSICAL EXAMINATION: GENERAL: Well-developed, well-nourished male who is in no apparent distress. VITAL SIGNS: Stable. He is afebrile. HEENT: Extraocular muscles intact. Pupils equal and reactive to light bilaterally. Sclerae are ani cteric. Oropharynx is clear and moist. NECK: Supple, no JVD, no carotid bruits. LUNGS: Bibasilar crackles with diffuse rhonchi. CARDIAC: Regular rate and rhythm. No murmurs, rubs or gallops. ABDOMEN: Soft, nontender, nondistended, normoactive bowel sounds. EXTREMITIES: No clubbing, cyanosis, or edema. NEUROLOGICAL: Grossly nonfocal. LABORATORY DATA: WBC 8.2, hemoglobin 15.4, platelet count 153,000. BMP within normal limits except a glucose of 260. ASSESSMENT: 1. A 68-year-old male with acute systolic congestive heart failure exacerbation. 2. Ischemic cardiomyopathy with ejection fraction 25% to 30%. 3. Hypertension. 4. Type 2 diabetes mellitus. 5. Hyperlipidemia. 6. Chronic atrial fibrillation. 7. Benign prostatic hyperplasia. PLAN: 1. Place in [facility] [place], IV Lasix. 2. Resume selective home medications. Discharge planning in a.. Dictated By: FEI CABRERA/ALIE Conf#: [id number] DID#: [id number]
[2018-11-19] MEDS: metFORMIN 500 MG TAB PO SCH (17:20)
[2018-11-19 19:59] VITALS: BP 131/85; PULSE 60; RESP 18
[2018-11-19] MEDS ORDERED: INSULIN GLARGINE [LANTus] (100 UNITS/ML) SYG SC SCH (21:00)
[2018-11-19] MEDS ORDERED: TAMSULOSIN (SR) 0.4 MG CAP PO SCH (21:00)
[2018-11-19] MEDS ORDERED: ATORVASTATIN 20 MG TAB PO SCH (21:00)
[2018-11-19 23:57] VITALS: BP 126/80; PULSE 54; RESP 18
[2018-11-20 04:05] VITALS: BP 105/59; PULSE 61; RESP 20
[2018-11-20] MEDS: PANTOPRAZOLE (EC) 40 MG TAB PO SCH (06:48)
[2018-11-20] MEDS: FUROSEMIDE 40 MG INJ IV SCH (06:49)
[2018-11-20 07:49] VITALS: BP 116/74; PULSE 71; RESP 18
[2018-11-20] MEDS: INSULIN ASPART [NOVOLOG] 3 ML PEN SC SCH ×2 (08:15→11:36)
[2018-11-20] MEDS: metFORMIN 500 MG TAB PO SCH (08:22)
[2018-11-20] MEDS: METOPROLOL 50 MG TAB PO SCH (08:22)
[2018-11-20] MEDS: ENALAPRIL 5 MG TAB PO SCH (08:23)
--- NOTE | 2018-11-20 10:12 | PDOCDIS ---
Discharge Instructions CONDITION [id number] Patient Condition: [id number] Good HOME CARE INSTRUCTIONS: [id number] Diet Instructions: [id number] Activity Restrictions: [id number] Slowly Increase Activity FOLLOW UP/APPOINTMENTS Follow-up Plan pcp 1 week cardiology 1 week OTHER ORDERS: Other Orders: fluid restriction 1200 cc per day FEI WAGNER MD Nov 20, 2018 10:12
--- NOTE | 2018-11-20 10:32 | DS ---
DATE OF ADMISSION: 11/19/2018 DATE OF DISCHARGE: DISCHARGE DIAGNOSES: A 68-year-old male with: 1. Acute systolic congestive heart failure exacerbation. 2. Ischemic cardiomyopathy with ejection fraction of 25% to 30%. 3. Hypertension. 4. Type 2 diabetes mellitus. 5. Hyperlipidemia. 6. Chronic atrial fibrillation, rate controlled. 7. Benign prostatic hyperplasia. 8. Noncompliance with medical therapy and followup. HOSPITAL COURSE: A 68-year-old male with multiple other medical problems including severe ischemic c ardiomyopathy with ejection fraction of 25% to 30%, was brought back to the emergency room after his daughter called 911. The patient lives alone. He developed shortness of breath and dyspnea on exert ion. He was diagnosed with acute CHF exacerbation. Patient received IV Lasix following admission. His home medications were resumed. His condition improved during the hospitalization. Patient is in stable condition for discharge if his room air saturation is adequate. I encouraged him to remain co mpliant with his medical therapy. Home health services were ordered. I left a message with his daug Mayra roberts. MEDICATIONS ON DISCHARGE: 1. Albuterol inhaler as needed. 2. Eliquis 5 mg b.i.d. 3. Lipitor 20 mg at bedtime. 4. Enalapril 5 mg b.i.d. 5. Lasix 40 mg b.i.d. 6. Hydralazine 50 mg t.i.d. 7. Levemir insulin 10 units at bedtime. 8. Metformin 500 mg b.i.d. 9. Lopressor 50 mg b.i.d. 10. Omeprazole 40 mg daily. 11. Flomax 0.4 mg at bedtime. Follow up with PCP in 1 week. Follow up with Dr. Zuniga in 1 week. Comply with a 2 gram sodium diabetic diet and fluid restriction of 1200 mL per day. Dictated By: FEI CABRERA/ALIE Conf#: [id number] DID#: [id number] CC: DONG ZUNIGA DO;*EndCC*
[2018-11-20] MEDS ORDERED: OMEP40CA6 PO (10:35)
[2018-11-20] MEDS ORDERED: FURO40TA4 PO (10:37)
[2018-11-20 12:15] VITALS: BP 118/73; PULSE 69; RESP 18
[2018-11-30] MEDS ORDERED: ENAL5TAB PO (10:59)
== END 2018-11-20 12:52 | disposition home health service (06) ==
LOC: E/R 03:45 → INTOOBSV 05:10 → TEL 05:10
PROVIDERS: ADMIT Internal Medicine; ATTEND Internal Medicine
DX: I11.0 Hypertensive heart disease with heart failure (principal); I50.21 Acute systolic (congestive) heart failure; I25.5 Ischemic cardiomyopathy; E11.9 Type 2 diabetes mellitus without complications; E78.5 Hyperlipidemia, unspecified; I48.2 Chronic atrial fibrillation; N40.0 Benign prostatic hyperplasia without lower urinary tract symptoms; J44.9 Chronic obstructive pulmonary disease, unspecified; Z91.14 Patient's other noncompliance with medication regimen; Z95.810 Presence of automatic (implantable) cardiac defibrillator; Z86.73 Personal history of transient ischemic attack (TIA), and cerebral infarction without residual deficits; Z79.01 Long term (current) use of anticoagulants; Z87.891 Personal history of nicotine dependence; Z79.4 Long term (current) use of insulin
CPT/HCPCS: 36415; 36600; 80048; 80053; 80307; 82803; 82962; 83690; 83880; 84484; 85025; 93005; 94644; 96374; 97161; 99285; G0378; J1815; J1940; J2930; 99217

== ENCOUNTER 2018-11-29 21:26 | Observation (INO) | payer MEDICARE, BC ==
[~2018-11-29] VITALS: Ht 177.8 cm; Wt 75.0 kg
[2018-11-29 21:33] VITALS: Ht 177.8 cm; Wt 75.0 kg
[2018-11-29] MEDS ORDERED: FUROSEMIDE 100 MG INJ IV STA (23:32)
[2018-11-29] MEDS ORDERED: FUROSEMIDE 40 MG INJ IV ONE (23:39)
[2018-11-30] MEDS ORDERED: ONDANSETRON 4 MG INJ IV STA (00:37)
[2018-11-30] MEDS ORDERED: ONDANSETRON 4 MG INJ IV PRN (03:30)
[2018-11-30] MEDS ORDERED: ACETAMINOPHEN 325 MG TAB PO PRN ×2 (03:30→04:00)
--- NOTE | 2018-11-30 03:38 | ERD ---
ER Documentation Chief Complaint Chief Complaint BIB-RA nausea w/labored breathing just now;hx CHF,pacemaker,COPD,DM HPI This is a 68-year-old male who comes in with shortness of breath. Patient has history of CHF and COPD. He is otherwise well nausea. Denies any chest pain. Denies any fevers or chills. Denies any other current complaints. ROS All systems reviewed and are negative except as per history of present illness. Medications Home Meds Active Scripts Furosemide* (Furosemide*) 40 Mg Tablet, 40 MG PO BID for 30 Days, TAB 3 Refills Prov:FEI WAGNER MD 11/20/18 Omeprazole* (Omeprazole*) 40 Mg Capsule.dr, 40 MG PO DAILY, #30 CAP Prov:FEI WAGNER MD 11/20/18 Albuterol Sulfate* (Proair HFA*) 8.5 Gm Hfa.aer.ad, 2 PUFF INH Q4H PRN for WHEEZING AND SOB, #1 INHALER Prov:MARGAUX VORA MD 11/18/18 Metoprolol Tartrate* (Lopressor*) 50 Mg Tab, 50 MG PO BID for 30 Days, TAB Prov:FEI WAGNER MD 06/18/18 Hydralazine Hcl* (Apresoline*) 50 Mg Tab, 50 MG PO TID for 30 Days, TAB 3 Refills Prov:ARY THOMPSON 05/12/18 Apixaban* (Eliquis*) 5 Mg Tablet, 5 MG PO BID for 30 Days, #60 TAB Prov:REMI RAMIREZ MD 03/09/18 Reported Medications Atorvastatin Calcium* (Atorvastatin Calcium*) 20 Mg Tablet, 20 MG PO QHS, #30 TAB 11/01/18 Insulin Detemir (Levemir Flextouch) 100 Unit/1 Ml Insuln.pen, 30 UNIT SQ QHS, EA 11/01/18 Metformin Hcl* (Metformin Hcl*) 500 Mg Tablet, 500 MG PO WITH BREAKFAST DINNE, #60 TAB 11/01/18 Hydralazine Hcl* (Hydralazine Hcl*) 50 Mg Tab, 50 MG PO TID, #90 TAB 11/01/18 Enalapril Maleate* (Enalapril Maleate*) 5 Mg Tablet, 5 MG PO BID, TAB 11/01/18 Tamsulosin Hcl* (Tamsulosin Hcl*) 0.4 Mg Cap.er.24h, 0.4 MG ORAL HS 03/20/18 Allergies Allergies: Coded Allergies: No Known Allergies (Unverified Allergy, Unknown, 11/01/18) PMhx/Soc History of Surgery: Yes (Craniotomy, AICD placement) Anesthesia Reaction: No Hx Neurological Disorder: Yes (CVA) Hx Respiratory Disorders: Yes (COPD ) Hx Cardiac Disorders: Yes (Hypertension, CHF, A-Fib) Hx Psychiatric Problems: No Hx Miscellaneous Medical Probl: Yes (pls see EMR) Hx Alcohol Use: Yes Hx Substance Use: No Hx Tobacco Use: Yes Smoking Status: Unknown if ever smoked Physical Exam Vitals Vital Signs Date Temp Pulse Resp B/P (MAP) Pulse Ox O2 O2 Flow FiO2 Time Delivery Rate 11/30/18 60 22 168/94 96 Room Air 01:20 (118) 11/29/18 60 30 171/103 98 Nasal 2.0 23:32 (125) Cannula 11/29/18 99.0 60 40 188/95 95 21:33 (126) Physical Exam Const: No acute distress Head: Atraumatic Eyes: Normal Conjunctiva ENT: Normal External Ears, Nose and Mouth. Neck: Full range of motion. No meningismus. Resp: Clear to auscultation bilaterally Cardio: Regular rate and rhythm, no murmurs Abd: Soft, non tender, non distended. Normal bowel sounds Skin: No petechiae or rashes Back: No midline or flank tenderness Ext: No cyanosis, or edema Neur: Awake and alert Psych: Normal Mood and Affect Result Diagram: 11/29/18 2348 11/29/18 2348 Results 24 hrs Laboratory Tests Test 11/29/18 23:48 11/29/18 23:55 White Blood Count 7.0 10^3/ul Red Blood Count 5.25 10^6/ul Hemoglobin 15.4 g/dl Hematocrit 45.6 % Mean Corpuscular Volume 86.9 fl Mean Corpuscular Hemoglobin 29.3 pg Mean Corpuscular Hemoglobin Concent 33.8 g/dl Red Cell Distribution Width 17.2 % Platelet Count 163 10^3/UL Mean Platelet Volume 10.6 fl Immature Granulocytes % 0.400 % Neutrophils % 80.9 % Lymphocytes % 7.4 % Monocytes % 10.5 % Eosinophils % 0.4 % Basophils % 0.4 % Nucleated Red Blood Cells % 0.0 /100WBC Immature Granulocytes # 0.030 10^3/ul Neutrophils # 5.6 10^3/ul Lymphocytes # 0.5 10^3/ul Monocytes # 0.7 10^3/ul Eosinophils # 0.0 10^3/ul Basophils # 0.0 10^3/ul Nucleated Red Blood Cells # 0.0 10^3/ul Prothrombin Time 14.5 Sec Prothrombin Time Ratio 1.1 INR International Normalized Ratio 1.12 Activated Partial Thromboplast Time 37.1 Sec Sodium Level 140 mmol/L Potassium Level 4.4 mmol/L Chloride Level 104 mmol/L Carbon Dioxide Level 19 mmol/L Anion Gap 17 Blood Urea Nitrogen 24 mg/dl Creatinine 1.07 mg/dl Est Glomerular Filtrat Rate mL/min > 60 mL/min Glucose Level 155 mg/dl Calcium Level 9.1 mg/dl Total Bilirubin 2.2 mg/dl Direct Bilirubin 0.00 mg/dl Indirect Bilirubin 2.2 mg/dl Aspartate Amino Transf (AST/SGOT) 28 IU/L Alanine Aminotransferase (ALT/SGPT) 27 IU/L Alkaline Phosphatase 118 IU/L Troponin I 0.047 ng/ml B-Type Natriuretic Peptide 6100 PG/ML Total Protein 7.4 g/dl Albumin 4.3 g/dl Globulin 3.10 g/dl Albumin/Globulin Ratio 1.38 POC Venous Lactate 1.9 mmol/L Current Medications Medications Dose Sig/Tavon Start Time Status Last (Trade) Ordered Route PRN Stop Time Admin Dose Reason Admin Furosemide 80 mg ONCE STAT 11/29/18 Cancel (Lasix) IV 23:32 11/29/18 23:33 Furosemide 80 mg ONCE ONCE 11/29/18 DC 11/29/18 (Lasix) IV 23:39 23:49 11/29/18 23:40 Ondansetron 4 mg ONCE STAT 11/30/18 DC 11/30/18 HCl (Zofran IV 00:37 00:42 Inj) 11/30/18 00:38 Ondansetron 4 mg ER BRIDGE 11/30/18 HCl (Zofran PRN IV 03:30 Inj) NAUSEA/VOMITI 12/01/18 03:29 NG 650 mg ER BRIDGE 11/30/18 Acetaminophen PRN PO 03:30 (Tylenol .MILD PAIN 7/12/19 03:29 Tab) 1-3 OR TEMP Procedures/MDM EKG: Rate/Rhythm: [Normal Sinus Rhythm] QRS, ST, T-waves: [No changes consistent w/ acute ischemia] Impression: [No evidence of ischemia or arrhythmia] Chest X-ray 1V Interpreted by me: Soft Tissue: No acute abnormalities Bones: No acute abnormalities Mediastinum/Cardiac Silhouette/Lungs: Increased interstitial fluid markings. Impression: CHF Medical decision making: Patient's heart failure symptoms is concerning for acute decompensation and will require inpatient workup and monitoring. Further w/u for ischemia, arrhythmia, PE or dissection will be deferred to the inpatient team. Accepting Care Team: Current data and ongoing care discussed. Time: 3:15 AM Primary Provider: Dr. Harrison Consulting: Deferred to inpatient team Outstanding Data: none Departure Diagnosis: Primary Impression: Acute on chronic combined systolic (congestive) and diastolic (congestive) heart failure Condition: Serious ENRICO FRANCO Nov 30, 2018 03:38
[2018-11-30] MEDS ORDERED: DOCUSATE SODIUM 100 MG CAP PO PRN (04:00)
[2018-11-30] MEDS ORDERED: NACL 0.9% 3 ML SYG IV SCH (04:00)
[2018-11-30] MEDS ORDERED: FAMOTIDINE 20 MG TAB PO SCH (04:00)
[2018-11-30] MEDS ORDERED: ACCU-CHEK XX SCH (07:00)
[2018-11-30] MEDS ORDERED: metFORMIN 500 MG TAB PO SCH ×2 (08:00→18:00)
[2018-11-30] MEDS ORDERED: FUROSEMIDE 40 MG INJ IV ONE (08:00)
[2018-11-30] MEDS ORDERED: metFORMIN 500 MG TAB PO ONE (08:30)
[2018-11-30] MEDS ORDERED: APIXABAN 5 MG TABLET PO SCH (09:00)
[2018-11-30] MEDS ORDERED: METOPROLOL 50 MG TAB PO SCH (09:00)
[2018-11-30] MEDS ORDERED: FUROSEMIDE 40 MG TAB PO SCH (09:00)
[2018-11-30] MEDS ORDERED: ENALAPRIL 5 MG TAB PO SCH (09:00)
--- NOTE | 2018-11-30 11:01 | PDOCDIS ---
Discharge Instructions CONDITION [id number] Patient Condition: [id number] Good HOME CARE INSTRUCTIONS: [id number] Diet Instructions: [id number] Activity Restrictions: Ifoxv6s Slowly Increase Activity FOLLOW UP/APPOINTMENTS Follow-up Plan pcp [address] Zuniga 1 week OTHER ORDERS: Other Orders: fluid restriction 1200 cc per day FEI WAGNER MD Nov 30, 2018 11:01
[2018-11-30 12:42] VITALS: BP 139/98; PULSE 60; RESP 20
--- NOTE | 2018-11-30 12:53 | HP ---
DATE OF ADMISSION: 11/29/2018 CHIEF COMPLAINT: Shortness of breath. HISTORY OF PRESENT ILLNESS: This is a 68-year-old male with known history of ischemic cardiomyopathy and chronic congestive heart failure, was brought in by the paramedics for labored breathing. The p atient denies any chest pain. He is noncompliant with his medical therapy and fluid restriction. In itial evaluation revealed evidence of acute congestive heart failure exacerbation. BNP was elevated to 6100. The patient received diuretic therapy with significant improvement in his symptoms. PAST MEDICAL HISTORY: 1. Ischemic cardiomyopathy. 2. Chronic systolic congestive heart failure. 3. Hypertension. 4. Paroxysmal atrial fibrillation. PAST SURGICAL HISTORY: Status post craniotomy, status post ICD placement. MEDICATIONS PRIOR TO ADMISSION: 1. Lasix 40 mg b.i.d. 2. Omeprazole 40 mg daily. 3. Albuterol inhaler. 4. Metoprolol 50 mg b.i.d. 5. Hydralazine 50 mg t.i.d. 6. Eliquis 5 mg b.i.d. 7. Lipitor 20 mg at bedtime. 8. Levemir insulin 30 units at bedtime. 9. Metformin 500 mg b.i.d. 10. Enalapril 5 mg b.i.d. 11. Flomax 0.4 mg daily. ALLERGIES: THE PATIENT HAS NO KNOWN DRUG ALLERGIES. SOCIAL HISTORY: Patient lives at home. He denies tobacco or alcohol use. PHYSICAL EXAMINATION: GENERAL: Well-developed, well-nourished male who is in no apparent distress. VITAL SIGNS: Blood pressure 134/88, pulse 60, respiration 20, room air saturation was 98%. HEENT: Extraocular muscles intact. Pupils equal and reactive to light bilaterally. Sclerae are ani cteric. Oropharynx is clear and moist. NECK: Supple, no JVD, no carotid bruits. LUNGS: Clear to auscultation bilaterally. CARDIAC: Regular rate and rhythm. No murmurs or gallops. ABDOMEN: Soft, nontender, nondistended, normoactive bowel sounds. EXTREMITIES: Mild pedal edema. BMP was within normal limits. CBC was within normal limits. Chest x-ray was consistent with pulmonary vascular congestion. ASSESSMENT: 1. A 68-year-old male with acute CHF exacerbation which is combined systolic and diastolic. 2. Ischemic cardiomyopathy. 3. Hypertension. 4. Chronic atrial fibrillation, rate controlled. 5. Benign prostatic hyperplasia. 6. Noncompliance with medical therapy and fluid restriction. PLAN: Place in tele observation. Continue diuresis. Resume home medications. DISCHARGE PLANNING: To home. I will ask health social work professor to follow him as outpatient. Dictated By: FEI CABRERA/ALIE Conf#: [id number] DID#: [id number]
[2018-11-30] MEDS ORDERED: ATORVASTATIN 20 MG TAB PO SCH (21:00)
[2018-11-30] MEDS ORDERED: INSULIN GLARGINE [LANTus] (100 UNITS/ML) SYG SC SCH (21:00)
[2018-11-30] MEDS ORDERED: INSULIN DETEMIR [LEVEMIR] 3ML CART SC SCH (21:00)
[2018-11-30] MEDS ORDERED: TAMSULOSIN (SR) 0.4 MG CAP PO SCH (21:00)
[2018-12-01] MEDS ORDERED: FUROSEMIDE 40 MG TAB PO SCH (06:00)
--- NOTE | 2018-12-09 04:07 | DS ---
DATE OF ADMISSION: 11/29/2018 DATE OF DISCHARGE: 11/30/2018 DISCHARGE DIAGNOSES: 1. A 68-year-old male with acute combine systolic and diastolic congestive heart failure exacerbatio n, resolved. 2. Ischemic cardiomyopathy. 3. Hypertension. 4. Chronic atrial fibrillation. 5. Benign prostatic hyperplasia. 6. Noncompliant with medical therapy and dietary restriction. HOSPITAL COURSE: A 68-year-old male well known to me from multiple previous admissions with ischemic cardiomyopathy and chronic congestive heart failure, presented to emergency room with labored bleedi ng. The patient is known to be noncompliant with his medical therapy and fluid restriction. Initial evaluation revealed evidence of congestive heart failure exacerbation. BNP was elevated to 6100. T he patient received IV diuretic therapy. At the time of my visit, he was asymptomatic. He received more IV diuresis prior to discharge. The patient was discharged home in a stable condition. He does not speak Japanese. Using a delivery agent, I emphasized compliance with medication and fluid restrictio n. The patient will be referred to social media marketing analyst as outpatient. He will follow up with his PCP and tube trailer filler. Dictated By: FEI CABRERA/ALIE Conf#: [id number] DID#: [id number]
== END 2018-11-30 12:46 | disposition home health service (06) ==
LOC: E/R 21:26 → CANBEDREQ 11-30 02:08 → TEL 11-30 03:23 → CANBEDREQ 11-30 11:58 → E/R 11-30 12:46
PROVIDERS: ADMIT Internal Medicine; ATTEND Internal Medicine
DX: I11.0 Hypertensive heart disease with heart failure (principal); I50.43 Acute on chronic combined systolic (congestive) and diastolic (congestive) heart failure; J44.9 Chronic obstructive pulmonary disease, unspecified; I25.5 Ischemic cardiomyopathy; I48.2 Chronic atrial fibrillation; Z86.73 Personal history of transient ischemic attack (TIA), and cerebral infarction without residual deficits; Z95.810 Presence of automatic (implantable) cardiac defibrillator; Z79.01 Long term (current) use of anticoagulants; N40.0 Benign prostatic hyperplasia without lower urinary tract symptoms; Z91.14 Patient's other noncompliance with medication regimen; Z91.11 Patient's noncompliance with dietary regimen
CPT/HCPCS: 36415; 71045; 80048; 80053; 82962; 83036; 83605; 83880; 84443; 84484; 85025; 85610; 85730; 93005; 96374; 96375; 99285; G0378; J1940; J2405